=== PATIENT | male | born 1965 | race Caucasian/White ===

== ENCOUNTER 2019-01-22 15:17 | Inpatient (IN) ==
[2019-01-22 15:51] LABS: Basophils # (auto) 0.01 K/uL (0-0.2); Basophils % (auto) 0.1 %; Eosinophils # (auto) 0.09 K/uL (0-0.5); Eosinophils % (auto) 0.9 %; Hematocrit (blood only) 41.4 % (42-52); Hemoglobin 13.9 g/dL (14.0-18.0); Immature Granulocytes # (auto) 0.03 K/uL (0.00-0.02); Immature Granulocytes % (auto) 0.3 %; Lymphocytes # (auto) 0.54 K/uL (1.2-3.4); Lymphocytes % (auto) 5.7 %; Mean Corpuscular Hgb Conc 33.6 g/dL (32-36); Mean Platelet Volume 10.5 fL (7.4-10.4); Monocytes # (auto) 0.18 K/uL (0.11-0.59); Monocytes % (auto) 1.9 %; Neutrophils # (auto) 8.66 K/uL (1.4-6.5); Neutrophils % (auto) 91.1 %; Platelet Count 227 K/uL (130-400); RDW Coefficient of Variation 13.3 % (11.5-14.5); RDW Standard Deviation 42.8 fL (36.4-46.3); Red Blood Count 4.65 M/uL (4.7-6.1); White Blood Count 9.51 K/uL (4.8-10.8)
--- NOTE | 2019-01-22 15:57 | XRay Report ---
XR chest 1V portable CLINICAL HISTORY: 53 years-old Male presenting with sob. TECHNIQUE: Portable upright AP view of the chest was obtained. COMPARISON: 04/30/2018. FINDINGS: Left subclavian implanted cardiac defibrillator with lead to the right atrium, right ventricular apex , and coronary sinus. This represents a change from prior. Cardiac silhouette moderately enlarged. Pu lmonary vasculature appear normal No focal opacity. No large effusion or pneumothorax. Osseous struct ures normal. Upper abdomen normal. IMPRESSION: 1. Cardiomegaly. No other convincing evidence of acute cardiopulmonary disease. Electronically signed by: Darion Will M.D. 01/22/2019 3:55 PM
[2019-01-22 16:04] LABS: Albumin Level 3.2 gm/dl (3.4-5.0); BUN Creatinine Ratio 13.5 (10-20); Calcium 8.9 mg/dl (8.5-10.1); Creatinine Clr Calc Pharmacy 73.3 ml/min; Est GFR (African American) 54.9; Est GFR (Non-African American) 47.4; Magnesium 1.9 mg/dl (1.8-2.4); Potassium 3.5 mmol/L (3.5-5.1)
[2019-01-22 16:17] LABS: Albumin Globulin Ratio 0.9 (0.9-2); Bilirubin,Total 0.8 mg/dl (0.2-1); Globulin 3.4 gm/dl (2.5-4.0); Total Protein 6.6 gm/dl (6.4-8.2); Troponin I 0.047 ng/ml (0-0.045)
[2019-01-22] MEDS ORDERED: BUMETANIDE 1 MG TAB PO ONE (17:40)
[2019-01-22] MEDS ORDERED: POTASSIUM CHLORIDE 20 MEQ TABCR PO STA (17:40)
[2019-01-22 19:18] LABS: Appearance Urine Clear (Clear); Bilirubin Urine Negative (Negative); Blood Urine Negative (Negative); Color Urine Yellow; Glucose Urine UA Negative (Negative); Ketones Urine Negative (Negative); Leukocyte Esterase Urine Negative (Negative); Nitrite Urine Negative (Negative); Protein Urine Negative (Negative); Specific Gravity Urine 1.015 (1.000-1.030); Urobilinogen Urine Negative (Negative)
--- NOTE | 2019-01-22 20:47 | History & Physical Report ---
Date of Service January 22, 2019 Assessment & Plan (1) Heart failure: Admit to medicine on telemetry -Vital signs every 4 hours -Consult cardiology -Transthoracic echo -Repeat BNP -Strict in and out -Daily weight -Continue home medicine: Carvedilol 6.25 mg p.o. twice daily,potassium chloride 40 MEQ p.o. nightly, sotalol 120 mg p.o. twice daily. -While in the hospital patient is started on furosemide 40 mg IV daily, aspirin 81 mg p.o. daily, increased dose to achieve better urinary output if necessary. -We will met the need to 1 mg p.o. twice daily on hold while patient on furosemide. -Daily electrolytes and replenish potassium and magnesium as necessary ,keep potassium above 4 and magnesium above 2. -DVT prophylaxis: Patient is started on heparin 5000 units 8 hours -Heart healthy diet low-sodium. Free fluid restriction to 1500 daily. -Full code Present on Admission?: Yes (2) Weakness: As the above-generalized weakness appears due to acute exacerbation of CHF. Present on Admission?: Yes (3) Edema of both lower extremities: As the above. Present on Admission?: Yes (4) Elevated troponin: Troponin elevated most likely due to cardiac strain and acute kidney insufficiency. -Trend down troponins every 8 hours to be the EKGs for comparison. -Patient is chest pain-free. Present on Admission?: Yes (5) CHANDRA (acute kidney injury): Patient patient baseline creatinine is 1.3. 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 The office was not open today. Patient states that he felt weak today and that he almost passed out. He feels that he gained several pounds during the past week and that his lower extremities are edematous. Patient denies any chest pain shortness of breath abdominal pain frequency urgency hemoptysis nausea vomiting and or any other issue. Labs were reviewed shows white blood cell count of 9.51, hemoglobin of 13.9,hematocrit 41.4,platelet 227, PT 10.7, INR 1, sodium 143, potassium 3.5, chloride 104, BUN 22, creatinine 1.65, GFR 73.3, BUN/crea tinine ratio 13.5, troponin 0.0 47, BNP 3255. Chest x-rays are significant for cardiomegaly. No other convincing evidence of acute cardiopulmonary disease. Patient was admitted to medicine on telemetry for elevated BNP as acute CHF exacerbation.EKG:Atrial-sensed ventricular-paced rhythm with some [place] conduction Abnormal ECG When compared with ECG of 30-APR-2018. ER physician did call technical sales representative for the pacemaker interrogation and result is pending. Allergies Allergy/AdvReac Type Severity Reaction Status Date / Time ciprofloxacin [From Cipro] Allergy Rash Verified 01/22/19 16:19 Home Medications Home Medications Medication Instructions Recorded Confirmed Type aspirin [Aspir-81] 81 mg PO DAILY 04/30/18 01/22/19 History atorvastatin [Lipitor] 40 mg PO QPM 04/30/18 01/22/19 History bumetanide 1 mg PO BID 04/30/18 01/22/19 History colchicine 1 - 2 tabs PO DAILY PRN MDD 2 TABS 04/30/18 01/22/19 History multivitamin [Multiple Vitamins] 1 tab PO DAILY 04/30/18 01/22/19 History potassium chloride [Klor-Con M20] 40 meq PO QAM 04/30/18 01/22/19 History prednisone 10 - 40 mg PO DAILY PRN MDD 40MG 04/30/18 01/22/19 History allopurinol 100 mg PO DAILY 01/22/19 01/22/19 History ascorbic acid (vitamin C) [Vitamin 2 g PO BID 01/22/19 01/22/19 History C] carvedilol 6.25 mg PO BID PRN 01/22/19 01/22/19 History hydrocodone-acetaminophen 1 tab PO TID PRN 01/22/19 01/22/19 History magnesium L-lactate 84 mg PO QAM 01/22/19 01/22/19 History potassium chloride 20 meq PO QPM 01/22/19 01/22/19 History sotalol 120 mg PO BID 01/22/19 01/22/19 History Past Med/Surg History Medical History Family history of internal cardiac defibrillator History of diverticulitis Hx of chronic heart failure Hx of gout Family History Other No significant family history Social History Preferred Language: Citizen Of [place] marital status: Current Living Situation: Significant Other Feels Safe at Home: Yes Smoking Status: Never smoker Review of Systems Review of Systems: All systems reviewed & are unremarkable except as noted in HPI & below Physical Exam Constitutional: WD/WN, vitals as above well developed and + obese Eyes: PERRL, conjunctivae normal, anicteric sclerae ENMT: external ear and nose normal, oropharynx normal Neck: trachea midline, no thyromegaly Respiratory: normal respiratory effort, lungs clear to auscultation Cardiovascular: Rate/Rhythm: regular rate Heart Sounds: normal S1, normal S2 and + murmur Palpation: + palpable S3 Chest (Breasts): normal inspection/palpation of breasts Gastrointestinal (Abdomen): normal bowel sounds, soft, nontender, no hepatosplenomegaly Musculoskeletal: no cyanosis or clubbing, extremities motor strength 5/5 Skin: no rashes, warm and dry Neurologic: patellar DTR's 2+ bilat, sensation intact Psychiatric: A+Ox3, euthymic affect Genitourinary: no testicular masses, no penis abnormality Lymphatic: no cervical or axillary lymphadenopathy Results & Data Vital Signs (Past 12 Hours) Vital Signs Temp Pulse Pulse Resp BP BP Pulse Ox 01/22/19 20:16 75 16 137/90 95 01/22/19 18:37 88 18 144/111 H 97 01/22/19 17:33 84 18 112/81 97 01/22/19 17:30 83 16 112/81 96 01/22/19 17:20 90 24 95 01/22/19 17:10 87 22 96 01/22/19 17:00 91 H 20 94 01/22/19 16:50 89 21 95 01/22/19 16:40 90 22 95 01/22/19 16:30 87 12 148/101 H 95 01/22/19 16:20 89 16 95 01/22/19 16:11 88 12 119/100 89 L 01/22/19 16:10 89 12 95 01/22/19 16:00 93 H 17 94 01/22/19 15:50 96 H 21 95 01/22/19 15:47 92 H 20 94 01/22/19 15:41 91 H 17 116/68 95 01/22/19 15:30 92 H 21 116/68 94 01/22/19 15:20 36.6 C 100 H 16 110/77 92 Code Status & VTE Plan Code Status Full code VTE Prophylaxis Plan VTE Prophylaxis will be ordered: Yes PG Care Time/CCT Total # of Minutes Spent Total Time Spent with Patient: Total time spent is greater than 50% in coordination of care (as documented) at patient's floor/unit and/or counseling patient:
[2019-01-22] MEDS ORDERED: ACETAMINOPHEN 325 MG TAB PO PRN (22:09)
[2019-01-22] MEDS ORDERED: POTASSIUM CHLORIDE 20 MEQ TABCR PO SCH (22:09)
[2019-01-22] MEDS ORDERED: predniSONE 10 MG TABLET PO PRN (22:09)
[2019-01-22] MEDS ORDERED: ATORVASTATIN 40 MG TAB PO SCH (22:09)
[2019-01-22] MEDS ORDERED: POLYETHYLENE (MIRALAX) 17 GM PACK PO PRN (22:09)
[2019-01-22] MEDS ORDERED: ZOLPIDEM TARTRATE 5 MG TAB PO PRN (22:09)
[2019-01-22] MEDS ORDERED: SODIUM CHLORIDE 0.9% 1000ML 1,000 ML IV SCH (22:09)
--- NOTE | 2019-01-22 22:11 | Emergency Department Note ---
Entered by Pete Deleon acting as a scribe for Natalie Becerra DO History of Present Illness General Chief complaint: Hypotension Stated complaint: LOW BP, GOUT SYMPTOMS Time Seen by Provider: 01/22/19 15:24 Source: patient History of Present Illness Onset (ago): hour(s) (24) Location: chest Severity: similar to prior episodes Pain Consistency: + other (episode) Maximum Pain Intensity: 0 Quality: + other (subjective hypotension ) Associated symptoms: + diaphoresis and + other (+ear ringing; +feeling clammy; +dizziness; +tiredness; +heavy/puffy; -weight change); no shortness of breath The patient is a 53 year old male who presents to the Emergency Room with complaints of a recurrent episode of subjective hypotension over the last 24 hours. The patient reports symptoms of ears ringing, feeling clammy, diaphoresis, and dizziness which made the patient think he was having another episode of hypotension. The patient reports he first felt symptoms last night following dinner. The patient reports that after dinner, he crashed and felt very tired, similar to his previous low blood pressure symptoms. The patient states that he has not check his blood pressure, but just notes symptoms have felt like previous bouts with low blood pressure. The patient reports he was outside yesterday fishing with his kids, but he notes he was not feeling well doing so. He states that he did not exert himself fishing as much as he normally would. The patient reports feeling heavy and puffy but denies recent weight change or breathing issues. The patient denies recent medications changes or missing dosages. The patient notes history of CHF, pacer defibrillation, and gout "all over". The patient reports his last bout of CHF was about a month ago. The patient notes he has been taking prednisone daily for gout for years. The patient also reports his inspector publications is Bakari Boswell-Pee Jones. The patient states his last echo was done by Dr. Boswell in September. The patient notes he is from [place], and that him and his are visiting family in [place], [place]. Home Medications Home Medications Medication Instructions Recorded Confirmed Type aspirin [Aspir-81] 81 mg PO DAILY 04/30/18 01/22/19 History atorvastatin [Lipitor] 40 mg PO QPM 04/30/18 01/22/19 History bumetanide 1 mg PO BID 04/30/18 01/22/19 History colchicine 1 - 2 tabs PO DAILY PRN MDD 2 TABS 04/30/18 01/22/19 History multivitamin [Multiple Vitamins] 1 tab PO DAILY 04/30/18 01/22/19 History potassium chloride [Klor-Con M20] 40 meq PO QAM 04/30/18 01/22/19 History prednisone 10 - 40 mg PO DAILY PRN MDD 40MG 04/30/18 01/22/19 History allopurinol 100 mg PO DAILY 01/22/19 01/22/19 History ascorbic acid (vitamin C) [Vitamin 2 g PO BID 01/22/19 01/22/19 History C] carvedilol 6.25 mg PO BID PRN 01/22/19 01/22/19 History hydrocodone-acetaminophen 1 tab PO TID PRN 01/22/19 01/22/19 History magnesium L-lactate 84 mg PO QAM 01/22/19 01/22/19 History potassium chloride 20 meq PO QPM 01/22/19 01/22/19 History sotalol 120 mg PO BID 01/22/19 01/22/19 History Allergies Allergy/AdvReac Type Severity Reaction Status Date / Time ciprofloxacin [From Cipro] Allergy Rash Verified 01/22/19 16:19 Past Med/Surg History Medical History Family history of internal cardiac defibrillator History of diverticulitis Hx of chronic heart failure Hx of gout Family History Other No significant family history Social History Preferred Language: Ivorian marital status: Current Living Situation: Significant Other Feels Safe at Home: Yes Smoking Status: Never smoker Review of Systems See HPI for pertinent positives & negatives. and A total of 10 systems reviewed and were otherwise negative Physical Exam Vital Signs Vital Signs - 24 hr 01/22/19 15:20 01/22/19 15:30 01/22/19 15:41 Temperature 36.6 C Temperature Source Oral Sepsis Recent Fever Within 48 Hours No Sepsis Action Taken by Nursing No Action Required Pulse Rate 100 H 92 H Pulse Rate [Apical] 91 H Pulse Rate from SpO2 Sensor 92 H Pulse Rhythm Regular Pulse Strength Normal Respiratory Rate 16 21 17 Respiratory Effort / Characteristics Non-Labored Non-Labored Respiratory Depth Normal Normal Respiratory Pattern Regular Blood Pressure 110/77 116/68 Blood Pressure [Right Arm] 116/68 Blood Pressure Mean 88 84 Blood Pressure Mean [Right Arm] 84 Blood Pressure Position Sitting Blood Pressure Position [Right Arm] Sitting Pulse Oximetry 92 94 95 Oxygen Delivery Method Room Air Room Air Oxygen Flow Rate 0 01/22/19 15:47 01/22/19 15:50 01/22/19 16:00 Temperature Temperature Source Sepsis Recent Fever Within 48 Hours Sepsis Action Taken by Nursing Pulse Rate 92 H 96 H 93 H Pulse Rate [Apical] Pulse Rate from SpO2 Sensor 92 H 96 H 92 H Pulse Rhythm Pulse Strength Respiratory Rate 20 21 17 Respiratory Effort / Characteristics Respiratory Depth Respiratory Pattern Blood Pressure Blood Pressure [Right Arm] Blood Pressure Mean Blood Pressure Mean [Right Arm] Blood Pressure Position Blood Pressure Position [Right Arm] Pulse Oximetry 94 95 94 Oxygen Delivery Method Oxygen Flow Rate 01/22/19 16:10 01/22/19 16:11 01/22/19 16:20 Temperature Temperature Source Sepsis Recent Fever Within 48 Hours Sepsis Action Taken by Nursing Pulse Rate 89 88 89 Pulse Rate [Apical] Pulse Rate from SpO2 Sensor 79 89 87 Pulse Rhythm Pulse Strength Respiratory Rate 12 12 16 Respiratory Effort / Characteristics Respiratory Depth Respiratory Pattern Blood Pressure 119/100 Blood Pressure [Right Arm] Blood Pressure Mean 106 Blood Pressure Mean [Right Arm] Blood Pressure Position Blood Pressure Position [Right Arm] Pulse Oximetry 95 89 L 95 Oxygen Delivery Method Oxygen Flow Rate 01/22/19 16:30 01/22/19 16:40 01/22/19 16:50 Temperature Temperature Source Sepsis Recent Fever Within 48 Hours Sepsis Action Taken by Nursing Pulse Rate 87 90 89 Pulse Rate [Apical] Pulse Rate from SpO2 Sensor 83 90 81 Pulse Rhythm Pulse Strength Respiratory Rate 12 22 21 Respiratory Effort / Characteristics Respiratory Depth Respiratory Pattern Blood Pressure 148/101 H Blood Pressure [Right Arm] Blood Pressure Mean 116 Blood Pressure Mean [Right Arm] Blood Pressure Position Blood Pressure Position [Right Arm] Pulse Oximetry 95 95 95 Oxygen Delivery Method Oxygen Flow Rate 01/22/19 17:00 01/22/19 17:10 01/22/19 17:20 Temperature Temperature Source Sepsis Recent Fever Within 48 Hours Sepsis Action Taken by Nursing Pulse Rate 91 H 87 90 Pulse Rate [Apical] Pulse Rate from SpO2 Sensor 90 65 84 Pulse Rhythm Pulse Strength Respiratory Rate 20 22 24 Respiratory Effort / Characteristics Respiratory Depth Respiratory Pattern Blood Pressure Blood Pressure [Right Arm] Blood Pressure Mean Blood Pressure Mean [Right Arm] Blood Pressure Position Blood Pressure Position [Right Arm] Pulse Oximetry 94 96 95 Oxygen Delivery Method Oxygen Flow Rate 01/22/19 17:30 01/22/19 17:33 01/22/19 18:37 Temperature Temperature Source Sepsis Recent Fever Within 48 Hours Sepsis Action Taken by Nursing Pulse Rate 83 Pulse Rate [Apical] 84 88 Pulse Rate from SpO2 Sensor 83 Pulse Rhythm Pulse Strength Respiratory Rate 16 18 18 Respiratory Effort / Characteristics Respiratory Depth Respiratory Pattern Blood Pressure 112/81 Blood Pressure [Right Arm] 112/81 144/111 H Blood Pressure Mean 91 Blood Pressure Mean [Right Arm] 91 122 Blood Pressure Position Blood Pressure Position [Right Arm] Pulse Oximetry 96 97 97 Oxygen Delivery Method Room Air Room Air Oxygen Flow Rate 01/22/19 20:16 Temperature Temperature Source Sepsis Recent Fever Within 48 Hours Sepsis Action Taken by Nursing Pulse Rate Pulse Rate [Apical] 75 Pulse Rate from SpO2 Sensor Pulse Rhythm Pulse Strength Respiratory Rate 16 Respiratory Effort / Characteristics Non-Labored Respiratory Depth Normal Respiratory Pattern Regular Blood Pressure Blood Pressure [Right Arm] 137/90 Blood Pressure Mean Blood Pressure Mean [Right Arm] 105 Blood Pressure Position Blood Pressure Position [Right Arm] Lying Pulse Oximetry 95 Oxygen Delivery Method Room Air Oxygen Flow Rate GENERAL: Obese, alert, well appearing, well nourished, no distress, non-toxic EYE EXAM: normal conjunctiva, PERRL and EOM's grossly intact OROPHARYNX: no exudate, no erythema, lips, buccal mucosa, and tongue normal and mucous membranes are moist NECK: supple, no nuchal rigidity, no adenopathy, non-tender LUNGS: Clear to auscultation. Normal chest wall mechanics, no w/r/r HEART: no murmurs, S1 normal and S2 normal ABDOMEN: abdomen soft, non-tender, normo-active bowel sounds, no masses, no rebound or guarding. BACK: Back is symmetrical on inspection and there is no deformity, no midline tenderness, no CVA tenderness. SKIN: no rashes and no bruising UPPER EXTREMITIES: upper extremities are grossly normal. FROM, nml pulses b/l. LOWER EXTREMITIES: 1+ edema bilaterally. FROM, nml pulses b/l. NEURO EXAM: Normal sensorium, cranial nerves II-XII grossly intact, normal speech, no gross weakness of arms, no gross weakness of legs. Course 1531: Past medical records reviewed. The patient was evaluated in room A11B. A complete history and physical exam was performed. 1703: I reevaluated and updated the patient on his case. 174: I [facility] the [facility] Dr. Alvarado will further evaluate the patient. Consultations Consultation #1: I discussed the patient's [facility]. Dr. Alvarado will further evaluate the patient. Time: 17:41 Administered Medications Discontinued Medications Bumetanide (Bumex) 1 mg PO NOW ONE Stop: 01/22/19 17:41 Last Admin: 01/22/19 17:46 Dose: 1 mg Documented by: [id number] Potassium Chloride (Klor-Con M20) 40 meq PO NOW STA Stop: 01/22/19 17:41 Last Admin: 01/22/19 17:46 Dose: 40 meq Documented by: [id number] Medical Decision Making Differential Diagnosis Differential diagnosis: Etiologies such as metabolic, infection, hypo/hyperglycemia, electrolyte abnormalities, cardiac sources, intracerebral event, toxicologic, neurologic, as well as others were entertained. Medical Records Attestation: I reviewed the patient's medical records. Home Medications Current Medication List: was personally reviewed by me Laboratory Data Attestation: I reviewed the patient's lab results. Result diagrams: 01/22/19 15:38 01/22/19 15:38 Lab Results 01/22/19 01/22/19 01/22/19 Range/Units 15:38 15:38 15:38 WBC 9.51 (4.8-10.8) K/uL RBC 4.65 L (4.7-6.1) M/uL Hgb 13.9 L (14.0-18.0) g/dL Hct 41.4 L (42-52) % MCV 89.0 (80-100) fL MCH 29.9 (25-34) pg MCHC 33.6 (32-36) g/dL RDW Std Deviation 42.8 (36.4-46.3) fL RDW Coeff of Juan 13.3 (11.5-14.5) % Plt Count 227 (130-400) K/uL MPV 10.5 H (7.4-10.4) fL Immature Gran % (Auto) 0.3 % Neut % (Auto) 91.1 % Lymph % (Auto) 5.7 % Arroyo % (Auto) 1.9 % Eos % (Auto) 0.9 % Baso % (Auto) 0.1 % Immature Gran # (Auto) 0.03 H (0.00-0.02) K/uL Neut # (Auto) 8.66 H (1.4-6.5) K/uL Lymph # (Auto) 0.54 L (1.2-3.4) K/uL Arroyo # (Auto) 0.18 (0.11-0.59) K/uL Eos # (Auto) 0.09 (0-0.5) K/uL Baso # (Auto) 0.01 (0-0.2) K/uL Sodium 143 (136-145) mmol/L Potassium 3.5 (3.5-5.1) mmol/L Chloride 104 (98-107) mmol/L Carbon Dioxide 28 (21-32) mmol/L Anion Gap 11.0 (3-11) BUN 22 H (7-18) mg/dl Creatinine 1.65 H (0.6-1.4) mg/dl Est Cr Clr Drug Dosing 73.3 ml/min Est GFR ( Amer) 54.9 Est GFR (Non-Af Amer) 47.4 BUN/Creatinine Ratio 13.5 (10-20) Glucose 180 H (70-99) mg/dl Uric Acid 9.9 H (2.6-7.2) mg/dl Calcium 8.9 (8.5-10.1) mg/dl Magnesium 1.9 (1.8-2.4) mg/dl Total Bilirubin 0.8 (0.2-1) mg/dl AST 20 (15-37) U/L ALT 39 (12-78) U/L Alkaline Phosphatase 68 (45-117) U/L Troponin I 0.047 H* (0-0.045) ng/ml NT-Pro-B Natriuret Pep 3255 H (0-900) pg/ml Total Protein 6.6 (6.4-8.2) gm/dl Albumin 3.2 L (3.4-5.0) gm/dl Globulin 3.4 (2.5-4.0) gm/dl Albumin/Globulin Ratio 0.9 (0.9-2) Lipase 299 (73-393) U/L TSH 2.240 (0.300-4.500) uIu/ml Urine Color Urine Appearance (Clear) Urine pH (4.5-7.5) Ur Specific Stephan (1.000-1.030) Urine Protein (Negative) Urine Glucose (UA) (Negative) Urine Ketones (Negative) Urine Blood (Negative) Urine Nitrite (Negative) Urine Bilirubin (Negative) Urine Urobilinogen (Negative) Ur Leukocyte Esterase (Negative) 01/22/19 01/22/19 Range/Units 19:07 20:33 WBC (4.8-10.8) K/uL RBC (4.7-6.1) M/uL Hgb (14.0-18.0) g/dL Hct (42-52) % MCV (80-100) fL MCH (25-34) pg MCHC (32-36) g/dL RDW Std Deviation (36.4-46.3) fL RDW Coeff of Juan (11.5-14.5) % Plt Count (130-400) K/uL MPV (7.4-10.4) fL Immature Gran % (Auto) % Neut % (Auto) % Lymph % (Auto) % Arroyo % (Auto) % Eos % (Auto) % Baso % (Auto) % Immature Gran # (Auto) (0.00-0.02) K/uL Neut # (Auto) (1.4-6.5) K/uL Lymph # (Auto) (1.2-3.4) K/uL Arroyo # (Auto) (0.11-0.59) K/uL Eos # (Auto) (0-0.5) K/uL Baso # (Auto) (0-0.2) K/uL Sodium (136-145) mmol/L Potassium (3.5-5.1) mmol/L Chloride (98-107) mmol/L Carbon Dioxide (21-32) mmol/L Anion Gap (3-11) BUN (7-18) mg/dl Creatinine (0.6-1.4) mg/dl Est Cr Clr Drug Dosing ml/min Est GFR ( Amer) Est GFR (Non-Af Amer) BUN/Creatinine Ratio (10-20) Glucose (70-99) mg/dl Uric Acid (2.6-7.2) mg/dl Calcium (8.5-10.1) mg/dl Magnesium (1.8-2.4) mg/dl Total Bilirubin (0.2-1) mg/dl AST (15-37) U/L ALT (12-78) U/L Alkaline Phosphatase (45-117) U/L Troponin I < 0.015 (0-0.045) ng/ml NT-Pro-B Natriuret Pep (0-900) pg/ml Total Protein (6.4-8.2) gm/dl Albumin (3.4-5.0) gm/dl Globulin (2.5-4.0) gm/dl Albumin/Globulin Ratio (0.9-2) Lipase (73-393) U/L TSH (0.300-4.500) uIu/ml Urine Color Yellow Urine Appearance Clear (Clear) Urine pH 7.0 (4.5-7.5) Ur Specific Stephan 1.015 (1.000-1.030) Urine Protein Negative (Negative) Urine Glucose (UA) Negative (Negative) Urine Ketones Negative (Negative) Urine Blood Negative (Negative) Urine Nitrite Negative (Negative) Urine Bilirubin Negative (Negative) Urine Urobilinogen Negative (Negative) Ur Leukocyte Esterase Negative (Negative) Imaging Data Radiologist's Impression: Radiology results as stated below per my review and the radiologist's interpretation: XR chest 1V portable CLINICAL HISTORY: 53 years-old Male presenting with sob. TECHNIQUE: Portable upright AP view of the chest was obtained. COMPARISON: 04/30/2018. FINDINGS: Left subclavian implanted cardiac defibrillator with lead to the right atrium, right ventricular apex, and coronary sinus. This represents a change from prior. Cardiac silhouette moderately enlarged. Pulmonary vasculature appear normal No focal opacity. No large effusion or pneumothorax. Osseous structures normal. Upper abdomen normal. IMPRESSION: 1. Cardiomegaly. No other convincing evidence of acute cardiopulmonary disease. Electronically signed by: Darion Will M.D. 01/22/2019 3:55 PM ECG Data Attestation: I personally reviewed and interpreted this ECG as follows: Indication: weakness Rate (beats per minute): 94 Findings: + other (left axis prolonged intervals consistent with indwelling device ) and + paced rhythm; no acute ischemic change Blood Pressure Blood Pressure Findings: Normal blood pressure MDM Narrative Patient presenting here with complaints of [id number] symptoms along with shortness of breath. Patient with extensive cardiac history, follows with cardiology in [place]. Patient's by V pacemaker/AICD appears to be working normally. This was interrogated at bedside and results sent to [facility] although no reports at the time of this dictation had been received yet. Patient admits to increased lower extremity edema and shortness of breath, however no recent weight gain, and he has not missed any doses of his daily Bumex. Patient does have prior significant history of congestive heart failure. Patient denies any other recent medication changes or noncompliance. Patient's chest x-ray reassuring. Patient's vital signs here are reassuring. Pacemaker appears to be firing appropriately on telemetry with an occasional PVC. Discussed with patient all results and my concern given his tenuous nature. Patient with mildly increased creatinine tonight compared to his prior baseline of 1.3-1.4 per his report. Patient's uric acid elevated although he has had ongoing issues with gout. Patient not hypoxic in the emergency department, vital signs otherwise stable throughout. Case discussed with hospitalist for additional evaluation and management. Patient was given 1 additional dose of Bumex here as well as some additional oral potassium supplementation. Patient's troponin is elevated despite no acute EKG changes or chest pain. It is unclear of the significance given he could likely have a chronically elevated troponin due to his cardiomyopathy. This may also be demand ischemia from congestive heart failure. Prior troponins here were negative, although no other more recent troponin levels could be obtained from an outside facility. Patient and family aware of all results and were in agreement with plan. Impression & Plan Weakness, Dizziness, SOB (shortness of breath), Edema of both lower extremities, Elevated troponin, CHANDRA (acute kidney injury), Cardiomyopathy Discharge Plan Visit Data *Final* Discharge Date/Time: 01/22/19 21:08 Chief Complaint: Hypotension Stated Complaint: LOW BP, GOUT SYMPTOMS ED Provider: Natalie Becerra Discharge Problem: Weakness, Dizziness, SOB (shortness of breath), Edema of both lower extremities, Elevated troponin, CHANDRA (acute kidney injury), Cardiomyopathy Patient Disposition: Admitted As Inpatient Discharge Instructions Interventions: ED Discharge Assessment Last Done: 01/22/19 21:08 Discharge Problem: Cardiomyopathy Qualifiers: Cardiomyopathy type: unspecified Qualified Code(s): I42.9 - Cardiomyopathy, unspecified The scribe's documentation has been prepared under my direction and personally reviewed by me in its entirety. I confirm that the note above accurately reflects all work, treatment, procedures, and medical decision making performed by me.
[2019-01-22] MEDS: ASCORBIC ACID 500 MG TAB PO SCH (23:30)
[2019-01-22] MEDS: SOTALOL HCL 80 MG TAB PO SCH (23:32)
[2019-01-23] MEDS ORDERED: HEPARIN SOD 5,000 UNIT/0.5 ML VIAL SQ ONE
[2019-01-23] MEDS: HYDROCORTISONE SOD 100 MG in SYRINGE 0 ML IV SCH ×3 (00:02→16:40)
[2019-01-23] MEDS ORDERED: AMIODARONE IV BOLUS / DRIP IV STA (01:52)
[2019-01-23] MEDS ORDERED: AMIODARONE / D5W 150 MG/100 ML BAG IV STA (01:52)
[2019-01-23] MEDS ORDERED: AMIODARONE 150MG / 100ML D5W IV ONE (02:15)
[2019-01-23] MEDS ORDERED: AMIODARONE 360MG / 200ML D5W IV ONE (02:15)
[2019-01-23] MEDS ORDERED: AMIODARONE / D5W 360 MG/200 ML BAG IV SCH ×2 (02:15→08:15)
[2019-01-23 02:19] LABS: Eosinophils # (auto) 0.01 K/uL (0-0.5); Eosinophils % (auto) 0.1 %; Hematocrit (blood only) 39.2 % (42-52); Hemoglobin 13.2 g/dL (14.0-18.0); Immature Granulocytes # (auto) 0.02 K/uL (0.00-0.02); Immature Granulocytes % (auto) 0.2 %; Lymphocytes # (auto) 0.82 K/uL (1.2-3.4); Mean Corpuscular Volume 88.1 fL (80-100); Mean Platelet Volume 10.2 fL (7.4-10.4); Monocytes # (auto) 0.43 K/uL (0.11-0.59); Monocytes % (auto) 5.2 %; Neutrophils # (auto) 6.96 K/uL (1.4-6.5); Neutrophils % (auto) 84.5 %; Platelet Count 207 K/uL (130-400); RDW Coefficient of Variation 13.2 % (11.5-14.5); RDW Standard Deviation 42.5 fL (36.4-46.3); Red Blood Count 4.45 M/uL (4.7-6.1); White Blood Count 8.24 K/uL (4.8-10.8)
--- NOTE | 2019-01-23 02:34 | Critical Care Consultation ---
Date of Consultation January 23, 2019 Assessment & Plan (1) Admitted to intensive care unit: Reason Critically Ill: 53-year-old male with concerns for to ventricular dysrhythmia requiring need for aggressive antirheumatics and close monitoring for cardiovascular collapse and need for emergent intervention. NEURO - * [facility] ICU: NEGATIVE CARDIAC/VASCULAR - * Ventricular dysrhythmia: * Previous pacemaker/defibrillator placement secondary to cardiomyopathy and ventricular dysrhythmias. * Worsening dysrhythmia noted upstairs with symptomatic response. * Currently on amiodarone drip. * Patient fluctuates between sinus rhythm and paced rhythm. * Question sensitivity of pacemaker and if his ectopic beats lead to pacemaker override resulting in wide-complex ventricular paced rhythm. * Monitor closely for decompensation. * Consult cardiology. * Maximize electrolytes. * Monitor on telemetry. RESPIRATORY - * No history of respiratory disease. * Supplemental O2 as needed. GI/NUTRITION - * Heart healthy diet * Prophylaxis: Not necessary at this point RENAL/LYTES - * CHANDRA: * Monitor for improvement. * Tolerating p.o. - * No concerns at this time. * Strict I&Os. ENDO - * No history of diabetes or thyroid disease. * BSGs per unit protocol. ISS --> gtt per unit policy. HEME - * Stable H&H. ID - * No concerns for infectious contribution at this point. LINES/IV ACCESS - * PIVs x2 DVT PROPHYLAXIS - * Heparin * SCDs I have personally spent 35 minutes of critical care time in the direct ma nagement of this patient. This is a life/limb threatening event. This includes time spent evaluating patient, direct bedside care, chart review, placing orders, interpretation of diagnostic studies, discussion with consultants, patient, and family members, as well as other required patient management activities. This time is exclusive of all separately billable procedures, and teaching time and separate from and in addition to any other critical care service time. Thank you for allowing us to participate in the care of this patient. Please refer to my attending physician's documentation for any further recommendations. (2) Ventricular dysrhythmia: (3) Cardiomyopathy: (4) Elevated troponin: (5) CHANDRA (acute kidney injury): (6) Edema of both lower extremities: (7) Dizziness: (8) Weakness: Supervising Physician Co-Signing Physician Notes Patient seen and examined. EMR reviewed. Discussed with SINA and patient as well as bedside nurse this morning. Patient is a 53-year-old male with a history of cardiomyopathy status post pacemaker and AICD. He presented with palpitations. He was symptomatic on the floor with telemetry showing intermittent wide-complex tachycardia with concern for ventricular tachycardia. He was transferred to the ICU. He was initiated on amiodarone. He is Blayne taking sotalol and carvedilol. Cardiology consultation is pending. The patient has not had any persistent events and is currently awake alert and feels well. He is tolerating a diet. His pacemaker has yet to be interrogated. The patient does report that the symptoms coincide with having his pacemaker interrogated and the settings changed about 8 weeks ago. He is unclear what the change was. 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 Will discontinue amiodarone pending cardiology consultation and continue sotalol and carvedilol. Continue telemetry. I wonder if this may be a pacemaker mediated issue. Formal interrogation of his pacemaker is pending. He appears stable to return to the floor on telemetry. Will sign off once the patient leaves the intensive care unit. Feel free to contact us with additional critical care questions or concerns. History of Present Illness Attending Physician: Jonathan Alvarado MD History of Present Illness Patient is a 53-year-old male with a significant past medical history of ventricular dysrhythmias resulting in the need for pacemaker/defibrillator placement 6 years ago. He reports a history of cardiomyopathy as well as chronic heart failure. Patient was initially admitted to this facility with CHF exacerbation with associated dizziness and generalized weakness. He received IV Bumex in the emergency department as well as prednisone for presumed gout flare. While admitted to the medical telemetry floor, the patient was noted to have runs of wide-complex tachycardia with concern for V. tach or other pathology. Patient was symptomatic and noted to be diaphoretic as well as complained of dizziness. He reports that this felt similar to previous episodes of V. tach which did eventually resulted in necessity for pacemaker/defibrillator placement. He was evaluated by hospitalist staff and received IV magnesium as well as amiodarone bolus and drip. Upon arrival in the intensive care unit, the patient is awake, alert, and oriented. He reports feeling much better at this time. He denies any current headaches, dizziness, lightheadedness, chest pain, palpitations, pleuritic pain shortness of breath, nausea, vomiting, or abdominal pain. He reports no history of alcohol or illicit drug abuse. Allergies Allergy/AdvReac Type Severity Reaction Status Date / Time ciprofloxacin [From Cipro] Allergy Rash Verified 01/22/19 16:19 Home Medications Home Medications Medication Instructions Recorded Confirmed Type aspirin [Aspir-81] 81 mg PO DAILY 04/30/18 01/22/19 History atorvastatin [Lipitor] 40 mg PO QPM 04/30/18 01/22/19 History bumetanide 1 mg PO BID 04/30/18 01/22/19 History colchicine 1 - 2 tabs PO DAILY PRN MDD 2 TABS 04/30/18 01/22/19 History multivitamin [Multiple Vitamins] 1 tab PO DAILY 04/30/18 01/22/19 History potassium chloride [Klor-Con M20] 40 meq PO QAM 04/30/18 01/22/19 History prednisone 10 - 40 mg PO DAILY PRN MDD 40MG 04/30/18 01/22/19 History allopurinol 100 mg PO DAILY 01/22/19 01/22/19 History ascorbic acid (vitamin C) [Vitamin 2 g PO BID 01/22/19 01/22/19 History C] carvedilol 6.25 mg PO BID PRN 01/22/19 01/22/19 History hydrocodone-acetaminophen 1 tab PO TID PRN 01/22/19 01/22/19 History magnesium L-lactate 84 mg PO QAM 01/22/19 01/22/19 History potassium chloride 20 meq PO QPM 01/22/19 01/22/19 History sotalol 120 mg PO BID 01/22/19 01/22/19 History Patient History Medical History Family history of internal cardiac defibrillator History of diverticulitis Hx of chronic heart failure Hx of gout Family History Other No significant family history Social History Preferred Language: [place] Communication Ability: Effective 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 All else were negative. Physical Exam Physical Exam: VITAL SIGNS - Vital signs and nursing notes were reviewed. GENERAL - 53-year-old male appearing his stated age who is in no acute distress. Communicates well with provider and answers questions appropriately. HEAD - NC/AT. EYES - PERRL with EOMI bilaterally. Sclera anicteric. Palpebral conjunctiva pink and moist with no injection noted. EARS - No deformities of external structures noted on gross examination bilaterally. NOSE - Midline and without cyanosis. No epistaxis or purulent drainage noted. Septum midline without deviation or septal hematoma noted. MOUTH/OROPHARYNX - Without perioral cyanosis. Buccal mucosa pink and moist and without leukoplakia. Tongue midline with equal elevation of palate bilaterally. Good dentition noted. NECK - Neck with FROM. Supple to palpation. LUNGS - Chest wall symmetric without accessory muscle use, intercostals retractions, or central cyanosis. Normal vesicular breath sounds CTA B/L. No wheezes, rales, or rhonchi appreciated. CARDIAC - RRR with S1/S2. No murmur, rubs, or gallops appreciated. No reproducible tenderness to palpation appreciated over the anterior chest wall. ABDOMEN - Abdominal contour obese without pulsations or visible masses. BS normoactive all four quadrants. No tenderness, palpable masses, hepatosplenomegaly, or ascites noted. EXTREMITIES - No clubbing or peripheral cyanosis. Mild pretibial edema present. +3/5 radial and dorsalis pedis pulses palpated throughout. +5/5 strength noted in UE/LE bilaterally. NEUROLOGIC - Cranial nerves II through XII grossly intact. Sensory intact to light touch throughout. PSYCH - A&Ox3 and cooperates fully with examiner. Pt is very pleasant and interacts well with examiner. Results & Data Vital Signs (Past 12 Hours) Vital Signs Temp Pulse Pulse Resp BP BP Pulse Ox 01/23/19 01:40 111 H 20 152/91 H 93 01/22/19 22:14 36.8 C 97 H 20 137/85 97 01/22/19 22:13 36.8 C 97 H 20 137/85 97 01/22/19 21:48 36.7 C 95 H 20 138/94 94 01/22/19 21:08 90 16 123/80 96 01/22/19 20:16 75 16 137/90 95 01/22/19 18:37 88 18 144/111 H 97 01/22/19 17:33 84 18 112/81 97 01/22/19 17:30 83 16 112/81 96 01/22/19 17:20 90 24 95 01/22/19 17:10 87 22 96 01/22/19 17:00 91 H 20 94 01/22/19 16:50 89 21 95 01/22/19 16:40 90 22 95 01/22/19 16:30 87 12 148/101 H 95 01/22/19 16:20 89 16 95 01/22/19 16:11 88 12 119/100 89 L 01/22/19 16:10 89 12 95 01/22/19 16:00 93 H 17 94 01/22/19 15:50 96 H 21 95 01/22/19 15:47 92 H 20 94 01/22/19 15:41 91 H 17 116/68 95 01/22/19 15:30 92 H 21 116/68 94 01/22/19 15:20 36.6 C 100 H 16 110/77 92 PG Care Time/CCT Total # of Minutes Spent Total Time Spent with Patient: Total time spent is greater than 50% in coordination of care (as documented) at patient's floor/unit and/or counseling patient: Critical Care Time: Yes Total Critical Care Time: 35 (1) Cardiomyopathy Cardiomyopathy type: unspecified Qualified Code(s): I42.9 - Cardiomyopathy, unspecified
[2019-01-23 02:37] LABS: Alanine Aminotransferase 37 U/L (12-78); Albumin Level 3.1 gm/dl (3.4-5.0); Aspartate Aminotransferase 17 U/L (15-37); BUN Creatinine Ratio 16.9 (10-20); Blood Urea Nitrogen 24 mg/dl (7-18); Calcium 8.7 mg/dl (8.5-10.1); Carbon Dioxide 29 mmol/L (21-32); Chloride 105 mmol/L (98-107); Creatinine Clr Calc Pharmacy 84.3 ml/min; Est GFR (African American) 65.3; Est GFR (Non-African American) 56.3; Glucose 119 mg/dl (70-99); Magnesium 1.9 mg/dl (1.8-2.4); Sodium 143 mmol/L (136-145)
[2019-01-23 02:42] LABS: Albumin Globulin Ratio 0.9 (0.9-2); Alkaline Phosphatase 64 U/L (45-117); Bilirubin,Total 0.5 mg/dl (0.2-1); Globulin 3.6 gm/dl (2.5-4.0); Total Protein 6.7 gm/dl (6.4-8.2); Troponin I < 0.015 ng/ml (0-0.045)
[2019-01-23 03:06] LABS: Mean Corpuscular Hgb Conc 33.7 g/dL (32-36)
[2019-01-23] MEDS: MAGNESIUM SULFATE / D5W 1 GM/100 ML BAG IV SCH ×2 (03:14→03:55)
[2019-01-23 04:42] LABS: Hematocrit (blood only) 38.2 % (42-52); Hemoglobin 12.7 g/dL (14.0-18.0); Immature Granulocytes # (auto) 0.01 K/uL (0.00-0.02); Immature Granulocytes % (auto) 0.1 %; Lymphocytes # (auto) 0.59 K/uL (1.2-3.4); Lymphocytes % (auto) 7.9 %; Mean Corpuscular Hgb Conc 33.2 g/dL (32-36); Mean Corpuscular Volume 88.4 fL (80-100); Mean Platelet Volume 10.4 fL (7.4-10.4); Monocytes # (auto) 0.22 K/uL (0.11-0.59); Neutrophils # (auto) 6.61 K/uL (1.4-6.5); Platelet Count 203 K/uL (130-400); RDW Standard Deviation 42.1 fL (36.4-46.3); Red Blood Count 4.32 M/uL (4.7-6.1); White Blood Count 7.43 K/uL (4.8-10.8)
[2019-01-23 05:17] LABS: Magnesium 2.6 mg/dl (1.8-2.4); Phosphorus 1.7 mg/dl (2.5-4.9)
[2019-01-23] MEDS: HEPARIN SOD 5,000 UNIT/0.5 ML VIAL SQ SCH ×2 (05:28→08:11)
[2019-01-23] MEDS: ASCORBIC ACID 500 MG TAB PO SCH (08:03)
[2019-01-23] MEDS: SOTALOL HCL 80 MG TAB PO SCH (08:04)
[2019-01-23] MEDS: CARVEDILOL 6.25 MG TAB PO SCH ×2 (08:05)
[2019-01-23] MEDS ORDERED: PERFLUTREN LIPID MICROSPHERE (DEFINITY) IV ONE (08:06)
[2019-01-23] MEDS ORDERED: POTASSIUM CHLORIDE 20 MEQ TABCR PO SCH (09:00)
[2019-01-23] MEDS ORDERED: LACTATE PO SCH (09:00)
[2019-01-23] MEDS ORDERED: MULTIVITAMIN TAB PO SCH (09:00)
[2019-01-23] MEDS ORDERED: MAGNESIUM PO SCH (09:00)
[2019-01-23] MEDS ORDERED: FUROSEMIDE 40 MG in SYRINGE 0 ML IV SCH (09:00)
[2019-01-23] MEDS ORDERED: ALLOPURINOL 100 MG TAB PO SCH (09:00)
[2019-01-23] MEDS ORDERED: ASPIRIN 81 MG ECTAB PO SCH (09:00)
--- NOTE | 2019-01-23 10:48 | Family Medicine Progress Note ---
Date of Service January 23, 2019 Assessment & Plan (1) Heart failure: Pt is a 53yo M PMH cardiomyopathy, CH, gout, recent PM placement for ventricular dysrhythmia who was admitted on 01/22/19 with suspected CHF exacerbation. 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 CHF exacerbation -Monitor on telemetry with q4h vitals, strict I&Os/daily weights -Appreciate cardiology consult -Transthoracic echo revealed Severely dilated LV with EF 25-30, akinesis of inferiolateral wall, global hypokinesis -Continue home meds: Carvedilol 6.25 mg p.o. BID,potassium chloride 40 meq p.o. qHS, sotalol 120 mg p.o. twice daily -While in the hospital patient started on furosemide 40 mg IV daily, asa 81. Change dosing to achieve better urinary output prn. -Monitor and replete electrolytes, potassium above 4 and magnesium above 2. Ventricular dysrhythmia -Pt transferred out of ICU on 01/23 -Had received amio drip, now DCd -Awaiting pacemaker interrogation -Appreciate cardiology input Cardiomyopathy -Transthoracic echo revealed Severely dilated LV with EF 25-30, akinesis of inferiolateral wall, global hypokinesis -Continue home meds as well as asa, lasix initiated in hospital Elevated troponin -Troponin elevated most likely due to cardiac strain and acute kidney insufficiency. -Troponin levels have downtrended to insignificant levels x 3 CHANDRA -Patient's baseline creatinine is 1.3. Admit Cr 1.6. Downtrending, monitor. -Avoid nephrotoxic agents Gout -Pt completing steroid course. Symptoms improved. Monitor DVT prophylaxis: heparin sq 5000 tid FEN GI: Heart healthy diet low-sodium. Free fluid restriction to 1500 daily. Code: Full Dispo: med/surg. (2) Ventricular dysrhythmia: (3) Cardiomyopathy: (4) Elevated troponin: (5) CHANDRA (acute kidney injury): (6) Edema of both lower extremities: (7) Dizziness: (8) Weakness: (9) Gout: Supervising Physician Co-Signing Physician Notes ATTENDING NOTE I saw the patient with the resident physician and confirmed clay portions of history and physical exam. I agree with the impression and plan as detailed above. Upon examination this morning, the patient is resting comfortably in his ICU bed. He denies having any palpitations or related symptoms since his transfer to the ICU earlier this morning. Cardiology consultation, echocardiogram, and device interrogation are pending. He is hemodynamically stable and he can be transferred to the telemetry floor. Subjective Patient resting comfortably in bed this morning. Denies any further symptoms which he had overnight as result of ventricular dysrhythmia leading to ICU transfer. Feeling well, would like to go home ava. Review of Systems Review of Systems: All systems reviewed & are unremarkable except as noted in HPI & below Constitutional: + fatigue (poor sleep last night) and + malaise; no sweats Respiratory: no cough and no dyspnea Cardiovascular: + edema; no chest pain, no radiating jaw, neck or arm pain, no dyspnea on exertion, no lightheadedness and no syncope Gastrointestinal: no abdominal pain, no nausea and no vomiting Musculoskeletal: + joint pain (current gout flare) Integumentary: no non-healing lesions Neurologic: no gait abnormality, no unsteadiness, no generalized weakness and no lack of coordination Physical Exam Constitutional: WD/WN, vitals as above well developed and + obese Eyes: PERRL, conjunctivae normal, anicteric sclerae ENMT: external ear and nose normal, oropharynx normal Neck: trachea midline, no thyromegaly Respiratory: normal respiratory effort, lungs clear to auscultation Cardiovascular: Rate/Rhythm: regular rate Heart Sounds: normal S1, normal S2 and + murmur Extremities: + edema (trace, bilaterally to shins) Chest (Breasts): normal inspection/palpation of breasts Gastrointestinal (Abdomen): normal bowel sounds, soft, nontender, no hepatosplenomegaly Musculoskeletal: no cyanosis or clubbing, extremities motor strength 5/5 Skin: no rashes, warm and dry Neurologic: patellar DTR's 2+ bilat, sensation intact Psychiatric: A+Ox3, euthymic affect Lymphatic: no cervical or axillary lymphadenopathy Results & Data Vital Signs (Past 12 Hours) Vital Signs Temp Pulse Pulse Resp BP BP Pulse Ox 01/23/19 08:00 36.6 C 78 20 139/90 96 01/23/19 05:00 76 17 125/100 91 01/23/19 04:30 107 H 16 120/83 96 01/23/19 04:11 110 H 15 139/101 H 95 01/23/19 04:00 80 15 135/88 96 01/23/19 03:30 84 14 130/91 96 01/23/19 03:00 89 24 160/118 H 99 01/23/19 02:30 86 13 157/116 H 98 01/23/19 02:28 89 19 149/112 H 98 01/23/19 02:07 91 H 24 98 01/23/19 01:40 111 H 20 152/91 H 93 01/23/19 01:30 81 2 L 01/23/19 01:00 84 14 01/23/19 00:30 85 0 L 01/23/19 00:00 93 H 17 01/22/19 23:30 93 H 35 H 01/22/19 23:00 94 H 15 Pulse Ox 01/23/19 08:00 96 01/23/19 05:00 01/23/19 04:30 01/23/19 04:11 01/23/19 04:00 01/23/19 03:30 01/23/19 03:00 01/23/19 02:30 01/23/19 02:28 01/23/19 02:07 01/23/19 01:40 01/23/19 01:30 01/23/19 01:00 01/23/19 00:30 01/23/19 00:00 01/22/19 23:30 01/22/19 23:00 Laboratory Results 01/23/19 01/23/19 01/23/19 Range/Units 08:31 04:24 04:24 WBC 7.43 (4.8-10.8) K/uL RBC 4.32 L (4.7-6.1) M/uL Hgb 12.7 L (14.0-18.0) g/dL Hct 38.2 L (42-52) % MCV 88.4 (80-100) fL MCH 29.4 (25-34) pg MCHC 33.2 (32-36) g/dL RDW Std Deviation 42.1 (36.4-46.3) fL RDW Coeff of Juan 13.0 (11.5-14.5) % Plt Count 203 (130-400) K/uL MPV 10.4 (7.4-10.4) fL Immature Gran % (Auto) 0.1 % Neut % (Auto) 89.0 % Lymph % (Auto) 7.9 % [place] % (Auto) 3.0 % Eos % (Auto) 0.0 % Baso % (Auto) 0.0 % Immature Gran # (Auto) 0.01 (0.00-0.02) K/uL Neut # (Auto) 6.61 H (1.4-6.5) K/uL Lymph # (Auto) 0.59 L (1.2-3.4) K/uL [place] # (Auto) 0.22 (0.11-0.59) K/uL Eos # (Auto) 0.00 (0-0.5) K/uL Baso # (Auto) 0.00 (0-0.2) K/uL Sodium (136-145) mmol/L Potassium (3.5-5.1) mmol/L Chloride (98-107) mmol/L Carbon Dioxide (21-32) mmol/L Anion Gap (3-11) BUN (7-18) mg/dl Creatinine (0.6-1.4) mg/dl Est Cr Clr Drug Dosing ml/min Est GFR ( Amer) Est GFR (Non-Af Amer) BUN/Creatinine Ratio (10-20) Glucose (70-99) mg/dl Uric Acid (2.6-7.2) mg/dl Calcium (8.5-10.1) mg/dl Phosphorus 1.7 L (2.5-4.9) mg/dl Magnesium 2.6 H (1.8-2.4) mg/dl Total Bilirubin (0.2-1) mg/dl AST (15-37) U/L ALT (12-78) U/L Alkaline Phosphatase (45-117) U/L Troponin I < 0.015 (0-0.045) ng/ml NT-Pro-B Natriuret Pep (0-900) pg/ml Total Protein (6.4-8.2) gm/dl Albumin (3.4-5.0) gm/dl Globulin (2.5-4.0) gm/dl Albumin/Globulin Ratio (0.9-2) Lipase (73-393) U/L TSH (0.300-4.500) uIu/ml Urine Color Urine Appearance (Clear) Urine pH (4.5-7.5) Ur Specific [place] (1.000-1.030) Urine Protein (Negative) Urine Glucose (UA) (Negative) Urine Ketones (Negative) Urine Blood (Negative) Urine Nitrite (Negative) Urine Bilirubin (Negative) Urine Urobilinogen (Negative) Ur Leukocyte Esterase (Negative) Nasal Screen MRSA (PCR) (Negative) 01/23/19 01/23/19 01/23/19 Range/Units 02:10 02:10 02:10 WBC 8.24 (4.8-10.8) K/uL RBC 4.45 L (4.7-6.1) M/uL Hgb 13.2 L (14.0-18.0) g/dL Hct 39.2 L (42-52) % MCV 88.1 (80-100) fL MCH 29.7 (25-34) pg MCHC 33.7 (32-36) g/dL RDW Std Deviation 42.5 (36.4-46.3) fL RDW Coeff of Juan 13.2 (11.5-14.5) % Plt Count 207 (130-400) K/uL MPV 10.2 (7.4-10.4) fL Immature Gran % (Auto) 0.2 % Neut % (Auto) 84.5 % Lymph % (Auto) 10.0 % [place] % (Auto) 5.2 % Eos % (Auto) 0.1 % Baso % (Auto) 0.0 % Immature Gran # (Auto) 0.02 (0.00-0.02) K/uL Neut # (Auto) 6.96 H (1.4-6.5) K/uL Lymph # (Auto) 0.82 L (1.2-3.4) K/uL [place] # (Auto) 0.43 (0.11-0.59) K/uL Eos # (Auto) 0.01 (0-0.5) K/uL Baso # (Auto) 0.00 (0-0.2) K/uL Sodium 143 (136-145) mmol/L Potassium 4.0 (3.5-5.1) mmol/L Chloride 105 (98-107) mmol/L Carbon Dioxide 29 (21-32) mmol/L Anion Gap 9.0 (3-11) BUN 24 H (7-18) mg/dl Creatinine 1.43 H (0.6-1.4) mg/dl Est Cr Clr Drug Dosing 84.3 ml/min Est GFR ( Amer) 65.3 Est GFR (Non-Af Amer) 56.3 BUN/Creatinine Ratio 16.9 (10-20) Glucose 119 H (70-99) mg/dl Uric Acid (2.6-7.2) mg/dl Calcium 8.7 (8.5-10.1) mg/dl Phosphorus (2.5-4.9) mg/dl Magnesium 1.9 (1.8-2.4) mg/dl Total Bilirubin 0.5 (0.2-1) mg/dl AST 17 (15-37) U/L ALT 37 (12-78) U/L Alkaline Phosphatase 64 (45-117) U/L Troponin I < 0.015 (0-0.045) ng/ml NT-Pro-B Natriuret Pep (0-900) pg/ml Total Protein 6.7 (6.4-8.2) gm/dl Albumin 3.1 L (3.4-5.0) gm/dl Globulin 3.6 (2.5-4.0) gm/dl Albumin/Globulin Ratio 0.9 (0.9-2) Lipase (73-393) U/L TSH (0.300-4.500) uIu/ml Urine Color Urine Appearance (Clear) Urine pH (4.5-7.5) Ur Specific [place] (1.000-1.030) Urine Protein (Negative) Urine Glucose (UA) (Negative) Urine Ketones (Negative) Urine Blood (Negative) Urine Nitrite (Negative) Urine Bilirubin (Negative) Urine Urobilinogen (Negative) Ur Leukocyte Esterase (Negative) Nasal Screen MRSA (PCR) Positive A (Negative) 01/22/19 01/22/19 01/22/19 Range/Units 20:33 19:07 15:38 WBC (4.8-10.8) K/uL RBC (4.7-6.1) M/uL Hgb (14.0-18.0) g/dL Hct (42-52) % MCV (80-100) fL MCH (25-34) pg MCHC (32-36) g/dL RDW Std Deviation (36.4-46.3) fL RDW Coeff of Juan (11.5-14.5) % Plt Count (130-400) K/uL MPV (7.4-10.4) fL Immature Gran % (Auto) % Neut % (Auto) % Lymph % (Auto) % [place] % (Auto) % Eos % (Auto) % Baso % (Auto) % Immature Gran # (Auto) (0.00-0.02) K/uL Neut # (Auto) (1.4-6.5) K/uL Lymph # (Auto) (1.2-3.4) K/uL [place] # (Auto) (0.11-0.59) K/uL Eos # (Auto) (0-0.5) K/uL Baso # (Auto) (0-0.2) K/uL Sodium (136-145) mmol/L Potassium (3.5-5.1) mmol/L Chloride (98-107) mmol/L Carbon Dioxide (21-32) mmol/L Anion Gap (3-11) BUN (7-18) mg/dl Creatinine (0.6-1.4) mg/dl Est Cr Clr Drug Dosing ml/min Est GFR ( Amer) Est GFR (Non-Af Amer) BUN/Creatinine Ratio (10-20) Glucose (70-99) mg/dl Uric Acid 9.9 H (2.6-7.2) mg/dl Calcium (8.5-10.1) mg/dl Phosphorus (2.5-4.9) mg/dl Magnesium (1.8-2.4) mg/dl Total Bilirubin (0.2-1) mg/dl AST (15-37) U/L ALT (12-78) U/L Alkaline Phosphatase (45-117) U/L Troponin I < 0.015 (0-0.045) ng/ml NT-Pro-B Natriuret Pep (0-900) pg/ml Total Protein (6.4-8.2) gm/dl Albumin (3.4-5.0) gm/dl Globulin (2.5-4.0) gm/dl Albumin/Globulin Ratio (0.9-2) Lipase (73-393) U/L TSH (0.300-4.500) uIu/ml Urine Color Yellow Urine Appearance Clear (Clear) Urine pH 7.0 (4.5-7.5) Ur Specific [place] 1.015 (1.000-1.030) Urine Protein Negative (Negative) Urine Glucose (UA) Negative (Negative) Urine Ketones Negative (Negative) Urine Blood Negative (Negative) Urine Nitrite Negative (Negative) Urine Bilirubin Negative (Negative) Urine Urobilinogen Negative (Negative) Ur Leukocyte Esterase Negative (Negative) Nasal Screen MRSA (PCR) (Negative) 01/22/19 01/22/19 Range/Units 15:38 15:38 WBC 9.51 (4.8-10.8) K/uL RBC 4.65 L (4.7-6.1) M/uL Hgb 13.9 L (14.0-18.0) g/dL Hct 41.4 L (42-52) % MCV 89.0 (80-100) fL MCH 29.9 (25-34) pg MCHC 33.6 (32-36) g/dL RDW Std Deviation 42.8 (36.4-46.3) fL RDW Coeff of Juan 13.3 (11.5-14.5) % Plt Count 227 (130-400) K/uL MPV 10.5 H (7.4-10.4) fL Immature Gran % (Auto) 0.3 % Neut % (Auto) 91.1 % Lymph % (Auto) 5.7 % [place] % (Auto) 1.9 % Eos % (Auto) 0.9 % Baso % (Auto) 0.1 % Immature Gran # (Auto) 0.03 H (0.00-0.02) K/uL Neut # (Auto) 8.66 H (1.4-6.5) K/uL Lymph # (Auto) 0.54 L (1.2-3.4) K/uL [place] # (Auto) 0.18 (0.11-0.59) K/uL Eos # (Auto) 0.09 (0-0.5) K/uL Baso # (Auto) 0.01 (0-0.2) K/uL Sodium 143 (136-145) mmol/L Potassium 3.5 (3.5-5.1) mmol/L Chloride 104 (98-107) mmol/L Carbon Dioxide 28 (21-32) mmol/L Anion Gap 11.0 (3-11) BUN 22 H (7-18) mg/dl Creatinine 1.65 H (0.6-1.4) mg/dl Est Cr Clr Drug Dosing 73.3 ml/min Est GFR ( Amer) 54.9 Est GFR (Non-Af Amer) 47.4 BUN/Creatinine Ratio 13.5 (10-20) Glucose 180 H (70-99) mg/dl Uric Acid (2.6-7.2) mg/dl Calcium 8.9 (8.5-10.1) mg/dl Phosphorus (2.5-4.9) mg/dl Magnesium 1.9 (1.8-2.4) mg/dl Total Bilirubin 0.8 (0.2-1) mg/dl AST 20 (15-37) U/L ALT 39 (12-78) U/L Alkaline Phosphatase 68 (45-117) U/L Troponin I 0.047 H* (0-0.045) ng/ml NT-Pro-B Natriuret Pep 3255 H (0-900) pg/ml Total Protein 6.6 (6.4-8.2) gm/dl Albumin 3.2 L (3.4-5.0) gm/dl Globulin 3.4 (2.5-4.0) gm/dl Albumin/Globulin Ratio 0.9 (0.9-2) Lipase 299 (73-393) U/L TSH 2.240 (0.300-4.500) uIu/ml Urine Color Urine Appearance (Clear) Urine pH (4.5-7.5) Ur Specific [place] (1.000-1.030) Urine Protein (Negative) Urine Glucose (UA) (Negative) Urine Ketones (Negative) Urine Blood (Negative) Urine Nitrite (Negative) Urine Bilirubin (Negative) Urine Urobilinogen (Negative) Ur Leukocyte Esterase (Negative) Nasal Screen MRSA (PCR) (Negative) Medications Administered Current Inpatient Medications Acetaminophen (Tylenol) 650 mg PO Q4H PRN PRN Reason: Pain or Fever Stop: 02/21/19 22:08 Allopurinol (Zyloprim) 100 mg PO DAILY [facility] Stop: 02/22/19 08:59 Last Admin: 01/23/19 08:03 Dose: 100 mg Documented by: Ascorbic Acid (Vitamin C) 2,000 mg PO BID [facility] Stop: 02/21/19 22:08 Last Admin: 01/23/19 08:03 Dose: 2,000 mg Documented by: Aspirin (Ecotrin Ectab) 81 mg PO DAILY [facility] Stop: 02/22/19 08:59 Last Admin: 01/23/19 08:03 Dose: 81 mg Documented by: Atorvastatin Calcium (Lipitor) 40 mg PO QPM [facility] Stop: 02/21/19 22:08 Last Admin: 01/22/19 23:31 Dose: 40 mg Documented by: Carvedilol (Coreg) 6.25 mg PO BID [facility] Stop: 02/21/19 22:08 Last Admin: 01/23/19 08:05 Dose: 6.25 mg Documented by: Heparin Sodium (Porcine) (Heparin Sodium (Porcine)) 5,000 units SQ Q8 [facility] Stop: 02/22/19 05:59 Last Admin: 01/23/19 08:11 Dose: Not Given Documented by: Furosemide 40 mg/ Syringe 4 mls @ 4 mls/min IV DAILY [facility] Stop: 02/22/19 08:59 Last Admin: 01/23/19 09:55 Dose: 4 mls/min Documented by: Hydrocortisone Sodium (Succinate 100 mg/ Syringe) 2 mls @ 4 mls/min IV Q8H [facility] Stop: 02/22/19 00:00 Last Admin: 01/23/19 08:06 Dose: 4 mls/min Documented by: Multivitamins (Multivitamin Tab) 1 tab PO DAILY [facility] Stop: 02/22/19 08:59 Last Admin: 01/23/19 08:03 Dose: 1 tab Documented by: Polyethylene Glycol (Miralax Powder Packet) 17 gm PO DAILY PRN PRN Reason: Constipation Stop: 02/21/19 22:08 Potassium Chloride (Klor-Con M20) 20 meq PO QPM [facility] Stop: 02/21/19 22:08 Last Admin: 01/22/19 23:30 Dose: 20 meq Documented by: Potassium Chloride (Klor-Con M20) 40 meq PO QAM [facility] Stop: 02/22/19 08:59 Last Admin: 01/23/19 08:06 Dose: 40 meq Documented by: Sotalol HCl (Betapace) 120 mg PO BID [facility] Stop: 02/21/19 22:08 Last Admin: 01/23/19 08:04 Dose: 120 mg Documented by: Zolpidem Tartrate (Ambien) 5 mg PO HS PRN PRN Reason: Sleep Stop: 02/21/19 22:08 Resident Activity Tracking Resident Involvement: Resident Care Provided Care Provided: Adult Hospital Medicine (1) Heart failure Heart failure chronicity: acute on chronic Heart failure type: unspecified Qualified Code(s): I50.9 - Heart failure, unspecified (2) Cardiomyopathy Cardiomyopathy type: unspecified Qualified Code(s): I42.9 - Cardiomyopathy, unspecified
--- NOTE | 2019-01-23 17:59 | Cardiology Consultation ---
Date of Consultation January 23, 2019 Assessment & Plan (1) Cardiomyopathy: He is well documented cardiomyopathy that is believed to be nonischemic. The patient did undergo angiography on more than 1 occasion which did not reveal any evidence of obstructive coronary disease. He has been on an aggressive regimen for heart failure as an outpatient and his current medications include beta-blockade and a diuretic. It seems in the past he was on an aldosterone antagonist and Entresto. I think some of these medicines were discontinued due to concerns over renal function but perhaps also discontinued due to perceived hypotension. He currently appears to be well compensated. There is no objective evidence of pulmonary edema or heart failure. He made the statement that I feel as good as I have ever felt during today's interview. 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 (2) Palpitations: The patient's telemetry revealed episodes of tachycardia. Most of these episodes appear to involve tracking of a high atrial rate. There were occasional episodes of a different arrhythmia which could of been brief nons ustained ventricular tachycardia. The QRS morphology did change on occasion but I believe this was due to his intrinsic heart rate exceeding the upper tracking rate of his device as there were no pacing artifacts at certain points. Interrogation of his device revealed a relatively long episode of what appears to be in SVT. The overall QRS morphology was unchanged from sinus. There was a one-to-one relationship between the atrial and ventricular rates and the changes an atrial cycle length preceded the changes and ventricular cycle length. I do not believe he had sustained episodes of ventricular tachycardia. There were no therapies from his device. We discussed options for treatment of the symptoms. He is currently on a moderate dose of sotalol. One option would be to increase his sotalol. However, given the relatively benign nature of this atrial arrhythmia, we elected to simply adjust his beta-courtney. It seems in the past he had been on twice daily dosing of his beta-courtney. Currently he takes 6.25 milligrams of carvedilol daily. In the past there was some concern over hypotension in the evening due to additional doses of carvedilol. However, he was on a higher dose at that time. I suggested trying 6.25 milligrams of carvedilol twice daily. If this was ineffective or there was further evidence for ventricular arrhythmias then increasing his sotalol would seem appropriate. History of Present Illness Reason for Consultation: arrythmia Requesting Physician: Christiano Attending Physician: Robbie Rouse DO History of Present Illness The patient is a 53-year-old gentleman with a longstanding history of nonischemic cardiomyopathy who is currently in the area taking care of his mother subsequent to her hip surgery. Patient states that yesterday began experience symptoms of palpitations. He states that in the past he has had occasional episodes of palpitations of varying degrees. Commonly he will have a fleeting and very brief palpitation. Less commonly he will have symptoms of sustained palpitations. He has not had a episode of sustained palpitations for several months. These particular episodes are manifest primarily by sense of a rapid heartbeat. The did not appear to produce significant breathing difficulty. They are not associated with chest pain. He does have a brief sensation of presyncope and occasional dizziness. He has not suffered actual syncope. Patient was initially evaluated in our emergency room and sent to the for for observation. Over the course of the evening he was noted to have a series of a arrhythmias initially characterizes ventricular tachycardia. Based on concerns or ventricular tachycardia he was sent to the intensive care unit and started on amiodarone infusion. This was discontinued this morning. At the time my interview the patient claims to be feeling well. He states that his palpitations seem to have resolved this morning. He denies significant breathing trouble. He has not experienced recent episodes of orthopnea or paroxysmal nocturnal dyspnea. He has not noticed lower extremity edema or swelling although he does admit to some weight gain recently. He apparently is not compliant with a low-sodium diet. Allergies Allergy/AdvReac Type Severity Reaction Status Date / Time ciprofloxacin [From Cipro] Allergy Rash Verified 01/22/19 16:19 Home Medications Home Medications Medication Instructions Recorded Confirmed Type aspirin [Aspir-81] 81 mg PO DAILY 04/30/18 01/22/19 History atorvastatin [Lipitor] 40 mg PO QPM 04/30/18 01/22/19 History bumetanide 1 mg PO BID 04/30/18 01/22/19 History colchicine 1 - 2 tabs PO DAILY PRN MDD 2 TABS 04/30/18 01/22/19 History multivitamin [Multiple Vitamins] 1 tab PO DAILY 04/30/18 01/22/19 History potassium chloride [Klor-Con M20] 40 meq PO QAM 04/30/18 01/22/19 History prednisone 10 - 40 mg PO DAILY PRN MDD 40MG 04/30/18 01/22/19 History allopurinol 100 mg PO DAILY 01/22/19 01/22/19 History ascorbic acid (vitamin C) [Vitamin 2 g PO BID 01/22/19 01/22/19 History C] carvedilol 6.25 mg PO BID PRN 01/22/19 01/22/19 History hydrocodone-acetaminophen 1 tab PO TID PRN 01/22/19 01/22/19 History magnesium L-lactate 84 mg PO QAM 01/22/19 01/22/19 History potassium chloride 20 meq PO QPM 01/22/19 01/22/19 History sotalol 120 mg PO BID 01/22/19 01/22/19 History Patient History Medical History Family history of internal cardiac defibrillator History of diverticulitis Hx of chronic heart failure Hx of gout Family History Other No significant family history Social History Preferred Language: Maltese Communication Ability: Effective Power Barker Required: No Beliefs That Will Affect Care: None marital status: Current Living Situation: Spouse and Family Feels Safe at Home: Yes Smoking Status: Never smoker Second Hand Exposure: No ; Hx Alcohol Use: No Hx Substance Use: No Review of Systems Review of Systems: All systems reviewed & are unremarkable except as noted in HPI & below No recent constitutional symptoms such as fevers or chills. He does report occasional symptoms of diaphoresis associated with a sense of palpitation. Physical Exam Physical Exam: The patient is alert and oriented. Mood and affect appeared normal. He answered all questions appropriately. HEENT: Pupils are equal and reactive to light and accommodation. Extraocular movements are intact. The sclerae are anicteric. Neuro: Cranial nerves intact Neck: Patient's neck is supple. He has palpable carotid pulses bilaterally without bruits on auscultation. There is no evidence of jugular venous distention. The thyroid is not enlarged. Lungs: Clear to auscultation bilaterally. He has good air movement without use of accessory muscles. No rales wheezes or rhonchi. Cardiac: Heart demonstrates a regular rate and rhythm. Normal S1 and S2. Soft holosystolic murmur. Chest: Well-healed ICD implant in the left upper pectoral area Pulses: The patient has palpable radial pulses bilaterally that are equal in intensity Extremities: There was no evidence of hypoperfusion. There is no cyanosis or clubbing. There is no edema. Skin: I did not appreciate any rashes on examination today. Results & Data Vital Signs (Past 12 Hours) Vital Signs Temp Pulse Pulse Resp BP BP Pulse Ox 01/23/19 15:10 36.5 C 55 L 17 127/76 95 01/23/19 12:57 36.7 C 71 20 96/62 L 93 01/23/19 12:00 36.7 C 74 136/74 96 01/23/19 11:18 77 01/23/19 10:30 77 13 141/92 H 92 01/23/19 10:00 74 13 133/88 95 01/23/19 09:30 73 14 133/89 96 01/23/19 09:00 77 17 119/74 97 01/23/19 08:30 79 15 126/75 96 01/23/19 08:00 36.6 C 82 78 20 140/94 139/90 98 01/23/19 07:30 79 14 130/98 97 01/23/19 07:00 76 17 139/90 98 01/23/19 06:30 75 13 125/93 96 01/23/19 06:24 78 14 131/92 97 01/23/19 06:21 80 15 138/100 97 01/23/19 06:00 76 12 130/95 94 Pulse Ox 01/23/19 15:10 01/23/19 12:57 01/23/19 12:00 01/23/19 11:18 01/23/19 10:30 01/23/19 10:00 01/23/19 09:30 01/23/19 09:00 01/23/19 08:30 01/23/19 08:00 96 01/23/19 07:30 01/23/19 07:00 01/23/19 06:30 01/23/19 06:24 01/23/19 06:21 01/23/19 06:00 Laboratory Results Abnormal Lab Results 01/22/19 01/22/19 01/23/19 19:07 20:33 02:10 WBC 8.24 RBC 4.45 L Hgb 13.2 L Hct 39.2 L MCV 88.1 MCH 29.7 MCHC 33.7 RDW Std Deviation 42.5 RDW Coeff of Juan 13.2 Plt Count 207 MPV 10.2 Immature Gran % (Auto) 0.2 Neut % (Auto) 84.5 Lymph % (Auto) 10.0 [place] % (Auto) 5.2 Eos % (Auto) 0.1 Baso % (Auto) 0.0 Immature Gran # (Auto) 0.02 Neut # (Auto) 6.96 H Lymph # (Auto) 0.82 L [place] # (Auto) 0.43 Eos # (Auto) 0.01 Baso # (Auto) 0.00 Sodium Potassium Chloride Carbon Dioxide Anion Gap BUN Creatinine Est Cr Clr Drug Dosing Est GFR ( Amer) Est GFR (Non-Af Amer) BUN/Creatinine Ratio Glucose Calcium Phosphorus Magnesium Total Bilirubin AST ALT Alkaline Phosphatase Troponin I < 0.015 Total Protein Albumin Globulin Albumin/Globulin Ratio Urine Color Yellow Urine Appearance Clear Urine pH 7.0 Ur Specific [place] 1.015 Urine Protein Negative Urine Glucose (UA) Negative Urine Ketones Negative Urine Blood Negative Urine Nitrite Negative Urine Bilirubin Negative Urine Urobilinogen Negative Ur Leukocyte Esterase Negative Nasal Screen MRSA (PCR) 01/23/19 01/23/19 01/23/19 02:10 02:10 04:24 WBC 7.43 RBC 4.32 L Hgb 12.7 L Hct 38.2 L MCV 88.4 MCH 29.4 MCHC 33.2 RDW Std Deviation 42.1 RDW Coeff of Juan 13.0 Plt Count 203 MPV 10.4 Immature Gran % (Auto) 0.1 Neut % (Auto) 89.0 Lymph % (Auto) 7.9 [place] % (Auto) 3.0 Eos % (Auto) 0.0 Baso % (Auto) 0.0 Immature Gran # (Auto) 0.01 Neut # (Auto) 6.61 H Lymph # (Auto) 0.59 L [place] # (Auto) 0.22 Eos # (Auto) 0.00 Baso # (Auto) 0.00 Sodium 143 Potassium 4.0 Chloride 105 Carbon Dioxide 29 Anion Gap 9.0 BUN 24 H Creatinine 1.43 H Est Cr Clr Drug Dosing 84.3 Est GFR ( Amer) 65.3 Est GFR (Non-Af Amer) 56.3 BUN/Creatinine Ratio 16.9 Glucose 119 H Calcium 8.7 Phosphorus Magnesium 1.9 Total Bilirubin 0.5 AST 17 ALT 37 Alkaline Phosphatase 64 Troponin I < 0.015 Total Protein 6.7 Albumin 3.1 L Globulin 3.6 Albumin/Globulin Ratio 0.9 Urine Color Urine Appearance Urine pH Ur Specific [place] Urine Protein Urine Glucose (UA) Urine Ketones Urine Blood Urine Nitrite Urine Bilirubin Urine Urobilinogen Ur Leukocyte Esterase Nasal Screen MRSA (PCR) Positive A 01/23/19 01/23/19 04:24 08:31 WBC RBC Hgb Hct MCV MCH MCHC RDW Std Deviation RDW Coeff of Juan Plt Count MPV Immature Gran % (Auto) Neut % (Auto) Lymph % (Auto) [place] % (Auto) Eos % (Auto) Baso % (Auto) Immature Gran # (Auto) Neut # (Auto) Lymph # (Auto) [place] # (Auto) Eos # (Auto) Baso # (Auto) Sodium Potassium Chloride Carbon Dioxide Anion Gap BUN Creatinine Est Cr Clr Drug Dosing Est GFR ( Amer) Est GFR (Non-Af Amer) BUN/Creatinine Ratio Glucose Calcium Phosphorus 1.7 L Magnesium 2.6 H Total Bilirubin AST ALT Alkaline Phosphatase Troponin I < 0.015 Total Protein Albumin Globulin Albumin/Globulin Ratio Urine Color Urine Appearance Urine pH Ur Specific [place] Urine Protein Urine Glucose (UA) Urine Ketones Urine Blood Urine Nitrite Urine Bilirubin Urine Urobilinogen Ur Leukocyte Esterase Nasal Screen MRSA (PCR) Diagnostic Findings Chest x-ray that time admission diarrhea any acute cardiopulmonary findings. Biventricular ICD in place I reviewed the interrogation of his [employer] biventricular ICD ECG Additional Comments: Sinus rhythm with 100 percent sequential ventricular pacing PG Care Time/CCT Total # of Minutes Spent Total Time Spent with Patient: Total time spent is greater than 50% in coordination of care (as documented) at patient's floor/unit and/or counseling patient: (1) Cardiomyopathy Cardiomyopathy type: unspecified Qualified Code(s): I42.9 - Cardiomyopathy, unspecified
--- NOTE | 2019-01-23 18:30 | Discharge Summary ---
Date of Service January 23, 2019 Admission HPI Per Admitting Provider Patient is a 53 years old male with past medical history of cardiomyopathy due to exposure during the and patient has placed a pacemaker earlier this year. 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 Bakari Boswell. The office was not open today. Patient states that he felt weak today and that he almost passed out. He feels that he gained several pounds during the past week and that his lower extremities are edematous. Patient denies any chest pain shortness of breath abdominal pain frequency urgency hemoptysis nausea vomiting and or any other issue. Labs were reviewed shows white blood cell count of 9.51, hemoglobin of 13.9,hematocrit 41.4,platelet 227, PT 10.7, INR 1, sodium 143, potassium 3.5, chloride 104, BUN 22, creatinine 1.65, GFR 73.3, BUN/creatinine ratio 13.5, troponin 0.0 47, BNP 3255. Chest x-rays are significant for cardiomegaly. No other convincing evidence of acute cardiopulmonary disease. Patient was admitted to medicine on telemetry for elevated BNP as acute CHF exacerbation.EKG:Atrial-sensed ventricular-paced rhythm with some sleetmute conduction Abnormal ECG When compared with ECG of 30-APR-2018. ER physician did call solar sales representative and assessor for the pacemaker interrogation and result is pending. Principal Diagnosis Cardiomyopathy, supraventricular tachycardia Discharge Exam At time discharge the patient's lungs are clear. Cardiac rhythm was normal. He is ambulatory and feeling well. Discharge Data Allergies Allergy/AdvReac Type Severity Reaction Status Date / Time ciprofloxacin [From Cipro] Allergy Rash Verified 01/22/19 16:19 Consultations 01/22/19 17:45 ED Decision to Admit Stat 01/22/19 22:09 Consult Cardiology Routine 01/23/19 02:31 Consult Training And Development Officer Routine Hospital Course (1) Cardiomyopathy: He is well documented cardiomyopathy that is believed to be nonischemic. The patient did undergo angiography on more than 1 occasion which did not reveal any evidence of obstructive coronary disease. He has been on an aggressive regimen for heart failure as an outpatient and his current medications include beta-blockade and a diuretic. It seems in the past he was on an aldosterone antagonist and Entresto. I think some of these medicines were discontinued due to concerns over renal function but perhaps also discontinued due to perceived hypotension. He currently appears to be well compensated. There is no objective evidence of pulmonary edema or heart failure. He made the statement that I feel as good as I have ever felt during today's interview. I think we will continue on his current medical regimen and allow him to follow up with his primary retail analytics manager for any adjustment in his chronic heart failure regimen. (2) Palpitations: The patient's telemetry revealed episodes of tachycardia. Most of these episodes appear to involve tracking of a high atrial rate. There were occasional episodes of a different arrhythmia which could of been brief nonsustained ventricular tachycardia. The QRS morphology did change on occasion but I believe this was due to his intrinsic heart rate exceeding the upper tracking rate of his device as there were no pacing artifacts at certain points. Interrogation of his device revealed a relatively long episode of what appears to be in SVT. The overall QRS morphology was unchanged from sinus. There was a one-to-one relationship between the atrial and ventricular rates and the changes an atrial cycle length preceded the changes and ventricular cycle length. I do not believe he had sustained episodes of ventricular tachycardia. There were no therapies from his device. We discussed options for treatment of the symptoms. He is currently on a moderate dose of sotalol. One option would be to increase his sotalol. However, given the relatively benign nature of this atrial arrhythmia, we elected to simply adjust his beta-courtney. It seems in the past he had been on twice daily dosing of his beta-courtney. Currently he takes 6.25 milligrams of carvedilol daily. In the past there was some concern over hypotension in the evening due to additional doses of carvedilol. However, he was on a higher dose at that time. I suggested trying 6.25 milligrams of carvedilol twice daily. If this was ineffective or there was further evidence for ventricular arrhythmias then increasing his sotalol would seem appropriate. Total Time Total Time Spent Total Time Spent (In Minutes): 5 Discharge Plan Discharge Items Patient Disposition: Home - Self-Care Reason For Visit: GENERALIZED WEAKNESS Discharge Diagnosis: cardiomyopathy Discharge Goals: Therapeutic intervention Activity: Resume your previous activity Lifting: None Bathing: No limitations Sexual Activity: When tolerated Exercise/Sports: None Driving/Machine Use: No limitations Non-emergency contact: [facility] Call non-emergency contact if: you have any medication questions and your symptoms worsen Follow-up/Referrals: Aram Young MD [Primary Care Provider] - Diet: Heart Healthy Addtl Provider Instructions: none Prescriptions: New carvedilol 6.25 mg Tablet 6.25 mg PO BID 90 Days Qty: 180 RF: 0 Continued prednisone 10 mg Tablet 10 - 40 mg PO DAILY MDD 40MG PRN (Reason: Unknown) RF: 0 potassium chloride [Klor-Con M20] 20 mEq Tablet,Er Particles/Crystals 40 meq PO QAM RF: 0 atorvastatin [Lipitor] 40 mg Tablet 40 mg PO QPM RF: 0 colchicine 0.6 mg Tablet 1 - 2 tabs PO DAILY MDD 2 TABS PRN (Reason: FLARES) RF: 0 bumetanide 1 mg Tablet 1 mg PO BID RF: 0 aspirin [Aspir-81] 81 mg Tablet,Delayed Release (Dr/Ec) 81 mg PO DAILY RF: 0 multivitamin [Multiple Vitamins] Tablet 1 tab PO DAILY RF: 0 ascorbic acid (vitamin C) [Vitamin C] 1,000 mg Tablet 2 g PO BID RF: 0 allopurinol 100 mg Tablet 100 mg PO DAILY RF: 0 sotalol 120 mg Tablet 120 mg PO BID RF: 0 magnesium L-lactate 84 mg Tablet Extended Release 84 mg PO QAM RF: 0 hydrocodone-acetaminophen 10-300 mg Tablet 1 tab PO TID PRN (Reason: Pain) RF: 0 potassium chloride 20 mEq Tablet Extended Release 20 meq PO QPM RF: 0 Discontinued carvedilol 6.25 mg Tablet 6.25 mg PO BID PRN (Reason: ud) RF: 0 Stand-Alone Forms: [facility]charge Orders: Discharge Order (Routine); Ordered 01/23/19 Ordered By: Syed Figueroa Admission Data Admit Date/Time: 01/22/19 20:41 Attending Provider: Robbie Rouse Admit Provider: Jonathan Alvarado Primary Care Provider: Aram Young Other Providers: Jonathan Alvarado ; Syed Figueroa ; Salo Elizabeth Service: Telemetry Other Pending Studies at Discharge: No
--- NOTE | 2019-01-25 08:52 | Coding Query ---
CONGESTIVE HEART FAILURE To Promote full compliance with coding requirements relating to patient care, physician participation is requested in all cases of die barber uncertainty. Please assist us with the following questions. A diagnosis of Congestive Heart Failure is documented in the patient's medical record. To accurately code this diagnosis and to compare patient severity, we ask that you specify the type of heart failure by placing an X within the parenthesis (x). SYSTOLIC HEART FAILURE ( ) Acute ( ) Chronic ( X) Acute on Chronic ( ) Rheumatic ( ) Unknown DIASTOLIC HEART FAILURE ( ) Acute ( ) Chronic ( ) Acute on Chronic ( ) Rheumatic ( ) Unknown COMBINED SYSTOLIC AND DIASTOLIC HEART FAILURE ( ) Acute ( ) Chronic ( ) Acute on Chronic ( ) Rheumatic ( ) Unknown Was the CHF Present On Admission? Please check the appropriate box: ( ) Present on Admission ( ) Not Present On Admission ( ) Clinically undetermined Thank you for your time, LUCITA Redman, [facility]ITALJanki
== END 2019-01-23 19:40 | disposition home or self-care (01) | DRG 314 ==
LOC: 2N 15:17 → ED 15:17 → SUATTDRO 20:41 → OBSVTOIN 20:43 → 2N 21:08 → 1E 01-23 02:04 → 2S 01-23 10:18

== ENCOUNTER 2019-01-28 11:57 | Observation (INO) ==
[2019-01-28] MEDS ORDERED: ONDANSETRON INJ 2 MG/ML 2 ML VIAL IV STA (12:22)
[2019-01-28] MEDS: HYDROmorphone INJ 0.5 MG/0.5 ML SYR IV PRN ×2 (12:30→14:11)
[2019-01-28 12:38] LABS: Basophils # (auto) 0.02 K/uL (0-0.2); Basophils % (auto) 0.2 %; Eosinophils # (auto) 0.18 K/uL (0-0.5); Eosinophils % (auto) 1.4 %; Hematocrit (blood only) 40.6 % (42-52); Hemoglobin 13.5 g/dL (14.0-18.0); Immature Granulocytes # (auto) 0.08 K/uL (0.00-0.02); Immature Granulocytes % (auto) 0.6 %; Lymphocytes # (auto) 2.18 K/uL (1.2-3.4); Lymphocytes % (auto) 16.4 %; Mean Corpuscular Hgb Conc 33.3 g/dL (32-36); Mean Corpuscular Volume 89.2 fL (80-100); Mean Platelet Volume 10.2 fL (7.4-10.4); Monocytes # (auto) 0.89 K/uL (0.11-0.59); Monocytes % (auto) 6.7 %; Neutrophils # (auto) 9.98 K/uL (1.4-6.5); Neutrophils % (auto) 74.7 %; Platelet Count 222 K/uL (130-400); RDW Coefficient of Variation 13.3 % (11.5-14.5); RDW Standard Deviation 43.5 fL (36.4-46.3); Red Blood Count 4.55 M/uL (4.7-6.1); White Blood Count 13.33 K/uL (4.8-10.8)
[2019-01-28 12:47] LABS: Partial Thromboplastin Ratio 0.8; Partial Thromboplastin Time 21.2 Seconds (21.0-31.0); Prothrombin Time 10.3 Seconds (9.0-12.0)
[2019-01-28 12:55] LABS: Albumin Level 3.1 gm/dl (3.4-5.0); BUN Creatinine Ratio 20.8 (10-20); Calcium 8.4 mg/dl (8.5-10.1); Creatinine Clr Calc Pharmacy 89.9 ml/min; Est GFR (African American) 69.3; Est GFR (Non-African American) 59.8; Potassium 3.3 mmol/L (3.5-5.1)
--- NOTE | 2019-01-28 12:57 | XRay Report ---
XR chest 1V portable CLINICAL HISTORY: Substernal chest pain and shortness of breath COMPARISON STUDY: 01/22/2019 FINDINGS: The heart is enlarged. There is a left subclavian pacer/defibrillator present. There is no failure. There is no focal pulmonary consolidation. No pleural effusions are visualized.[ IMPRESSION: Cardiomegaly. No acute findings. Electronically signed by: Amadou Crowley M.D. 01/28/2019 12:55 PM
[2019-01-28 12:59] LABS: Albumin Globulin Ratio 0.9 (0.9-2); Bilirubin,Total 0.5 mg/dl (0.2-1); Globulin 3.3 gm/dl (2.5-4.0); Total Protein 6.4 gm/dl (6.4-8.2); Troponin I 0.04 ng/ml (0-0.045)
[2019-01-28] MEDS ORDERED: OPTIRAY 320 125ml IV PRN (13:39)
--- NOTE | 2019-01-28 13:51 | CT Scan Report ---
CT ANGIOGRAM OF THE CHEST CLINICAL HISTORY: Atypical chest pain and shortness of breath. Possible acute pulmonary embolism. COMPARISON STUDY: Chest x-ray dated 01/28/2019 TECHNIQUE: Following the IV administration of 118 mL of Optiray-320, CT angiogram of the thorax was p erformed from the thoracic inlet to the lung bases utilizing the pulmonary embolus protocol. Images a re reviewed in the axial, sagittal, and coronal planes. IV contrast was administered without complica tion. MIP imaging was performed. A dose lowering technique was utilized adhering to the principles o f ALARA. CT DOSE: 2808.53 mGy.cm FINDINGS: No pathologically enlarged axillary mediastinal or hilar lymph nodes were visualized. Calcified right hilar nodes are likely postinflammatory The ascending thoracic aorta measures 37 mm. There were no pulmonary artery filling defects to indicate acute pulmonary embolism. No pleural effusions are visualized. There was no evidence of focal pulmonary consolidation. There are mild dependent atelectatic changes present. The heart is enlarged. There is a left subclavian pacer/defibrillator present. There is no significan t pericardial effusion. There are coronary artery calcifications present. IMPRESSION: 1. No evidence of acute pulmonary embolism 2. No evidence of focal pulmonary consolidation Electronically signed by: Amadou Crowley M.D. 01/28/2019 1:49 PM
--- NOTE | 2019-01-28 13:57 | CT Scan Report ---
CT abd pelvis IV con only CLINICAL HISTORY: upper abd pain, bloating COMPARISON STUDY: 05/08/2011 TECHNIQUE: The patient was scanned in a dynamic helical fashion during intravenous administration of 118 cc of Optiray 320 A dose lowering technique was utilized adhering to the principles of ALARA. CT DOSE: FINDINGS: Lower chest: The heart is enlarged. There are no pleural effusions. There is no focal pulmonary conso lidation Liver: There is borderline hepatic steatosis. No focal hepatic masses are visualized. The portal vein is patent. Gallbladder: Unremarkable. Spleen: The spleen is borderline enlarged measuring 12.3 cm Pancreas: Unremarkable. Adrenal glands: Unremarkable. Kidneys: There is symmetric renal cortical enhancement. The kidneys are normal in size without hydron ephrosis. Bowel: There are no transition zones to indicate bowel obstruction. The appendix appears normal. Ther e is no acute diverticulitis. Peritoneum: There is no intraperitoneal free air or abdominal ascites. Vasculature: The abdominal aorta is normal in course and caliber. Adenopathy: None. Pelvic viscera: The bladder, and pelvic viscera are unremarkable. Skeletal structures: No destructive osseous lesions are seen. IMPRESSION: 1. No acute intra-abdominal or pelvic findings 2. No evidence of bowel obstruction. No evidence of free air 3. No evidence of acute appendicitis. No evidence of acute diverticulitis. 4. Borderline splenomegaly Electronically signed by: Amadou Crowley M.D. 01/28/2019 1:55 PM
[2019-01-28] MEDS ORDERED: ASPIRIN CHEW 324 MG PO STA (16:16)
--- NOTE | 2019-01-28 16:44 | History & Physical Report ---
Date of Service January 28, 2019 Assessment & Plan (1) Chest pain: Hx of cardiomyopathy related to exposure Hx of pacer Recent admission for what was determined to be SVT and compliant with d/c medication changes ?? GERD given location of pain and GI distention and no resolution with usual care for CP?? Trial of GI cocktail and monitor Serial trops EKG-serial Cardiology c/s pending Will not repeat ECHO CTA neg (2) Abdominal distention: CTAP neg Monitor GI cocktail trial (3) Elevated troponin: 0.04 on admission, serials pending Same level as peak last admission (4) Hypokalemia: 3.3 on admission States his baseline is 3.3 continue home meds (5) Hyperlipidemia: continue home meds (6) CHF (congestive heart failure): continue home meds States 8lb weight gain in 2 days No LE swelling or CHF on imaging Will not dose additional lasix (7) Gout: continue home meds Prednisone is PRN for gout (8) DVT prophylaxis: SCDs History of Present Illness Primary Care Provider: Aram Young MD 53 y/o M c/o chest pain. Pt was d/c'd from [facility] on 01/22 after being admitted for cardiac care. His final dx was SVT. He states that he felt great on d/c. "The best I had felt in a long time." He continued to feel quite well until yesterday late afternoon when he had sudden onset of chest pain, SOB with exertion or prolonged talking, diaphoresis. He had no appetite yesterday. His sx continued to increased overnight and into this AM, so he came to the ED. He states he could feel his heart beating sporadically. When asked to describe, he states the pain is more of an intense pressure and it is lower substernal. It gets worse if he drinks something. His abd is tight and distended, which is also new. He states he has gained 8lbs in 2 days. He has no LE swelling, which he did have on last admission. He states he feels that all of the fluid is on his chest. Pt denies fever, n/v/c/d, LE pain or swelling. Pt had slight improvement of chest pressure with dilaudid, but not with nitro. It has since returned. No hx of GERD sx. He did take all of his medications today prior to coming to the ED. He was compliant with the change in his carvedilol to BID dosing on d/c. Allergies Allergy/AdvReac Type Severity Reaction Status Date / Time ciprofloxacin [From Cipro] Allergy Rash Verified 01/28/19 12:30 Home Medications Home Medications Medication Instructions Recorded Confirmed Type aspirin [Aspir-81] 81 mg PO DAILY 04/30/18 01/28/19 History atorvastatin [Lipitor] 40 mg PO QPM 04/30/18 01/28/19 History bumetanide 1 mg PO BID 04/30/18 01/28/19 History colchicine 1 - 2 tabs PO DAILY PRN MDD 2 TABS 04/30/18 01/28/19 History multivitamin [Multiple Vitamins] 1 tab PO DAILY 04/30/18 01/28/19 History potassium chloride [Klor-Con M20] 40 meq PO QAM 04/30/18 01/28/19 History prednisone 10 - 40 mg PO DAILY PRN MDD 40MG 04/30/18 01/28/19 History allopurinol 100 mg PO DAILY 01/22/19 01/28/19 History ascorbic acid (vitamin C) [Vitamin 2 g PO BID 01/22/19 01/28/19 History C] hydrocodone-acetaminophen 1 tab PO TID PRN 01/22/19 01/28/19 History magnesium L-lactate 84 mg PO QAM 01/22/19 01/28/19 History potassium chloride 20 meq PO QPM 01/22/19 01/28/19 History sotalol 120 mg PO BID 01/22/19 01/28/19 History carvedilol 6.25 mg PO BID 90 Days #180 tab 01/23/19 01/28/19 Rx Past Med/Surg History Medical History Family history of internal cardiac defibrillator History of diverticulitis Hx of chronic heart failure Hx of gout Family History Father Myocardial infarction Other No significant family history Social History Preferred Language: Lithuanian Communication Ability: Effective Concrete Pipe Maker Required: No Beliefs That Will Affect Care: None marital status: Current Living Situation: Significant Other Feels Safe at Home: Yes Smoking Status: Never smoker Second Hand Exposure: No ; Hx Alcohol Use: No Hx Substance Use: No Review of Systems Review of Systems: Pertinent positives and negatives reviewed in HPI--all others negative Physical Exam Constitutional: WD/WN, vitals as above Eyes: normal visual arguello by confrontation and + anicteric sclerae Neck: normal visual inspection and trachea midline Respiratory: normal respiratory effort, lungs clear to auscultation Cardiovascular: Rate/Rhythm: regular rate and regular rhythm Gastrointestinal (Abdomen): Inspection/Auscultation: + abdomen distended Percussion/Palpation: + abdomen tender (epigastric); + abdomen not soft Musculoskeletal: Head/Neck/Chest: normocephalic and head atraumatic negative for edema, peripheral pulses intact Skin: no rashes, warm and dry Neurologic: awake; not confused Speech / Cognition: normal speech Psychiatric: A+Ox3, euthymic affect Results & Data Vital Signs (Past 12 Hours) Vital Signs Temp Pulse Resp BP Pulse Ox 01/28/19 14:40 79 16 91 01/28/19 14:30 78 14 129/85 92 01/28/19 14:20 78 13 92 01/28/19 14:12 77 8 L 107/80 95 01/28/19 14:10 77 16 92 01/28/19 14:00 78 17 93 01/28/19 13:59 78 8 L 132/71 94 01/28/19 13:50 81 15 01/28/19 13:48 82 15 01/28/19 13:30 80 13 96 01/28/19 13:20 80 21 96 01/28/19 13:10 81 16 96 01/28/19 13:00 82 17 97 01/28/19 12:50 83 16 96 01/28/19 12:40 85 11 L 88 L 01/28/19 12:30 88 18 91 01/28/19 12:22 88 17 118/75 95 01/28/19 12:20 94 H 29 H 01/28/19 12:19 86 20 01/28/19 12:06 95 01/28/19 12:02 36.9 C 62 22 125/78 93 Diagnostic Findings CXR: neg for acute CTA: neg for PE/PNA CTAP: neg for acute ECG Additional Comments: Reported as WNL, however I cannot find and it is not uploaded yet Code Status & VTE Plan Code Status Full code VTE Prophylaxis Plan VTE Prophylaxis will be ordered: Yes PG Care Time/CCT Total # of Minutes Spent Total Time Spent with Patient: Total time spent is greater than 50% in coordination of care (as documented) at patient's floor/unit and/or counseling patient:
[2019-01-28] MEDS ORDERED: ALUMINUM/MAGNESIUM SUSP 30 ML UDC ONE (16:57)
[2019-01-28] MEDS ORDERED: LIDOCAINE HCL VISCOUS SOLN 2% 15 ML UDC ONE (16:57)
[2019-01-28] MEDS ORDERED: COLCHICINE 0.6 MG TAB PO PRN (17:27)
[2019-01-28] MEDS ORDERED: predniSONE 10 MG TABLET PO PRN (17:27)
[2019-01-28] MEDS ORDERED: MAGNESIUM HYDROXIDE SUSP 30 ML UDC PO PRN (17:27)
[2019-01-28] MEDS ORDERED: ONDANSETRON INJ 2 MG/ML 2 ML VIAL IV PRN (17:27)
[2019-01-28] MEDS ORDERED: ACETAMINOPHEN 325 MG TAB PO PRN (17:27)
[2019-01-28] MEDS ORDERED: HYDROCODONE/ACETAMINOPHEN 10/325 TAB PO PRN (17:49)
[2019-01-28] MEDS ORDERED: ALUMINUM/MAGNESIUM SUSP 18 ML, LIDOCAINE HCL VISCOUS 2% 6 ML, BARCODE IDENTIFIER 1 EA PO ONE (18:00)
[2019-01-28] MEDS ORDERED: POTASSIUM CHLORIDE 20 MEQ TABCR PO SCH ×2 (18:00→21:00)
[2019-01-28] MEDS: BUMETANIDE 1 MG TAB PO SCH (18:21)
--- NOTE | 2019-01-28 18:29 | Emergency Department Note ---
Entered by Mague Syed acting as a scribe for ED Provider Note CHIEF COMPLAINT: Chest pain HISTORY OF PRESENT ILLNESS: The patient is a 53 year old male who presents to the Emergency Room with complaints of chest pain that started 10 hours ago. The patient states that it feels like someone is standing on his chest. The patient states that he is also short of breath, feels bloated, has a headache and feels like his neck is swelli ng. The patient states that he was not doing anything too crazy yesterday that would be a cause for this episode. The patient denies recent travel. The patient notes that he recently gained 8 pounds which he believes is due to his CHF. The patient describes the pain as non-radiating and worse when he lays down. Pt denies LOC, fevers, chills, diaphoresis, visual changes, nausea, vomiting, abdominal pain, back pain, melena, hematochezia, urinary symptoms, numbness, weakness, lymphadenopathy, rash, or other complaints. REVIEW OF SYSTEMS: See HPI for pertinent positives and negatives. A total of ten systems were reviewed and were otherwise negative. PMHx/PSHx: Palpitations, gout, cardiomyopathy, CHANDRA, heart failure. SOCIAL HISTORY: Patient lives at home. PHYSICAL EXAM: GENERAL: Awake, alert, uncomfortable-appearing, in no distress HENT: Normocephalic, atraumatic. Oropharynx unremarkable. EYES: PERRL. Normal conjunctiva. Sclera non-icteric. NECK: Inspection normal. Non-tender. Supple. No nuchal rigidity. FROM. No masses. RESPIRATORY: Clear to auscultation. No wheezes. No rales. Normal respiratory effort. CARDIAC: Normal rate. Normal rhythm. No murmurs. No rubs. Extremities warm and well perfused. Pulses equal. No JVD. GI: Epigastric pain. Soft, non-distended. No tenderness to palpation. No rebound or guarding. No masses. RECTAL: Deferred. MUSCULOSKELETAL: Atraumatic. Chest examination reveals no tenderness. The back is symmetrical on inspection without obvious abnormality. There is no CVA tenderness to palpation. No joint edema. LOWER EXTREMITIES: Calves are equal size bilaterally and non-tender. No discoloration. Trace 1+ lower extremity edema. NEURO: Normal sensorium. No sensory or motor deficits noted. SKIN: No rash or jaundice noted. EMERGENCY DEPARTMENT COURSE: 1213: Past medical records reviewed. The patient was evaluated in room A11B, and a complete history and physical examination were performed. 1315: I reevaluated the patient and he is resting comfortably. 1455: I reevaluated the patient and he is feeling better. I updated him on the test results. I discussed admission and he is agreeable. 1554: I discussed the patient's case with Dr. Grande- [facility] Hospitalist. She will evaluate the patient for further management. MEDICAL DECISION MAKING: A11B Prior records/ancillary studies reviewed. Patient was recently in the hospital for cardiomyopathy, elevated troponin, and dysrhythmia. Triage Nursing notes reviewed and agree them. Additional history obtained from the family. The patient's history was concerning for chest and abdominal pain. Differential diagnosis: Etiologies such as cardiac ischemia, aortic dissection, pulmonary embolism, pneumonia, pneumothorax, musculoskeletal, infections, pericarditis, myocarditis, esophageal rupture, gastrointestinal, as well as others were entertained. Physical examination: As above. ER treatment provided: IV Zofran IV Dilaudid On reassessment the patient felt better. Oral aspirin Diagnostic interpretation by me: The electrocardiogram was negative for ischemia change. Cardiac monitoring: The patient was placed on continuous cardiac monitoring and observed. It revealed a paced rhythm without evidence of dysrhythmia. The labs revealed a mild leukocytosis on CBC. Chemistry panel was unremarkable. Troponin was within normal limits. Imaging studies: CT scan of the chest, abdomen and pelvis was performed and did not reveal any evidence of acute pathology. No PE noted. Given the patient's cardiac risk factors and his chest discomfort I discussed further management in the hospital and patient was in agreement. Consultation: A consultation was placed with the hospitalist. The case was discussed and diagnostics were reviewed. The patient was evaluated in the ER for further treatment. IMPRESSION: Substernal chest pain PLAN: Evaluated by Hospitalist The scribe's documentation has been prepared under my direction and personally reviewed by me in its entirety. I confirm that the note above accurately reflects all work, treatment, procedures, and medical decision making performed by me. Impression & Plan Substernal chest pain Past Med/Surg History Medical History Family history of internal cardiac defibrillator History of diverticulitis Hx of chronic heart failure Hx of gout Social History Preferred Language: Malian Communication Ability: Effective Shirt Ironer Required: No Beliefs That Will Affect Care: None marital status: Current Living Situation: Spouse Feels Safe at Home: Yes Smoking Status: Never smoker Second Hand Exposure: No ; Hx Alcohol Use: Yes (ONCE A YEAR) Hx Substance Use: No Results & Data Vital Signs Vital Signs - 24 hr 01/28/19 12:02 01/28/19 12:06 01/28/19 12:19 Temperature 36.9 C Temperature Source Oral Sepsis Recent Fever Within 48 Hours No Sepsis New/Unexplained Change in Mental Status No Sepsis Action Taken by Nursing No Action Required Pulse Rate 62 86 Pulse Rate from SpO2 Sensor Respiratory Rate 22 20 Respiratory Effort / Characteristics Non-Labored Spontaneous Respiratory Depth Normal Respiratory Pattern Regular Blood Pressure 125/78 Blood Pressure Mean 93 Blood Pressure Position Sitting Pulse Oximetry 93 95 Oxygen Delivery Method Room Air Room Air 01/28/19 12:20 01/28/19 12:22 01/28/19 12:30 Temperature Temperature Source Sepsis Recent Fever Within 48 Hours Sepsis New/Unexplained Change in Mental Status Sepsis Action Taken by Nursing Pulse Rate 94 H 88 88 Pulse Rate from SpO2 Sensor 59 L 44 L Respiratory Rate 29 H 17 18 Respiratory Effort / Characteristics Respiratory Depth Respiratory Pattern Blood Pressure 118/75 Blood Pressure Mean 89 Blood Pressure Position Pulse Oximetry 95 91 Oxygen Delivery Method 01/28/19 12:40 01/28/19 12:50 01/28/19 13:00 Temperature Temperature Source Sepsis Recent Fever Within 48 Hours Sepsis New/Unexplained Change in Mental Status Sepsis Action Taken by Nursing Pulse Rate 85 83 82 Pulse Rate from SpO2 Sensor 42 L 44 L 54 L Respiratory Rate 11 L 16 17 Respiratory Effort / Characteristics Respiratory Depth Respiratory Pattern Blood Pressure Blood Pressure Mean Blood Pressure Position Pulse Oximetry 88 L 96 97 Oxygen Delivery Method 01/28/19 13:10 01/28/19 13:20 01/28/19 13:30 Temperature Temperature Source Sepsis Recent Fever Within 48 Hours Sepsis New/Unexplained Change in Mental Status Sepsis Action Taken by Nursing Pulse Rate 81 80 80 Pulse Rate from SpO2 Sensor 68 47 L 80 Respiratory Rate 16 21 13 Respiratory Effort / Characteristics Respiratory Depth Respiratory Pattern Blood Pressure Blood Pressure Mean Blood Pressure Position Pulse Oximetry 96 96 96 Oxygen Delivery Method 01/28/19 13:48 01/28/19 13:50 08/17/19 13:59 Temperature Temperature Source Sepsis Recent Fever Within 48 Hours Sepsis New/Unexplained Change in Mental Status Sepsis Action Taken by Nursing Pulse Rate 82 81 78 Pulse Rate from SpO2 Sensor 60 Respiratory Rate 15 15 8 L Respiratory Effort / Characteristics Respiratory Depth Respiratory Pattern Blood Pressure 132/71 Blood Pressure Mean 91 Blood Pressure Position Pulse Oximetry 94 Oxygen Delivery Method 01/28/19 14:00 01/28/19 14:10 01/28/19 14:12 Temperature Temperature Source Sepsis Recent Fever Within 48 Hours Sepsis New/Unexplained Change in Mental Status Sepsis Action Taken by Nursing Pulse Rate 78 77 77 Pulse Rate from SpO2 Sensor 57 L 77 74 Respiratory Rate 17 16 8 L Respiratory Effort / Characteristics Respiratory Depth Respiratory Pattern Blood Pressure 107/80 Blood Pressure Mean 89 Blood Pressure Position Pulse Oximetry 93 92 95 Oxygen Delivery Method 01/28/19 14:20 01/28/19 14:30 01/28/19 14:40 Temperature Temperature Source Sepsis Recent Fever Within 48 Hours Sepsis New/Unexplained Change in Mental Status Sepsis Action Taken by Nursing Pulse Rate 78 78 79 Pulse Rate from SpO2 Sensor 78 78 78 Respiratory Rate 13 14 16 Respiratory Effort / Characteristics Respiratory Depth Respiratory Pattern Blood Pressure 129/85 Blood Pressure Mean 99 Blood Pressure Position Pulse Oximetry 92 92 91 Oxygen Delivery Method Home Medications Current Medication List: was personally reviewed by me Laboratory Data Attestation: I reviewed the patient's lab results. Result diagrams: 01/28/19 12:19 01/28/19 12:19 Lab Results 01/28/19 01/28/19 01/28/19 Range/Units 12:19 12:19 12:19 WBC 13.33 H (4.8-10.8) K/uL RBC 4.55 L (4.7-6.1) M/uL Hgb 13.5 L (14.0-18.0) g/dL Hct 40.6 L (42-52) % MCV 89.2 (80-100) fL MCH 29.7 (25-34) pg MCHC 33.3 (32-36) g/dL RDW Std Deviation 43.5 (36.4-46.3) fL RDW Coeff of Juan 13.3 (11.5-14.5) % Plt Count 222 (130-400) K/uL MPV 10.2 (7.4-10.4) fL Immature Gran % (Auto) 0.6 % Neut % (Auto) 74.7 % Lymph % (Auto) 16.4 % [place] % (Auto) 6.7 % Eos % (Auto) 1.4 % Baso % (Auto) 0.2 % Immature Gran # (Auto) 0.08 H (0.00-0.02) K/uL Neut # (Auto) 9.98 H (1.4-6.5) K/uL Lymph # (Auto) 2.18 (1.2-3.4) K/uL [place] # (Auto) 0.89 H (0.11-0.59) K/uL Eos # (Auto) 0.18 (0-0.5) K/uL Baso # (Auto) 0.02 (0-0.2) K/uL PT 10.3 (9.0-12.0) Seconds INR 1.0 (0.9-1.1) APTT 21.2 (21.0-31.0) Seconds PTT Ratio 0.8 Sodium 142 (136-145) mmol/L Potassium 3.3 L (3.5-5.1) mmol/L Chloride 105 (98-107) mmol/L Carbon Dioxide 33 H (21-32) mmol/L Anion Gap 5.0 (3-11) BUN 28 H (7-18) mg/dl Creatinine 1.36 (0.6-1.4) mg/dl Est Cr Clr Drug Dosing 89.9 ml/min Est GFR ( Amer) 69.3 Est GFR (Non-Af Amer) 59.8 BUN/Creatinine Ratio 20.8 H (10-20) Glucose 88 (70-99) mg/dl Calcium 8.4 L (8.5-10.1) mg/dl Total Bilirubin 0.5 (0.2-1) mg/dl AST 17 (15-37) U/L ALT 31 (12-78) U/L Alkaline Phosphatase 66 (45-117) U/L Troponin I 0.040 (0-0.045) ng/ml Total Protein 6.4 (6.4-8.2) gm/dl Albumin 3.1 L (3.4-5.0) gm/dl Globulin 3.3 (2.5-4.0) gm/dl Albumin/Globulin Ratio 0.9 (0.9-2) Administered Medications Bumetanide (Bumex) 1 mg PO BID17 [facility] Stop: 02/27/19 17:59 Last Admin: 01/28/19 18:21 Dose: 1 mg Documented by: [id number] Hydromorphone HCl (Dilaudid) 0.5 mg IV Q15M PRN PRN Reason: Pain Stop: 02/11/19 12:21 Last Admin: 01/28/19 14:11 Dose: 0.5 mg Documented by: [id number] Admin: 01/28/19 12:30 Dose: 0.5 mg Documented by: [id number] Ioversol (Optiray 320 125ml) 118 ml IV ONCE PRN PRN Reason: Interaction Checking Stop: 02/01/19 13:38 Last Admin: 01/28/19 13:39 Dose: 118 ml Documented by: [id number] Potassium Chloride (Klor-Con M20) 20 meq PO DAILY@1700 [facility] Stop: 02/27/19 17:59 Last Admin: 01/28/19 18:20 Dose: 20 meq Documented by: [id number] Discontinued Medications Al Hydrox/Mg Hydrox/Simethicone (Maalox) Confirm Administered Dose 30 ml .ROUTE .STK-MED ONE Stop: 01/28/19 16:58 Last Admin: 01/28/19 16:59 Dose: 30 ml Documented by: [id number] Aspirin (Aspirin) 324 mg PO NOW STA Stop: 01/28/19 16:17 Last Admin: 01/28/19 16:21 Dose: 324 mg Documented by: [id number] Al Hydrox/Mg Hydrox/Simethicone 18 ml/ Lidocaine HCl 6 ml/ BARCODE IDENTIFIER 1 ea 0 ml PO ONE ONE Stop: 01/28/19 18:01 Last Admin: 01/28/19 18:14 Dose: Not Given Documented by: [id number] Lidocaine HCl (Viscous Lidocaine 2%) Confirm Administered Dose 15 ml .ROUTE .STK-MED ONE Stop: 01/28/19 16:58 Last Admin: 01/28/19 16:59 Dose: 15 ml Documented by: [id number] Ondansetron HCl (Zofran) 4 mg IV NOW STA Stop: 01/28/19 12:23 Last Admin: 01/28/19 12:30 Dose: 4 mg Documented by: [id number] Imaging Data Radiologist's Impression: Radiology results as stated below per my review and the radiologist's interpretation: XR chest 1V portable CLINICAL HISTORY: Substernal chest pain and shortness of breath COMPARISON STUDY: 01/22/2019 FINDINGS: The heart is enlarged. There is a left subclavian pacer/defibrillator present. There is no failure. There is no focal pulmonary consolidation. No pleural effusions are visualized.[ IMPRESSION: Cardiomegaly. No acute findings. Electronically signed by: Amadou Crowley M.D. 01/28/2019 12:[address] ANGIOGRAM OF THE CHEST CLINICAL HISTORY: Atypical chest pain and shortness of breath. Possible acute pulmonary embolism. COMPARISON STUDY: Chest x-ray dated 01/28/2019 TECHNIQUE: Following the IV administration of 118 mL of Optiray-320, CT angiogram of the thorax was performed from the thoracic inlet to the lung bases utilizing the pulmonary embolus protocol. Images are reviewed in the axial, sagittal, and coronal planes. IV contrast was administered without complication. MIP imaging was performed. A dose lowering technique was utilized adhering to the principles of ALARA. CT DOSE: 2808.53 mGy.cm FINDINGS: No pathologically enlarged axillary mediastinal or hilar lymph nodes were visualized. Calcified right hilar nodes are likely postinflammatory The ascending thoracic aorta measures 37 mm. There were no pulmonary artery filling defects to indicate acute pulmonary embolism. No pleural effusions are visualized. There was no evidence of focal pulmonary consolidation. There are mild dependent atelectatic changes present. The heart is enlarged. There is a left subclavian pacer/defibrillator present. There is no significant pericardial effusion. There are coronary artery calcifications present. IMPRESSION: 1. No evidence of acute pulmonary embolism 2. No evidence of focal pulmonary consolidation Electronically signed by: Amadou Crowley M.D. 01/28/2019 1:[address] abd pelvis IV con only CLINICAL HISTORY: upper abd pain, bloating COMPARISON STUDY: 05/08/2011 TECHNIQUE: The patient was scanned in a dynamic helical fashion during intravenous administration of 118 cc of Optiray 320 A dose lowering technique was utilized adhering to the principles of ALARA. CT DOSE: FINDINGS: Lower chest: The heart is enlarged. There are no pleural effusions. There is no focal pulmonary consolidation Liver: There is borderline hepatic steatosis. No focal hepatic masses are visualized. The portal vein is patent. Gallbladder: Unremarkable. Spleen: The spleen is borderline enlarged measuring 12.3 cm Pancreas: Unremarkable. Adrenal glands: Unremarkable. Kidneys: There is symmetric renal cortical enhancement. The kidneys are normal in size without hydronephrosis. Bowel: There are no transition zones to indicate bowel obstruction. The appendix appears normal. There is no acute diverticulitis. Peritoneum: There is no intraperitoneal free air or abdominal ascites. Vasculature: The abdominal aorta is normal in course and caliber. Adenopathy: None. Pelvic viscera: The bladder, and pelvic viscera are unremarkable. Skeletal structures: No destructive osseous lesions are seen. IMPRESSION: 1. No acute intra-abdominal or pelvic findings 2. No evidence of bowel obstruction. No evidence of free air 3. No evidence of acute appendicitis. No evidence of acute diverticulitis. 4. Borderline splenomegaly Electronically signed by: Amadou Crowley M.D. 01/28/2019 1:55 PM ECG Data Attestation: I personally reviewed and interpreted this ECG as follows: Indication: chest pain Rate (beats per minute): 89 Rhythm: other (paced rhythm with frequent PVC) Findings: no ST depression and no ST elevation Blood Pressure Blood Pressure Findings: Normal blood pressure Blood Pressure Disposition: did not require urgent referral Discharge Plan Visit Data *Final* Discharge Date/Time: 01/28/19 17:18 Chief Complaint: Chest Pain ED Provider: Richard Schultz Discharge Problem: Substernal chest pain Patient Disposition: Admitted As Inpatient Discharge Instructions Interventions: ED Discharge Assessment Last Done: 01/28/19 17:18 The scribe's documentation has been prepared under my direction and personally reviewed by me in its entirety. I confirm that the note above accurately reflects all work, treatment, procedures, and medical decision making performed by me.
[2019-01-28] MEDS: ASCORBIC ACID 500 MG TAB PO SCH (20:52)
[2019-01-28] MEDS: CARVEDILOL 6.25 MG TAB PO SCH (20:52)
[2019-01-28] MEDS: SOTALOL HCL 80 MG TAB PO SCH (20:53)
[2019-01-28] MEDS ORDERED: ATORVASTATIN 40 MG TAB PO SCH (21:00)
[2019-01-29 05:22] LABS: Basophils # (auto) 0.01 K/uL (0-0.2); Basophils % (auto) 0.1 %; Eosinophils # (auto) 0.23 K/uL (0-0.5); Hematocrit (blood only) 37.8 % (42-52); Hemoglobin 12.3 g/dL (14.0-18.0); Immature Granulocytes # (auto) 0.07 K/uL (0.00-0.02); Immature Granulocytes % (auto) 0.9 %; Lymphocytes # (auto) 1.62 K/uL (1.2-3.4); Lymphocytes % (auto) 21.2 %; Mean Corpuscular Hgb Conc 32.5 g/dL (32-36); Mean Corpuscular Volume 90.6 fL (80-100); Monocytes # (auto) 0.61 K/uL (0.11-0.59); Neutrophils # (auto) 5.11 K/uL (1.4-6.5); Neutrophils % (auto) 66.8 %; Platelet Count 192 K/uL (130-400); RDW Coefficient of Variation 13.5 % (11.5-14.5); RDW Standard Deviation 44.8 fL (36.4-46.3); Red Blood Count 4.17 M/uL (4.7-6.1); White Blood Count 7.65 K/uL (4.8-10.8)
[2019-01-29 06:01] LABS: BUN Creatinine Ratio 21.6 (10-20); Calcium 7.9 mg/dl (8.5-10.1); Creatinine Clr Calc Pharmacy 87.3 ml/min; Est GFR (African American) 66.9; Est GFR (Non-African American) 57.8; Magnesium 1.9 mg/dl (1.8-2.4); Phosphorus 4.6 mg/dl (2.5-4.9)
[2019-01-29] MEDS: CARVEDILOL 6.25 MG TAB PO SCH (07:36)
[2019-01-29] MEDS: ASCORBIC ACID 500 MG TAB PO SCH (07:37)
[2019-01-29] MEDS: SOTALOL HCL 80 MG TAB PO SCH (07:37)
[2019-01-29] MEDS: BUMETANIDE 1 MG TAB PO SCH (08:06)
[2019-01-29] MEDS ORDERED: ASPIRIN 81 MG ECTAB PO SCH (09:00)
[2019-01-29] MEDS ORDERED: LACTATE PO SCH (09:00)
[2019-01-29] MEDS ORDERED: ALLOPURINOL 100 MG TAB PO SCH (09:00)
[2019-01-29] MEDS ORDERED: MAGNESIUM PO SCH (09:00)
[2019-01-29] MEDS ORDERED: POTASSIUM CHLORIDE 20 MEQ TABCR PO SCH ×2 (09:00→17:00)
[2019-01-29] MEDS ORDERED: MULTIVITAMIN TAB PO SCH (09:00)
[2019-01-29] MEDS ORDERED: BUMETANIDE 1 MG in SYRINGE 0 ML IV ONE (11:45)
--- NOTE | 2019-01-29 13:21 | Cardiology Progress Note ---
Date of Service January 29, 2019 Assessment & Plan (1) Chest pain: The patient developed a lower substernal pressure sensation yesterday afternoon concurrent shortness of breath. His symptoms continued until early this morning he presented to the emergency room. Suspect this may be related to his acute on chronic systolic CHF (and ? Hepatic congestion). The patient had no significant coronary artery disease on his most recent cardiac catheterization, and his troponin levels were not elevated. (2) Acute on chronic systolic (congestive) heart failure: The patient admits to an 8 pound weight gain over the last 2 days. He has not taken additional diuretics as previously instructed. Suspect he does not follow a salt and fluid restricted diet. Would administer an intravenous dose of Bumex. We have had a long discussion regarding his dry weight in the use of sliding-scale diuretics should he gain 3 or more pounds. (3) Cardiomyopathy: Was previously diagnosed with a nonischemic cardiomyopathy and follows with a car hostler in the [place] area. Ejection fraction earlier this month was 25-30%. (4) SVT (supraventricular tachycardia): Noted during his most recent hospitalization. Remains on carvedilol and sotalol. (5) Biventricular automatic implantable cardioverter defibrillator in situ: His [employer] biventricular pacemaker was placed in September of this year. Subjective The patient is resting comfortably in bed without complaints of chest pain or dyspnea. His history was reviewed in detail. Has gained 8 pounds over the last 2 days. Has noticed abdominal bloating, early satiety, and lower extremity edema. Has not taken additional diuretics as he typically does. Physical Exam Physical Exam: In general this is an obese white male in no acute distress. HEENT exam is negative. Neck is supple with full carotid upstrokes. There are no carotid bruits. Jugular venous pressure is flat at 90. There is no thyromegaly. Cardiovascular exam reveals a regular rhythm with a normal S1 and S2. No S3, S4, or murmurs are noted. Lungs are clear without rales, rhonchi, or wheezes. Abdomen is soft and nontender without bruits. Extremities reveal intact radial artery and posterior tibial pulses bilaterally. There is trace pretibial edema. Results & Data Vital Signs (Past 12 Hours) Vital Signs Temp Pulse Resp BP Pulse Ox 01/29/19 11:00 36.7 C 81 16 118/76 92 01/29/19 06:56 36.4 C L 74 18 132/90 95 01/29/19 03:45 36.6 C 72 20 121/78 94 Laboratory Results CBC notes a hemoglobin of 12.3, hematocrit 37.8, white count 7.6, platelet count [id number]. Electrolytes notice sodium of 143, potassium 3.0, chloride 104, bicarb 33, BUN 30, creatinine 1.4, glucose of 95. Initial troponin was 0.04 with follow-up the 0.033 and 0.019. Diagnostic Findings EKG notes an atrial sensed and biventricular paced rhythm. Chest x-ray notes cardiomegaly and a device the left subclavicular region. No acute findings. PG Care Time/CCT Total # of Minutes Spent Total Time Spent with Patient: Total time spent is greater than 50% in coordination of care (as documented) at patient's floor/unit and/or counseling patient: (1) Cardiomyopathy Cardiomyopathy type: unspecified Qualified Code(s): I42.9 - Cardiomyopathy, unspecified
--- NOTE | 2019-01-29 13:23 | Discharge Summary ---
Date of Service January 29, 2019 Admission HPI Per Admitting Provider 53 y/o M c/o chest pain. Pt was d/c'd from [facility] on 01/22 after being admitted for cardiac care. His final dx was SVT. He states that he felt great on d/c. "The best I had felt in a long time." He continued to feel quite well until yesterday late afternoon when he had sudden onset of chest pain, SOB with exertion or prolonged talking, diaphoresis. He had no appetite yesterday. His sx continued to increased overnight and into this AM, so he came to the ED. He states he could feel his heart beating sporadically. When asked to describe, he states the pain is more of an intense pressure and it is lower substernal. It gets worse if he drinks something. His abd is tight and distended, which is also new. He states he has gained 8lbs in 2 days. He has no LE swelling, which he did have on last admission. He states he feels that all of the fluid is on his chest. Pt denies fever, n/v/c/d, LE pain or swelling. Pt had slight improvement of chest pressure with dilaudid, but not with nitro. It has since returned. No hx of GERD sx. He did take all of his medications today prior to coming to the ED. He was compliant with the change in his carvedilol to BID dosing on d/c. Principal Diagnosis chf exacerbation Discharge Exam Constitutional WD/WN, vitals as above Eyes PERRL, conjunctivae normal, anicteric sclerae Respiratory normal respiratory effort, lungs clear to auscultation Cardiovascular RRR, no murmur, no edema Gastrointestinal (Abdomen) epigastric mildly distended and tender from baseline Skin no rashes, warm and dry Psychiatric A+Ox3, euthymic affect Discharge Data Allergies Allergy/AdvReac Type Severity Reaction Status Date / Time ciprofloxacin [From Cipro] Allergy Rash Verified 01/28/19 12:30 Consultations 01/28/19 15:54 ED Decision to Admit Stat 01/28/19 17:27 Consult Cardiology Routine Ordered Studies 01/28/19 12:22 CT abd pelvis IV con only Stat 01/28/19 12:23 CT angio chest PE protocol Stat Hospital Course (1) Chest pain: 53 y/o M with h/o HF, pacemaker, and gout presented with concerns of CP, SOB, and diaphoresis along with epigastric distention and pain. He was also noted to have an 8 lb wt gain over 2 days [employer]. The following is the medical management during stay here: Chest pain/ Epigastric pain -As noted above, pt has a h/o cardiomyopathy and pacer -Pt felt better with trial of GI cocktail in ER -Recent admission with d/c 01/22 for what was determined to be SVT and instructed to increase carvedilol 6.25 to BID dosing. Pt had been compliant with d/c medication changes. ECHO on that admission showed EF of 25-30% -CT Abd/Pelv, CTA chest neg. CXR showed cardiomegaly but no other acute findings -Admit trop .04, further serial trops were unremarkable. EKG was significant for only PVC's. -Cardiology was consulted and determined that this did not require further cardiac workup and was safe for pt to be discharged home. Suspected that this may be related to pt's acute on chronic systolic CHF, as pt had no significant CAD on his most recent cardiac cath, and his troponin levels were not elevated -Pt had not taken additional diuretics as previously instructed. Instructed on sliding-scale diuretics should he gain 3 or more pounds Hyperlipidemia -continued home meds CHF -We cont home meds: Bumex 1 mg BID, Sotalol 120 BID, Carvedilol 6.25 BID - 8lb weight gain in 2 days likely was what was causing pt's symptoms -No LE swelling or CHF on imaging Gout -continue home meds At time of d/c, pt had no other acute concerns or complaints. Total Time Total Time Spent Total Time Spent (In Minutes): 35 Discharge Plan Discharge Items Patient Disposition: Home - Self-Care Reason For Visit: CHEST PAIN Discharge Diagnosis: chf exacerbation Discharge Goals: Decrease discomfort and Improve disease control Activity: Per 'Additional Instructions' section Non-emergency contact: Primary Care Provider Call non-emergency contact if: you have any medication questions and your symptoms worsen Follow-up/Referrals: Aram Young MD [Primary Care Provider] - Diet: Low Sodium (2gm) Addtl Provider Instructions: You were admitted with concerns of chest/abdominal pain, shortness of breath, and 8 lb weight gain in 2 days. This was likely from fluid accumulation around your abdomen area. Cardiology was consulted and did not see a need to do any sort of further cardiac workup. Please follow the below instructions on discharge: -Continue your medications as before. This included the same dosing for your Bumex and Carvedilol -Maintain your same low sodium diet -Please follow up with your PCP within one week of discharge -If your symptoms persist/worsen, then please come back in or see your PCP Prescriptions: Continued prednisone 10 mg Tablet 10 - 40 mg PO DAILY MDD 40MG PRN (Reason: Unknown) RF: 0 potassium chloride [Klor-Con M20] 20 mEq Tablet,Er Particles/Crystals 40 meq PO QAM RF: 0 atorvastatin [Lipitor] 40 mg Tablet 40 mg PO QPM RF: 0 colchicine 0.6 mg Tablet 1 - 2 tabs PO DAILY MDD 2 TABS PRN (Reason: FLARES) RF: 0 bumetanide 1 mg Tablet 1 mg PO BID RF: 0 aspirin [Aspir-81] 81 mg Tablet,Delayed Release (Dr/Ec) 81 mg PO DAILY RF: 0 multivitamin [Multiple Vitamins] Tablet 1 tab PO DAILY RF: 0 ascorbic acid (vitamin C) [Vitamin C] 1,000 mg Tablet 2 g PO BID RF: 0 allopurinol 100 mg Tablet 100 mg PO DAILY RF: 0 sotalol 120 mg Tablet 120 mg PO BID RF: 0 magnesium L-lactate 84 mg Tablet Extended Release 84 mg PO QAM RF: 0 hydrocodone-acetaminophen 10-300 mg Tablet 1 tab PO TID PRN (Reason: Pain) RF: 0 potassium chloride 20 mEq Tablet Extended Release 20 meq PO QPM RF: 0 carvedilol 6.25 mg Tablet 6.25 mg PO BID 90 Days Qty: 180 RF: 0 Stand-Alone Forms: Call Back Authorization, [facility]/Other Patient Handouts: Heart Failure Meds Control, Heart Failure, Heart Failure Warning Signs, Heart Failure Tracking Weight, Heart Failure Being Active, Heart Failure Coping, Heart Failure Diet Changes Discharge Orders: Discharge Order (Routine); Ordered 01/29/19 Ordered By: Roger Toledo Admission Data Admit Date/Time: 01/28/19 16:33 Attending Provider: Mulu Jefferson Admit Provider: Raeann Grande Primary Care Provider: Aram Young Other Providers: Raeann Grande ; Syed Figueroa Service: Telemetry Other Interventions: Discharge Summary Assessment (RN) Last Done: 01/29/19 14:13 DC Date/Time DO NOT enter until pt leaves facility: 01/29/19 15:32 Supervising Physician Co-Signing Physician Notes Patient seen and examined with PGY-2 Dr. Toledo. Agree with history, exam findings, assessment and plan of care as outlined. In brief, Mr. Hilton is a 53 year old male with hx significant for cardiomyopathy, SVT with pacer, and CHF admitted with chest pain found to slightly fluid overloaded, consistent with CHF exacerbation. On admission, troponin was mildly elevated, but down trended (0.04-->0.033-->0.019). No EKG changes consistent with acute ischemia. Received 1mg IV bumex x1 here. Other chronic issues were stable and home medications continued. Recommended follow up with PCP within 1 week. Resident Activity Tracking Resident Involvement: Resident Care Provided Care Provided: Adult Hospital Medicine
== END 2019-01-29 15:32 | disposition home or self-care (01) ==
LOC: 2E 11:57 → ED 11:57 → SUATTDRO 16:33 → 2E 17:18

== ENCOUNTER 2019-05-15 09:11 | Inpatient (IN) ==
[2019-05-15 09:56] LABS: Basophils # (auto) 0.02 K/uL (0-0.2); Basophils % (auto) 0.2 %; Eosinophils # (auto) 0.31 K/uL (0-0.5); Eosinophils % (auto) 3.2 %; Hematocrit (blood only) 37.1 % (42-52); Hemoglobin 11.9 g/dL (14.0-18.0); Immature Granulocytes # (auto) 0.03 K/uL (0.00-0.02); Immature Granulocytes % (auto) 0.3 %; Lymphocytes # (auto) 2.16 K/uL (1.2-3.4); Lymphocytes % (auto) 22.1 %; Mean Corpuscular Hemoglobin 28.7 pg (25-34); Mean Corpuscular Hgb Conc 32.1 g/dL (32-36); Mean Corpuscular Volume 89.6 fL (80-100); Monocytes % (auto) 6.1 %; Neutrophils # (auto) 6.67 K/uL (1.4-6.5); Neutrophils % (auto) 68.1 %; Platelet Count 237 K/uL (130-400); RDW Coefficient of Variation 14.8 % (11.5-14.5); RDW Standard Deviation 48.3 fL (36.4-46.3); Red Blood Count 4.14 M/uL (4.7-6.1); White Blood Count 9.79 K/uL (4.8-10.8)
[2019-05-15 10:09] LABS: INR 1.1 (0.9-1.1); Partial Thromboplastin Ratio 0.9; Partial Thromboplastin Time 24.5 Seconds (21.0-31.0); Prothrombin Time 10.9 Seconds (9.0-12.0)
[2019-05-15 10:13] LABS: BUN Creatinine Ratio 19.1 (10-20); Calcium 8.2 mg/dl (8.5-10.1); Creatinine Clr Calc Pharmacy 87.1 ml/min; Est GFR (African American) 69.5; Est GFR (Non-African American) 59.9; Magnesium 1.6 mg/dl (1.8-2.4); Uric Acid 11.5 mg/dl (2.6-7.2)
--- NOTE | 2019-05-15 10:16 | XRay Report ---
XR chest 1V portable HISTORY: Dyspnea COMPARISON: Chest 01/28/2019. FINDINGS: No pneumothorax. The heart remains enlarged. Perihilar interstitial and vascular thickening has progressed consistent with mild pulmonary edema. Suspect trace bilateral pleural effusions. Left -sided pacemaker/defibrillator is again noted. IMPRESSION: Cardiomegaly with mild interstitial pulmonary edema. Electronically signed by: Vamshi Garcia M.D. 05/15/2019 10:14 AM
[2019-05-15 10:18] LABS: Albumin Globulin Ratio 0.8 (0.9-2); Bilirubin,Total 0.4 mg/dl (0.2-1); Globulin 3.6 gm/dl (2.5-4.0); Phosphorus 3.2 mg/dl (2.5-4.9); Total Protein 6.6 gm/dl (6.4-8.2)
[2019-05-15] MEDS ORDERED: POTASSIUM CHLORIDE 20 MEQ TABCR PO STA (10:25)
[2019-05-15] MEDS ORDERED: MAGNESIUM OXIDE 400 MG TAB PO STA (10:26)
--- NOTE | 2019-05-15 11:17 | History & Physical Report ---
Date of Service May 15, 2019 Assessment & Plan (1) Acute on chronic systolic (congestive) heart failure: -Admit to PCU - NT- Pro BNP elevated at 2866, CXR showing increased pulmonary edema suggestive of CHF -IV Bumex 2 mg now, continue twice daily dosing. Holding p.o. Bumex -CHF clinic consult -EKG reviewed as above -Most recent echo done on 01/23/2019 showing EF of 25 to 30%, akinesis of the inferior lateral wall, global hypokinesis, mild LVH, mild to moderate MR. No need to repeat at this time -HH diet, fluid restriction of 1500ml, Pt notes he is up ~ 6-7 lbs compared to his dry weight. -Daily weights, strict I's and O's -Continue eplerenone with bumex as above -Cont asa 81 mg daily (2) SVT (supraventricular tachycardia): - Hx of such, no recent episodes, Continue digoxin 125 mcg daily, sotolol 120 mg po BID, eplerenone 25 mg QAM (3) Cardiomyopathy: -Diagnosed with nonischemic cardiomyopathy, most recent echo from above (4) Shortness of breath: - Will allow levalbuterol nebs per pt request on a prn basis as he notes this has helped with his sx in the past. - Continue diuresis (5) Hypokalemia: (6) Hypomagnesemia: - Mag 1.6 upon admisison, replaced, follow am labs (7) Biventricular automatic implantable cardioverter defibrillator in situ: - Placed at [facility] in September 2017 - EKG reviewed, concerning as says pacemaker failure on reading? Will interrogate pacemaker now. Consider formal cardiology consult. (8) Hyperlipidemia: - Cont atorvastatin 40 mg QPM (9) Gout: - Flare involving the Left foot. Started on prednisone and colchicine on 05/12/19 x 5 day course. Planned to finish the pred taper tomorrow. Colchicine prn then afterwards. - Discussed reducing antiinflammatory foods ie red meats, gluten, shellfish, pt does not drink alcohol otherwise would recommend discontinuing that, weight reduction, etc. - Treatment likely contributing to CHF and fluid retention, finishes the course tomorrow so will allow this for now. (10) DVT prophylaxis: - teds on R foot only d/t gout in the left, ambulatory CODE: FULL code Dispo: From home, likely to remain in the hospital for next 1-2 days History of Present Illness Primary Care Provider: Aram Young MD This is a 54 yo M with PMHx of chronic systolic CHF, cardiomyopathy, history of SVT, biventricular automatic implantable cardioverter defibrillator in situ, hypokalemia, hypomagnesemia, obesity with BMI of 39.2 who presents with acute onset of chest pressure and shortness of breath. He denies any specific chest pain. Patient notes that this started yesterday and has continued to worsen. He is unable to walk more than 20 feet without becoming winded. He admits to orthopnea and also has difficulty with sitting straight up. He notes that his weight is increased approximately 6 to 7 pounds and that he has previously experienced similar symptoms whenever his weight gets as high. He reports he has been doing well with restricting salt, however with the recent holiday likely was being more lenient with his diet. He does not exercise routinely. Patient was recently started on treatment for gout of the left foot on with prednisone and colchicine. His is present with him at bedside. CXR showing pulmonary edema, NT-proBNP elevated at 2866, potassium decreased at 3.0. Allergies Allergy/AdvReac Type Severity Reaction Status Date / Time ciprofloxacin [From Cipro] Allergy Rash Verified 05/15/19 11:08 Home Medications Home Medications Medication Instructions Recorded Confirmed Type aspirin [Aspir-81] 81 mg PO DAILY 04/30/18 05/15/19 History atorvastatin [Lipitor] 40 mg PO QPM 04/30/18 05/15/19 History bumetanide 1 mg PO BID 04/30/18 05/15/19 History colchicine 1 - 2 tabs PO DAILY PRN MDD 2 TABS 04/30/18 05/15/19 History multivitamin [Multiple Vitamins] 1 tab PO DAILY 04/30/18 05/15/19 History prednisone 10 - 40 mg PO DAILY PRN MDD 40MG 04/30/18 05/15/19 History ascorbic acid (vitamin C) [Vitamin 2 g PO BID 01/22/19 05/15/19 History C] hydrocodone-acetaminophen 1 tab PO TID PRN 01/22/19 05/15/19 History magnesium L-lactate 84 mg PO QAM 01/22/19 05/15/19 History potassium chloride 20 meq PO QPM 01/22/19 05/15/19 History sotalol 120 mg PO BID 01/22/19 05/15/19 History digoxin 125 mcg PO QAM 05/15/19 05/15/19 History eplerenone 25 mg PO QAM 05/15/19 05/15/19 History Past Med/Surg History Medical History CHANDRA (acute kidney injury) (Acute) Cardiomyopathy (Acute) CHF (congestive heart failure) Family history of internal cardiac defibrillator History of diverticulitis Hx of chronic heart failure Hx of gout SVT (supraventricular tachycardia) Family History Father Myocardial infarction Other No significant family history Social History Preferred Language: Armenian Communication Ability: Effective Continuity Writer Required: No Beliefs That Will Affect Care: None marital status: Current Living Situation: Spouse Other Information That Helps Us Care for You: No Feels Safe at Home: Yes Safety Concerns: Feels Safe At This Time Smoking Status: Never smoker Do You Dip or Chew Tobacco: No ; Second Hand Exposure: No ; Tobacco Cessation Education Requested by Patient: No Hx Alcohol Use: No Hx Substance Use: No Review of Systems Review of Systems: Constitutional: No fever, sweats or chills Eyes: No diplopia, no worsening or blurred vision ENT: normal hearing, no trouble swallowing Respiratory: No cough, sputum, + dyspnea at rest and on exertion, + orthopnea Cardiovascular: + Chest pressure and tightness, no chest pain, or palpitations Abdomen: No pain, nausea, vomiting, diarrhea or constipation Musculoskeletal: + Left foot gout, on treatment, otherwise no joint pain, calf pain, swelling Neurologic: No weakness, numbness/tingling, or balance problems Psychiatric: No anxiety or depression Skin: No rash or itch Physical Exam Physical Exam: General: awake, alert, no apparent distress, + obese Head: Normocephalic, atraumatic ENT: PERRL, EOMI, no pharyngeal exudate, mucous membranes moist Chest: Clear to auscultation, on room air, no adventitious breath sounds Cardiac: + Tachycardic HR = 106, no murmur, no JVD, normal peripheral pulses, good capillary refill Abdominal: NABS x 4 quadrants, soft, nondistended, nontender to palpation, no rebound, guarding or tenderness Extremities: + Left foot minimally erythematous, + slightly warm, nontender to palpation, Otherwise normal inspection, no peripheral edema or erythema, calfs nontender to palpation Psych: Normal mood and affect Neuro: AAO x 3, strength intact bilaterally and related 5/5, no motor deficits, speech is clear, no peripheral sensory deficits Skin: no rash or erythema Results & Data Vital Signs (Past 12 Hours) Vital Signs Temp Pulse Resp BP Pulse Ox 05/15/19 09:41 95 05/15/19 09:23 96 05/15/19 09:15 37.0 C 106 H 20 149/108 H 96 Diagnostic Findings XR chest 1V portable HISTORY: Dyspnea COMPARISON: Chest 01/28/2019. FINDINGS: No pneumothorax. The heart remains enlarged. Perihilar interstitial and vascular thickening has progressed consistent with mild pulmonary edema. Suspect trace bilateral pleural effusions. Left-sided pacemaker/defibrillator is again noted. IMPRESSION: Cardiomegaly with mild interstitial pulmonary edema. ECG Additional Comments: 15-MAY-2019 09:23:21 [facility]-EDSTAT ROUTINE RETRIEVAL Poor data quality, interpretation may be adversely affected Suspect unspecified pacemaker failure Atrial-sensed ventricular-paced rhythm with occasional Premature ventricular complexes Abnormal ECG When compared with ECG of 29-JAN-2019 07:03, Premature ventricular complexes are now Present Vent. rate has increased BY 27 BPM 25mm/s 10mm/mV 150Hz 9.0.9 12SL 241 THEODORE: 11 Referred by: ED Unconfirmed Vent. rate 104 BPM W[place] interval 154 ms QRS duration 130 ms QT/QTc 390/512 ms P-R-T axes 52 -60 96 Code Status & VTE Plan Code Status Full code- discussed with the pt at bedside Supervising Physician Co-Signing Physician Notes Patient seen and examined, chart reviewed, case discussed with KALEY Quezada and agree with her assessment and plan as documented above. Briefly, patient is a 54-year-old male with history of systolic CHF presenting with CHF exacerbation-shortness of breath/weight gain/orthopnea/PND. On physical exam he is afebrile, mildly tachycardic otherwise hemodynamically stable. Respiratory rate of 20 saturating 95% on room air Generalresting comfortably, mildly tachypneic but in no acute distress Skinintact, no rashes/lesions HEENTnormocephalic/atraumatic, pupils equal round reactive to light, moist mucous membranes, neck supple, no JVD Heart+ S1/S2, regular, tachycardic, no murmurs/rubs/gallops Lungsequal air entry bilaterally, no rales/rhonchi/wheezes Abdomen+ bowel sounds, soft/nontender/nondistended Extremitiestrace pitting edema Labs and images reviewed. BNP = 2866 Chest x-ray with cardiomegaly and pulmonary edema Assessment/[id number] male with history of CHF presenting with exacerbation -Aggressive diuresis with IV Bumex, strict I's/O's, daily weights, electrolyte repletion as needed -Pacer interrogation -Remainder of plan as above PG Care Time/CCT Total # of Minutes Spent Total Time Spent with Patient: Total time spent is greater than 50% in coordination of care (as documented) at patient's floor/unit and/or counseling patient: (1) Cardiomyopathy Cardiomyopathy type: unspecified Qualified Code(s): I42.9 - Cardiomyopathy, unspecified
[2019-05-15] MEDS ORDERED: predniSONE 10 MG TABLET PO SCH (11:45)
[2019-05-15] MEDS ORDERED: LEVALBUTEROL 1.25MG/0.5ML NEB NEB PRN (12:08)
[2019-05-15] MEDS ORDERED: MAGNESIUM SULFATE / D5W 1 GM/100 ML BAG IV ONE (12:11)
[2019-05-15] MEDS: BUMETANIDE 2 MG in SYRINGE 0 ML IV SCH ×2 (13:53→16:50)
[2019-05-15] MEDS ORDERED: ACETAMINOPHEN 325 MG TAB PO PRN (14:43)
[2019-05-15] MEDS ORDERED: COLCHICINE 0.6 MG TAB PO PRN (14:43)
[2019-05-15] MEDS ORDERED: ONDANSETRON INJ 2 MG/ML 2 ML VIAL IV PRN (14:43)
[2019-05-15] MEDS ORDERED: HYDROCODONE/ACETAMINOPHEN 10/325 TAB PO PRN (15:01)
[2019-05-15 15:09] LABS: Appearance Urine Clear (Clear); Bilirubin Urine Negative (Negative); Blood Urine Negative (Negative); Color Urine Yellow; Glucose Urine UA Negative (Negative); Ketones Urine Negative (Negative); Leukocyte Esterase Urine Negative (Negative); Nitrite Urine Negative (Negative); Protein Urine Negative (Negative); Specific Gravity Urine 1.013 (1.000-1.030); Urobilinogen Urine Negative (Negative); pH Urine 6.5 (4.5-7.5)
--- NOTE | 2019-05-15 15:30 | Emergency Department Note ---
Entered by Mague Cervantes acting as a scribe for Nic Zelaya MD History of Present Illness General Chief complaint: Shortness of Breath/Dyspnea Stated complaint: SOB Time Seen by Provider: 05/15/19 09:34 Source: patient History of Present Illness Onset (ago): day(s) (last night) Location: chest Severity: similar to prior episodes (CHF) Pain Consistency: + other (episode) Maximum Pain Intensity: 6 Quality: + other (shortness of breath) Relieved By: not by medication Exacerbated By: + movement (exertion) and + other (lying flat) Associated symptoms: + denies other symptoms (abdominal pain), + chest pain, + cough and + other (increased weight gain, leg swelling); no fever/chills (fever) and no nausea/vomiting The patient is a 54 year old male w/ PMHx CHF, SVT, Defibrillator, Hyperlipidemia, Cardiomyopathy, and CHANDRA who presents to the ED w/ CC of an episode of shortness of breath starting last night. The patient states that over the last few days he has had increased leg swelling and a 6 lb weight gain. He states that last night he noticed he was short of breath with lying flat and then noticed that he was short of breath with exertion. He reports that it has caused a tightness and burning sensation in his left chest. He states that all of this feels similar to when he has had CHF flares in the past. The patient complains of a cough from his congestion. He notes that he did take his medications this morning. The patient denies fever, abdominal pain, nausea, vomiting, increased fluid intake, increased salt intake, a history of blood clots, a history of atrial fibrillation, use of blood thinners, and his defibrillator shocking him. Home Medications Home Medications Medication Instructions Recorded Confirmed Type aspirin [Aspir-81] 81 mg PO DAILY 04/30/18 05/15/19 History atorvastatin [Lipitor] 40 mg PO QPM 04/30/18 05/15/19 History bumetanide 1 mg PO BID 04/30/18 05/15/19 History colchicine 1 - 2 tabs PO DAILY PRN MDD 2 TABS 04/30/18 05/15/19 History multivitamin [Multiple Vitamins] 1 tab PO DAILY 04/30/18 05/15/19 History prednisone 10 - 40 mg PO DAILY PRN MDD 40MG 04/30/18 05/15/19 History ascorbic acid (vitamin C) [Vitamin 2 g PO BID 01/22/19 05/15/19 History C] hydrocodone-acetaminophen 1 tab PO TID PRN 01/22/19 05/15/19 History magnesium L-lactate 84 mg PO QAM 01/22/19 05/15/19 History potassium chloride 20 meq PO QPM 01/22/19 05/15/19 History sotalol 120 mg PO BID 01/22/19 05/15/19 History digoxin 125 mcg PO QAM 05/15/19 05/15/19 History eplerenone 25 mg PO QAM 05/15/19 05/15/19 History Allergies Allergy/AdvReac Type Severity Reaction Status Date / Time ciprofloxacin [From Cipro] Allergy Rash Verified 05/15/19 11:08 Past Med/Surg History Medical History CHANDRA (acute kidney injury) (Acute) Cardiomyopathy (Acute) CHF (congestive heart failure) Family history of internal cardiac defibrillator History of diverticulitis Hx of chronic heart failure Hx of gout SVT (supraventricular tachycardia) Family History Father Myocardial infarction Other No significant family history Social History Preferred Language: Mohawk Communication Ability: Effective Retention Manager Required: No Beliefs That Will Affect Care: None marital status: Current Living Situation: Spouse Other Information That Helps Us Care for You: No Feels Safe at Home: Yes Safety Concerns: Feels Safe At This Time Smoking Status: Never smoker Do You Dip or Chew Tobacco: No ; Second Hand Exposure: No ; Tobacco Cessation Education Requested by Patient: No Hx Alcohol Use: No Hx Substance Use: No Review of Systems See HPI for pertinent positives & negatives. and A total of 10 systems reviewed and were otherwise negative Physical Exam Vital Signs Vital Signs - 24 hr 05/15/19 09:15 05/15/19 09:23 05/15/19 09:30 Temperature 37.0 C Temperature Source Oral Pulse Rate 106 H 105 H Pulse Rate from SpO2 Sensor Pulse Rhythm Regular Pulse Strength Normal Respiratory Rate 20 19 Respiratory Effort / Characteristics Non-Labored Spontaneous Respiratory Depth Normal Respiratory Pattern Regular Blood Pressure 149/108 H 129/94 Blood Pressure Mean 121 100 Blood Pressure Position Sitting Pulse Oximetry 96 96 Oxygen Delivery Method Room Air Room Air Sepsis Recent Fever Within 48 Hours No Sepsis New/Unexplained Change in Mental Status No Sepsis Action Taken by Nursing No Action Required 05/15/19 09:41 05/15/19 10:00 05/15/19 10:30 Temperature Temperature Source Pulse Rate 100 H 101 H Pulse Rate from SpO2 Sensor 97 H 96 H Pulse Rhythm Pulse Strength Respiratory Rate 20 14 Respiratory Effort / Characteristics Respiratory Depth Respiratory Pattern Blood Pressure 156/138 H 133/79 Blood Pressure Mean 148 84 Blood Pressure Position Pulse Oximetry 95 95 96 Oxygen Delivery Method Room Air Sepsis Recent Fever Within 48 Hours Sepsis New/Unexplained Change in Mental Status Sepsis Action Taken by Nursing 05/15/19 11:00 05/15/19 11:31 Temperature Temperature Source Pulse Rate 100 H 104 H Pulse Rate from SpO2 Sensor 74 104 H Pulse Rhythm Pulse Strength Respiratory Rate 12 19 Respiratory Effort / Characteristics Respiratory Depth Respiratory Pattern Blood Pressure 125/82 138/92 Blood Pressure Mean 87 98 Blood Pressure Position Pulse Oximetry 97 95 Oxygen Delivery Method Sepsis Recent Fever Within 48 Hours Sepsis New/Unexplained Change in Mental Status Sepsis Action Taken by Nursing GENERAL: Well nourished, non-toxic. EYE EXAM: Normal conjunctiva. PERRL, no anisocoria and EOM's grossly intact w/o pain. OROPHARYNX: Moist mucous membranes. Grossly normal dentition. NECK: Supple, no nuchal rigidity, no adenopathy, non-tender. No signs of meningismus. LUNGS: Decreased breath sounds at bilateral bases. Normal chest wall mechanics. HEART: NSR, no MRG. CHEST: Device in left chest. ABDOMEN: Abdomen soft, non-tender, normo-active bowel sounds, no masses, no rebound or guarding. BACK: No CVA TTP. SKIN: No rashes and no bruising. UPPER EXTREMITIES: Upper extremities are grossly normal. LOWER EXTREMITIES: 1+ pitting edema symmetric without erythema. No calf pain. NEURO EXAM: A&O x3, cranial nerves II-XII grossly intact, normal speech, moves all 4 extremities on command w/o issue. Course Course 0937: The patient was evaluated in room A9B. A complete history and physical exam was performed. 0939: Orders were placed and the patient was started on the registered nurse cardiac telemetry. 1044: I discussed the patient's case with Dr. House- [facility] Hospitalist. She will evaluate the patient for further management. 1048: I reevaluated the patient and updated him on his test results. I discussed the treatment plan with him. He verbally agrees and understands Administered Medications Bumetanide 2 mg/ Syringe 8 mls @ 4 mls/min IV DAILY@0900,1700 [facility] Stop: 06/14/19 12:07 Last Admin: 05/15/19 13:53 Dose: 4 mls/min Documented by: [id number] Levalbuterol HCl (Xopenex 1.25mg/0.5ml Neb) 1.25 mg NEB Q6H PRN PRN Reason: shortness of breath Stop: 06/14/19 12:07 Last Admin: 05/15/19 13:44 Dose: 1.25 mg Documented by: [id number] Discontinued Medications Magnesium Sulfate/Dextrose (Magnesium Sulfate / D5w) 1 gm in 100 mls @ 100 mls/hr IV ONE ONE Stop: 05/15/19 13:10 Last Infusion: 05/15/19 14:42 Dose: 0 mls/hr Documented by: [id number] Admin: 05/15/19 13:36 Dose: 100 mls/hr Documented by: [id number] Magnesium Oxide (Mag-Ox) 800 mg PO NOW STA Stop: 05/15/19 10:27 Last Admin: 05/15/19 12:00 Dose: 800 mg Documented by: [id number] Potassium Chloride (Klor-Con M20) 40 meq PO NOW STA Stop: 05/15/19 10:26 Last Admin: 05/15/19 12:00 Dose: 40 meq Documented by: [id number] Prednisone (Prednisone) 20 mg PO TODAY [facility] Stop: 06/14/19 11:44 Last Admin: 05/15/19 13:36 Dose: 20 mg Documented by: [id number] Medical Decision Making Differential Diagnosis Differential diagnoses includes but is not limited to pneumonia, bronchitis, COPD/Asthma exacerbation, pneumothorax, pulmonary embolism, congestive heart failure, acute coronary syndrome. Medical Records Attestation: I reviewed the patient's medical records. Home Medications Current Medication List: was personally reviewed by me Laboratory Data Attestation: I reviewed the patient's lab results. Result diagrams: 05/15/19 09:31 05/15/19 09:31 Lab Results 05/15/19 05/15/19 05/15/19 Range/Units 09:31 09:31 09:31 WBC 9.79 (4.8-10.8) K/uL RBC 4.14 L (4.7-6.1) M/uL Hgb 11.9 L (14.0-18.0) g/dL Hct 37.1 L (42-52) % MCV 89.6 (80-100) fL MCH 28.7 (25-34) pg MCHC 32.1 (32-36) g/dL RDW Std Deviation 48.3 H (36.4-46.3) fL RDW Coeff of Juan 14.8 H (11.5-14.5) % Plt Count 237 (130-400) K/uL MPV 11.0 H (7.4-10.4) fL Immature Gran % (Auto) 0.3 % Neut % (Auto) 68.1 % Lymph % (Auto) 22.1 % Stewart % (Auto) 6.1 % Eos % (Auto) 3.2 % Baso % (Auto) 0.2 % Immature Gran # (Auto) 0.03 H (0.00-0.02) K/uL Neut # (Auto) 6.67 H (1.4-6.5) K/uL Lymph # (Auto) 2.16 (1.2-3.4) K/uL Stewart # (Auto) 0.60 H (0.11-0.59) K/uL Eos # (Auto) 0.31 (0-0.5) K/uL Baso # (Auto) 0.02 (0-0.2) K/uL PT 10.9 (9.0-12.0) Seconds INR 1.1 (0.9-1.1) APTT 24.5 (21.0-31.0) Seconds PTT Ratio 0.9 Sodium 143 (136-145) mmol/L Potassium 3.0 L (3.5-5.1) mmol/L Chloride 108 H (98-107) mmol/L Carbon Dioxide 25 (21-32) mmol/L Anion Gap 9.0 (3-11) BUN 26 H (7-18) mg/dl Creatinine 1.35 (0.6-1.4) mg/dl Est Cr Clr Drug Dosing 87.1 ml/min Est GFR ( Amer) 69.5 Est GFR (Non-Af Amer) 59.9 BUN/Creatinine Ratio 19.1 (10-20) Glucose 125 H (70-99) mg/dl Uric Acid 11.5 H (2.6-7.2) mg/dl Calcium 8.2 L (8.5-10.1) mg/dl Phosphorus 3.2 (2.5-4.9) mg/dl Magnesium 1.6 L (1.8-2.4) mg/dl Total Bilirubin 0.4 (0.2-1) mg/dl AST 20 (15-37) U/L ALT 44 (12-78) U/L Alkaline Phosphatase 61 (45-117) U/L NT-Pro-B Natriuret Pep 2866 H (0-900) pg/ml Total Protein 6.6 (6.4-8.2) gm/dl Albumin 3.0 L (3.4-5.0) gm/dl Globulin 3.6 (2.5-4.0) gm/dl Albumin/Globulin Ratio 0.8 L (0.9-2) Imaging Data Radiologist's Impression: Radiology results as stated below per my review and the radiologist's interpretation: XR chest 1V portable HISTORY: Dyspnea COMPARISON: Chest 01/28/2019. FINDINGS: No pneumothorax. The heart remains enlarged. Perihilar interstitial and vascular thickening has progressed consistent with mild pulmonary edema. Suspect trace bilateral pleural effusions. Left-sided pacemaker/defibrillator is again noted. IMPRESSION: Cardiomegaly with mild interstitial pulmonary edema. Electronically signed by: Vamshi Garcia M.D. 05/15/2019 10:14 AM ECG Data Attestation: I personally reviewed and interpreted this ECG as follows: Indication: + SOB/dyspnea Rate (beats per minute): 104 Rhythm: + other (atrially sensed ventricularlly paced rhythm) ECG Intervals/blocks: + Left bundle branch block ECG ST segments: + T-wave inversions (hilateral) ECG Findings: + Other (wide QRS) Blood Pressure Blood Pressure Findings: Elevated blood pressure Blood Pressure Disposition: further management by hospitalist XIOMARA Arenas The patient is a 54 year old male w/ PMHx CHF, SVT, Defibrillator, Hyperlipidemia, Cardiomyopathy, and CHANDRA who presents to the ED w/ CC of an episode of shortness of breath starting last night. Patient was seen and evaluated the bedside. The patient does have a known history of CHF and to see [facility]. [facility] in [facility]. Patient has complained of some increasing weight gain dyspnea on exertion, PND and orthopnea. The patient states he has been compliant with his medications and states that he did not have any increase in salt and fluid over the . Patient has complained of a mild nonproductive cough. Non-smoker. Patient has no history of DVT or PE. Patient does not take blood thinners. Patient denies any fevers nausea vomiting or abdominal pain. Patient did a b lood work completed along with EKG troponin chest x-ray. The patient did state that he took his sotalol and Bumex this morning. Patient does have notable hypomagnesemia and hypokalemia. Do not want to continue to diurese which could cause further electrolyte derangement and precipitate an arrhythmia. I did order appointment for both magnesium and potassium. I did speak with the on-call hospitalist agreed to further evaluate treat the patient. I did weigh with the patient's foot and may have a very trace element of podagra but does not appear very concerning at this time. Not a septic joint. Patient does have some swelling at the ankle but without redness. Good range of motion. Patient has been on chronic steroids which may also be contributory to the patient's fluid retention. I did speak with the on- call hospitalist who agreed to further evaluate treat the patient. Patient was admitted to the medicine service. Impression & Plan CHF exacerbation, Shortness of breath, Hypokalemia, Hypomagnesemia Discharge Plan Visit Data *Final* Discharge Date/Time: 05/15/19 14:53 Chief Complaint: Shortness of Breath/Dyspnea Stated Complaint: SOB ED Provider: Nic Zelaya Discharge Problem: CHF exacerbation, Shortness of breath, Hypokalemia, Hypomagnesemia Patient Disposition: Admitted As Inpatient Discharge Instructions Interventions: ED Discharge Assessment Last Done: 05/15/19 14:53 Discharge Problem: CHF exacerbation Qualifiers: Heart failure type: unspecified Qualified Code(s): I50.9 - Heart failure, unspecified The scribe's documentation has been prepared under my direction and personally reviewed by me in its entirety. I confirm that the note above accurately reflects all work, treatment, procedures, and medical decision making performed by me.
[2019-05-15] MEDS: ASCORBIC ACID 500 MG TAB PO SCH (20:27)
[2019-05-15] MEDS: ATORVASTATIN 40 MG TAB PO SCH (20:30)
[2019-05-15] MEDS: SOTALOL HCL 80 MG TAB PO SCH (20:30)
[2019-05-15] MEDS: POTASSIUM CHLORIDE 20 MEQ TABCR PO SCH (20:30)
[2019-05-16 06:25] LABS: Hematocrit (blood only) 39.3 % (42-52); Hemoglobin 12.6 g/dL (14.0-18.0); Mean Corpuscular Hemoglobin 28.8 pg (25-34); Mean Corpuscular Hgb Conc 32.1 g/dL (32-36); Mean Corpuscular Volume 89.9 fL (80-100); Mean Platelet Volume 11.1 fL (7.4-10.4); Platelet Count 258 K/uL (130-400); RDW Coefficient of Variation 14.7 % (11.5-14.5); Red Blood Count 4.37 M/uL (4.7-6.1); White Blood Count 9.55 K/uL (4.8-10.8)
[2019-05-16 06:59] LABS: Albumin Level 3.1 gm/dl (3.4-5.0); BUN Creatinine Ratio 16.8 (10-20); Bilirubin Direct 0.2 mg/dl (0-0.2); Calcium 8.5 mg/dl (8.5-10.1); Creatinine Clr Calc Pharmacy 90.8 ml/min; Est GFR (African American) 78.5; Est GFR (Non-African American) 67.7; Potassium 3.2 mmol/L (3.5-5.1)
[2019-05-16 07:02] LABS: Bilirubin,Total 0.6 mg/dl (0.2-1)
[2019-05-16] MEDS ORDERED: POTASSIUM CHLORIDE 20 MEQ TABCR PO STA (08:04)
[2019-05-16] MEDS ORDERED: MAGNESIUM SULFATE / D5W 1 GM/100 ML BAG IV STA (08:09)
[2019-05-16] MEDS: SOTALOL HCL 80 MG TAB PO SCH ×2 (08:32→20:35)
[2019-05-16] MEDS: DIGOXIN 0.125 MG TAB PO SCH (08:33)
[2019-05-16] MEDS: ASCORBIC ACID 500 MG TAB PO SCH ×2 (08:33→20:37)
[2019-05-16] MEDS: MULTIVITAMIN TAB PO SCH (08:34)
[2019-05-16] MEDS: ASPIRIN 81 MG ECTAB PO SCH (08:34)
[2019-05-16] MEDS ORDERED: MAGNESIUM PO SCH (09:00)
[2019-05-16] MEDS ORDERED: LACTATE PO SCH (09:00)
[2019-05-16] MEDS ORDERED: predniSONE 10 MG TABLET PO SCH (09:00)
--- NOTE | 2019-05-16 10:14 | Cardiology Consultation ---
Date of Consultation May 16, 2019 Assessment & Plan (1) Acute on chronic systolic (congestive) heart failure: Suspect the patient's acute decompensation related to prednisone therapy for his acute gout. He has been compliant with a low-salt diet and follows daily weights and sliding-scale diuretics. Agree with intravenous diuresis. (2) Cardiomyopathy: The patient has a history of a dilated, nonischemic cardiomyopathy diagnosed back in 2015. He follows with a pipeline executive in [place]. Review of his medication list notes that he has not been ordered his usual carvedilol 6.25 mg b.i.d., nor his eplerenone 25 mg daily. Could consider the addition of low- dose lisinopril tomorrow morning. (3) Ventricular dysrhythmia: Stable on sotalol. (4) Biventricular automatic implantable cardioverter defibrillator in situ: The device was interrogated back in January and noted normal function. Fortunately, he is pacing over 90% of the time in the ventricles. History of Present Illness Attending Physician: Lorena Serrano MD History of Present Illness Mr. Hilton is a 54-year-old male admitted yesterday in decompensated systolic CHF. This consultation was ordered to assist in his management. Of note, I met the patient during hospitalization back in January. The patient was in his usual state of good health until last week when he developed acute gout. He was seen by his primary care physician and started on a tapering dose of prednisone. Since that time, the patient began to note progressive lower extremity and abdominal edema. He was also experiencing exertional dyspnea and increasing orthopnea. He notices weight to increase from his usual of 272 pounds when dry up to 280 pounds on the day of presentation. He attempted increasing doses of diuretics, however, this was not successful. He presented to the emergency room for further care. The patient admits to compliance with a salt and fluid restricted diet. As above, he does follow daily weights and sliding-scale diuretics. The patient was diagnosed with a dilated, nonischemic cardiomyopathy back in 2015. Cardiac catheterization failed to show significant coronary artery disease. He has been managed medically since that time. He follows with Dr. Bakari Boswell at [facility]. An echocardiogram performed during his hospitalization January noted severe left ventricular dysfunction with ejection fraction of 25-30%. There is evidence of LVH and mild to moderate mitral regurgitation. The patient has received several doses of intravenous Bumex and has had a brisk diuresis. Feels significantly better at this time, however, is still experiencing orthopnea. Past medical and surgical history 1. Dilated, nonischemic cardiomyopathy-2015 2. No significant coronary artery disease-2015 3. Chronic systolic CHF 4. LVH 5. Mild to moderate mitral regurgitation 6. Biventricular ICD-Zeus's, September 2018 7. Paroxysmal SVT 8. Hypercholesterolemia 9. Diverticulitis 10. Gout 11. 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 Had his 1st [place] at age 38. Mother at 91 from coronary disease A brother at age 61 has a dilated cardiomyopathy Review systems A 10 point review of systems was negative except for that described above. Allergies Allergy/AdvReac Type Severity Reaction Status Date / Time ciprofloxacin [From Cipro] Allergy Rash Verified 05/15/19 11:08 Home Medications Home Medications Medication Instructions Recorded Confirmed Type aspirin [Aspir-81] 81 mg PO DAILY 04/30/18 05/15/19 History atorvastatin [Lipitor] 40 mg PO QPM 04/30/18 05/15/19 History bumetanide 1 mg PO BID 04/30/18 05/15/19 History colchicine 1 - 2 tabs PO DAILY PRN MDD 2 TABS 04/30/18 05/15/19 History multivitamin [Multiple Vitamins] 1 tab PO DAILY 04/30/18 05/15/19 History prednisone 10 - 40 mg PO DAILY PRN MDD 40MG 04/30/18 05/15/19 History ascorbic acid (vitamin C) [Vitamin 2 g PO BID 01/22/19 05/15/19 History C] hydrocodone-acetaminophen 1 tab PO TID PRN 01/22/19 05/15/19 History magnesium L-lactate 84 mg PO QAM 01/22/19 05/15/19 History potassium chloride 20 meq PO QPM 01/22/19 05/15/19 History sotalol 120 mg PO BID 01/22/19 05/15/19 History digoxin 125 mcg PO QAM 05/15/19 05/15/19 History eplerenone 25 mg PO QAM 05/15/19 05/15/19 History Patient History Medical History CHANDRA (acute kidney injury) (Acute) Cardiomyopathy (Acute) CHF (congestive heart failure) Family history of internal cardiac defibrillator History of diverticulitis Hx of chronic heart failure Hx of gout SVT (supraventricular tachycardia) Family History Father Myocardial infarction Other No significant family history Social History Preferred Language: Yoruba Communication Ability: Effective Sap Abap Developer Required: No Beliefs That Will Affect Care: None marital status: Current Living Situation: Spouse Other Information That Helps Us Care for You: No Feels Safe at Home: Yes Safety Concerns: Feels Safe At This Time Smoking Status: Never smoker Do You Dip or Chew Tobacco: No ; Second Hand Exposure: No ; Tobacco Cessation Education Requested by Patient: No Hx Alcohol Use: No Hx Substance Use: No Physical Exam Physical Exam: In general this is an obese white male in no acute distress. HEENT exam is negative. Neck is supple with full carotid upstrokes. There are no carotid bruits. Jugular venous pressure is flat at 90. There is no thyromegaly. Cardiovascular exam reveals a regular rhythm with a normal S1 and S2. Heart sounds are distant. No obvious S3. Lungs are clear without rales, rhonchi, or wheezes. Abdomen is soft and nontender without bruits. Extremities reveal intact radial artery and posterior tibial pulses bilaterally. There is trace pretibial edema. Results & Data Vital Signs (Past 12 Hours) Vital Signs Temp Pulse Pulse Resp BP BP Pulse Ox 05/16/19 08:33 83 05/16/19 07:18 36.8 C 84 18 137/99 94 05/16/19 03:10 36.5 C 84 18 111/77 95 05/15/19 23:50 36.4 C L 89 17 110/77 92 Laboratory Results CBC notes a hemoglobin of 12.6, hematocrit 39.3, white count 9.55, and platelet count [id number]. Electrolytes note a sodium of 142, potassium 3.2, chloride 106, bicarb 30, BUN 21, creatinine 1.22, and a glucose of 80. BNP is elevated 2866. Diagnostic Findings EKG notes atrial sensing and biventricular pacing. A PVCs noted. Chest x-ray notes cardiomegaly and interstitial edema. quality assurance monitor body notes ventricular pacing. PG Care Time/CCT Total # of Minutes Spent Total Time Spent with Patient: Total time spent is greater than 50% in coordination of care (as documented) at patient's floor/unit and/or counseling patient: (1) Cardiomyopathy Cardiomyopathy type: unspecified Qualified Code(s): I42.9 - Cardiomyopathy, unspecified
--- NOTE | 2019-05-16 10:39 | Hospitalist Progress Note ---
Date of Service May 16, 2019 Subjective 54 y/o male presented to the ED last night with SOB and chest tightness x 1 day. Patient had a gout flare that began 1 week ago. Since then he has been on prednisone. The morning of his ED visit he forgot to take his medications. On presentation to the ED he was dyspneic at rest That was made worse by lying flat and when exerting himself. He was unable to walk more than 4 steps without being SOB. He felt congested and tightness in his chest mostly n the left side. He felt that these symptoms were very similar to other past episodes of acute HF. Today he feels better. He is not SOB at rest. He is able to take about 25 steps before feeling SOB. He still has orthopnea and endorses paroxysmal nocturnal dyspnea. He was only able to sleep a few hours last night and has been up since 0330. He does not endorse chest pain, palpitations, syncope or dizziness. Results & Data Vital Signs (Past 12 Hours) Vital Signs Temp Pulse Pulse Resp BP BP Pulse Ox 05/16/19 08:33 83 05/16/19 07:18 36.8 C 84 18 137/99 94 05/16/19 03:10 36.5 C 84 18 111/77 95 05/15/19 23:50 36.4 C L 89 17 110/77 92
[2019-05-16] MEDS: BUMETANIDE 2 MG in SYRINGE 0 ML IV SCH ×2 (10:59→17:45)
--- NOTE | 2019-05-16 11:33 | Medical Student Progress Note ---
Date of Service May 16, 2019 Assessment & Plan (1) Cardiomyopathy: Cardiomyopathy type: unspecified Qualified Code(s): I42.9 - Cardiomyopathy, unspecified (2) CHF (congestive heart failure): -Continue to monitor patient on telemetry unit for next 24 hours to ensure that patients condition is stable - Limit sodium intake to less than 2 grams a day - Limit fluid intake to 1500 ml a day. - Patient started on 6.25 mg of carvedilol -Patient should be started on QUAN, ARB or Entresto. The [place] [employer]/[place] [employer] 2013 HF guidelines recommend an QUAN inhibitor for all patients with heart failure and reduced ejection fraction, or an ARB for patients who cannot tolerate QUAN inhibitor therapy. -Continue digoxin 125 mcg PO QAM -Patient to continue to take Eplerenone -Patient to continue to take bumetanide -Encourage patient to record weight every morning and monitor for weight gain. -Patient should follow up with architectural examiner Present on Admission?: Yes (3) Hypokalemia: -Hypokalemia likely secondary to IV bumetanide -Patient has been diuresed appropriately and bumetanide dosage will be decreased. - Start potassium supplementation 20 meq PO QAM -Correct hypomagnesemia with magnesium supplementation -recheck potassium levels in 12 hours (4) Hypomagnesemia: -Start magnesium supplementation magnesium sulfate/D5W 1 gram/L -Recheck magnesium levels in 12 hrs (5) Biventricular automatic implantable cardioverter defibrillator in situ: -Continue to monitor patient on telemetry unit for next 24 hours to ensure that patients condition is stable (6) Acute on chronic systolic (congestive) heart failure: (7) Hyperlipidemia: -Continue atorvastatin 40 mg PO QPM -Encourage Patient to follow a high vegetable based diet and limit intake of f atty foods (8) Gout: - Continue to take colchicine as needed during gout flairs. -Recommend the patient be started on 100 mg allopurinol for gout prophylaxis. - In the future would recommend that patient be started on a low dose of prednisone for gout flares as the patients week long use of prednisone last week likely contributed to the exacerbation of HF. (9) SVT (supraventricular tachycardia): -Continue sotalol 120mg, digoxin 125 mcg and carvedilol 6.25 mg - Continue to monitor patient on telemetry for next 24 hrs -patient is biventricularly paced. Pacing seems to be appropriate Subjective 54 y/o male presented to the ED last night with SOB and chest tightness x 1 day. Patient had a gout flare that began 1 week ago. Since then he has been on prednisone. The morning of his ED visit he forgot to take his medications. On presentation to the ED he was dyspneic at rest.Dyspnea was made worse by lying flat and when exerting himself. He was unable to walk more than 4 steps without being SOB. He felt congested and a tightness in his chest mostly on the left side. He felt that these symptoms were very similar to other past episodes of acute HF exacerbations. Today he feels better. He is not SOB at rest. He is able to take about 25 steps before feeling SOB. He still has orthopnea and endorses paroxysmal nocturnal dyspnea. He was only able to sleep a few hours last night and has been up since 0330. He does not endorse chest pain, palpitations, syncope or dizziness. Review of Systems Constitutional: no fever, no chills, no sweats, no anorexia and no weight loss Eyes: no worsening vision Ear, Nose, Mouth, Throat: no dizziness, no sore throat and no dysphagia Respiratory: + cough, + chest congestion and + dyspnea on exertion; no hemoptysis Cardiovascular: + edema (2+ edema BL); no chest pain and no chest pain with activity Gastrointestinal: + abdominal pain; no nausea, no vomiting, no hematemesis, no pain with swallowing, no dysphagia, no change in bowel habits, no change in stools, no diarrhea/loose stools and no melena Genitourinary: no dysuria, no urinary frequency and no hematuria Neurologic: no generalized weakness, no seizure-like activity, no syncope and no confusion Physical Exam Physical Exam: PT is pleasant, well appearing WN,WD and overweight Eyes: PERRL, normal accommodation and EOM intact bilaterally Neck: trachea midline, no thyromegaly Respiratory: normal respiratory effort; no respiratory distress and no retractions Auscultation: + crackles (left lower lobe) and + wheezes (BL) Cardiovascular: RRR, no murmur, no edema Heart Sounds: normal S1 and normal S2; no gallop and no cardiac rub Vessels: dorsalis pedis pulses present and radial pulses present; no JVD and no carotid bruit Gastrointestinal (Abdomen): normal bowel sounds, soft, nontender, no hepatosplenomegaly Results & Data Vital Signs (Past 12 Hours) Vital Signs Temp Pulse Pulse Resp BP BP Pulse Ox 05/16/19 10:57 37.2 C 88 20 129/66 92 05/16/19 08:33 83 05/16/19 07:18 36.8 C 84 18 137/99 94 05/16/19 03:10 36.5 C 84 18 111/77 95 05/15/19 23:50 36.4 C L 89 17 110/77 92
--- NOTE | 2019-05-16 11:35 | Hospitalist Progress Note ---
Date of Service May 16, 2019 Assessment & Plan (1) Acute on chronic systolic (congestive) heart failure: Presented with acute worsening dyspnea, orthopnea. - NT- Pro BNP elevated at 2866, CXR showing increased pulmonary edema suggestive of CHF Likely secondary to recent prednisone course given Most recent echo done on 01/23/2019 showing EF of 25 to 30%, akinesis of the inferior lateral wall, global hypokinesis, mild LVH, mild to moderate MR. No need to repeat at this time. 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 BUN increasing on evening labs -if employment recruiter stable in AM, revert back to po Bumex dosing from previous -added home Coreg back on-was inadvertently left off home med rec -changed to low Na+ diet, continue fluid restriction of 1500mL -Daily weights, strict I's and O's -Continue eplerenone if can bring from home with bumex as above -Cont asa 81 mg daily -Appreciate Cardiology consultation -need to add on ACEi or ARB or Entresto--> records show was prescribed lisinopril 10mg daily in 02/2019--> need to find out if still taking this (2) SVT (supraventricular tachycardia): - Hx of such, Also with a h/o VT -no recent episodes, has ICD/pacer - Continue digoxin 125 mcg daily, sotolol 120 mg po BID (3) Cardiomyopathy: -Diagnosed with nonischemic cardiomyopathy, most recent echo from above (4) Hypokalemia: continues, secondary to loop diuretic -replace KCl po -follow BMP in AM (5) Hypomagnesemia: - Mag 1.6 upon admission, replaced -follow Mag level in AM (6) Biventricular automatic implantable cardioverter defibrillator in situ: - Placed in September 2017 - most recent interrogation in 01/2019 shows pacer functioning properly ECG here with atrial sensed, BiV paced rhythm (7) Hyperlipidemia: - Cont atorvastatin 40 mg QPM (8) Gout: - Flare involving the Left foot prior to admission. Started on prednisone and colchicine on 05/12/19 x 5 day course. Is now finished with the pred taper - Discussed reducing antiinflammatory foods ie red meats, gluten, shellfish, pt does not drink alcohol otherwise would recommend discontinuing that, weight reduction, etc. - Treatment likely contributing to CHF and fluid retention (9) DVT prophylaxis: - teds on R foot only d/t gout in the left, ambulatory Add Lovenox CODE: FULL code Dispo: From home, could possibly dc to home tomorrow Subjective Pt reports feeling much better today. He has been urinating quite a bit. Is less SOB. No chest tightness. Still with orthopnea. No nausea or abd pain. No lightheadedness. Tele with paced rhythm, rates in the 80s-90s I discussed his care with Cardiology Review of Systems Review of Systems: All systems reviewed & are unremarkable except as noted in HPI & below Physical Exam 2 Constitutional: WD/WN, vitals as above Eyes: + anicteric sclerae ENMT: external ear and nose normal, oropharynx normal Neck: trachea midline, no thyromegaly Respiratory: normal respiratory effort; no labored breathing Auscultation: + rales (right base); no rhonchi and no wheezes Cardiovascular: Rate/Rhythm: regular rate and regular rhythm Heart Sounds: no murmur Vessels: no JVD (at 90 degrees while sitting in chair) Extremities: + edema (trace pitting edema legs bilat) Chest (Breasts): Chest: + pacemaker Gastrointestinal (Abdomen): normal bowel sounds, soft, nontender, no hepatosplenomegaly Musculoskeletal: Extremities: extremities normal to inspection; no cyanosis and no clubbing Skin: no rashes, warm and dry Neurologic: moves all extremities and awake; no focal motor deficits Psychiatric: A+Ox3, euthymic affect Results & Data Vital Signs (Past 12 Hours) Vital Signs Temp Pulse Pulse Resp BP BP Pulse Ox 05/16/19 10:57 37.2 C 88 20 129/66 92 05/16/19 08:33 83 05/16/19 07:18 36.8 C 84 18 137/99 94 05/16/19 03:10 36.5 C 84 18 111/77 95 05/15/19 23:50 36.4 C L 89 17 110/77 92 Laboratory Results 05/16/19 05/16/19 05/16/19 Range/Units 16:45 05:50 05:50 WBC 9.55 (4.8-10.8) K/uL RBC 4.37 L (4.7-6.1) M/uL Hgb 12.6 L (14.0-18.0) g/dL Hct 39.3 L (42-52) % MCV 89.9 (80-100) fL MCH 28.8 (25-34) pg MCHC 32.1 (32-36) g/dL RDW Std Deviation 48.0 H (36.4-46.3) fL RDW Coeff of Juan 14.7 H (11.5-14.5) % Plt Count 258 (130-400) K/uL MPV 11.1 H (7.4-10.4) fL Sodium 140 142 (136-145) mmol/L Potassium 3.6 3.2 L (3.5-5.1) mmol/L Chloride 107 106 (98-107) mmol/L Carbon Dioxide 26 30 (21-32) mmol/L Anion Gap 7.0 6.0 (3-11) BUN 27 H 21 H (7-18) mg/dl Creatinine 1.43 H 1.22 (0.6-1.4) mg/dl Est Cr Clr Drug Dosing 77.5 90.8 ml/min Est GFR ( Amer) 64.8 78.5 Est GFR (Non-Af Amer) 55.9 67.7 BUN/Creatinine Ratio 18.6 16.8 (10-20) Glucose 107 H 80 (70-99) mg/dl Calcium 9.0 8.5 (8.5-10.1) mg/dl Total Bilirubin 0.6 (0.2-1) mg/dl Direct Bilirubin 0.2 (0-0.2) mg/dl AST 18 (15-37) U/L ALT 47 (12-78) U/L Alkaline Phosphatase 65 (45-117) U/L Total Protein 7.0 (6.4-8.2) gm/dl Albumin 3.1 L (3.4-5.0) gm/dl PG Care Time/CCT Total # of Minutes Spent Total Time Spent with Patient: Total time spent is greater than 50% in coordination of care (as documented) at patient's floor/unit and/or counseling patient: (1) Cardiomyopathy Cardiomyopathy type: unspecified Qualified Code(s): I42.9 - Cardiomyopathy, unspecified
[2019-05-16] MEDS: ENOXAPARIN INJ 40 MG/0.4 ML SYR SQ SCH (11:41)
[2019-05-16] MEDS: carvediloL 6.25 MG TAB PO SCH ×2 (11:41→20:38)
[2019-05-16 17:17] LABS: BUN Creatinine Ratio 18.6 (10-20); Creatinine Clr Calc Pharmacy 77.5 ml/min; Est GFR (African American) 64.8; Est GFR (Non-African American) 55.9; Potassium 3.6 mmol/L (3.5-5.1)
[2019-05-16] MEDS: ATORVASTATIN 40 MG TAB PO SCH (20:36)
[2019-05-16] MEDS: POTASSIUM CHLORIDE 20 MEQ TABCR PO SCH (20:37)
[2019-05-17 06:29] LABS: BUN Creatinine Ratio 19.1 (10-20); Calcium 8.5 mg/dl (8.5-10.1); Creatinine Clr Calc Pharmacy 93.8 ml/min; Est GFR (Non-African American) 66.4; Potassium 3.3 mmol/L (3.5-5.1)
[2019-05-17] MEDS: SOTALOL HCL 80 MG TAB PO SCH (08:07)
[2019-05-17] MEDS: DIGOXIN 0.125 MG TAB PO SCH (08:09)
[2019-05-17] MEDS: MULTIVITAMIN TAB PO SCH (08:09)
[2019-05-17] MEDS: ASPIRIN 81 MG ECTAB PO SCH (08:10)
[2019-05-17] MEDS: carvediloL 6.25 MG TAB PO SCH (08:10)
[2019-05-17] MEDS: ASCORBIC ACID 500 MG TAB PO SCH (08:11)
[2019-05-17 08:30] VITALS: BP 132/93; PULSE 91; TEMP 99; O2SAT 96
[2019-05-17] MEDS ORDERED: POTASSIUM CHLORIDE 20 MEQ TABCR PO ONE (09:30)
[2019-05-17] MEDS ORDERED: BUMETANIDE 1 MG TAB PO SCH (09:30)
--- NOTE | 2019-05-17 09:32 | Medical Student Progress Note ---
Date of Service May 17, 2019 Assessment & Plan (1) Cardiomyopathy: Cardiomyopathy type: unspecified Qualified Code(s): I42.9 - Cardiomyopathy, unspecified (2) CHF (congestive heart failure): -Continue to monitor patient on telemetry unit for next 24 hours to ensure that patients condition is stable - Limit sodium intake to less than 2 grams a day - Limit fluid intake to 1500 ml a day. -Continue to monitor ins and outs - Patient started on 6.25 mg of carvedilol -Patient should be started on QUAN, ARB or Entresto. The [place] [employer]/[place] [employer] 2013 HF guidelines recommend an QUAN inhibitor for all patients with heart failure and reduced ejection fraction, or an ARB for patients who cannot tolerate QUAN inhibitor therapy. -Continue digoxin 125 mcg PO QAM -Patient to continue to take Eplerenone -Patient to continue to take bumetanide 1mg PO BID -Patient to be discharged to home -Encourage patient to record weight every morning and monitor for weight gain. -Patient should follow up with rubber compounder formulator (3) Hypokalemia: -Hypokalemia likely secondary to IV bumetanide -Patient has been diuresed appropriately and bumetanide dosage will be decreased. - Start potassium supplementation 20 meq PO QAM -Correct hypomagnesemia with magnesium supplementation -recheck potassium levels in 12 hours (4) Biventricular automatic implantable cardioverter defibrillator in situ: -Continue to monitor patient on telemetry unit for next 24 hours to ensure that patients condition is stable (5) Hyperlipidemia: -Continue atorvastatin 40 mg PO QPM -Encourage Patient to follow a high vegetable based diet and limit intake of fatty foods (6) Gout: - Continue to take colchicine as needed during gout flairs. -Recommend the patient be started on 100 mg allopurinol for gout prophylaxis. - patient was on 5 day course of prednisone with taper - In the future would recommend that patient be started on a low dose of prednisone for gout flares as the patients week long use of prednisone last week likely contributed to the exacerbation of HF. (7) SVT (supraventricular tachycardia): -Continue sotalol 120mg, digoxin 125 mcg and carvedilol 6.25 mg - Continue to monitor patient on telemetry for next 24 hrs -patient is biventricularly paced. Pacing seems to be appropriate (8) Ventricular dysrhythmia: -Patient had 11 beats of VTach last night -Continue to monitor patient on telemetry for next 24 hrs -Continue sotalol 120mg, digoxin 125 mcg and carvedilol 6.25 mg -patient is biventricularly paced. Pacing seems to be appropriate Subjective 54 y/o male with a history of CHF, SVT, cardiomegaly and Vtacaro is on his second day of hospital admission for acute exacerbation of systolic HF. He presented to the ED with SOB and chest tightness x 1 day. Patient had a gout flare that began 1 week ago. Since then he has been on prednisone. The morning of his ED visit he forgot to take his medications. On presentation to the ED he was dyspneic at rest.Dyspnea was made worse by lying flat and when exerting himself. Today he is felling good and feels like he is continually improving. He was able to walk around the room and take about 40 steps before becoming SOB. He is able to get close to lying totally flat but is not quite able to lay completely flat without being short of breath just yet. He feels that the tightness on the left side of his chest has greatly improved. I asked him if he had ever been on an QUAN, ARB or Entresto. He says that he was on lisinopril over ten years ago. he does not remember why he stopped taking it. He was on both losartan and Entresto in the past and he does not know why he stopped taking those meds either. His is going to call his rubber compounder formulator to find out why those medications were stopped. He does not endorse any dizziness, syncope, pleuritic chest pain, PND or chest pain. Review of Systems Respiratory: + cough, + chest congestion and + dyspnea on exertion; no hemoptysis Cardiovascular: + edema (2+ edema BL); no chest pain and no chest pain with activity Gastrointestinal: + abdominal pain; no nausea, no vomiting, no hematemesis, no pain with swallowing, no dysphagia, no change in bowel habits, no change in stools, no diarrhea/loose stools and no melena Musculoskeletal: no radicular pain, no myalgia, no muscle weakness and no body aches Neurologic: + headache(s); no localized weakness, no generalized weakness, no tingling, no dizziness, no syncope, no abnormal speech and no memory loss Physical Exam Eyes: PERRL, normal accommodation and EOM intact bilaterally Neck: trachea midline, no thyromegaly Respiratory: normal respiratory effort; no respiratory distress and no retractions Auscultation: lungs clear to auscultation bilaterally; no crackles and no wheezes Cardiovascular: RRR, no murmur, no edema Rate/Rhythm: regular rhythm Heart Sounds: normal S1 and normal S2; no gallop and no cardiac rub Vessels: dorsalis pedis pulses present and radial pulses present; no JVD and no carotid bruit Extremities: + edema (BL 2+ lower extremity edema from foot to upper 1/3rd of calves) Gastrointestinal (Abdomen): normal bowel sounds, soft, nontender, no hepatosplenomegaly Results & Data Vital Signs (Past 12 Hours) Vital Signs Temp Pulse Pulse Resp BP BP Pulse Ox 05/17/19 08:10 37.2 C 91 H 18 132/93 96 05/17/19 08:09 76 05/17/19 03:10 36.9 C 76 18 128/70 95 05/16/19 23:40 37.1 C 80 18 126/88 95 05/16/19 23:20 80
--- NOTE | 2019-05-17 09:59 | Cardiology Progress Note ---
Date of Service May 17, 2019 Assessment & Plan (1) Acute on chronic systolic (congestive) heart failure: Has improved dramatically with intravenous diuresis. Suspect his decompensation was from his prednisone therapy. (2) Cardiomyopathy: The patient has a dilated, nonischemic cardiomyopathy diagnosed by his hr clerk in [place] in 2015. Could consider the addition of low-dose lisinonopril. (3) Ventricular dysrhythmia: Stable on sotalol. (4) Biventricular automatic implantable cardioverter defibrillator in situ: The device was interrogated back in January and noted normal function. Fortunately, he is pacing over 95% of the time in the ventricles. Subjective The patient is stable from a cardiovascular standpoint. His exertional dyspnea and orthopnea have improved significantly. He is anxious for hospital discharge. Physical Exam Physical Exam: In general this is an obese white male in no acute distress. HEENT exam is negative. Neck is supple with full carotid upstrokes. There are no carotid bruits. Jugular venous pressure is flat at 90. There is no thyromegaly. Cardiovascular exam reveals a regular rhythm with a normal S1 and S2. Heart sounds are distant. No obvious S3. Lungs are clear without rales, rhonchi, or wheezes. Abdomen is soft and nontender without bruits. Extremities reveal intact radial artery and posterior tibial pulses bilaterally. There is trace pretibial edema. Results & Data Vital Signs (Past 12 Hours) Vital Signs Temp Pulse Pulse Resp BP BP Pulse Ox 05/17/19 08:10 37.2 C 91 H 18 132/93 96 05/17/19 08:09 76 05/17/19 03:10 36.9 C 76 18 128/70 95 05/16/19 23:40 37.1 C 80 18 126/88 95 05/16/19 23:20 80 Diagnostic Findings child monitor notes on ventricular pacing. There was 1 brief run of ventricular tachycardia. PG Care Time/CCT Total # of Minutes Spent Total Time Spent with Patient: Total time spent is greater than 50% in coordination of care (as documented) at patient's floor/unit and/or counseling patient: (1) Cardiomyopathy Cardiomyopathy type: unspecified Qualified Code(s): I42.9 - Cardiomyopathy, unspecified
[2019-05-17] MEDS: ENOXAPARIN INJ 40 MG/0.4 ML SYR SQ SCH (11:05)
--- NOTE | 2019-05-17 11:09 | Discharge Summary ---
Date of Service May 17, 2019 Admission HPI Per Admitting Provider This is a 54 yo M with PMHx of chronic systolic CHF, cardiomyopathy, history of SVT, biventricular automatic implantable cardioverter defibrillator in situ, hypokalemia, hypomagnesemia, obesity with BMI of 39.2 who presents with acute onset of chest pressure and shortness of breath. He denies any specific chest pain. Patient notes that this started yesterday and has continued to worsen. He is unable to walk more than 20 feet without becoming winded. He admits to orthopnea and also has difficulty with sitting straight up. He notes that his weight is increased approximately 6 to 7 pounds and that he has previously experienced similar symptoms whenever his weight gets as high. He reports he has been doing well with restricting salt, however with the recent holiday likely was being more lenient with his diet. He does not exercise routinely. Patient was recently started on treatment for gout of the left foot on with prednisone and colchicine. His is present with him at bedside. CXR showing pulmonary edema, NT-proBNP elevated at 2866, potassium decreased at 3.0. Principal Diagnosis Acute on chronic systolic CHF Discharge Exam Constitutional WD/WN, vitals as above Eyes + anicteric sclerae Neck trachea midline, no thyromegaly Respiratory normal respiratory effort; no labored breathing Auscultation: + rales (right base); no rhonchi and no wheezes Cardiovascular Rate/Rhythm: regular rate and regular rhythm Heart Sounds: no murmur Vessels: no JVD (at 90 degrees while sitting in chair) Extremities: + edema (trace pitting edema legs bilat) Chest (Breasts) Chest: + pacemaker Gastrointestinal (Abdomen) normal bowel sounds, soft, nontender, no hepatosplenomegaly Musculoskeletal Extremities: extremities normal to inspection; no cyanosis and no clubbing Skin no rashes, warm and dry Neurologic moves all extremities and awake; no focal motor deficits Psychiatric A+Ox3, euthymic affect Discharge Data Allergies Allergy/AdvReac Type Severity Reaction Status Date / Time ciprofloxacin [From Cipro] Allergy Rash Verified 05/15/19 11:08 Consultations 05/15/19 10:44 ED Decision to Admit Stat 05/15/19 14:43 Consult Case Management - Discharge Planning Routine [facility] [place] Routine 05/16/19 08:01 Consult Cardiology Routine Ordered Studies CXR Hospital Course (1) Acute on chronic systolic (congestive) heart failure: Presented with acute worsening dyspnea, orthopnea. - NT- Pro BNP elevated at 2866, CXR showing increased pulmonary edema suggestive of CHF Likely secondary to recent prednisone course given Most recent echo done on 01/23/2019 showing EF of 25 to 30%, akinesis of the inferior lateral wall, global hypokinesis, mild LVH, mild to moderate MR. No need to repeat at this time. 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, he was converted back to po Bumex at home dose of 1mg po bid for discharge -continue home Coreg -continue low Na+ diet, continue fluid restriction of 1800mL on discharge -Daily weights at home -Continue eplerenone -he has been tried on Entresto and had profound hypotension, has also tried lisinopril and losartan and both were stopped for unknown reasons/side effects- continued f/u with Cardiology -Cont asa 81 mg daily -Appreciate Cardiology consultation Stable for dc to home (2) SVT (supraventricular tachycardia): - Hx of such, Also with a h/o VT and had 11 beat run here, asymptomatic - has ICD/pacer - Continue digoxin 125 mcg daily, sotolol 120 mg po BID (3) Cardiomyopathy: -Diagnosed with nonischemic cardiomyopathy, most recent echo from above (4) Hypokalemia: continues, secondary to loop diuretic -replaced KCl po and continue home dose of 20meq daily on discharge (5) Hypomagnesemia: - Mag 1.6 upon admission, replaced and normalized (6) Biventricular automatic implantable cardioverter defibrillator in situ: - Placed in September 2017 - most recent interrogation in 01/2019 shows pacer functioning properly ECG here with atrial sensed, BiV paced rhythm (7) Hyperlipidemia: - Cont atorvastatin 40 mg QPM (8) Gout: - Flare involving the Left foot prior to admission. Started on prednisone and colchicine on 05/12/19 x 5 day course. Is now finished with the pred taper - Discussed reducing antiinflammatory foods ie red meats, gluten, shellfish, pt does not drink alcohol otherwise would recommend discontinuing that, weight reduction, etc. - Treatment likely contributing to CHF and fluid retention (9) DVT prophylaxis: Lovenox provided CODE: FULL code Dispo: stable for dc to home Total Time Total Time Spent Total Time Spent (In Minutes): 35 min Total Time Includes: Examination of the Patient, Discharge Planning, Medication Reconciliation and Communication With Other Providers (Cardiology) Discharge Plan Discharge Items Patient Disposition: Home - Self-Care Reason For Visit: CHF EXACERBATION Discharge Diagnosis: Acute on chronic systolic CHF Condition on Discharge: Good Health Concerns: You have been hospitalized for an acute medical problem. During your stay at [facility], we have made an effort to correct the problem that brought you to the hospital while keeping you as comfortable as possible. Medications were used to bring your condition under control and your discharge instructions will include directions for any medications you should take after leaving the hospital. Please make sure you see your Primary Care Provider as part of your follow up plan. Activity: Resume your previous activity Bathing: No limitations Non-emergency contact: Primary Care Provider and Computer Drafter Call non-emergency contact if: you have any medication questions and your symptoms worsen Follow-up/Referrals: Aram Young MD [Primary Care Provider] - Diet: Low Sodium (2gm) Fluids: 1800ml (7 cups) Addtl Attending Provider Instructions: Congestive Heart Failure: Discharge Instructions Congestive Heart Failure essentially means your heart is able to have a "traffic jam" of fluid that backs up into your lungs. Fluid in lungs then blocks up breathing space making you feel short of breath. In the hospital, our job is to get the fluid off so that you are able to breathe better, and then get you back on track with medication and lifestyle adjustments to keep the traffic jam from happening again. Salt (Sodium) The vast majority of people admitted to the hospital with fluid back up into the lungs get there because of too much salt in their diet. The way our kidneys work: when you take a small amount of sodium, your kidneys hold onto a small amount of water. When you take a large amount of sodium, your kidneys hold onto a large amount of water. When this happens, your blood vessels get flooded, your heart gets overfilled, and the fluid backs up into your lungs. Most people know to avoid the salt shaker, but sodium is in almost anything prepackaged/prepared, as a preservative or as a flavoring agent. Most of the people we take care of who are here with congestive heart failure caused by too much sodium do not use a salt shaker at all. Get into the habit of looking at food labels, so you can see how much sodium is in the foods you eat. The most important number to look at is how much sodium is in each serving. But also notice the size of a serving. [employer] will frequently make a serving size so tiny that it does not look like there is much sodium per serving, but a normal person might eat 3 or 4 servings of the food and take in a lot more sodium than they realized. Keep a "budget" of how much sodium you take in in each day. Most people stay out of trouble and stay out of the hospital as long as they stay "under budget". The majority of congestive heart failure patients do well if they take less than 2000 mg of sodium a day. Because our kidneys retain water based on how much sodium they are seeing in any given moment, it is also important to stay at less than about 500 mg in any given meal. This is because even if you stayed at less than 2000 mg of sodium, but ate it all at once, your kidneys would retain fluid at a rate as though you are taking in much more sodium than you actually are. Occasionally your doctor may specifically recommend restricting even further (such as less than 1500mg per day) so if you have been told to be even stricter with sodium, please follow that advice. -Following How You Are Doing (Wet Versus Dry) Because managing congestive heart failure is an ongoing process, it is very important to learn how to follow your signs and symptoms and track how you are doing at home. This will allow you to catch problems before they become a big deal. In general, as your health care team, we look at managing congestive heart failure chronically as a balance of being "wet" (flooded with fluid) versus being "dry" (dehydrated from treatment). Wet - signs of fluid retention that would warrant further evaluation: Check your weight daily. If your weight goes up by more than 2 pounds in 1 day, it is almost certainly fluid related. This should warrant further thought, and/or a call to your doctor Follow your breathingmost of the time, early on when fluid backs up into your lungs, you will first start to notice shortness of breath when walking, or when lying flat. If you notice either of these, this should warrant further thought, and/or a call to your doctor If you notice both an increase in weight and worsening breathing, that definitely warrants getting seen as soon as possible "Dry"while the goal of managing the disease is to keep you from getting "wet, the medications can sometimes cause a degree of dehydration. Most people with congestive heart failure need frequent lab work (basic metabolic panel). Generally when there has been a change in diuretic dosing (a change in the water pill) or any other major changes, lab work should be followed closely and more frequently afterwards. This is because lab work will frequently show early signs of dehydration before you start to feel bad. Frequent symptoms of being dehydrated include: feeling weak and lightheaded, having lower blood pressures, making less urine than usual, or having a very dry mouth. If you notice any of these signs/symptoms, and you are not due for lab work, it would be quite reasonable to call your doctor to see if lab work or a visit could be arranged. Heart Failure Management Checklist: Limit Salt (Sodium) Intake to 2000mg (2g) per day and 500mg (0.5g) per meal Check weight daily (in same clothes, without shoes) every morning Use the provided chart to enter your weight and salt intake for the day Are you too wet? If you gained 2lb or more - make sure to take your water pill If your breathing is not good (you are more short of breath than usual) call your doctor regardless of weight change If you gained 2lb or more and you are short of breath, see your doctor or come to the emergency room Are you too dry? If you feel weak or lightheaded, have lower blood pressures, make less urine than usual, or have a very dry mouth. Call your doctor Pending Studies at Discharge: No Stand-Alone Forms: My [facility] Medications and DC Order Prescriptions: Continued digoxin 125 mcg (0.125 mg) tablet 125 mcg PO QAM RF: 0 eplerenone 25 mg tablet 25 mg PO QAM RF: 0 carvedilol 12.5 mg tablet 6.25 mg PO BID RF: 0 atorvastatin [Lipitor] 40 mg Tablet 40 mg PO QPM RF: 0 colchicine 0.6 mg Tablet 1 - 2 tabs PO DAILY MDD 2 TABS PRN (Reason: FLARES) RF: 0 bumetanide 1 mg Tablet 1 mg PO BID RF: 0 aspirin [Aspir-81] 81 mg Tablet,Delayed Release (Dr/Ec) 81 mg PO DAILY RF: 0 multivitamin [Multiple Vitamins] Tablet 1 tab PO DAILY RF: 0 ascorbic acid (vitamin C) [Vitamin C] 1,000 mg Tablet 2 g PO BID RF: 0 sotalol 120 mg Tablet 120 mg PO BID RF: 0 magnesium L-lactate 84 mg Tablet Extended Release 84 mg PO QAM RF: 0 hydrocodone-acetaminophen 10-300 mg Tablet 1 tab PO TID PRN (Reason: Pain) RF: 0 potassium chloride 20 mEq Tablet Extended Release 20 meq PO QPM RF: 0 Discontinued prednisone 10 mg Tablet 10 - 40 mg PO DAILY MDD 40MG PRN (Reason: Unknown) RF: 0 Discharge Orders: Discharge Order (Routine); Ordered 05/17/19 Ordered By: Lorena Serrano Admission Data Admit Date/Time: 05/15/19 11:48 Attending Provider: Lorena Serrano Admit Provider: Jennifer Quezada Primary Care Provider: Aram Young Other Providers: [facility] ; Syed Figueroa ; Jessica Sanchez
== END 2019-05-17 12:10 | disposition home or self-care (01) | DRG 292 ==
LOC: ED 09:11 → SUATTDRO 11:48 → 2E 11:48

== ENCOUNTER 2019-09-25 11:16 | Inpatient (IN) ==
[2019-09-25 12:03] LABS: Basophils # (auto) 0.04 K/uL (0-0.2); Basophils % (auto) 0.4 %; Eosinophils # (auto) 0.32 K/uL (0-0.5); Eosinophils % (auto) 3.5 %; Hematocrit (blood only) 42.3 % (42-52); Hemoglobin 13.3 g/dL (14.0-18.0); Immature Granulocytes # (auto) 0.03 K/uL (0.00-0.02); Immature Granulocytes % (auto) 0.3 %; Lymphocytes # (auto) 1.64 K/uL (1.2-3.4); Mean Corpuscular Hemoglobin 28.6 pg (25-34); Mean Corpuscular Hgb Conc 31.4 g/dL (32-36); Mean Platelet Volume 10.7 fL (7.4-10.4); Monocytes # (auto) 0.96 K/uL (0.11-0.59); Monocytes % (auto) 10.5 %; Neutrophils # (auto) 6.11 K/uL (1.4-6.5); Neutrophils % (auto) 67.3 %; Platelet Count 277 K/uL (130-400); RDW Coefficient of Variation 15.3 % (11.5-14.5); Red Blood Count 4.65 M/uL (4.7-6.1)
[2019-09-25 12:13] LABS: Alanine Aminotransferase 45 U/L (12-78); Albumin Level 3.4 gm/dl (3.4-5.0); Aspartate Aminotransferase 21 U/L (15-37); BUN Creatinine Ratio 17.2 (10-20); Blood Urea Nitrogen 23 mg/dl (7-18); Calcium 8.4 mg/dl (8.5-10.1); Carbon Dioxide 30 mmol/L (21-32); Chloride 106 mmol/L (98-107); Est GFR (African American) 71.4; Est GFR (Non-African American) 61.6; Glucose 114 mg/dl (70-99); INR 1.1 (0.9-1.1); Magnesium 1.7 mg/dl (1.8-2.4); Partial Thromboplastin Ratio 0.9; Partial Thromboplastin Time 25.9 Seconds (21.0-31.0); Potassium 2.9 mmol/L (3.5-5.1); Prothrombin Time 11.9 Seconds (9.0-12.0); Sodium 142 mmol/L (136-145)
[2019-09-25 12:15] LABS: D Dimer 2190 ug/L FEU (0-500)
[2019-09-25] MEDS ORDERED: POTASSIUM CHLORIDE / WTR 10 MEQ/100 ML PLCT IV ONE ×2 (12:17→14:13)
[2019-09-25 12:23] LABS: Alkaline Phosphatase 73 U/L (45-117); Bilirubin,Total 0.8 mg/dl (0.2-1); Globulin 3.3 gm/dl (2.5-4.0); NT Pro B Type Natriuretic Pept 8713 pg/ml (0-900); Total Protein 6.7 gm/dl (6.4-8.2); Troponin I 0.057 ng/ml (0-0.045)
--- NOTE | 2019-09-25 12:28 | Emergency Department Note ---
Impression & Plan Elevated troponin, SOB (shortness of breath), Palpitations, Hypokalemia, Elevated d-dimer, Heart failure ED Provider Note NAME: SOLOMON NIÑO AGE: 54 SEX: M ARRIVES VIA: Walk-In INFORMANT: [Patient] ED PROVIDER(S): Richard Schultz MD CHIEF COMPLAINT: Shortness of breath and palpitations PLAN: Disposition: Admitted Condition: [Good] MEDICAL DECISION MAKING: Patient presented to the emergency department because of palpitations shortness of breath. ECG revealed paced rhythm without acute ischemia. The patient's [employer] pacemaker was interrogated. I did discuss this with the senior outside sales representative. He noted only PVCs. No malfunction or dysrhythmia noted. The patient's chest x-ray does show some signs of CHF. His blood work revealed no leukocytosis however he did have significant hypokalemia and elevated troponin. His d-dimer was also elevated. Because of this ultrasound imaging of his leg and his chest was performed. He has a pleural effusion. Incidentally there is some nodules noted that he will have a follow-up on as an outpatient. I did discuss this with him. The patient has signs of CHF. He was given IV Bumex and Nitropaste was applied. Consultation was made with internal medicine for further treatment in the hospital. Triage Nursing notes reviewed and agree them. [Prior medical records reviewed] patient was admitted for volume overload and CHF 4 months ago. Vital Signs: reviewed and remarkable for hypertension Differential diagnosis: Reactive airway disease, pneumonia, pneumothorax, COPD, CHF, infections, cardiac ischemia, pulmonary embolism, musculoskeletal, gastrointestinal, as well as oth er pathologies. ER treatment provided: IV potassium IV Bumex Nitropaste Diagnostics interpreted by me: ECG: Rate: 85 Rhythm: Atrial sensed ventricular paced ST segements: No ST elevation or depression Other: No PVCs. No dysrhythmia. When compared to May 15, 2019 no significant change. Cardiac Monitoring: Cardiac monitoring ordered by me: The patient was placed on continuous cardiac monitoring and observed. It revealed a paced rhythm at 82 beats per minute without evidence of dysrhythmia. Occasional PVCs noted. Laboratory studies: [See below] unremarkable CBC. Chemistry panel revealed hypokalemia. The patient has elevated d-dimer and troponin. Normal creatinine. Imaging studies: Chest x-ray, CT imaging, and ultrasound imaging performed. Findings consistent with CHF. No DVT or PE noted. I refer you to the EMR for further details. Consultation(s): Dr. Abarca of internal medicine. He will admit the patient. HPI: The patient is a 54 year old male who presents to the Emergency Room with complaints of shortness of breath. This started a yesterday ago and is worsening. The patient also notes the following associated symptoms, palpitations, left leg swelling, and left chest discomfort with breathing. The patient has found no relieving factors. Current pain is rated as 4/10. Patient has a history of CHF and pacemaker. Pt denies LOC, headache, fevers, chills, d iaphoresis, visual changes, neck pain, nausea, vomiting, abdominal pain, back pain, melena, hematochezia, urinary symptoms, numbness, weakness, lymphadenopathy, rash, or other complaints. ROS: See above HPI for pertinent positives & negatives. A total of [10] systems reviewed and were otherwise negative. PAST MEDICAL HISTORY:[See Below] CHANDRA, CHF, PAST SURGICAL HISTORY:[See Below] FAMILY HISTORY:[See Below] SOCIAL HISTORY:[See Below] lives with family HOME MEDICATIONS:[See Below] reviewed in EMR. Patient is taking Bumex. ALLERGIES:[See Below] VITALS:[See Below] PHYSICAL EXAMINATION: GENERAL: Awake, alert, mildly dyspneic-appearing, in no distress HENT: Normocephalic, atraumatic. Oropharynx unremarkable. EYES: Normal conjunctiva. Sclera non-icteric. NECK: Inspection normal. Non-tender. Supple. No nuchal rigidity. FROM. No masses. RESPIRATORY: Clear to auscultation. No wheezes. No rales. Mildly increased respiratory effort. CARDIAC: Normal rate. Normal rhythm. No murmurs. No rubs. Extremities warm and well perfused. Pulses equal. No JVD. GI: Soft, non-distended. No tenderness to palpation. No rebound or guarding. No masses. RECTAL: Deferred. MUSCULOSKELETAL: Atraumatic. Chest examination reveals left rib tenderness. The back is symmetrical on inspection without obvious abnormality. There is no CVA tenderness to palpation. No joint edema. LOWER EXTREMITIES: Calves are equal size bilaterally and non-tender. Left ankle and foot is slightly more swollen than the right. 1+ edema. No discoloration. NEURO: Normal sensorium. No sensory or motor deficits noted. SKIN: No rash or jaundice noted. ED COURSE: Procedures: [none] PDMP:[reviewed and no issues] [Critical Care:] I have personally spent greater than 35 minutes of critical care time in the direct management of this patient. This includes bedside care, interpretation of diagnostic studies, and testing, discussion with consultants, patient, and other required patient management activities. This 35 minutes is in excess of all separately billable procedures. Richard Schultz MD Past Med/Surg History Social History Preferred Language: Arabic Communication Ability: Effective Blueprint Maker Required: No Beliefs That Will Affect Care: None marital status: Current Living Situation: Spouse Feels Safe at Home: Yes Smoking Status: Never smoker Second Hand Exposure: No ; Hx Alcohol Use: No Hx Substance Use: No Allergies Allergies Allergy/AdvReac Type Severity Reaction Status Date / Time ciprofloxacin [From Cipro] Allergy Rash Verified 09/25/19 11:56 Home Meds Home Medications Medication Instructions Recorded Confirmed aspirin [Aspir-81] 81 mg PO DAILY 04/30/18 09/25/19 atorvastatin [Lipitor] 40 mg PO QPM 04/30/18 09/25/19 bumetanide 1 mg PO BID 04/30/18 09/25/19 colchicine 1 - 2 tabs PO DAILY PRN MDD 2 TABS 04/30/18 09/25/19 multivitamin [Multiple Vitamins] 1 tab PO DAILY 04/30/18 09/25/19 ascorbic acid (vitamin C) [Vitamin 2 g PO BID 01/22/19 09/25/19 C] hydrocodone-acetaminophen 1 tab PO TID PRN 01/22/19 09/25/19 magnesium L-lactate 84 mg PO QAM 01/22/19 09/25/19 potassium chloride 20 meq PO QPM 01/22/19 09/25/19 sotalol 120 mg PO BID 01/22/19 09/25/19 digoxin 125 mcg PO QAM 05/15/19 09/25/19 eplerenone 25 mg PO QAM 05/15/19 09/25/19 Previous Rx's Medication Instructions Recorded carvedilol 12.5 mg tablet 6.25 mg PO BID #180 tab 05/19/19 Results & Data (ED) Vital Signs Vital Signs - 24 hr 09/25/19 11:16 09/25/19 11:20 09/25/19 11:34 Temperature 36.8 C Temperature Source Oral Pulse Rate 80 81 Pulse Rate from SpO2 Sensor 81 Respiratory Rate 20 10 L Respiratory Effort / Characteristics Non-Labored Non-Labored Respiratory Depth Normal Normal Respiratory Pattern Regular Blood Pressure 156/115 H 141/105 H Blood Pressure Mean 128 120 Pulse Oximetry 95 96 Oxygen Delivery Method Room Air Room Air Sepsis Recent Fever Within 48 Hours No Sepsis New/Unexplained Change in Mental Status No Sepsis Action Taken by Nursing No Action Required 09/25/19 11:41 09/25/19 11:45 09/25/19 11:50 Temperature Temperature Source Pulse Rate 83 79 77 Pulse Rate from SpO2 Sensor 82 81 77 Respiratory Rate 18 17 20 Respiratory Effort / Characteristics Respiratory Depth Respiratory Pattern Blood Pressure 129/91 Blood Pressure Mean 101 Pulse Oximetry 97 96 95 Oxygen Delivery Method Sepsis Recent Fever Within 48 Hours Sepsis New/Unexplained Change in Mental Status Sepsis Action Taken by Nursing 09/25/19 11:54 09/25/19 12:00 09/25/19 12:10 Temperature Temperature Source Pulse Rate 76 85 Pulse Rate from SpO2 Sensor 77 82 Respiratory Rate 15 18 Respiratory Effort / Characteristics Respiratory Depth Respiratory Pattern Blood Pressure 130/93 Blood Pressure Mean 97 Pulse Oximetry 95 95 91 Oxygen Delivery Method Room Air Sepsis Recent Fever Within 48 Hours Sepsis New/Unexplained Change in Mental Status Sepsis Action Taken by Nursing 09/25/19 12:15 09/25/19 12:20 09/25/19 13:04 Temperature Temperature Source Pulse Rate 80 82 90 Pulse Rate from SpO2 Sensor 79 79 Respiratory Rate 16 17 15 Respiratory Effort / Characteristics Respiratory Depth Respiratory Pattern Blood Pressure 130/97 Blood Pressure Mean 108 Pulse Oximetry 94 93 Oxygen Delivery Method Sepsis Recent Fever Within 48 Hours Sepsis New/Unexplained Change in Mental Status Sepsis Action Taken by Nursing 09/25/19 13:05 09/25/19 13:10 09/25/19 13:15 Temperature Temperature Source Pulse Rate 86 83 88 Pulse Rate from SpO2 Sensor 85 83 87 Respiratory Rate 12 12 20 Respiratory Effort / Characteristics Respiratory Depth Respiratory Pattern Blood Pressure 141/111 H 149/109 H Blood Pressure Mean 130 126 Pulse Oximetry 96 93 96 Oxygen Delivery Method Sepsis Recent Fever Within 48 Hours Sepsis New/Unexplained Change in Mental Status Sepsis Action Taken by Nursing 09/25/19 13:20 04/13/20 13:30 Temperature Temperature Source Pulse Rate 85 83 Pulse Rate from SpO2 Sensor 84 82 Respiratory Rate 14 15 Respiratory Effort / Characteristics Respiratory Depth Respiratory Pattern Blood Pressure Blood Pressure Mean Pulse Oximetry 92 96 Oxygen Delivery Method Sepsis Recent Fever Within 48 Hours Sepsis New/Unexplained Change in Mental Status Sepsis Action Taken by Nursing Laboratory Data Result diagrams: 09/25/19 11:34 09/25/19 11:34 Lab Results 09/25/19 09/25/19 09/25/19 Range/Units 11:34 11:34 11:34 WBC 9.10 (4.8-10.8) K/uL RBC 4.65 L (4.7-6.1) M/uL Hgb 13.3 L (14.0-18.0) g/dL Hct 42.3 (42-52) % MCV 91.0 (80-100) fL MCH 28.6 (25-34) pg MCHC 31.4 L (32-36) g/dL RDW Std Deviation 51.0 H (36.4-46.3) fL RDW Coeff of Juan 15.3 H (11.5-14.5) % Plt Count 277 (130-400) K/uL MPV 10.7 H (7.4-10.4) fL Immature Gran % (Auto) 0.3 % Neut % (Auto) 67.3 % Lymph % (Auto) 18.0 % [place] % (Auto) 10.5 % Eos % (Auto) 3.5 % Baso % (Auto) 0.4 % Immature Gran # (Auto) 0.03 H (0.00-0.02) K/uL Neut # (Auto) 6.11 (1.4-6.5) K/uL Lymph # (Auto) 1.64 (1.2-3.4) K/uL [place] # (Auto) 0.96 H (0.11-0.59) K/uL Eos # (Auto) 0.32 (0-0.5) K/uL Baso # (Auto) 0.04 (0-0.2) K/uL PT 11.9 (9.0-12.0) Seconds INR 1.1 (0.9-1.1) APTT 25.9 (21.0-31.0) Seconds PTT Ratio 0.9 D-Dimer 2190 H* (0-500) ug/L FEU Sodium 142 (136-145) mmol/L Potassium 2.9 L (3.5-5.1) mmol/L Chloride 106 (98-107) mmol/L Carbon Dioxide 30 (21-32) mmol/L Anion Gap 6.0 (3-11) BUN 23 H (7-18) mg/dl Creatinine 1.32 (0.6-1.4) mg/dl Est Cr Clr Drug Dosing Not Reportable Est GFR ( Amer) 71.4 Est GFR (Non-Af Amer) 61.6 BUN/Creatinine Ratio 17.2 (10-20) Glucose 114 H (70-99) mg/dl Calcium 8.4 L (8.5-10.1) mg/dl Magnesium 1.7 L (1.8-2.4) mg/dl Total Bilirubin 0.8 (0.2-1) mg/dl AST 21 (15-37) U/L ALT 45 (12-78) U/L Alkaline Phosphatase 73 (45-117) U/L Troponin I 0.057 H* (0-0.045) ng/ml NT-Pro-B Natriuret Pep 8713 H (0-900) pg/ml Total Protein 6.7 (6.4-8.2) gm/dl Albumin 3.4 (3.4-5.0) gm/dl Globulin 3.3 (2.5-4.0) gm/dl Albumin/Globulin Ratio 1.0 (0.9-2) Urine Color Urine Appearance (Clear) Urine pH (4.5-7.5) Ur Specific [place] (1.000-1.030) Urine Protein (Negative) Urine Glucose (UA) (Negative) Urine Ketones (Negative) Urine Blood (Negative) Urine Nitrite (Negative) Urine Bilirubin (Negative) Urine Urobilinogen (Negative) Ur Leukocyte Esterase (Negative) 09/25/19 Range/Units 12:36 WBC (4.8-10.8) K/uL RBC (4.7-6.1) M/uL Hgb (14.0-18.0) g/dL Hct (42-52) % MCV (80-100) fL MCH (25-34) pg MCHC (32-36) g/dL RDW Std Deviation (36.4-46.3) fL RDW Coeff of Juan (11.5-14.5) % Plt Count (130-400) K/uL MPV (7.4-10.4) fL Immature Gran % (Auto) % Neut % (Auto) % Lymph % (Auto) % [place] % (Auto) % Eos % (Auto) % Baso % (Auto) % Immature Gran # (Auto) (0.00-0.02) K/uL Neut # (Auto) (1.4-6.5) K/uL Lymph # (Auto) (1.2-3.4) K/uL [place] # (Auto) (0.11-0.59) K/uL Eos # (Auto) (0-0.5) K/uL Baso # (Auto) (0-0.2) K/uL PT (9.0-12.0) Seconds INR (0.9-1.1) APTT (21.0-31.0) Seconds PTT Ratio D-Dimer (0-500) ug/L FEU Sodium (136-145) mmol/L Potassium (3.5-5.1) mmol/L Chloride (98-107) mmol/L Carbon Dioxide (21-32) mmol/L Anion Gap (3-11) BUN (7-18) mg/dl Creatinine (0.6-1.4) mg/dl Est Cr Clr Drug Dosing Est GFR ( Amer) Est GFR (Non-Af Amer) BUN/Creatinine Ratio (10-20) Glucose (70-99) mg/dl Calcium (8.5-10.1) mg/dl Magnesium (1.8-2.4) mg/dl Total Bilirubin (0.2-1) mg/dl AST (15-37) U/L ALT (12-78) U/L Alkaline Phosphatase (45-117) U/L Troponin I (0-0.045) ng/ml NT-Pro-B Natriuret Pep (0-900) pg/ml Total Protein (6.4-8.2) gm/dl Albumin (3.4-5.0) gm/dl Globulin (2.5-4.0) gm/dl Albumin/Globulin Ratio (0.9-2) Urine Color Yellow Urine Appearance Clear (Clear) Urine pH 7.0 (4.5-7.5) Ur Specific [place] 1.008 (1.000-1.030) Urine Protein Negative (Negative) Urine Glucose (UA) Negative (Negative) Urine Ketones Negative (Negative) Urine Blood Negative (Negative) Urine Nitrite Negative (Negative) Urine Bilirubin Negative (Negative) Urine Urobilinogen Negative (Negative) Ur Leukocyte Esterase Negative (Negative) Administered Medications Ioversol (Optiray 320 125ml) 120 ml IV ONCE PRN PRN Reason: Interaction Checking Stop: 09/29/19 12:55 Last Admin: 09/25/19 12:57 Dose: 120 ml Documented by: [id number] Discontinued Medications Potassium Chloride (K Taj / Wtr) 10 meq in 100 mls @ 100 mls/hr IV ONE ONE Stop: 09/25/19 13:16 Last Infusion: 09/25/19 14:07 Dose: 0 mls/hr Documented by: [id number] Admin: 09/25/19 12:25 Dose: 100 mls/hr Documented by: [id number] Nitroglycerin (Nitro-Bid 2%) 0.5 inch EXT NOW STA Stop: 09/25/19 14:03 Last Admin: 09/25/19 14:11 Dose: 0.5 inch Documented by: [id number] Discharge Plan Visit Data Chief Complaint: Shortness of Breath/Dyspnea Stated Complaint: SOB,IRREGULAR HEARTBEAT ED Provider: Richard Schultz Discharge Problem: Elevated troponin, SOB (shortness of breath), Palpitations, Hypokalemia, Elevated d-dimer, Heart failure Forms Stand Alone Forms: [facility] Prescriptions Prescriptions: No Action carvedilol 12.5 mg tablet 6.25 mg PO BID Qty: 180 RF: 3 digoxin 125 mcg (0.125 mg) tablet 125 mcg PO QAM RF: 0 eplerenone 25 mg tablet 25 mg PO QAM RF: 0 atorvastatin [Lipitor] 40 mg Tablet 40 mg PO QPM RF: 0 colchicine 0.6 mg Tablet 1 - 2 tabs PO DAILY MDD 2 TABS PRN (Reason: FLARES) RF: 0 bumetanide 1 mg Tablet 1 mg PO BID RF: 0 aspirin [Aspir-81] 81 mg Tablet,Delayed Release (Dr/Ec) 81 mg PO DAILY RF: 0 multivitamin [Multiple Vitamins] Tablet 1 tab PO DAILY RF: 0 ascorbic acid (vitamin C) [Vitamin C] 1,000 mg Tablet 2 g PO BID RF: 0 sotalol 120 mg Tablet 120 mg PO BID RF: 0 magnesium L-lactate 84 mg Tablet Extended Release 84 mg PO QAM RF: 0 hydrocodone-acetaminophen 10-300 mg Tablet 1 tab PO TID PRN (Reason: Pain) RF: 0 potassium chloride 20 mEq Tablet Extended Release 20 meq PO QPM RF: 0
[2019-09-25 12:41] LABS: Appearance Urine Clear (Clear); Bilirubin Urine Negative (Negative); Blood Urine Negative (Negative); Color Urine Yellow; Glucose Urine UA Negative (Negative); Ketones Urine Negative (Negative); Leukocyte Esterase Urine Negative (Negative); Nitrite Urine Negative (Negative); Protein Urine Negative (Negative); Specific Gravity Urine 1.008 (1.000-1.030); Urobilinogen Urine Negative (Negative)
--- NOTE | 2019-09-25 12:53 | Ultrasound Report ---
ULTRASOUND LEFT LOWER EXTREMITY VENOUS CLINICAL HISTORY: Left leg pain. COMPARISON STUDY: No priors. TECHNIQUE: Real-time, grayscale, and color Doppler sonography of the deep veins of the left lower ext remity was performed from the inguinal crease to the calf. Compression and augmentation were utilized . FINDINGS: There is no sonographic evidence of deep venous thrombosis identified in the left lower ext remity. The common femoral, superficial femoral, and popliteal veins are patent and normally compress ible. The greater saphenous vein and the profunda femoris vein at the junction with the common femora l vein are clear. The visualized calf veins are patent. A mildly complex popliteal cyst measures 8.3 x 1.7 x 4.5 cm. IMPRESSION: 1. There is no sonographic evidence of deep venous thrombosis identified in the left lower extremity. 2. Waite's cyst. ACT 112: Negative or not required by law. Electronically signed by: Arben Fernandez M.D. 09/25/2019 12:51 PM
[2019-09-25] MEDS ORDERED: OPTIRAY 320 125ml IV PRN (12:56)
--- NOTE | 2019-09-25 13:14 | CT Scan Report ---
CHEST CTA for PULMONARY ARTERIES CT DOSE: 971.15 mGy.cm HISTORY: Shortness of breath. TECHNIQUE: Multiaxial CT images of the chest were performed following the intravenous administration of contrast to evaluate the pulmonary arteries. Maximal intensity projection images were also obtaine d. A dose lowering technique was utilized adhering to the principles of ALARA. COMPARISON STUDY: Chest CT 01/28/2019. FINDINGS: Normal caliber thoracic aorta. There is no contrast within the thoracic aorta to assess for a dissection due to the timing of contrast and the right heart dysfunction. No filling defects withi n the pulmonary arteries to suggest pulmonary embolus. Moderate calcified plaque within the left joe nary artery. The heart is enlarged. This has slightly increased in size. Small bilateral pleural effu sions, right greater than left have developed in the interval. No significant pericardial effusion. L eft-sided pacemaker is noted. Limited views of the upper abdomen demonstrate normal liver and spleen. Normal esophagus. A few borderline enlarged right paratracheal lymph nodes with the largest measurin g 1 cm. These have slightly increased in size. No significant hilar lymphadenopathy. There is a calci fied right hilar lymph node. No suspicious lytic or blastic osseous lesions. The central airways are patent. No pneumothorax. There is a 4 mm groundglass nodule within the left upper lobe on image 188. Mild interlobular septal thickening likely representing pulmonary edema. There is a new 8 mm nodule w ithin the right lung apex on image 262 with surrounding groundglass halo. Patchy densities within the base of the right lower lobe favor mild compressive atelectasis from the pleural effusion. Calcified granuloma within the right lower lobe is noted. IMPRESSION: 1. No evidence for pulmonary embolus. 2. Progressive cardiomegaly with interval development of small bilateral pleural effusions and interl obular septal thickening. This is consistent with mild interstitial pulmonary edema. 3. A new 8 mm nodule within the right lung apex and a new 4 mm nodule within the left upper lobe. The se could be due to mild inflammatory/infectious change. [address] follow-up recommended to ens ure resolution/stability and exclude the possibility of a neoplastic process. 4. Slight prominence of the right paratracheal lymph nodes which may be in there are to the pulmonary edema. ACT 112: Negative or not required by law. Electronically signed by: Vamshi Garcia M.D. 09/25/2019 1:13 PM
--- NOTE | 2019-09-25 13:15 | XRay Report ---
XR chest 1V portable HISTORY: Dyspnea COMPARISON: Chest 05/15/2019. FINDINGS: Left-sided pacemaker/defibrillator is again noted. The heart is moderately enlarged. Small bilateral pleural effusions and interstitial and thickening have progressed. This is consistent with mild pulmonary edema. No pneumothorax. IMPRESSION: Mild interstitial pulmonary edema and small bilateral pleural effusions which have progressed. ACT 112: Negative or not required by law. Electronically signed by: Vamshi Garcia M.D. 09/25/2019 1:13 PM
[2019-09-25] MEDS ORDERED: BUMETANIDE 1 MG in SYRINGE 0 ML IV SCH (14:00)
--- NOTE | 2019-09-25 14:00 | Electrocardiogram Report ---
Test Reason : Blood Pressure : / mmHG Vent. Rate : 085 BPM Atrial Rate : 085 BPM P-R Int : 166 ms QRS Dur : 138 ms QT Int : 468 ms P-R-T Axes : 058 -58 097 degrees QTc Int : 556 ms Poor data quality, interpretation may be adversely affected Atrial-sensed ventricular-paced rhythm Abnormal ECG When compared with ECG of 15-MAY-2019 09:23, Premature ventricular complexes are no longer Present Vent. rate has decreased BY 19 BPM Confirmed by Maxim Alcantar ([id number]) on 09/25/2019 1:59:44 PM Referred By: REFERRED SELF Confirmed By:Maxim Alcantar
[2019-09-25] MEDS ORDERED: NITROGLYCERIN 2% OINTMENT 30GM TUBE EXT STA (14:02)
--- NOTE | 2019-09-25 14:15 | History & Physical Report ---
Date of Service September 25, 2019 Assessment & Plan (1) Acute on chronic systolic heart failure: Admit to PCU/telemetry. Daily weights, I&Os. Non ischemic dilated cardiomyopathy as per prior cardiology notes. Suspect exacerbation due to poor medical compliance given lapses in medication refills although he notes he has been taking his bumex regularly. ?fluid retention on steroids but I am unclear whether he is taking this or not. Bumex (home dose 1mg BID) increase to 2mg IV BID and monitor BMP daily. Trend troponin given unclear cause of acute exacerbation. Consult cardiology (2) Cardiomyopathy: Non-ischemic dilated as per prior cardiology notes. Continue carvedilol. Unclear why he is not on ACEi, he was prescribed this back in February but not refilled after this. (3) Hypokalemia: 40 meq KCl PO now, Additional 40 meq PO tonight. Repeat BMP in AM. (4) Gout: On chronic allopurinol but he appears to have stopped/not refilled in June. Patient unclear why this was stopped. Appears to have been refilled today. Repeat uric acid level. No acute flare on admission. (5) Ventricular dysrhythmia: Continue sotalol, carvedilol and digoxin. Med rec and prior hospitalizations are concerning for medication compliance as he appears to run out. Pacemaker interrogation with VT/VF episodes 43 since Jul 07. Multiple on August 21 recorded as SVT. No sustained tachyarrhythmias in September. He also appears to be prescribed chronic steroids by his biomedical equipment tech but the patient and myself are unclear on the indication for this other than gout. I am unclear of the indication for Eliquis or whether he should still be taking this and will consult cardiology. Digoxin level now (last taken yesterday). (6) DVT prophylaxis: Will defer chemical prophylaxis until determined whether patient should be taking Eliquis. Admission and Anticipated Discharge Date Admission Date: 09/25/2019 History of Present Illness Chief Complaint: Shortness of breath Primary Care Provider: Aram Young MD Srinivasa Hilton is a 54 year old male with known chronic systolic CHF (estimated LVEF 25-30%) who presents to the ER with worsening shortness of breath and palpitations over the last few days. He denies any fever or cough. He has noticed some chest tightness on left side associated with this, worse on palpation, no worse on inspiration or breathing, severity 3/10. He has noticed both legs swollen but especially over the top of his left foot. No associated joint pains. He reports last cardiac cath was approximately 2 years ago and showed no CAD. He denies any current or past smoking history. He reports compliance with his medications and low salt diet but also is unaware of most of the medications he has listed. He does not know why or when he came off the allopurinol for gout but reports flares 2-3 times a month for which he takes colchicine. Allergies Allergy/AdvReac Type Severity Reaction Status Date / Time ciprofloxacin [From Cipro] Allergy Rash Verified 09/25/19 11:56 Home Medications Home Medications Medication Instructions Recorded Confirmed Type aspirin [Aspir-81] 81 mg PO DAILY 04/30/18 09/25/19 History atorvastatin [Lipitor] 40 mg PO QPM 04/30/18 09/25/19 History bumetanide 1 mg PO BID 04/30/18 09/25/19 History colchicine 1 - 2 tabs PO DAILY PRN MDD 2 TABS 04/30/18 09/25/19 History multivitamin [Multiple Vitamins] 1 tab PO DAILY 04/30/18 09/25/19 History ascorbic acid (vitamin C) [Vitamin 2 g PO BID 01/22/19 09/25/19 History C] hydrocodone-acetaminophen 1 tab PO TID PRN 01/22/19 09/25/19 History magnesium L-lactate 84 mg PO QAM 01/22/19 09/25/19 History potassium chloride 20 meq PO QPM 01/22/19 09/25/19 History sotalol 120 mg PO BID 01/22/19 09/25/19 History digoxin 125 mcg PO QAM 05/15/19 09/25/19 History eplerenone 25 mg PO QAM 05/15/19 09/25/19 History carvedilol 12.5 mg tablet 6.25 mg PO BID #180 tab 05/19/19 09/25/19 Rx allopurinol 100 mg PO DAILY 09/26/19 09/26/19 History Past Med/Surg History Social History Preferred Language: Bahraini Communication Ability: Effective Cycle Touring Guide Required: No Beliefs That Will Affect Care: None marital status: Current Living Situation: Spouse Other Information That Helps Us Care for You: No Feels Safe at Home: Yes Safety Concerns: Feels Safe At This Time Smoking Status: Never smoker Second Hand Exposure: No ; Hx Alcohol Use: No Hx Substance Use: No Review of Systems Review of Systems: All systems reviewed & are unremarkable except as noted in HPI & below Constitutional: + weight loss (14 lb since xmas (intentional by dieting)) Physical Exam 2 Constitutional: well developed and + obese; + not well nourished and no acute distress Eyes: + anicteric sclerae; normal pupil size ENMT: external ear and nose normal, oropharynx normal Neck: normal visual inspection and trachea midline Thyroid: no thyromegaly Respiratory: normal respiratory effort; no respiratory distress Auscultation: + diminished lung sounds (bilateral reduced, R > L); no crackles, no rales, no rhonchi and no wheezes Cardiovascular: Rate/Rhythm: regular rate and regular rhythm Heart Sounds: no murmur Extremities: normal capillary refill and + pedal edema (3+ up to knees b/l, L > R); no calf tenderness Gastrointestinal (Abdomen): normal bowel sounds, soft, nontender, no hepatosplenomegaly Musculoskeletal: no cyanosis or clubbing, extremities motor strength 5/5 Skin: no rashes, warm and dry Neurologic: moves all extremities and awake; no focal motor deficits and not confused Speech / Cognition: normal speech Psychiatric: A+Ox3, euthymic affect Results & Data Results & Data ([facility]) Vital Signs (Past 12 Hours) Vital Signs Temp Pulse Resp BP Pulse Ox 09/25/19 13:30 83 15 96 09/25/19 13:20 85 14 92 09/25/19 13:15 88 20 149/109 H 96 09/25/19 13:10 83 12 93 09/25/19 13:05 86 12 141/111 H 96 09/25/19 13:04 90 15 09/25/19 12:20 82 17 93 09/25/19 12:15 80 16 130/97 94 09/25/19 12:10 85 18 91 09/25/19 12:00 76 15 130/93 95 09/25/19 11:54 95 09/25/19 11:50 77 20 95 09/25/19 11:45 79 17 129/91 96 09/25/19 11:41 83 18 97 09/25/19 11:34 81 10 L 141/105 H 96 09/25/19 11:20 36.8 C 80 20 156/115 H 95 Code Status & VTE Plan Code Status Full VTE Prophylaxis Plan VTE Prophylaxis will be ordered: Yes PG Care Time/CCT Total # of Minutes Spent Total Time Spent with Patient: Total time spent is greater than 50% in coordination of care (as documented) at patient's floor/unit and/or counseling patient: Coding Level of Care Code 04523 Initial Inpt Care Lvl 3 Diagnoses Acute on chronic systolic heart failure I50.23 Cardiomyopathy I42.9 Cardiomyopathy type: unspecified Hypokalemia E87.6 Gout M1A.09X0 Chronicity: chronic Gout etiology: idiopathic Gout site: multiple sites Presence of tophus: without tophus Ventricular dysrhythmia I49.9 DVT prophylaxis Z29.9 (1) Gout Chronicity: chronic Gout etiology: idiopathic Gout site: multiple sites Presence of tophus: without tophus Qualified Code(s): M1A.09X0 - Idiopathic chronic gout, multiple sites, without tophus (tophi) (2) Cardiomyopathy Cardiomyopathy type: unspecified Qualified Code(s): I42.9 - Cardiomyopathy, unspecified
[2019-09-25] MEDS ORDERED: POTASSIUM CHLORIDE 20 MEQ TABCR PO STA (14:24)
[2019-09-25 15:45] LABS: Uric Acid 9.5 mg/dl (2.6-7.2)
[2019-09-25 15:46] LABS: Troponin I 0.047 ng/ml (0-0.045)
[2019-09-25] MEDS ORDERED: ONDANSETRON INJ 2 MG/ML 2 ML VIAL IV PRN (16:20)
[2019-09-25] MEDS ORDERED: ACETAMINOPHEN 325 MG TAB PO PRN (16:20)
[2019-09-25] MEDS ORDERED: HYDROCODONE/ACETAMINOPHEN 10/325 TAB PO PRN (16:27)
[2019-09-25] MEDS: EPLERENONE 25 MG SCH ×2 (17:12→23:07)
[2019-09-25] MEDS: BUMETANIDE 2 MG in SYRINGE 0 ML IV SCH (17:38)
[2019-09-25] MEDS: MAGNESIUM CHLORIDE 64MG DELAYED REL TAB PO SCH (20:18)
[2019-09-25] MEDS: SOTALOL HCL 80 MG TAB PO SCH (20:19)
[2019-09-25] MEDS: carvediloL 6.25 MG TAB PO SCH (20:20)
[2019-09-25] MEDS ORDERED: POTASSIUM CHLORIDE 20 MEQ TABCR PO ONE (21:00)
[2019-09-25] MEDS ORDERED: ATORVASTATIN 40 MG TAB PO SCH (21:00)
[2019-09-26 07:19] LABS: Basophils # (auto) 0.02 K/uL (0-0.2); Basophils % (auto) 0.2 %; Eosinophils # (auto) 0.27 K/uL (0-0.5); Eosinophils % (auto) 3.2 %; Hematocrit (blood only) 40.7 % (42-52); Hemoglobin 12.7 g/dL (14.0-18.0); Immature Granulocytes # (auto) 0.02 K/uL (0.00-0.02); Immature Granulocytes % (auto) 0.2 %; Lymphocytes # (auto) 1.63 K/uL (1.2-3.4); Lymphocytes % (auto) 19.1 %; Mean Corpuscular Hemoglobin 28.2 pg (25-34); Mean Corpuscular Hgb Conc 31.2 g/dL (32-36); Mean Corpuscular Volume 90.4 fL (80-100); Mean Platelet Volume 10.6 fL (7.4-10.4); Monocytes # (auto) 0.84 K/uL (0.11-0.59); Monocytes % (auto) 9.9 %; Neutrophils # (auto) 5.74 K/uL (1.4-6.5); Neutrophils % (auto) 67.4 %; Platelet Count 287 K/uL (130-400); RDW Coefficient of Variation 15.3 % (11.5-14.5); RDW Standard Deviation 50.7 fL (36.4-46.3); White Blood Count 8.52 K/uL (4.8-10.8)
[2019-09-26] MEDS: EPLERENONE 25 MG SCH (07:20)
[2019-09-26 07:40] LABS: BUN Creatinine Ratio 14.7 (10-20); Calcium 8.7 mg/dl (8.5-10.1); Creatinine Clr Calc Pharmacy 91.4 ml/min; Est GFR (African American) 75.5; Est GFR (Non-African American) 65.1; Magnesium 1.7 mg/dl (1.8-2.4); Potassium 3.1 mmol/L (3.5-5.1)
[2019-09-26 07:47] LABS: Troponin I 0.061 ng/ml (0-0.045)
[2019-09-26] MEDS: BUMETANIDE 2 MG in SYRINGE 0 ML IV SCH (08:24)
[2019-09-26] MEDS: carvediloL 6.25 MG TAB PO SCH (08:24)
[2019-09-26] MEDS: SOTALOL HCL 80 MG TAB PO SCH (08:25)
[2019-09-26] MEDS: MAGNESIUM CHLORIDE 64MG DELAYED REL TAB PO SCH (08:26)
[2019-09-26] MEDS ORDERED: MULTIVITAMIN TAB PO SCH (09:00)
[2019-09-26] MEDS ORDERED: ASPIRIN 81 MG ECTAB PO SCH (09:00)
[2019-09-26] MEDS ORDERED: allopurinoL 100 MG TAB PO SCH (09:00)
--- NOTE | 2019-09-26 11:03 | Discharge Summary ---
Date of Service September 26, 2019 Admission HPI Per Admitting Provider Srinivasa Hilton is a 54 year old male with known chronic systolic CHF (estimated LVEF 25-30%) who presents to the ER with worsening shortness of breath and palpitations over the last few days. He denies any fever or cough. He has noticed some chest tightness on left side associated with this, worse on palpation, no worse on inspiration or breathing, severity 3/10. He has noticed both legs swollen but especially over the top of his left foot. No associated joint pains. He reports last cardiac cath was approximately 2 years ago and showed no CAD. He denies any current or past smoking history. He reports compliance with his medications and low salt diet but also is unaware of most of the medications he has listed. He does not know why or when he came off the allopurinol for gout but reports flares 2-3 times a month for which he takes colchicine. Principal Diagnosis CHF exacerbation Discharge Exam Constitutional well developed and + obese; + not well nourished and no acute distress Eyes + anicteric sclerae; normal pupil size ENMT external ear and nose normal, oropharynx normal Neck normal visual inspection and trachea midline Thyroid: no thyromegaly Respiratory normal respiratory effort; no respiratory distress Auscultation: no crackles, no rales, no rhonchi and no wheezes Cardiovascular Rate/Rhythm: regular rate and regular rhythm Heart Sounds: no murmur Extremities: normal capillary refill; no calf tenderness Gastrointestinal (Abdomen) normal bowel sounds, soft, nontender, no hepatosplenomegaly Musculoskeletal no cyanosis or clubbing, extremities motor strength 5/5 Skin no rashes, warm and dry Neurologic moves all extremities and awake; no focal motor deficits and not confused Speech / Cognition: normal speech Psychiatric A+Ox3, euthymic affect Discharge Data Allergies Allergy/AdvReac Type Severity Reaction Status Date / Time ciprofloxacin [From Cipro] Allergy Rash Verified 09/25/19 11:56 Consultations 09/25/19 13:58 ED Decision to Admit Stat 09/26/19 00:55 Consult Cardiology Routine Ordered Studies 09/25/19 12:17 CT angio chest PE protocol Stat US venous doppler LE LT Stat Hospital Course (1) Acute on chronic systolic heart failure: Non-ischemic dilated cardiomyopathy as per prior cardiology notes. - Within 24 hours, he was euvolemic with > 5 kg weight loss. Discharge weight was 122.7 kg. He will weigh himself at home and consider this his new dry weight. Will follow up with HF PA, Jessica Sanchez while he is local. - Discharge on similar dose of Bumex. He did note eating pizza once last week, but otherwise reports consistent dietary sodium intake. Bumex may need to be adjusted by outpatient providers if he starts to retain fluid again, but this dose has reportedly worked well for him for quite some time. - Started on Entresto as outpatient as this would optimize his HR regimen. (2) Cardiomyopathy: Non-ischemic dilated as per prior cardiology notes. - Continue carvedilol. - Entresto as above (3) Hypokalemia: 40 meq KCl PO now, Additional 40 meq PO tonight. Repeat BMP in AM. - Still low on discharge, but near baseline per patient. (4) Gout: On chronic allopurinol but he appears to have stopped/not refilled in June. Patient unclear why this was stopped. Appears to have been refilled today. - Repeat uric acid level was elevated. Encouraged to continue. - No acute flare on admission. (5) Ventricular dysrhythmia: Continue sotalol, carvedilol and digoxin. - Cardiology reviewed his pacemaker summary and felt this was atrial arrhythmia. No changes to medications. - Is possibly on Eliquis as an outpatient. Asked to follow up with [facility] cardiology. (6) DVT prophylaxis: Will defer chemical prophylaxis until determined whether patient should be taking Eliquis. Total Time Total Time Spent Total Time Spent (In Minutes): 35 Discharge Plan Discharge Items Patient Disposition: Home - Self-Care Reason For Visit: SHORTNESS OF BREATH Discharge Diagnosis: CHF exacerbation Activity: Resume your previous activity Non-emergency contact: Primary Care Provider and [employer] Call non-emergency contact if: your symptoms worsen Follow-up/Referrals: Aram Young MD [Primary Care Provider] - Diet: Heart Healthy Addtl Attending Provider Instructions: You were admitted with a CHF exacerbation. We were able to get fluid off with IV Bumex. Your dry weight was 270.5 lbs this morning and likely is your new dry weight. As we discussed this morning, please go home and check your weight on your home scale. Whatever your scale says should again probably be your new dry weight. If your weight goes up by more than 3 lbs in a given day or more than 5 lbs in any period, please call your doctor. Alternatively, we will have our heart failure PA from [facility] contact you if you'd like to work with [facility] while you are in the area. We did start a medication called Entresto which can help your heart remodel and squeeze more strongly. Please call your [facility] [employer] and have a tele-health visit this week if you are able. There are a few medications that we could not determine if they were current medications or not: 1) It seems your allopurinol had run out, but it looks like it was refilled recently. Your uric acid level was high, so I would recommend continuing this. 2) Your [facility] aircraft inspection record clerk seems to have prescribed a blood thinner called Eliquis. I am unsure if this was due to concern for atrial fibrillation or something else. Please follow up with him on whether to continue this. Pending Studies at Discharge: No Stand-Alone Forms: My [employer], Smoking Cessation Medications and DC Order Prescriptions: New Entresto 24-26 mg tablet 1 tab PO BID Qty: 60 RF: 0 Continued carvedilol 12.5 mg tablet 6.25 mg PO BID Qty: 180 RF: 3 digoxin 125 mcg (0.125 mg) tablet 125 mcg PO QAM RF: 0 eplerenone 25 mg tablet 25 mg PO QAM RF: 0 allopurinol 100 mg tablet 100 mg PO DAILY RF: 0 atorvastatin [Lipitor] 40 mg Tablet 40 mg PO QPM RF: 0 colchicine 0.6 mg Tablet 1 - 2 tabs PO DAILY MDD 2 TABS PRN (Reason: FLARES) RF: 0 bumetanide 1 mg Tablet 1 mg PO BID RF: 0 aspirin [Aspir-81] 81 mg Tablet,Delayed Release (Dr/Ec) 81 mg PO DAILY RF: 0 multivitamin [Multiple Vitamins] Tablet 1 tab PO DAILY RF: 0 ascorbic acid (vitamin C) [Vitamin C] 1,000 mg Tablet 2 g PO BID RF: 0 sotalol 120 mg Tablet 120 mg PO BID RF: 0 magnesium L-lactate 84 mg Tablet Extended Release 84 mg PO QAM RF: 0 hydrocodone-acetaminophen 10-300 mg Tablet 1 tab PO TID PRN (Reason: Pain) RF: 0 potassium chloride 20 mEq Tablet Extended Release 20 meq PO QPM RF: 0 Discharge Orders: Discharge Order (Routine); Ordered 09/26/19 Ordered By: Magan Mora Admission Data Admit Date/Time: 09/25/19 14:41 Attending Provider: Magan Mora Admit Provider: Mac Abarca Primary Care Provider: Aram Young Other Providers: Maxim Alcantar ; Magan Mora Coding Level of Care Code D/C Day Management >30 mins Diagnoses Acute on chronic systolic heart failure I50.23 Cardiomyopathy I42.9 Cardiomyopathy type: unspecified Hypokalemia E87.6 Gout M1A.09X0 Gout site: multiple sites Gout etiology: idiopathic Chronicity: chronic Presence of tophus: without tophus Ventricular dysrhythmia I49.9 DVT prophylaxis Z29.9
--- NOTE | 2019-09-26 11:20 | Cardiology Consultation ---
Date of Consultation September 26, 2019 Assessment & Plan (1) Acute on chronic systolic heart failure: (2) Elevated troponin: (3) Cardiomyopathy: (4) Hypokalemia: (5) Biventricular ICD (implantable cardioverter-defibrillator) in place: (6) Paroxysmal atrial fibrillation: (7) Paroxysmal ventricular tachycardia: ASSESSMENT/PLAN: 1. Acute on chronic systolic CHF: He has reported significant improvement with diuresis following IV Bumex. He appears only slightly hypervolemic currently and is still diuresing from morning Bumex (with seen earlier today). We discussed importance of a low-sodium diet, less than 2000 mg daily. Continue daily weights. Can be discharged home on his usual dose of Bumex 1 mg twice daily and he was instructed that if he notices weight gain or worsening shortness of breath, to take an additional 1 mg of Bumex and to call for further instructions. Although he does not live in this area, he will be staying here for the short term and therefore recommended heart failure program to assist in his needs prior to moving back home, closer to his primary civil engineering design draftsperson. He was receptive and agreeable to be enrolled into the Heart failure program. Jessica Sanchez (HF program PA-C) was personally made aware of this referral. 2. Nonischemic cardiomyopathy: Etiology uncertain, may be idiopathic. He follows with cardiology in the [place] area. Unclear if he has had further secondary workup. Continue carvedilol at current dose for now. Would recommend low-dose Entresto if no contraindication. ICD for primary prevention in place. Reportedly has severely reduced LV systolic function with an EF of 25-30%. 3. Elevated troponin: He did not present with acute coronary syndrome. Troponin elevation is not diagnostic of myocardial infarction, but may be related due to his hypervolemic state. He has no significant CAD based on history of unremarkable cardiac catheterizations in the past. 4. Paroxysmal atrial fibrillation: He states that he has undergone elective cardioversion approximately 6 months ago with his primary civil engineering design draftsperson in [facility]. Currently in sinus rhythm. He states that he had been taken off of anticoagulation in the past however apparently reported that he was prescribed Eliquis to the admitting physician. Details of atrial fibrillation not well known at this time but would defer to primary civil engineering design draftsperson plan. He does have elevated chads Vasc score and therefore if does have history of atrial fibrillation, would be reasonable for him to be anticoagulated for stroke risk reduction. 5. Hypokalemia: Replete as appropriate as per primary service. He states that his level is never any better than 3 chronically. Entresto may cause increase in his potassium level. 6. Paroxysmal ventricular tachycardia: No sustained ventricular arrhythmias suggested on pacemaker interrogation as per EP review. Did have a 7 beat run here on telemetry. Continue beta-courtney. On anti rhythmic therapy as per primary civil engineering design draftsperson. 7. Biventricular ICD: Interrogation completed here. EP has reviewed and reports ectopic atrial arrhythmia but no significant ventricular arrhythmias. Follow-up with primary civil engineering design draftsperson. 8. Disposition: From a heart failure standpoint, likely ready for discharge today. Would replete potassium. Heart failure program enrollment while staying locally until he can return home to his primary civil engineering design draftsperson. Plan of care discussed with Dr. Magan Mora of the primary hospitalist service, as well as Jessica Sanchez of the Heart failure program. 45 minutes spent, with greater than 50% of that time spent counseling patient and coordinating care. Thank you for allowing me to participate in the care of your patient. Please call for any other questions or concerns. Sincerely, Alonzo Alcantar M.D. History of Present Illness Reason for Consultation: CHF Requesting Physician: Dr. Abarca Attending Physician: Magan Mora MD History of Present Illness Mr. Hilton is a very pleasant 54-year-old gentleman with a history of biventricular ICD, systolic CHF, hypertension, dyslipidemia, paroxysmal atrial fibrillation s/p cardioversion, and chronic hypokalemia. He is followed by Cardiology in the [place] area and has been seen during [address] Martínez. He states that he has had a cardiac catheterization in 2018, and 3 or 4 cardiac catheterizations prior to that. He says that he has no CAD. Cardiac catheterization was performed in [place]. He has a history of nonischemic cardiomyopathy with reported EF of 25-30%. He underwent ICD in the past for primary prevention and has not received any shock therapy. He does recall undergoing elective cardioversion in [place] for atrial fibrillation approximately 6 months ago. He states that he was on anticoagulation therapy in the past but this has since been discontinued by his primary civil engineering design draftsperson. He does not recall the reason but does note that he has not had any significant bleeding. He weighs himself on a regular basis and his weight has been stable up until 2 days ago when he gained 4 lb each day for the past 2 days. He states that he was on prednisone for a 5 day tapering course, completing it approximately 3 weeks ago for gout. He did not have any exacerbation of CHF at that time and did well for the past 3 weeks until the past 2 days. He states that he maintains a low-sodium diet. He does not recall any specific change in diet or other issue to account for his CHF exacerbation. He notes that this happens 2 or 3 times per year. Due to weight gain, and worsening shortness of breath, he called his cardiology office and was instructed to come to the emergency department. He has been short of breath, both at rest, with exertion, and also reports orthopnea. He has noted lower extremity edema. He lives in [place], but has been staying appear with his in-laws to help out during the Covid-19 pandemic. He states that he has been compliant with Bumex 1 mg twice daily, as well as epleronone. He recalls being on higher doses of carvedilol but this was reduced after initiation of sotalol for his history of atrial fibrillation. He denies chest pain, fevers, chills, abdominal pain, nausea, vomiting, syncope, palpitations, melena, hematochezia, or hematuria. After receiving intravenous Bumex, he has had significant diuresis and feels much better. He feels better than he has in a long time. He no longer has shortness of breath and his edema has significantly improved. Review of systems: As above. Review of systems otherwise negative/unremarkable. Family history: Mother with CAD. Social history: Denies tobacco or drug abuse. Rare alcohol. Lives at home in [place] with his and 2 daughters. 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 He is unaccompanied. Allergies Allergy/AdvReac Type Severity Reaction Status Date / Time ciprofloxacin [From Cipro] Allergy Rash Verified 09/25/19 11:56 Home Medications Home Medications Medication Instructions Recorded Confirmed Type aspirin [Aspir-81] 81 mg PO DAILY 04/30/18 09/25/19 History atorvastatin [Lipitor] 40 mg PO QPM 04/30/18 09/25/19 History bumetanide 1 mg PO BID 04/30/18 09/25/19 History colchicine 1 - 2 tabs PO DAILY PRN MDD 2 TABS 04/30/18 09/25/19 History multivitamin [Multiple Vitamins] 1 tab PO DAILY 04/30/18 09/25/19 History ascorbic acid (vitamin C) [Vitamin 2 g PO BID 01/22/19 09/25/19 History C] hydrocodone-acetaminophen 1 tab PO TID PRN 01/22/19 09/25/19 History magnesium L-lactate 84 mg PO QAM 01/22/19 09/25/19 History potassium chloride 20 meq PO QPM 01/22/19 09/25/19 History sotalol 120 mg PO BID 01/22/19 09/25/19 History digoxin 125 mcg PO QAM 05/15/19 09/25/19 History eplerenone 25 mg PO QAM 05/15/19 09/25/19 History carvedilol 12.5 mg tablet 6.25 mg PO BID #180 tab 05/19/19 09/25/19 Rx allopurinol 100 mg PO DAILY 09/26/19 09/26/19 History sacubitril-valsartan [Entresto] 1 tab PO BID #60 tab 09/26/19 Rx Patient History Medical History CHANDRA (acute kidney injury) (Acute) Biventricular ICD (implantable cardioverter-defibrillator) in place Cardiomyopathy (Acute) Chronic systolic CHF (congestive heart failure) History of diverticulitis Hx of gout Hyperlipidemia Hypertension Paroxysmal atrial fibrillation SVT (supraventricular tachycardia) Social History Preferred Language: Bahamian Communication Ability: Effective Infection Preventionist Required: No Beliefs That Will Affect Care: None marital status: Current Living Situation: Spouse Feels Safe at Home: Yes Smoking Status: Never smoker Second Hand Exposure: No ; Hx Alcohol Use: No Hx Substance Use: No Physical Exam Physical Exam: Gen.: No acute distress. Alert and oriented. HEENT: Anicteric sclera. Neck: No appreciable JVD. No bruits. Normal carotid upstrokes bilaterally. Cardiac: PMI was nondisplaced. No ventricular heave. Regular rate and rhythm. Normal S1-S2. No murmurs, rubs, or gallops. Pulmonary: Clear to auscultation bilaterally without wheezes, rales, or rhonchi. Abdomen: Soft, nontender, nondistended, with normoactive bowel sounds. No bruits noted. Extremities: 2+ radial pulses bilaterally. 2+ posterior tibialis pulses bilaterally. Trace bilateral lower extremity edema. No cyanosis. Psychiatric: Affect appears appropriate. Results & Data ([facility]) Vital Signs (Past 12 Hours) Vital Signs Temp Pulse Pulse Resp BP Pulse Ox 09/26/19 11:03 36.7 C 85 20 136/82 94 09/26/19 07:47 36.7 C 85 20 136/82 94 09/26/19 03:42 36.8 C 86 17 138/95 93 09/26/19 00:00 36.8 C 86 18 126/70 91 09/25/19 23:54 84 Intake & Output 09/24/19 09/25/19 09/26/19 09/27/19 06:59 06:59 06:59 06:59 Intake Total 800 / 800 Output Total 3300 / 3300 Balance -2500 / -2500 Weight 122.7 kg 122.7 kg Laboratory Results Laboratory Results - last 24 hr 09/25/19 09/25/19 09/25/19 15:12 15:12 16:25 WBC RBC Hgb Hct MCV MCH MCHC RDW Std Deviation RDW Coeff of Juan Plt Count MPV Immature Gran % (Auto) Neut % (Auto) Lymph % (Auto) [place] % (Auto) Eos % (Auto) Baso % (Auto) Immature Gran # (Auto) Neut # (Auto) Lymph # (Auto) [place] # (Auto) Eos # (Auto) Baso # (Auto) Sodium Potassium Chloride Carbon Dioxide Anion Gap BUN Creatinine Est Cr Clr Drug Dosing Est GFR ( Amer) Est GFR (Non-Af Amer) BUN/Creatinine Ratio Glucose Uric Acid 9.5 H Calcium Magnesium Troponin I 0.047 H* NT-Pro-B Natriuret Pep Nasal Screen MRSA (PCR) Positive A Digoxin 0.5 L 09/26/19 09/26/19 06:20 06:20 WBC 8.52 RBC 4.50 L Hgb 12.7 L Hct 40.7 L MCV 90.4 MCH 28.2 MCHC 31.2 L RDW Std Deviation 50.7 H RDW Coeff of Juan 15.3 H Plt Count 287 MPV 10.6 H Immature Gran % (Auto) 0.2 Neut % (Auto) 67.4 Lymph % (Auto) 19.1 [place] % (Auto) 9.9 Eos % (Auto) 3.2 Baso % (Auto) 0.2 Immature Gran # (Auto) 0.02 Neut # (Auto) 5.74 Lymph # (Auto) 1.63 [place] # (Auto) 0.84 H Eos # (Auto) 0.27 Baso # (Auto) 0.02 Sodium 140 Potassium 3.1 L Chloride 105 Carbon Dioxide 30 Anion Gap 5.0 BUN 19 H Creatinine 1.26 Est Cr Clr Drug Dosing 91.4 Est GFR ( Amer) 75.5 Est GFR (Non-Af Amer) 65.1 BUN/Creatinine Ratio 14.7 Glucose 110 H Uric Acid Calcium 8.7 Magnesium 1.7 L Troponin I 0.061 H* NT-Pro-B Natriuret Pep 9093 H Nasal Screen MRSA (PCR) Digoxin Diagnostic Findings Telemetry personally reviewed: Ventricular pacing. Seven beat run of nonsustained ventricular tachycardia. ECG personally reviewed: ECG 09/25/2019 at 11:31 a.m.: Sinus rhythm. Atrial sensed and ventricular paced 85 bpm. CTA chest 09/25/2019: No PE. Interval development of small bilateral pleural effusions and mild interstitial pulmonary edema. Medications Administered Discontinued Medications Aspirin (Ecotrin Ectab) 81 mg PO DAILY FR[facility]ICK Stop: 10/26/19 08:59 Last Admin: 09/26/19 08:24 Dose: 81 mg Documented by: [id number] Atorvastatin Calcium (Lipitor) 40 mg PO QPM [facility]ERICK Stop: 10/25/19 20:59 Last Admin: 09/25/19 20:19 Dose: 40 mg Documented by: [id number] Carvedilol (Coreg) 6.25 mg PO BID FR[facility]ERICK Stop: 10/25/19 20:59 Last Admin: 09/26/19 08:24 Dose: 6.25 mg Documented by: [id number] Admin: 09/25/19 20:20 Dose: 6.25 mg Documented by: [id number] Potassium Chloride (K Taj / Wtr) 10 meq in 100 mls @ 100 mls/hr IV ONE ONE Stop: 09/25/19 13:16 Last Infusion: 09/25/19 14:07 Dose: 0 mls/hr Documented by: [id number] Admin: 09/25/19 12:25 Dose: 100 mls/hr Documented by: [id number] Bumetanide 1 mg/ Syringe 4 mls @ 4 mls/min IV NOW [facility] Stop: 09/25/19 16:21 Last Admin: 09/25/19 15:20 Dose: 4 mls/min Documented by: [id number] Potassium Chloride (K Taj / Wtr) 10 meq in 100 mls @ 100 mls/hr IV ONE ONE Stop: 09/25/19 15:12 Last Admin: 09/25/19 14:38 Dose: Not Given Documented by: [id number] Bumetanide 2 mg/ Syringe 8 mls @ 4 mls/min IV BID@0900,1700 [facility] Stop: 10/25/19 16:59 Last Admin: 09/26/19 08:24 Dose: 4 mls/min Documented by: [id number] Admin: 09/25/19 17:38 Dose: 4 mls/min Documented by: [id number] Ioversol (Optiray 320 125ml) 120 ml IV ONCE PRN PRN Reason: Interaction Checking Stop: 09/29/19 12:55 Last Admin: 09/25/19 12:57 Dose: 120 ml Documented by: [id number] Magnesium Chloride (Slow-Mag) 256 mg PO BID [facility] Stop: 10/25/19 20:59 Last Admin: 09/26/19 08:26 Dose: 256 mg Documented by: [id number] Admin: 09/25/19 20:18 Dose: 256 mg Documented by: [id number] Miscellaneous (Order Awaiting Action) 1 ea N/A QS [facility] Stop: 10/25/19 16:59 Last Admin: 09/26/19 07:20 Dose: Not Given Documented by: [id number] Admin: 09/25/19 23:07 Dose: Not Given Documented by: [id number] Admin: 09/25/19 17:12 Dose: Not Given Documented by: [id number] Multivitamins (Multivitamin Tab) 1 tab PO DAILY [facility] Stop: 10/26/19 08:59 Last Admin: 09/26/19 08:24 Dose: 1 tab Documented by: [id number] Nitroglycerin (Nitro-Bid 2%) 0.5 inch EXT NOW STA Stop: 09/25/19 14:03 Last Admin: 09/25/19 14:11 Dose: 0.5 inch Documented by: [id number] Potassium Chloride (Klor-Con M20) 40 meq PO NOW STA Stop: 09/25/19 14:25 Last Admin: 09/25/19 14:35 Dose: 40 meq Documented by: [id number] Potassium Chloride (Klor-Con M20) 40 meq PO ONE ONE Stop: 09/25/19 21:01 Last Admin: 09/25/19 21:29 Dose: 40 meq Documented by: [id number] Sotalol HCl (Betapace) 120 mg PO BID [facility] Stop: 10/25/19 20:59 Last Admin: 09/26/19 08:25 Dose: 120 mg Documented by: [id number] Admin: 09/25/19 20:19 Dose: 120 mg Documented by: [id number] PG Care Time/CCT Total # of Minutes Spent Total Time Spent with Patient: Total time spent is greater than 50% in coordination of care (as documented) at patient's floor/unit and/or counseling patient: Coding Level of Care Code 13883 Office/Outpt Visit, Est Diagnoses Acute on chronic systolic heart failure I50.23 Elevated troponin R74.8 Cardiomyopathy I42.9 Cardiomyopathy type: unspecified Hypokalemia E87.6 Biventricular ICD (implantable cardioverter-defibrillator) in place Z95.810 Paroxysmal atrial fibrillation I48.0 Paroxysmal ventricular tachycardia I47.2 (1) Cardiomyopathy Cardiomyopathy type: unspecified Qualified Code(s): I42.9 - Cardiomyopathy, unspecified
[2019-09-26] MEDS ORDERED: DIGOXIN 0.125 MG TAB PO SCH (16:00)
== END 2019-09-26 12:24 | disposition home or self-care (01) | DRG 292 ==
LOC: ED 11:16 → 2S 14:41 → SUATTDRO 14:41 → 2S 16:05

== ENCOUNTER 2019-11-09 18:23 | Inpatient (IN) ==
[2019-11-09] MEDS ORDERED: DEXAMETHASONE **PF** INJ 10 MG/ML VIAL IV ONE (18:54)
[2019-11-09] MEDS ORDERED: ALBUTEROL HFA 8 GM INHALER INH ONE (18:54)
[2019-11-09 19:26] LABS: Basophils # (auto) 0.01 K/uL (0-0.2); Basophils % (auto) 0.1 %; Eosinophils # (auto) 0.28 K/uL (0-0.5); Eosinophils % (auto) 2.8 %; Hematocrit (blood only) 43.3 % (42-52); Hemoglobin 13.3 g/dL (14.0-18.0); Immature Granulocytes # (auto) 0.02 K/uL (0.00-0.02); Immature Granulocytes % (auto) 0.2 %; Lymphocytes # (auto) 1.21 K/uL (1.2-3.4); Lymphocytes % (auto) 12.2 %; Mean Corpuscular Hemoglobin 26.9 pg (25-34); Mean Corpuscular Hgb Conc 30.7 g/dL (32-36); Mean Corpuscular Volume 87.5 fL (80-100); Mean Platelet Volume 10.1 fL (7.4-10.4); Monocytes # (auto) 0.75 K/uL (0.11-0.59); Monocytes % (auto) 7.5 %; Neutrophils # (auto) 7.68 K/uL (1.4-6.5); Neutrophils % (auto) 77.2 %; Platelet Count 305 K/uL (130-400); RDW Coefficient of Variation 14.3 % (11.5-14.5); RDW Standard Deviation 45.4 fL (36.4-46.3); Red Blood Count 4.95 M/uL (4.7-6.1); White Blood Count 9.95 K/uL (4.8-10.8)
[2019-11-09 19:41] LABS: INR 1.2 (0.9-1.1); Partial Thromboplastin Ratio 0.9; Partial Thromboplastin Time 25.9 Seconds (21.0-31.0); Prothrombin Time 12.6 Seconds (9.0-12.0)
[2019-11-09 19:44] LABS: Albumin Level 2.6 gm/dl (3.4-5.0); BUN Creatinine Ratio 11.6 (10-20); Calcium 8.2 mg/dl (8.5-10.1); Creatinine Clr Calc Pharmacy 91.5 ml/min; Est GFR (African American) 76.2; Est GFR (Non-African American) 65.8; Magnesium 1.6 mg/dl (1.8-2.4); Potassium 3.1 mmol/L (3.5-5.1)
[2019-11-09 19:49] LABS: Albumin Globulin Ratio 0.7 (0.9-2); Globulin 3.7 gm/dl (2.5-4.0); Phosphorus 3.9 mg/dl (2.5-4.9); Total Protein 6.3 gm/dl (6.4-8.2); Troponin I 0.041 ng/ml (0-0.045)
--- NOTE | 2019-11-09 20:14 | XRay Report ---
XR chest 1V portable CLINICAL HISTORY: Atypical chest pain, shortness of breath, cough. COMPARISON STUDY: 09/25/2019 FINDINGS: The heart remains enlarged. There is a left subclavian pacer/defibrillator present. There i s mild pulmonary vascular congestion. Small pleural effusions are suspected. There is associated left basilar atelectasis/consolidation[ IMPRESSION: Cardiomegaly and radiographic evidence of mild congestive failure/fluid overload. Small b ilateral pleural effusions with associated left basilar atelectasis/consolidation ACT 112: Negative or not required by law. Electronically signed by: Amadou Crowley M.D. 11/09/2019 8:13 PM
[2019-11-09] MEDS ORDERED: BUMETANIDE 1 MG in SYRINGE 0 ML IV SCH (21:00)
[2019-11-09] MEDS: MAGNESIUM SULFATE / D5W 1 GM/100 ML BAG IV SCH ×2 (21:13→21:51)
[2019-11-09] MEDS: POTASSIUM CHLORIDE / WTR 10 MEQ/100 ML PLCT IV SCH ×2 (21:14→21:51)
[2019-11-09] MEDS ORDERED: DOXYCYCLINE HYCLATE 100 MG in DEXTROSE 5% 100 ML IV STA (21:20)
[2019-11-09] MEDS ORDERED: cefTRIAXone SODIUM 2,000 MG/70 ML BAG IV STA (21:20)
[2019-11-09 22:28] LABS: Influenza A virus by PCR Neg for Influ A (Neg); Influenza B virus by PCR Neg for Influ B (Neg)
[2019-11-09] MEDS ORDERED: NITROGLYCERIN SL 0.4 MG/TAB TAB SL PRN (23:01)
[2019-11-09] MEDS ORDERED: NSS + 20MEQ KCL 20 MEQ/1,000 ML BAG IV SCH (23:15)
[2019-11-09] MEDS ORDERED: HEPARIN SODIUM/DEXTROSE 25,000 UNITS/500 ML BAG IV SCH (23:30)
[2019-11-09] MEDS ORDERED: ATORVASTATIN 20 MG TAB PO STA (23:31)
--- NOTE | 2019-11-09 23:49 | History & Physical Report ---
Date of Service November 09, 2019 Assessment & Plan (1) Acute exacerbation of CHF (congestive heart failure): Patient is a 54 year old male with PMHx Systolic CHF, HTN, Dyslipidemia, Biventricular ICD placement, Paroxysmal Afib s/p cardioversion, and chronic hypokalemia who presents with chief complaint of continued worsening shortness of breath despite increased diuretic therapy. ED Course: Albuterol 2 puffs, Decadron 10mg IV, Bumetanide 1mg IV, K rider 20meq, Mag Sulf 2g, Rocephin 2g IV, Doxy 100mg IV Acute on Chronic CHF Exacerbation -ED course as above -Fluid overload noted on CXR -Echo 01/23/19 EF 25-30% -Given patient still clinically fluid overloaded and hypoalbuminemic, will give another 1g Bumex IV mixed with 25g Albumin -1g IV Bumex ordered for AM -Continue home Eplerenone, patients will bring in the AM -Continue Sacubitril/Valsartan BID -Holding patients PO Bumex while utilizing IV -Low Salt diet and Fluid restriction -Monitor I/O ?Pneumonia -Pt had positive MRSA swab on 09/25/19, contact precautions in place -Concern for PNA in L basilar lung -Given Rocephin and Doxy in ED -Will continue coverage with Zosyn and Vancomycin -If patients renal function worsens, will replace Vanco with Zyvox 600mg IV q 12h -Blood and sputum cultures drawn prior to abx administration, awaiting cultures. Hypokalemia and Hypomagnesemia -Mag Sulf 2g in ED -K Taj 2 meq in ED -Will give 40meq KCl PO now and at 04:00 -Continue home KCL 20 meq BID HTN -Continue Carvedilol -Continue Sotalol HLD -Continue Atorvastatin -Continue ASA 81mg Paroxysmal Afib -Continue Digoxin Gout -Continue Allopurinol Biventricular ICD in place -Currently pacing patient -No shocks have been administered per patient. Dispo: Telemetry FEN: Low salt diet, Fluid restriction 1800cc DVT: Enoxaparin 40me Q12h Code: Full (2) Pneumonia: (3) Hypokalemia: (4) Hypomagnesemia: (5) Chronic systolic CHF (congestive heart failure): (6) Hypertension: (7) Hyperlipidemia: (8) Biventricular ICD (implantable cardioverter-defibrillator) in place: (9) Paroxysmal atrial fibrillation: History of Present Illness Chief Complaint: Worsening SOB Primary Care Provider: Aram Young MD Patient is a 54 year old male with PMHx Systolic CHF, HTN, Dyslipidemia, Biventricular ICD placement, Paroxysmal Afib s/p cardioversion, and chronic hypokalemia who presents with chief complaint of continued worsening shortness of breath despite increased diuretic therapy. Patient notes that his symptoms had been progressively worsening over the past 2 weeks. He states that it started when he noticed a 4lb increase in his weight. He had called the CHF clinic at the time and was advised to increase his Bumex to 2g instead of 1g for the day. Patient states that it helped some, but that he continued to retain 1- 1.5 lbs of weight. He went 3 full days of doubling his Bumex dose before his lab work showed azotemia and he returned to his baseline 1g. He notes that since then he has continued to have worsening SOB and upon telehealth visit with Alondra Sanchez today was advised to go to the ED for evaluation. Patient notes that he has been taking his medications appropriately and that he has been minding his diet, eating less than 2g of salt daily. He states that if at his baseline he could "climb 6-7 flights of stairs" he currently could "not even make it up 1 flight." He also notes that he has been having chest pain/tightness in his mid-sternum associated with a dry cough. He notes this pain also worsens when he touches his chest or bends over (such as to tie his shoe). He has not felt a shock from his ICD. Currently he states he still feels somewhat SOB despite receiving IV Bumex 1g in the ED. He notes that he took all of his medications except for his evening medications today. Allergies Allergy/AdvReac Type Severity Reaction Status Date / Time ciprofloxacin [From Cipro] Allergy Rash Verified 11/09/19 23:37 Home Medications Home Medications Medication Instructions Recorded Confirmed Type aspirin [Aspir-81] 81 mg PO DAILY 04/30/18 11/09/19 History atorvastatin [Lipitor] 40 mg PO QPM 04/30/18 11/09/19 History colchicine 1 - 2 tabs PO DAILY PRN MDD 2 TABS 04/30/18 11/09/19 History multivitamin [Multiple Vitamins] 1 tab PO DAILY 04/30/18 11/09/19 History ascorbic acid (vitamin C) [Vitamin 2 g PO BID 01/22/19 11/09/19 History C] hydrocodone-acetaminophen 1 tab PO TID PRN 01/22/19 11/09/19 History magnesium L-lactate 84 mg PO QAM 01/22/19 11/09/19 History sotalol 120 mg PO BID 01/22/19 11/09/19 History digoxin 125 mcg PO QAM 05/15/19 11/09/19 History eplerenone 25 mg PO QAM 05/15/19 11/09/19 History allopurinol 100 mg PO DAILY 09/26/19 11/09/19 History bumetanide 1 mg tablet 1 mg PO DAILY tab 10/05/19 11/09/19 History sacubitril 24 mg-valsartan 26 mg 1 tab PO BID #60 tab 10/05/19 11/09/19 Rx tablet potassium chloride 20 mEq 20 meq PO BID tab 10/31/19 11/09/19 History tablet,extended release carvedilol 12.5 mg PO TID 11/09/19 11/09/19 History Past Med/Surg History Medical History Acute on chronic systolic heart failure CHANDRA (acute kidney injury) (Acute) Biventricular ICD (implantable cardioverter-defibrillator) in place Cardiomyopathy (Acute) Chronic systolic CHF (congestive heart failure) Elevated troponin (Inactive) History of diverticulitis Hx of gout Hyperlipidemia Hypertension Paroxysmal atrial fibrillation Family History Father Myocardial infarction Other No significant family history Social History Preferred Language: Amharic Communication Ability: Effective 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 [employer]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 Required: No Beliefs That Will Affect Care: None marital status: Current Living Situation: Spouse Other Information That Helps Us Care for You: No Feels Safe at Home: Yes Smoking Status: Never smoker Second Hand Exposure: No ; Hx Alcohol Use: No Hx Substance Use: No Review of Systems Constitutional: + weakness and + weight gain; no fever and no chills Eyes: no worsening vision Ear, Nose, Mouth, Throat: + dizziness (upon standing) Respiratory: + cough, + dyspnea, + dyspnea on exertion, + pain on inspiration and + pain with cough; no hemoptysis Cardiovascular: + chest pain, + dyspnea, + dyspnea on exertion, + orthopnea, + lightheadedness and + edema; no calf pain Gastrointestinal: + diarrhea/loose stools; no abdominal pain, no nausea, no vomiting and no constipation Genitourinary: no dysuria Physical Exam Constitutional: well developed, + morbidly obese and cooperative Eyes: PERRL, conjunctivae normal, anicteric sclerae ENMT: external ear and nose normal, oropharynx normal Neck: trachea midline, no thyromegaly Respiratory: normal respiratory effort and + cough; no respiratory distress and no stridor Auscultation: + diminished lung sounds (dimished at the bases, L moreso than R); no crackles, no rales and no wheezes Cardiovascular: Rate/Rhythm: regular rate (paced) and regular rhythm Heart Sounds: no murmur Vessels: normal peripheral pulses; no JVD and no carotid bruit Extremities: + edema (+1-2); no calf tenderness Chest (Breasts): Chest: + pacemaker (BiVentricular ICD) Gastrointestinal (Abdomen): normal bowel sounds, soft, nontender, no hep atosplenomegaly Musculoskeletal: no cyanosis or clubbing, extremities motor strength 5/5 Skin: no rashes, warm and dry Neurologic: PERRL, EOMI, accommodation nl, no face palsy, no dysarthria Psychiatric: A+Ox3, euthymic affect Results & Data Results & Data ([facility]) Vital Signs (Past 12 Hours) Vital Signs Temp Pulse Pulse Resp BP BP Pulse Ox 11/09/19 22:40 94 H 20 95 11/09/19 22:31 88 20 96 11/09/19 22:29 87 18 150/107 H 11/09/19 21:50 98 H 24 11/09/19 21:40 98 H 22 94 11/09/19 21:30 95 H 22 92 11/09/19 21:20 93 H 25 H 93 11/09/19 21:11 92 H 22 152/113 H 93 11/09/19 21:10 92 H 25 H 95 11/09/19 21:00 92 H 23 94 11/09/19 20:50 90 26 H 94 11/09/19 20:40 100 H 26 H 93 11/09/19 20:29 88 25 H 162/119 H 93 11/09/19 20:00 83 25 H 11/09/19 19:50 83 24 11/09/19 19:40 82 27 H 11/09/19 19:20 90 29 H 95 11/09/19 19:14 86 21 148/114 H 96 11/09/19 19:13 36.9 C 80 88 22 148/114 H 95 11/09/19 19:10 84 21 11/09/19 19:00 80 13 11/09/19 18:46 82 23 11/09/19 18:28 36.9 C 80 22 125/86 94 Code Status & VTE Plan VTE Prophylaxis Plan VTE Prophylaxis will be ordered: Yes Supervising Physician Co-Signing Physician Notes Attending addendum: I have physically seen this patient, have supervised the medical residents activities, and agree with the H&P unless as otherwise noted. Assessment and Plan: Acute on chronic systolic CHF/hypertension/ PAF/status post AICD- Received Bumex 1 mg IV by the ED. Give additional Bumex 1 mg IV with 25 g of albumin IV. Placed on Bumex 1 mg IV every morning. Last echo on 01/23/2019 with EF 25 to 30%, will be repeated today. Continue carvedilol, sotalol, digoxin, aspirin, eplerenone and Entresto. Optimize potassium and magnesium with IV and oral replacement, and follow serially Left lower lobe pneumonia- Placed on vancomycin IV and Zosyn IV Follow sputum culture and blood culture and sensitivity. Remainder of orders and notations as noted. PG Care Time/CCT Total # of Minutes Spent Total Time Spent with Patient: Total time spent is greater than 50% in coordination of care (as documented) at patient's floor/unit and/or counseling patient: Coding Level of Care Code 15430 Initial Inpt Care Lvl 3 Diagnoses Acute exacerbation of CHF (congestive heart failure) I50.9 Heart failure type: unspecified Pneumonia J18.9 Laterality: left Lung location: lower lobe of lung Pneumonia type: due to unspecified organism Hypokalemia E87.6 Hypomagnesemia E83.42 Chronic systolic CHF (congestive heart failure) I50.22 Hypertension I10 Hyperlipidemia E78.5 Biventricular ICD (implantable cardioverter-defibrillator) in place Z95.810 Paroxysmal atrial fibrillation I48.0 Resident Activity Tracking Resident Involvement: Resident Care Provided Care Provided: Adult Hospital Medicine (1) Acute exacerbation of CHF (congestive heart failure) Heart failure type: unspecified Qualified Code(s): I50.9 - Heart failure, unspecified (2) Pneumonia Laterality: left Lung location: lower lobe of lung Pneumonia type: due to unspecified organism Qualified Code(s): J18.9 - Pneumonia, unspecified organism
[2019-11-10] MEDS ORDERED: POTASSIUM CHLORIDE 20 MEQ TABCR PO STA (01:33)
--- NOTE | 2019-11-10 01:35 | Emergency Department Note ---
Impression & Plan Acute exacerbation of CHF (congestive heart failure), Pneumonia, Hypokalemia, Hypomagnesemia ED Provider Note NAME: SOLOMON NIÑO AGE: 54 SEX: M ARRIVES VIA: Walk-In INFORMANT: Patient, ED PROVIDER(S): Amrik Márquez MD CHIEF COMPLAINT: Shortness of breath PLAN: Disposition: Admit MEDICAL DECISION MAKING: The patient is a pleasant 54-year-old gentleman with a past medical history of CHF, s/p AICD, paroxysmal V. tach, hypertension, hyperlipidemia who presents emergency department after developing worsening shortness of breath over the past 2 weeks despite increasing his Bumex and sense that his weight is down but his lower extremity swelling is worse. He denies any fevers but does report body aches and chills. He denies nausea, vomiting, diarrhea. He reports has been staying home and denies any known contacts with individuals diagnosed with COVID-19. On arrival the patient is mildly dyspneic but no acute distress, afebrile with stable vital signs. The patient does have diminished breath sounds at the bases with scant intermittent wheeze. He has 2+ bilateral lower extremity edema. EKG demonstrates paced rhythm without overt acute ischemia. Chest x-ray does demonstrate findings consistent with congestive failure but also with bilateral pleural effusions with associated left basilar atelectasis v ersus consolidation. WBC, hematocrit, platelets within normal limits. Potassium 3.1 with repletion provided. Magnesium 1.6 with repletion provided. Electrolytes and LFTs otherwise unremarkable. Troponin 0.041, within normal limits. BNP 12K is up trending from 3K in May 2019. Patient was given dose of dexamethasone and albuterol MDI for bronchospastic component to his symptoms given expiratory wheezes. Additionally given IV Bumex for his volume overload which is likely the primary process contributing to his symptoms. The patient is agreeable for plan for admission. Case was discussed with admitting [place] resident Dr. Vu Varghese, with Dr. Emmanuel, [facility] hospitalist, who will evaluate the patient for admission. Discussion with admitting team we agreed to proceed with treatment for possible pneumonia given the patient's report of upper respiratory congestion and body aches in the setting of his chest x-ray findings. He was ordered for ceftriaxone and doxycycline for CAP coverage. While he denies any known exposures to individuals diagnosed with COVID-19 he does appear to be him at increased risk for this and so he was tested and subsequently negative. Triage Nursing notes reviewed and agree them. Prior medical records reviewed Vital Signs: reviewed and remarkable for no significant abnormalities Differential diagnosis: Reactive airway disease, pneumonia, pneumothorax, COPD, CHF, infections, cardiac ischemia, pulmonary embolism, musculoskeletal, gastrointestinal, as well as other pathologies. ER treatment provided: See below. Diagnostics interpreted by me: ECG: Atrial-sensed ventricular paced rhythm, 82 bpm, no ectopy, no overt acute ischemia. Cardiac Monitoring: An order for continuous cardiac monitoring was placed and demonstrated atrial-sensed ventricular paced rhythm, 82 bpm, no ectopy. Laboratory studies: See below Imaging studies: XR chest 1V portable CLINICAL HISTORY: Atypical chest pain, shortness of breath, cough. COMPARISON STUDY: 09/25/2019 FINDINGS: The heart remains enlarged. There is a left subclavian pacer/defibrillator present. There is mild pulmonary vascular congestion. Small pleural effusions are suspected. There is associated left basilar atelectasis/consolidation[ IMPRESSION: Cardiomegaly and radiographic evidence of mild congestive failure/fluid overload. Small bilateral pleural effusions with associated left basilar atelectasis/consolidation Consultation(s): Case was discussed with admitting [place] resident Dr. Vu Varghese, with Dr. Emmanuel, [facility] hospitalist, who will evaluate the patient for admission. HPI: The patient is a pleasant 54-year-old gentleman with a past medical history of CHF, s/p AICD, paroxysmal V. tach, hypertension, hyperlipidemia who presents emergency department after developing worsening shortness of breath over the past 2 weeks despite increasing his Bumex and sense that his weight is down but his lower extremity swelling is worse. He denies any fevers but does report body aches and chills. He denies nausea, vomiting, diarrhea. He reports has been staying home and denies any known contacts with individuals diagnosed with COVID-19. ROS: See above HPI for pertinent positives & negatives. A total of 10 systems reviewed and were otherwise negative. PAST MEDICAL HISTORY:See Below PAST SURGICAL HISTORY:See Below FAMILY HISTORY:See Below SOCIAL HISTORY:See Below HOME MEDICATIONS:See Below ALLERGIES:See Below VITALS:See Below PHYSICAL EXAMINATION: GENERAL: Awake, alert, mildly dyspneic-appearing, in no distress HENT: Normocephalic, atraumatic. Oropharynx unremarkable. EYES: Normal conjunctiva. Sclera non-icteric. NECK: Supple. No nuchal rigidity. FROM. No JVD. RESPIRATORY: Diminished breath sounds at the bases with scant intermittent expiratory wheezes. CARDIAC: Regular rate, normal rhythm. Extremities warm and well perfused. Pulses equal. ABDOMEN: Soft, non-distended. No tenderness to palpation. No rebound or guarding. No masses. RECTAL: Deferred. MUSCULOSKELETAL: Chest examination reveals no tenderness. The back is symmetrical on inspection without obvious abnormality. There is no CVA tenderness to palpation. No joint edema. LOWER EXTREMITIES: Calves are equal size bilaterally and non-tender. 2+ bilateral lower extremity edema. No discoloration. NEURO: Normal sensorium. No sensory or motor deficits noted. SKIN: No rash or jaundice noted. Amrik Márquez MD Past Med/Surg History Medical History Acute on chronic systolic heart failure CHANDRA (acute kidney injury) (Acute) Biventricular ICD (implantable cardioverter-defibrillator) in place Cardiomyopathy (Acute) Chronic systolic CHF (congestive heart failure) Elevated troponin (Inactive) History of diverticulitis Hx of gout Hyperlipidemia Hypertension Paroxysmal atrial fibrillation Family History Father Myocardial infarction Other No significant family history Social History Preferred Language: Cypriot Communication Ability: Effective Engine Installer Required: No Beliefs That Will Affect Care: None marital status: Current Living Situation: Spouse Other Information That Helps Us Care for You: No Feels Safe at Home: Yes Smoking Status: Never smoker Second Hand Exposure: No ; Hx Alcohol Use: No Hx Substance Use: No Allergies Allergies Allergy/AdvReac Type Severity Reaction Status Date / Time ciprofloxacin [From Cipro] Allergy Rash Verified 11/09/19 23:37 Home Meds Home Medications Medication Instructions Recorded Confirmed aspirin [Aspir-81] 81 mg PO DAILY 04/30/18 11/09/19 atorvastatin [Lipitor] 40 mg PO QPM 04/30/18 11/09/19 colchicine 1 - 2 tabs PO DAILY PRN MDD 2 TABS 04/30/18 11/09/19 multivitamin [Multiple Vitamins] 1 tab PO DAILY 04/30/18 11/09/19 ascorbic acid (vitamin C) [Vitamin 2 g PO BID 01/22/19 11/09/19 C] hydrocodone-acetaminophen 1 tab PO TID PRN 01/22/19 11/09/19 magnesium L-lactate 84 mg PO QAM 01/22/19 11/09/19 sotalol 120 mg PO BID 01/22/19 11/09/19 digoxin 125 mcg PO QAM 05/15/19 11/09/19 eplerenone 25 mg PO QAM 05/15/19 11/09/19 allopurinol 100 mg PO DAILY 09/26/19 11/09/19 bumetanide 1 mg tablet 1 mg PO DAILY tab 10/05/19 11/09/19 potassium chloride 20 mEq 20 meq PO BID tab 10/31/19 11/09/19 tablet,extended release carvedilol 12.5 mg PO TID 11/09/19 11/09/19 Previous Rx's Medication Instructions Recorded sacubitril 24 mg-valsartan 26 mg 1 tab PO BID #60 tab 10/05/19 tablet Results & Data (ED) Vital Signs Vital Signs - 24 hr 11/09/19 18:28 11/09/19 18:46 11/09/19 19:00 Temperature 36.9 C Temperature Source Oral Pulse Rate 80 82 80 Pulse Rate [Right Radial] Pulse Rate from SpO2 Sensor Pulse Rhythm Regular Pulse Rhythm [Right Radial] Pulse Strength Normal Respiratory Rate 22 23 13 Respiratory Effort / Characteristics Non-Labored Spontaneous Respiratory Depth Normal Respiratory Pattern Regular Blood Pressure 125/86 Blood Pressure [Right Arm] Blood Pressure Mean 99 Blood Pressure Mean [Right Arm] Blood Pressure Position Sitting Blood Pressure Position [Right Arm] Pulse Oximetry 94 Oxygen Delivery Method Room Air Sepsis Recent Fever Within 48 Hours No Sepsis New/Unexplained Change in Mental Status No Sepsis Action Taken by Nursing No Action Required 11/09/19 19:10 11/09/19 19:13 11/09/19 19:14 Temperature 36.9 C Temperature Source Oral Pulse Rate 84 80 86 Pulse Rate [Right Radial] 88 Pulse Rate from SpO2 Sensor 85 Pulse Rhythm Regular Pulse Rhythm [Right Radial] Regular Pulse Strength Respiratory Rate 21 22 21 Respiratory Effort / Characteristics Non-Labored Spontaneous Respiratory Depth Normal Respiratory Pattern Regular Blood Pressure 148/114 H Blood Pressure [Right Arm] 148/114 H Blood Pressure Mean 128 Blood Pressure Mean [Right Arm] 125 Blood Pressure Position Blood Pressure Position [Right Arm] Lying Pulse Oximetry 95 96 Oxygen Delivery Method Room Air Sepsis Recent Fever Within 48 Hours Sepsis New/Unexplained Change in Mental Status Sepsis Action Taken by Nursing 11/09/19 19:20 11/09/19 19:40 11/09/19 19:50 Temperature Temperature Source Pulse Rate 90 82 83 Pulse Rate [Right Radial] Pulse Rate from SpO2 Sensor 89 Pulse Rhythm Pulse Rhythm [Right Radial] Pulse Strength Respiratory Rate 29 H 27 H 24 Respiratory Effort / Characteristics Respiratory Depth Respiratory Pattern Blood Pressure Blood Pressure [Right Arm] Blood Pressure Mean Blood Pressure Mean [Right Arm] Blood Pressure Position Blood Pressure Position [Right Arm] Pulse Oximetry 95 Oxygen Delivery Method Sepsis Recent Fever Within 48 Hours Sepsis New/Unexplained Change in Mental Status Sepsis Action Taken by Nursing 11/09/19 20:00 11/09/19 20:29 11/09/19 20:40 Temperature Temperature Source Pulse Rate 83 88 100 H Pulse Rate [Right Radial] Pulse Rate from SpO2 Sensor 88 100 H Pulse Rhythm Pulse Rhythm [Right Radial] Pulse Strength Respiratory Rate 25 H 25 H 26 H Respiratory Effort / Characteristics Respiratory Depth Respiratory Pattern Blood Pressure 162/119 H Blood Pressure [Right Arm] Blood Pressure Mean 138 Blood Pressure Mean [Right Arm] Blood Pressure Position Blood Pressure Position [Right Arm] Pulse Oximetry 93 93 Oxygen Delivery Method Sepsis Recent Fever Within 48 Hours Sepsis New/Unexplained Change in Mental Status Sepsis Action Taken by Nursing 11/09/19 20:50 11/09/19 21:00 11/09/19 21:10 Temperature Temperature Source Pulse Rate 90 92 H 92 H Pulse Rate [Right Radial] Pulse Rate from SpO2 Sensor 90 91 H 92 H Pulse Rhythm Pulse Rhythm [Right Radial] Pulse Strength Respiratory Rate 26 H 23 25 H Respiratory Effort / Characteristics Respiratory Depth Respiratory Pattern Blood Pressure Blood Pressure [Right Arm] Blood Pressure Mean Blood Pressure Mean [Right Arm] Blood Pressure Position Blood Pressure Position [Right Arm] Pulse Oximetry 94 94 95 Oxygen Delivery Method Sepsis Recent Fever Within 48 Hours Sepsis New/Unexplained Change in Mental Status Sepsis Action Taken by Nursing 11/09/19 21:11 11/09/19 21:20 11/09/19 21:30 Temperature Temperature Source Pulse Rate 92 H 93 H 95 H Pulse Rate [Right Radial] Pulse Rate from SpO2 Sensor 91 H 93 H 95 H Pulse Rhythm Pulse Rhythm [Right Radial] Pulse Strength Respiratory Rate 22 25 H 22 Respiratory Effort / Characteristics Respiratory Depth Respiratory Pattern Blood Pressure 152/113 H Blood Pressure [Right Arm] Blood Pressure Mean 127 Blood Pressure Mean [Right Arm] Blood Pressure Position Blood Pressure Position [Right Arm] Pulse Oximetry 93 93 92 Oxygen Delivery Method Sepsis Recent Fever Within 48 Hours Sepsis New/Unexplained Change in Mental Status Sepsis Action Taken by Nursing 11/09/19 21:40 11/09/19 21:50 11/09/19 22:29 Temperature Temperature Source Pulse Rate 98 H 98 H 87 Pulse Rate [Right Radial] Pulse Rate from SpO2 Sensor 94 H Pulse Rhythm Pulse Rhythm [Right Radial] Pulse Strength Respiratory Rate 22 24 18 Respiratory Effort / Characteristics Respiratory Depth Respiratory Pattern Blood Pressure 150/107 H Blood Pressure [Right Arm] Blood Pressure Mean 123 Blood Pressure Mean [Right Arm] Blood Pressure Position Blood Pressure Position [Right Arm] Pulse Oximetry 94 Oxygen Delivery Method Sepsis Recent Fever Within 48 Hours Sepsis New/Unexplained Change in Mental Status Sepsis Action Taken by Nursing 11/09/19 22:31 11/09/19 22:40 11/09/19 22:50 Temperature Temperature Source Pulse Rate 88 94 H 93 H Pulse Rate [Right Radial] Pulse Rate from SpO2 Sensor 88 94 H 92 H Pulse Rhythm Pulse Rhythm [Right Radial] Pulse Strength Respiratory Rate 20 20 23 Respiratory Effort / Characteristics Respiratory Depth Respiratory Pattern Blood Pressure Blood Pressure [Right Arm] Blood Pressure Mean Blood Pressure Mean [Right Arm] Blood Pressure Position Blood Pressure Position [Right Arm] Pulse Oximetry 96 95 91 Oxygen Delivery Method Sepsis Recent Fever Within 48 Hours Sepsis New/Unexplained Change in Mental Status Sepsis Action Taken by Nursing 11/09/19 23:00 Temperature Temperature Source Pulse Rate 95 H Pulse Rate [Right Radial] Pulse Rate from SpO2 Sensor 95 H Pulse Rhythm Pulse Rhythm [Right Radial] Pulse Strength Respiratory Rate 27 H Respiratory Effort / Characteristics Respiratory Depth Respiratory Pattern Blood Pressure Blood Pressure [Right Arm] Blood Pressure Mean Blood Pressure Mean [Right Arm] Blood Pressure Position Blood Pressure Position [Right Arm] Pulse Oximetry 92 Oxygen Delivery Method Sepsis Recent Fever Within 48 Hours Sepsis New/Unexplained Change in Mental Status Sepsis Action Taken by Nursing Laboratory Data Attestation: I reviewed the patient's lab results. Result diagrams: 11/09/19 19:18 11/09/19 19:18 Lab Results 11/09/19 11/09/19 11/09/19 Range/Units 19:18 19:18 19:18 WBC 9.95 (4.8-10.8) K/uL RBC 4.95 (4.7-6.1) M/uL Hgb 13.3 L (14.0-18.0) g/dL Hct 43.3 (42-52) % MCV 87.5 (80-100) fL MCH 26.9 (25-34) pg MCHC 30.7 L (32-36) g/dL RDW Std Deviation 45.4 (36.4-46.3) fL RDW Coeff of Juan 14.3 (11.5-14.5) % Plt Count 305 (130-400) K/uL MPV 10.1 (7.4-10.4) fL Immature Gran % (Auto) 0.2 % Neut % (Auto) 77.2 % Lymph % (Auto) 12.2 % [place] % (Auto) 7.5 % Eos % (Auto) 2.8 % Baso % (Auto) 0.1 % Immature Gran # (Auto) 0.02 (0.00-0.02) K/uL Neut # (Auto) 7.68 H (1.4-6.5) K/uL Lymph # (Auto) 1.21 (1.2-3.4) K/uL [place] # (Auto) 0.75 H (0.11-0.59) K/uL Eos # (Auto) 0.28 (0-0.5) K/uL Baso # (Auto) 0.01 (0-0.2) K/uL PT 12.6 H (9.0-12.0) Seconds INR 1.2 H (0.9-1.1) APTT 25.9 (21.0-31.0) Seconds PTT Ratio 0.9 Sodium 142 (136-145) mmol/L Potassium 3.1 L (3.5-5.1) mmol/L Chloride 105 (98-107) mmol/L Carbon Dioxide 29 (21-32) mmol/L Anion Gap 8.0 (3-11) BUN 14 (7-18) mg/dl Creatinine 1.25 (0.6-1.4) mg/dl Est Cr Clr Drug Dosing 91.5 ml/min Est GFR ( Amer) 76.2 Est GFR (Non-Af Amer) 65.8 BUN/Creatinine Ratio 11.6 (10-20) Glucose 91 (70-99) mg/dl Calcium 8.2 L (8.5-10.1) mg/dl Phosphorus 3.9 (2.5-4.9) mg/dl Magnesium 1.6 L (1.8-2.4) mg/dl Total Bilirubin 1.0 (0.2-1) mg/dl AST 17 (15-37) U/L ALT 20 (12-78) U/L Alkaline Phosphatase 70 (45-117) U/L Troponin I 0.041 (0-0.045) ng/ml NT-Pro-B Natriuret Pep 93329 H (0-900) pg/ml Total Protein 6.3 L (6.4-8.2) gm/dl Albumin 2.6 L (3.4-5.0) gm/dl Globulin 3.7 (2.5-4.0) gm/dl Albumin/Globulin Ratio 0.7 L (0.9-2) Lipase 386 (73-393) U/L COVID-19 PCR (Negative) Influenza Type A (PCR) (Neg) Influenza Type B (PCR) (Neg) SARS-CoV-2 RNA (RT-PCR) 11/09/19 11/09/19 11/09/19 Range/Units 21:37 21:37 21:37 WBC (4.8-10.8) K/uL RBC (4.7-6.1) M/uL Hgb (14.0-18.0) g/dL Hct (42-52) % MCV (80-100) fL MCH (25-34) pg MCHC (32-36) g/dL RDW Std Deviation (36.4-46.3) fL RDW Coeff of Juan (11.5-14.5) % Plt Count (130-400) K/uL MPV (7.4-10.4) fL Immature Gran % (Auto) % Neut % (Auto) % Lymph % (Auto) % [place] % (Auto) % Eos % (Auto) % Baso % (Auto) % Immature Gran # (Auto) (0.00-0.02) K/uL Neut # (Auto) (1.4-6.5) K/uL Lymph # (Auto) (1.2-3.4) K/uL [place] # (Auto) (0.11-0.59) K/uL Eos # (Auto) (0-0.5) K/uL Baso # (Auto) (0-0.2) K/uL PT (9.0-12.0) Seconds INR (0.9-1.1) APTT (21.0-31.0) Seconds PTT Ratio Sodium (136-145) mmol/L Potassium (3.5-5.1) mmol/L Chloride (98-107) mmol/L Carbon Dioxide (21-32) mmol/L Anion Gap (3-11) BUN (7-18) mg/dl Creatinine (0.6-1.4) mg/dl Est Cr Clr Drug Dosing ml/min Est GFR ( Amer) Est GFR (Non-Af Amer) BUN/Creatinine Ratio (10-20) Glucose (70-99) mg/dl Calcium (8.5-10.1) mg/dl Phosphorus (2.5-4.9) mg/dl Magnesium (1.8-2.4) mg/dl Total Bilirubin (0.2-1) mg/dl AST (15-37) U/L ALT (12-78) U/L Alkaline Phosphatase (45-117) U/L Troponin I (0-0.045) ng/ml NT-Pro-B Natriuret Pep (0-900) pg/ml Total Protein (6.4-8.2) gm/dl Albumin (3.4-5.0) gm/dl Globulin (2.5-4.0) gm/dl Albumin/Globulin Ratio (0.9-2) Lipase (73-393) U/L COVID-19 PCR NEGATIVE (Negative) Influenza Type A (PCR) Neg for Influ A (Neg) Influenza Type B (PCR) Neg for Influ B (Neg) SARS-CoV-2 RNA (RT-PCR) Cancelled Administered Medications Carvedilol (Coreg) 12.5 mg PO TID [facility] Stop: 12/10/19 01:32 Last Admin: 11/10/19 02:11 Dose: 12.5 mg Documented by: [id number] Sacubitril/Valsartan (Entresto 24/26mg) 1 tab PO BID [facility] Stop: 12/10/19 01:32 Last Admin: 11/10/19 02:11 Dose: 1 tab Documented by: [id number] Sotalol HCl (Betapace) 120 mg PO BID [facility] Stop: 12/10/19 01:32 Last Admin: 11/10/19 02:10 Dose: 120 mg Documented by: [id number] Discontinued Medications Albuterol (Ventolin Hfa) 2 puffs INH NOW ONE Stop: 11/09/19 18:55 Last Admin: 11/09/19 19:21 Dose: 2 puffs Documented by: [id number] Atorvastatin Calcium (Lipitor) 20 mg PO NOW STA Stop: 11/09/19 23:32 Last Admin: 11/10/19 02:59 Dose: Not Given Documented by: [id number] Dexamethasone Sodium Phosphate (Decadron Pf) 10 mg IV NOW ONE Stop: 11/09/19 18:55 Last Admin: 11/09/19 19:22 Dose: 10 mg Documented by: [id number] Bumetanide 1 mg/ Syringe 4 mls @ 4 mls/min IV NOW [facility] Stop: 12/09/19 20:59 Last Admin: 11/09/19 21:51 Dose: 4 mls/min Documented by: [id number] Potassium Chloride (K Taj / Wtr) 10 meq in 100 mls @ 100 mls/hr IV Q1H [facility] Stop: 11/09/19 22:59 Last Infusion: 11/10/19 00:33 Dose: 0 mls/hr Documented by: [id number] Infusion: 11/09/19 22:32 Dose: 0 mls/hr Documented by: [id number] Admin: 11/09/19 21:51 Dose: 100 mls/hr Documented by: [id number] Infusion: 11/09/19 21:51 Dose: 100 mls/hr Documented by: [id number] Admin: 11/09/19 21:14 Dose: 100 mls/hr Documented by: [id number] Magnesium Sulfate/Dextrose (Magnesium Sulfate / D5w) 1 gm in 100 mls @ 200 mls/hr IV Q30M [facility] Stop: 11/09/19 21:51 Last Infusion: 11/09/19 22:32 Dose: 0 mls/hr Documented by: [id number] Admin: 11/09/19 21:51 Dose: 200 mls/hr Documented by: [id number] Infusion: 11/09/19 21:43 Dose: 200 mls/hr Documented by: [id number] Admin: 11/09/19 21:13 Dose: 200 mls/hr Documented by: [id number] Ceftriaxone Sodium (Rocephin) 2,000 mg in 70 mls @ 140 mls/hr IV NOW STA Stop: 11/09/19 21:49 Last Infusion: 11/09/19 23:51 Dose: 0 mls/hr Documented by: [id number] Admin: 11/09/19 21:51 Dose: 140 mls/hr Documented by: [id number] Doxycycline Hyclate 100 mg/ (Dextrose) 110 mls @ 50 mls/hr IV NOW STA Stop: 11/09/19 23:31 Last Infusion: 11/10/19 00:33 Dose: 0 mls/hr Documented by: [id number] Admin: 11/09/19 22:32 Dose: 50 mls/hr Documented by: [id number] Potassium Chloride/Sodium Chloride (Normal Saline W/20 Meq Kcl) 20 meq in 1,000 mls @ 100 mls/hr IV .Q10H [facility] Stop: 11/10/19 19:14 Last Admin: 11/10/19 02:59 Dose: Not Given Documented by: [id number] Heparin Sodium/Dextrose (Heparin Sodium/Dextrose) 25,000 units in 500 mls @ 0.02 mls/hr IV .Q24H [facility]; Protocol Stop: 12/09/19 23:29 Last Admin: 11/10/19 02:59 Dose: Not Given Documented by: [id number] Bumetanide 1 mg/ Albumin Human 54 mls @ 50 mls/hr IV ONE ONE Stop: 11/10/19 02:42 Last Infusion: 11/10/19 03:14 Dose: 0 mls/hr Documented by: [id number] Admin: 11/10/19 02:09 Dose: 50 mls/hr Documented by: [id number] Vancomycin HCl 2,750 mg/ (Sodium Chloride) 555 mls @ 200 mls/hr IV NOW ONE Stop: 11/10/19 04:24 Last Admin: 11/10/19 02:12 Dose: 200 mls/hr Documented by: [id number] Piperacillin Sod/Tazobactam Sod (Zosyn) 4.5 gm in 120 mls @ 240 mls/hr IV NOW ONE Stop: 11/10/19 02:07 Last Infusion: 11/10/19 02:42 Dose: 0 mls/hr Documented by: [id number] Admin: 11/10/19 02:12 Dose: 240 mls/hr Documented by: [id number] Potassium Chloride (Klor-Con M20) 40 meq PO NOW STA Stop: 11/10/19 01:34 Last Admin: 11/10/19 02:13 Dose: 40 meq Documented by: [id number] Potassium Chloride (Klor-Con M20) 40 meq PO TODAY@0400 [facility] Stop: 11/10/19 04:30 Last Admin: 11/10/19 03:50 Dose: 40 meq Documented by: [id number] Blood Pressure Blood Pressure Findings: Elevated blood pressure Blood Pressure Disposition: further management by hospitalist Discharge Plan Visit Data *Final* Discharge Date/Time: 11/10/19 01:10 Chief Complaint: Shortness of Breath/Dyspnea Stated Complaint: SHORT OF BREATH & CHEST PAIN FOR 2 WEEKS ED Provider: Amrik Márquez Discharge Problem: Acute exacerbation of CHF (congestive heart failure), Pneumonia, Hypokalemia, Hypomagnesemia Patient Disposition: Admitted As Inpatient Discharge Instructions Interventions: ED Discharge Assessment Last Done: 11/10/19 01:10 Discharge Problem: Acute exacerbation of CHF (congestive heart failure) Qualifiers: Heart failure type: unspecified Qualified Code(s): I50.9 - Heart failure, unspecified Pneumonia Qualifiers: Pneumonia type: due to unspecified organism Laterality: left Lung location: lower lobe of lung Qualified Code(s): J18.9 - Pneumonia, unspecified organism
[2019-11-10] MEDS ORDERED: BUMETANIDE IV ONE (01:38)
[2019-11-10] MEDS ORDERED: PIPERACILL/TAZOBAC CONSULT ACTIVE PRN (01:38)
[2019-11-10] MEDS ORDERED: VANCOMYCIN CONSULT ACTIVE PRN (01:38)
[2019-11-10] MEDS ORDERED: PIPERACILLIN/TAZOBACTAM 4.5 GM/120 ML BAG IV ONE (01:38)
[2019-11-10] MEDS ORDERED: ALBUMIN 25% IV ONE (01:38)
[2019-11-10] MEDS ORDERED: VANCOMYCIN HCL 2,750 MG in SODIUM CHLORIDE 0.9% 500 ML IV ONE (01:38)
[2019-11-10] MEDS ORDERED: BUMETANIDE 1 MG in SYRINGE 0 ML IV SCH (01:45)
[2019-11-10] MEDS: SOTALOL HCL 80 MG TAB PO SCH ×3 (02:10→20:44)
[2019-11-10] MEDS: SACUBITRIL-VALSARTAN 24-26 MG TAB PO SCH ×3 (02:11→20:46)
[2019-11-10] MEDS: carvediloL 12.5 MG TAB PO SCH ×4 (02:11→20:45)
[2019-11-10] MEDS ORDERED: POTASSIUM CHLORIDE 20 MEQ TABCR PO SCH ×2 (04:00)
[2019-11-10 05:07] LABS: Basophils # (auto) 0.01 K/uL (0-0.2); Basophils % (auto) 0.1 %; Hematocrit (blood only) 44.2 % (42-52); Hemoglobin 13.8 g/dL (14.0-18.0); Immature Granulocytes # (auto) 0.02 K/uL (0.00-0.02); Immature Granulocytes % (auto) 0.2 %; Lymphocytes # (auto) 0.59 K/uL (1.2-3.4); Lymphocytes % (auto) 5.7 %; Mean Corpuscular Hemoglobin 27.3 pg (25-34); Mean Corpuscular Hgb Conc 31.2 g/dL (32-36); Mean Corpuscular Volume 87.5 fL (80-100); Mean Platelet Volume 10.4 fL (7.4-10.4); Monocytes # (auto) 0.05 K/uL (0.11-0.59); Monocytes % (auto) 0.5 %; Neutrophils % (auto) 93.5 %; Platelet Count 318 K/uL (130-400); RDW Coefficient of Variation 14.3 % (11.5-14.5); RDW Standard Deviation 45.2 fL (36.4-46.3); Red Blood Count 5.05 M/uL (4.7-6.1); White Blood Count 10.37 K/uL (4.8-10.8)
[2019-11-10 05:39] LABS: Albumin Level 2.7 gm/dl (3.4-5.0); Calcium 8.4 mg/dl (8.5-10.1); Creatinine Clr Calc Pharmacy 81.7 ml/min; Est GFR (African American) 65.9; Est GFR (Non-African American) 56.9; Potassium 3.6 mmol/L (3.5-5.1)
[2019-11-10 05:42] LABS: Albumin Globulin Ratio 0.7 (0.9-2); Globulin 3.7 gm/dl (2.5-4.0); Total Protein 6.4 gm/dl (6.4-8.2)
[2019-11-10] MEDS ORDERED: ENOXAPARIN 100 MG/1ML SYR SQ SCH (05:45)
[2019-11-10] MEDS: ENOXAPARIN INJ 40 MG/0.4 ML SYR SQ SCH ×3 (06:47→16:14)
[2019-11-10] MEDS ORDERED: PIPERACILLIN/TAZOBACTAM 4.5 GM/120 ML BAG IV SCH (08:00)
[2019-11-10] MEDS ORDERED: ASPIRIN 81 MG ECTAB PO SCH (09:00)
[2019-11-10] MEDS ORDERED: NITROGLYCERIN 2% OINTMENT 30GM TUBE EXT SCH (09:00)
[2019-11-10] MEDS ORDERED: BUMETANIDE 1 MG in SYRINGE 0 ML IV ONE (09:00)
[2019-11-10] MEDS ORDERED: LINEZOLID 600 MG/300 ML BAG IV SCH (09:00)
[2019-11-10] MEDS ORDERED: ATORVASTATIN 20 MG TAB PO SCH (09:00)
[2019-11-10] MEDS: allopurinoL 100 MG TAB PO SCH (09:09)
[2019-11-10] MEDS: MAGNESIUM CHLORIDE 64MG DELAYED REL TAB PO SCH (09:09)
[2019-11-10] MEDS: ASPIRIN 81 MG ECTAB PO SCH (09:10)
[2019-11-10] MEDS: MULTIVITAMIN TAB PO SCH (09:11)
[2019-11-10] MEDS: EPLERENONE~ORDER AWAITING ACTION SCH ×3 (09:12→23:42)
[2019-11-10] MEDS: POTASSIUM CHLORIDE 20 MEQ TABCR PO SCH ×2 (09:22→21:15)
--- NOTE | 2019-11-10 14:10 | Hospitalist Progress Note ---
Date of Service November 10, 2019 Assessment & Plan (1) Acute exacerbation of CHF (congestive heart failure): Acute exacerbation of systolic heart failure. EF was 25-30% in 01/2019. Do not believe infection (pneumonia) is playing a role. - Continue Bumex 1 mg IV daily (can give additional dose if diuresis is inadequate) - Continue beta-courtney, sotalol, Entresto - Monitor weights and I&Os - Cardiology consult (2) Paroxysmal ventricular tachycardia: None noted on tele so far. - Continue beta-courtney and sotalol (3) Paroxysmal atrial fibrillation: Presently pacing. - Continue beta-courtney - Not on anticoagulation. CHADs-Vasc is 2. (4) Hypertension: BP presently is 140/80. - Continue meds as above - Monitor (5) Gout: No current flare. - Continue allopurinol (6) DVT prophylaxis: Lovenox 40 mg SQ daily Admission and Anticipated Discharge Date Admission Date: November 09, 2019 Subjective Doing well today. The tightness in his chest is improving, though slightly. Reports no fevers/chills, chest pain, shortness of breath, abdominal pain, nausea, or vomiting. Physical Exam Constitutional: WD/WN, vitals as above Eyes: EOM intact bilaterally; no conjunctival abnormality ENMT: external ear and nose normal, oropharynx normal Neck: trachea midline, no thyromegaly normal visual inspection Respiratory: normal respiratory effort, lungs clear to auscultation no respiratory distress Cardiovascular: Rate/Rhythm: regular rate and regular rhythm Heart Sounds: normal S1 and normal S2 Extremities: + edema (1+ bilaterally) Gastrointestinal (Abdomen): Inspection/Auscultation: abdomen normal to inspection; abdomen not distended Musculoskeletal: no cyanosis or clubbing, extremities motor strength 5/5 Skin: no rashes, warm and dry Neurologic: moves all extremities and awake Psychiatric: Orientation: alert, oriented to person and cooperative Results & Data Results & Data ([facility]) Vital Signs (Past 12 Hours) Vital Signs Temp Pulse Resp BP Pulse Ox 11/10/19 11:34 80 20 137/82 11/10/19 08:00 83 19 118/88 11/10/19 03:53 36.8 C 78 22 111/79 92 PG Care Time/CCT Total # of Minutes Spent Total Time Spent with Patient: Total time spent is greater than 50% in coordination of care (as documented) at patient's floor/unit and/or counseling patient: Coding Level of Care Code 07220 Subseq Hosp Care Lvl 3 Diagnoses Acute exacerbation of CHF (congestive heart failure) I50.9 Heart failure type: unspecified Paroxysmal ventricular tachycardia I47.2 Paroxysmal atrial fibrillation I48.0 Hypertension I10 Gout M1A.09X0 Gout site: multiple sites Gout etiology: idiopathic Chronicity: chronic Presence of tophus: without tophus DVT prophylaxis Z29.9 (1) Acute exacerbation of CHF (congestive heart failure) Heart failure type: unspecified Qualified Code(s): I50.9 - Heart failure, unspecified (2) Gout Gout site: multiple sites Gout etiology: idiopathic Chronicity: chronic Presence of tophus: without tophus Qualified Code(s): M1A.09X0 - Idiopathic chronic gout, multiple sites, without tophus (tophi)
--- NOTE | 2019-11-10 15:58 | Cardiology Consultation ---
Date of Consultation November 10, 2019 Assessment & Plan (1) Acute exacerbation of CHF (congestive heart failure): -uncertain etiology for his recent deterioration. -agree with intravenous Bumex 1 mg daily. -consider increasing Bumex to b.i.d. dosing tomorrow if necessary. -continue carvedilol. -continue Entresto. -continue eplerenone. -review echocardiogram (2) Nonischemic cardiomyopathy: -diagnosed in 2015. -cardiac catheterization at that time failed to show significant disease. -follows with Dr. Bakari Boswell at [facility] in [place]. (3) Paroxysmal ventricular tachycardia: -history of paroxysmal ventricular tachycardia -treated with sotalol by his primary secondary art teacher. -no recent recurrence. (4) Biventricular ICD (implantable cardioverter-defibrillator) in place: -[employer] device, September 2018 -managed by his primary secondary art teacher (5) Hypertension: -adequate control on current regimen. (6) Hyperlipidemia: -continue atorvastatin. History of Present Illness Attending Physician: Magan Mora MD History of Present Illness Mr. Hilton is a 54 year old male admitted yesterday for acute on chronic systolic CHF. This consultation was ordered to assist in his management. Of note, I have seen the patient while hospitalized on several occasions since January 2019. The patient was in his usual state of health until approximately 2 weeks ago. He began to note weight gain and increasing shortness of breath and orthopnea. The patient contacted Jessica Sanchez in our Heart failure Clinic and several attempts were made at adjusting diuretics. Unfortunately, increased doses of Bumex caused azotemia and he returned back to his usual dose of 1 mg daily. Yesterday, the patient can contact the Heart failure Clinic explaining that he was experiencing significant exertional dyspnea and tightness across his entire chest. He was advised to proceed to emergency room for further care. The patient does follow daily weights at home. His most recent dry weight was 268 lb. He weighed 300 lb back in January 2019. The patient is careful to follow a low-salt and fluid-restricted diet. The patient has not experienced any fever or chills. He claims he was recently tested for CO VID 19 and was negative. Currently, patient is resting comfortably at the bedside without complaints of chest pain or dyspnea. Past medical and surgical history 1. Dilated, nonischemic cardiomyopathy-2015 2. No significant coronary artery disease-2016 3. Chronic systolic CHF 4. LVH 5. Mild to moderate mitral regurgitation 6. Biventricular ICD-Ze[employer]'s, September 2018 7. Paroxysmal SVT 8. Hypercholesterolemia 9. Diverticulitis 10. Gout 11. 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 Had his 1st MT at age 38. Mother at 91 from coronary disease A brother at age 61 has a dilated cardiomyopathy Review systems A 10 point review of systems was negative except for that described above. Allergies Allergy/AdvReac Type Severity Reaction Status Date / Time ciprofloxacin [From Cipro] Allergy Rash Verified 11/09/19 23:37 Home Medications Home Medications Medication Instructions Recorded Confirmed Type aspirin [Aspir-81] 81 mg PO DAILY 04/30/18 11/09/19 History atorvastatin [Lipitor] 40 mg PO QPM 04/30/18 11/09/19 History colchicine 1 - 2 tabs PO DAILY PRN MDD 2 TABS 04/30/18 11/09/19 History multivitamin [Multiple Vitamins] 1 tab PO DAILY 04/30/18 11/09/19 History ascorbic acid (vitamin C) [Vitamin 2 g PO BID 01/22/19 11/09/19 History C] hydrocodone-acetaminophen 1 tab PO TID PRN 01/22/19 11/09/19 History magnesium L-lactate 84 mg PO QAM 01/22/19 11/09/19 History sotalol 120 mg PO BID 01/22/19 11/09/19 History digoxin 125 mcg PO QAM 05/15/19 11/09/19 History eplerenone 25 mg PO QAM 05/15/19 11/09/19 History allopurinol 100 mg PO DAILY 09/26/19 11/09/19 History bumetanide 1 mg tablet 1 mg PO DAILY tab 10/05/19 11/09/19 History sacubitril 24 mg-valsartan 26 mg 1 tab PO BID #60 tab 10/05/19 11/09/19 Rx tablet potassium chloride 20 mEq 20 meq PO BID tab 10/31/19 11/09/19 History tablet,extended release carvedilol 12.5 mg PO TID 11/09/19 11/09/19 History Patient History Medical History Acute on chronic systolic heart failure CHANDRA (acute kidney injury) (Acute) Biventricular ICD (implantable cardioverter-defibrillator) in place Cardiomyopathy (Acute) Chronic systolic CHF (congestive heart failure) Elevated troponin (Inactive) History of diverticulitis Hx of gout Hyperlipidemia Hypertension Paroxysmal atrial fibrillation Family History Father Myocardial infarction Other No significant family history Social History Preferred Language: Tamazight Communication Ability: Effective Cafeteria Aide Required: No Beliefs That Will Affect Care: None marital status: Current Living Situation: Spouse Other Information That Helps Us Care for You: No Feels Safe at Home: Yes Smoking Status: Never smoker Second Hand Exposure: No ; Hx Alcohol Use: No Hx Substance Use: No Physical Exam Physical Exam: In general this is an obese white male in no acute distress. HEENT exam is negative. Neck is supple with full carotid upstrokes. There are no carotid bruits. Jugular venous pressure is flat at 90. There is no thyromegaly. Cardiovascular exam reveals a regular rhythm with a normal S1 and S2. Heart sounds are distant. No obvious S3. Lungs are clear without rales, rhonchi, or wheezes. Abdomen is soft and nontender without bruits. Extremities reveal intact radial artery and posterior tibial pulses bilaterally. There is 1+ pretibial edema. Results & Data ([facility]) Vital Signs (Past 12 Hours) Vital Signs Temp Pulse Resp BP 11/10/19 11:34 36.6 C 80 20 137/82 11/10/19 08:00 83 19 118/88 Laboratory Results CBC notes hemoglobin of 13.8, hematocrit 44.2, white count 10.3, and a platelet count of 318. Electrolytes notice sodium of 139, potassium 3.6, chloride 103, bicarb 29, BUN 17, creatinine 1.4, glucose of 234. Troponin I level was 0.041[place] [address]. Diagnostic Findings EKG notes atrial sensing and biventricular pacing. Cyst x-ray notes cardiomegaly and evidence of congestion. An implantable device seen on the left side. PG Care Time/CCT Total # of Minutes Spent Total Time Spent with Patient: Total time spent is greater than 50% in coordination of care (as documented) at patient's floor/unit and/or counseling patient: Coding Level of Care Code 02169 Inpt Consult Level 4 Diagnoses Acute exacerbation of CHF (congestive heart failure) I50.9 Heart failure type: unspecified Nonischemic cardiomyopathy I42.8 Paroxysmal ventricular tachycardia I47.2 Biventricular ICD (implantable cardioverter-defibrillator) in place Z95.810 Hypertension I10 Hyperlipidemia E78.5 (1) Acute exacerbation of CHF (congestive heart failure) Heart failure type: unspecified Qualified Code(s): I50.9 - Heart failure, unspecified
[2019-11-10] MEDS ORDERED: DIGOXIN 0.125 MG TAB PO SCH (16:00)
[2019-11-10] MEDS: BUMETANIDE 1 MG in SYRINGE 0 ML IV SCH (16:07)
--- NOTE | 2019-11-10 16:48 | XCELERA ---
[id number] \\[id number]
--- NOTE | 2019-11-10 16:52 | Electrocardiogram Report ---
Test Reason : Blood Pressure : / mmHG Vent. Rate : 082 BPM Atrial Rate : 082 BPM P-R Int : 166 ms QRS Dur : 140 ms QT Int : 464 ms P-R-T Axes : 034 -27 097 degrees QTc Int : 542 ms Atrial-sensed ventricular-paced rhythm Biventricular pacemaker detected Abnormal ECG When compared with ECG of 25-SEP-2019 11:31, Vent. rate has decreased BY 3 BPM Confirmed by Philip Martínez ([id number]) on 11/10/2019 4:51:55 PM Referred By: REFERRED SELF Confirmed By:Philip Martínez
[2019-11-10] MEDS ORDERED: ATORVASTATIN 40 MG TAB PO SCH (21:00)
--- NOTE | 2019-11-11 05:41 | Billing Data ---
Date of Service November 11, 2019 Coding Level of Care Code 13505 Initial Inpt Care Lvl 3
[2019-11-11 05:54] LABS: Hematocrit (blood only) 41.8 % (42-52); Hemoglobin 13.4 g/dL (14.0-18.0); Mean Corpuscular Hemoglobin 27.5 pg (25-34); Mean Corpuscular Hgb Conc 32.1 g/dL (32-36); Mean Corpuscular Volume 85.8 fL (80-100); Mean Platelet Volume 10.2 fL (7.4-10.4); Platelet Count 326 K/uL (130-400); RDW Standard Deviation 44.1 fL (36.4-46.3); Red Blood Count 4.87 M/uL (4.7-6.1); White Blood Count 13.14 K/uL (4.8-10.8)
[2019-11-11 06:27] LABS: BUN Creatinine Ratio 16.9 (10-20); Calcium 7.9 mg/dl (8.5-10.1); Creatinine Clr Calc Pharmacy 109.7 ml/min; Est GFR (African American) 94.1; Est GFR (Non-African American) 81.2; Magnesium 1.6 mg/dl (1.8-2.4); Potassium 3.2 mmol/L (3.5-5.1)
[2019-11-11 06:34] LABS: Phosphorus 2.7 mg/dl (2.5-4.9)
[2019-11-11] MEDS: EPLERENONE~ORDER AWAITING ACTION SCH (08:16)
[2019-11-11] MEDS: carvediloL 12.5 MG TAB PO SCH (08:17)
[2019-11-11] MEDS: ASPIRIN 81 MG ECTAB PO SCH (08:17)
[2019-11-11] MEDS: SACUBITRIL-VALSARTAN 24-26 MG TAB PO SCH (08:17)
[2019-11-11] MEDS: MAGNESIUM CHLORIDE 64MG DELAYED REL TAB PO SCH (08:17)
[2019-11-11] MEDS: POTASSIUM CHLORIDE 20 MEQ TABCR PO SCH (08:17)
[2019-11-11] MEDS: SOTALOL HCL 80 MG TAB PO SCH (08:18)
[2019-11-11] MEDS: MULTIVITAMIN TAB PO SCH (08:18)
[2019-11-11] MEDS: allopurinoL 100 MG TAB PO SCH (08:18)
[2019-11-11] MEDS: BUMETANIDE 1 MG in SYRINGE 0 ML IV SCH (08:26)
[2019-11-11] MEDS ORDERED: POTASSIUM CHLORIDE 20 MEQ TABCR PO STA (09:12)
[2019-11-11] MEDS: MAGNESIUM SULFATE / D5W 1 GM/100 ML BAG IV SCH ×2 (09:57→11:22)
--- NOTE | 2019-11-11 11:33 | XRay Report ---
XR chest 2V PA/lateral CLINICAL HISTORY: Leukocytosis, chest tightness COMPARISON STUDY: 11/09/2019 FINDINGS: The heart remains enlarged with a globular silhouette. There is a left subclavian pacer/def ibrillator. There is improving pulmonary vascular congestion. There is equivocal slight enlargement o f bilateral pleural effusions. Left basilar opacities while nonspecific are likely atelectatic[ IMPRESSION: 1. Improving pulmonary vascular congestion 2. Persistent bilateral pleural effusions with associated left basilar atelectasis/consolidation ACT 112: Negative or not required by law. Electronically signed by: Amadou Crowley M.D. 11/11/2019 11:32 AM
--- NOTE | 2019-11-11 15:57 | Discharge Summary ---
Date of Service November 11, 2019 Admission HPI Per Admitting Provider Patient is a 54 year old male with PMHx Systolic CHF, HTN, Dyslipidemia, Biventricular ICD placement, Paroxysmal Afib s/p cardioversion, and chronic hypokalemia who presents with chief complaint of continued worsening shortness of breath despite increased diuretic therapy. Patient notes that his symptoms had been progressively worsening over the past 2 weeks. He states that it started when he noticed a 4lb increase in his weight. He had called the CHF clinic at the time and was advised to increase his Bumex to 2g instead of 1g for the day. Patient states that it helped some, but that he continued to retain 1- 1.5 lbs of weight. He went 3 full days of doubling his Bumex dose before his lab work showed azotemia and he returned to his baseline 1g. He notes that since then he has continued to have worsening SOB and upon telehealth visit with Alondra Sanchez today was advised to go to the ED for evaluation. Patient notes that he has been taking his medications appropriately and that he has been minding his diet, eating less than 2g of salt daily. He states that if at his baseline he could "climb 6-7 flights of stairs" he currently could "not even make it up 1 flight." He also notes that he has been having chest pain/tightness in his mid- sternum associated with a dry cough. He notes this pain also worsens when he touches his chest or bends over (such as to tie his shoe). He has not felt a shock from his ICD. Currently he states he still feels somewhat SOB despite receiving IV Bumex 1g in the ED. He notes that he took all of his medications except for his evening medications today. Principal Diagnosis Acute on chronic systolic CHF exacerbation Discharge Exam Constitutional WD/WN, vitals as above Eyes EOM intact bilaterally; no conjunctival abnormality ENMT external ear and nose normal, oropharynx normal Neck trachea midline, no thyromegaly normal visual inspection Respiratory normal respiratory effort, lungs clear to auscultation no respiratory distress Cardiovascular Rate/Rhythm: regular rate and regular rhythm Heart Sounds: normal S1 and normal S2 Extremities: + edema (1+ bilaterally) Gastrointestinal (Abdomen) Inspection/Auscultation: abdomen normal to inspection; abdomen not distended Musculoskeletal no cyanosis or clubbing, extremities motor strength 5/5 Skin no rashes, warm and dry Neurologic moves all extremities and awake Psychiatric Orientation: alert, oriented to person and cooperative Discharge Data Allergies Allergy/AdvReac Type Severity Reaction Status Date / Time ciprofloxacin [From Cipro] Allergy Rash Verified 11/09/19 23:37 Consultations 11/09/19 20:51 ED Decision to Admit Stat 11/10/19 14:20 Consult Cardiology Routine Hospital Course (1) Acute exacerbation of CHF (congestive heart failure): Acute exacerbation of systolic heart failure. EF was 25-30% in 01/2019. - Diuresed briskly with Bumex 1mg IV BID -> Down to 268 lbs by discharge. Still has some mild edema and BNP was still 2700. Dry weight probably near 264-265 lbs. - Needs to follow up next week in person to CHF Clinic to be sure diuresis is still going well. There was some concern for pneumonia initially, but he returned to baseline breathing by discharge. His WBC increased, but he had no fevers or other signs of infection. I did not discharge him on antibiotics. I did replete his electrol ytes before discharge. - Please get repeat CXR, BMP, Mg, and CBC in 1 week to ensure stability. (2) Paroxysmal ventricular tachycardia: None noted on tele so far. - Continue beta-courtney and sotalol (3) Paroxysmal atrial fibrillation: Presently pacing. - Continue beta-courtney - Not on anticoagulation. CHADs-Vasc is 2. (4) Hypertension: BP presently is 140/80. - Continue meds as above - Monitor (5) Gout: No current flare. - Continue allopurinol (6) DVT prophylaxis: Lovenox 40 mg SQ daily Total Time Total Time Spent Total Time Spent (In Minutes): 35 Discharge Plan Discharge Items Patient Disposition: Home - Self-Care Reason For Visit: CHEST PAIN Discharge Diagnosis: Systolic CHF exacerbation Activity: Resume your previous activity Non-emergency contact: Primary Care Provider and Administrative Supervisor Call non-emergency contact if: your symptoms worsen and your temperature is above 101 Follow-up/Referrals: Philip Martínez MD [Physician] - Jessica Sanchez PA-C [Physician Websphere Commerce Developer] - (Please see Ms. Sanchez in the clinic next week for a weight check and diuretic changes needed.) Aram Young MD [Primary Care Provider] - Diet: Heart Healthy Addtl Attending Provider Instructions: You were admitted for a CHF exacerbation. It's not clear what caused the exacerbation as it seems like you were doing well with the present Bumex dosing. We were able to get your weight down to 268 lbs on our scales. I do think you have a few more pounds before you reach your "dry weight" which is probably around 264-265 lbs. As we discussed, please go home and weigh yourself on your scale to see what your home scale shows to help guide your dosing of Bumex. If you see yourself gaining any weight, please use your Bumex 2 times per day. Call Ms. Sanchez on Wednesday to get scheduled for an appointment. Please follow up with Dr. Martínez and Jessica Sanchez in the clinic to help guide your dry weight as it changes if you continue your diet and exercise routine. Pending Studies at Discharge: No Stand-Alone Forms: My [facility] [employer], Smoking Cessation Medications and DC Order Prescriptions: Continued potassium chloride 20 mEq tablet extended release 20 meq PO BID RF: 0 bumetanide 1 mg tablet 1 mg PO DAILY RF: 0 Entresto 24-26 mg tablet 1 tab PO BID Qty: 60 RF: 0 digoxin 125 mcg (0.125 mg) tablet 125 mcg PO QAM RF: 0 eplerenone 25 mg tablet 25 mg PO QAM RF: 0 allopurinol 100 mg tablet 100 mg PO DAILY RF: 0 atorvastatin [Lipitor] 40 mg Tablet 40 mg PO QPM RF: 0 colchicine 0.6 mg Tablet 1 - 2 tabs PO DAILY MDD 2 TABS PRN (Reason: FLARES) RF: 0 aspirin [Aspir-81] 81 mg Tablet,Delayed Release (Dr/Ec) 81 mg PO DAILY RF: 0 multivitamin [Multiple Vitamins] Tablet 1 tab PO DAILY RF: 0 ascorbic acid (vitamin C) [Vitamin C] 1,000 mg Tablet 2 g PO BID RF: 0 sotalol 120 mg Tablet 120 mg PO BID RF: 0 magnesium L-lactate 84 mg Tablet Extended Release 84 mg PO QAM RF: 0 hydrocodone-acetaminophen 10-300 mg Tablet 1 tab PO TID PRN (Reason: Pain) RF: 0 carvedilol 12.5 mg tablet 12.5 mg PO TID RF: 0 Discharge Orders: Discharge Order (Routine); Ordered 11/11/19 Ordered By: Magan Mora Admission Data Admit Date/Time: 11/09/19 23:04 Attending Provider: Magan Mora Admit Provider: Christian Emmanuel Primary Care Provider: Aram Young Other Providers: aMgan Mora ; Christian Emmanuel ; Philip Martínez Other Interventions: Discharge Summary Assessment (RN) Last Done: 11/11/19 11:41 DC Date/Time DO NOT enter until pt leaves facility: 11/11/19 12:25 Coding Level of Care Code D/C Day Management >30 mins Diagnoses Acute exacerbation of CHF (congestive heart failure) I50.9 Heart failure type: unspecified Paroxysmal ventricular tachycardia I47.2 Paroxysmal atrial fibrillation I48.0 Hypertension I10 Gout M1A.09X0 Gout site: multiple sites Gout etiology: idiopathic Chronicity: chronic Presence of tophus: without tophus DVT prophylaxis Z29.9
== END 2019-11-11 12:25 | disposition home or self-care (01) | DRG 293 ==
LOC: ED 18:23 → SUATTDRO 23:04 → 1E 23:04 → 2W 11-10 17:22

== ENCOUNTER 2019-12-22 11:24 | Inpatient (IN) ==
[2019-12-22] MEDS ORDERED: SODIUM CHLORIDE 0.9% 1000ML 1,000 ML IV SCH (13:45)
--- NOTE | 2019-12-22 13:47 | ED Telehealth Note ---
Telehealth Telehealth Telehealth Options: 2-way audio and video For the duration of the visit, provider was performing the assessment from: A different facility than the patient (Patient at home) After establishing a telemedicine visit, patient was: Patient was verified with two unique identifiers Total Time Spent (minutes): 10 Impression & Plan Facial cellulitis Patient was evaluated via telehealth and appears to have worsening of the facial cellulitis. The left periorbital region is edematous, likely secondary to dependent edema however the patient also states that the left face feels a little more full and tender. He denies fevers. However given his complex medical history I do feel the patient would be best served by in person evaluation and likely admission for IV antibiotics. He will present to the emergency department for further evaluation Note/Exam/Outcome Date of Service December 22, 2019 ED Telelhealth Outcome ED Telelhealth Outcome: Referred to ED for in person visit General General: + awake, + alert and + ill appearing Eyes Additional Notes: Left periorbital swelling, primarily to the lower lid, mildly erythematous. Respiratory Respiratory: + normal respiratory effort Neuro Neuro: + normal sensorium, + oriented x 3 and + speech normal Skin Skin: + rash Additional Notes: Large amount of swelling noted to the left preauricular region with mild erythema. Past Med/Surg History Family History Father Myocardial infarction Other No significant family history Social History Preferred Language: Icelandic Communication Ability: Effective Wrecking Mechanic Required: No Beliefs That Will Affect Care: None marital status: Current Living Situation: Spouse and Family Other Information That Helps Us Care for You: No Feels Safe at Home: Yes Safety Concerns: Feels Safe At This Time Smoking Status: Never smoker Second Hand Exposure: No ; Hx Alcohol Use: Yes Alcohol type: wine Hx Substance Use: No Allergies Allergies Allergy/AdvReac Type Severity Reaction Status Date / Time ciprofloxacin [From Cipro] Allergy Rash Verified 12/21/19 10:00 potassium chloride AdvReac Intermediate Red/flused Unverified 12/21/19 10:21 Home Meds Home Medications Medication Instructions Recorded Confirmed aspirin [Aspir-81] 81 mg PO QAM 04/30/18 12/21/19 atorvastatin [Lipitor] 40 mg PO QPM 04/30/18 12/21/19 colchicine 1 - 2 tabs PO DAILY PRN MDD 2 TABS 04/30/18 12/21/19 multivitamin [Multiple Vitamins] 1 tab PO QAM 04/30/18 12/21/19 hydrocodone-acetaminophen 1 tab PO TID PRN 01/22/19 12/21/19 magnesium L-lactate 84 mg PO QAM 01/22/19 12/21/19 sotalol 120 mg PO BID 01/22/19 12/21/19 digoxin 125 mcg PO QAM 05/15/19 12/21/19 eplerenone 25 mg PO QAM 05/15/19 12/21/19 allopurinol 100 mg PO HS 09/26/19 12/21/19 carvedilol 12.5 mg PO BID 11/09/19 12/21/19 potassium chloride 20 mEq 20 meq PO BID tab 11/13/19 12/21/19 tablet,extended release bumetanide 2 mg PO QAM 12/21/19 12/21/19 Previous Rx's Medication Instructions Recorded apixaban 5 mg tablet 5 mg PO BID #60 tab 12/07/19 sacubitril 24 mg-valsartan 26 mg 1 tab PO BID #180 tab 12/18/19 tablet cephalexin [Keflex] 500 mg PO Q6H 10 Days #40 cap 12/21/19 doxycycline hyclate 100 mg PO BID 10 Days #20 cap 12/21/19 Results & Data (ED) Vital Signs Vital Signs - 24 hr 12/22/19 13:07 Temperature 37.0 C Temperature Source Oral Pulse Rate 103 H Respiratory Rate 22 Blood Pressure 121/84 Blood Pressure Mean 96 Blood Pressure Position Sitting Pulse Oximetry 95 Sepsis Recent Fever Within 48 Hours No Sepsis New/Unexplained Change in Mental Status No Sepsis Action Taken by Nursing No Action Required Home Medications Current Medication List: was personally reviewed by me Laboratory Data Result diagrams: 12/24/19 06:38 12/23/19 10:31 Discharge Plan Visit Data *Final* Discharge Date/Time: 12/22/19 19:25 Chief Complaint: Eye Pain Stated Complaint: CELLULITIS ON FACE GETTING WORSE Other Complaint: Telehealth ED Provider: Richard Schultz ED Midlevel Provider: Leander Rosales Discharge Problem: Facial cellulitis Patient Disposition: Admitted As Inpatient Discharge Instructions Interventions: ED Discharge Assessment Last Done: 12/22/19 19:25
[2019-12-22 15:18] LABS: Basophils # (auto) 0.01 K/uL (0-0.2); Basophils % (auto) 0.1 %; Eosinophils # (auto) 0.25 K/uL (0-0.5); Eosinophils % (auto) 2.8 %; Hematocrit (blood only) 44.8 % (42-52); Hemoglobin 14.7 g/dL (14.0-18.0); Immature Granulocytes # (auto) 0.04 K/uL (0.00-0.02); Immature Granulocytes % (auto) 0.4 %; Lymphocytes # (auto) 1.22 K/uL (1.2-3.4); Lymphocytes % (auto) 13.5 %; Mean Corpuscular Hemoglobin 27.8 pg (25-34); Mean Corpuscular Hgb Conc 32.8 g/dL (32-36); Mean Corpuscular Volume 84.7 fL (80-100); Mean Platelet Volume 10.2 fL (7.4-10.4); Monocytes # (auto) 0.99 K/uL (0.11-0.59); Neutrophils % (auto) 72.2 %; Platelet Count 195 K/uL (130-400); RDW Coefficient of Variation 15.1 % (11.5-14.5); RDW Standard Deviation 46.5 fL (36.4-46.3); Red Blood Count 5.29 M/uL (4.7-6.1); White Blood Count 9.01 K/uL (4.8-10.8)
[2019-12-22] MEDS ORDERED: CEFEPIME 20 ML IV ONE (15:30)
[2019-12-22] MEDS ORDERED: VANCOMYCIN HCL 2,500 MG in SODIUM CHLORIDE 0.9% 500 ML IV ONE (15:30)
[2019-12-22] MEDS ORDERED: metroNIDAZOLE 500 MG/100 ML BAG IV ONE (15:30)
[2019-12-22 15:36] LABS: BUN Creatinine Ratio 14.3 (10-20); Calcium 9.3 mg/dl (8.5-10.1); Creatinine Clr Calc Pharmacy 94.5 ml/min; Est GFR (African American) 83.5; Potassium 3.2 mmol/L (3.5-5.1)
[2019-12-22] MEDS ORDERED: POTASSIUM CHLORIDE 20 MEQ TABCR PO STA (16:26)
[2019-12-22] MEDS ORDERED: POTASSIUM CHLORIDE / WTR 10 MEQ/100 ML PLCT IV ONE (16:48)
[2019-12-22] MEDS: SACUBITRIL-VALSARTAN 24-26 MG TAB PO SCH (21:10)
[2019-12-22] MEDS: ATORVASTATIN 40 MG TAB PO SCH (21:10)
[2019-12-22] MEDS: carvediloL 12.5 MG TAB PO SCH (21:10)
[2019-12-22] MEDS: POTASSIUM CHLORIDE 20 MEQ TABCR PO SCH (21:10)
[2019-12-22] MEDS: APIXABAN 5 MG TABLET PO SCH (21:10)
[2019-12-22] MEDS: SOTALOL HCL 80 MG TAB PO SCH (21:11)
[2019-12-22] MEDS: allopurinoL 100 MG TAB PO SCH (21:11)
--- NOTE | 2019-12-22 21:56 | Emergency Department Note ---
Impression & Plan Facial cellulitis ED Provider Note NAME: SOLOMON NIÑO AGE: 54 SEX: M ARRIVES VIA: Walk-In INFORMANT: [Patient] ED PROVIDER(S): Richard Schultz MD CHIEF COMPLAINT: Facial infection PLAN: Disposition: admitted Condition: [Good] MEDICAL DECISION MAKING: Patient presented by direction of Dr. Crews after telehealth visit for ER follow-up regarding periorbital cellulitis. Unfortunately the patient was getting worse. Given her evaluation on the telehealth visit he was directed to the emergency department. On physical examination he does have significant swelling around the eye with tenderness. There is no proptosis. There is no entrapment of extraocular muscles and no diplopia. He was given IV cefepime, IV vancomycin, and IV Flagyl after consultation with the ED pharmacist. Patient was also treated with oral potassium. Consultation was made with the [facility] hospitalist service, Dr. Abarca. Patient was evaluated in the ER admitted for further treatment. Triage Nursing notes reviewed and agree them. [Additional history obtained from] Dr. Crews [Prior medical records reviewed] CT imaging done yesterday consistent with cellulitis Vital Signs: reviewed and remarkable for [no significant abnormalities] Differential diagnosis: Etiologies such as cellulitis, abscess, MRSA infection, dermatitis, drug eruption, as well as others were entertained. ER treatment provided: IV cefepime IV Flagyl IV vancomycin Oral Diagnostics interpreted by me: Laboratory studies: [See below] and improved white blood cell count on CBC. Chemistry panel revealed hypokalemia. Imaging studies: [See below] [] Consultation(s): Hospitalist HPI: The patient is a 52 year old male who presents to the Emergency Room with complaints of worsening eye infection. This started several days ago and is progressing with increased swelling and redness. Increased pain as well. Patient was seen in the ER and started on doxycycline and Keflex. He was treated with IV Rocephin as well. He had a telehealth follow-up visit today because of increased swelling. He was directed to the ER by Dr. Crews for further management. The patient has found no relieving factors. Current pain is rated as 5/10. Pt denies LOC, headache, fevers, chills, diaphoresis, visual changes, diplopia, neck pain, chest pain, breathing difficulties, nausea, vomiting, abdominal pain, back pain, numbness, weakness, lymphadenopathy, rash, or other complaints. ROS: See above HPI for pertinent positives & negatives. A total of [10] systems reviewed and were otherwise negative. PAST MEDICAL HISTORY:[See Below] hypertension, diabetes PAST SURGICAL HISTORY:[See Below] FAMILY HISTORY:[See Below] SOCIAL HISTORY:[See Below] HOME MEDICATIONS:[See Below] ALLERGIES:[See Below] VITALS:[See Below] PHYSICAL EXAMINATION: GENERAL: Awake, alert, well-appearing, in no distress HENT: Normocephalic, atraumatic. Oropharynx unremarkable. EYES: Normal conjunctiva. Sclera non-icteric. EOMI. PERRLA. There is marketed swelling of the periorbital soft tissue on the left side. No proptosis. Tenderness to palpation noted around the orbit. Warmth. Concerning for periorbital cellulitis. NECK: Inspection normal. Non-tender. Supple. No nuchal rigidity. FROM. No masses. RESPIRATORY: Clear to auscultation. No wheezes. No rales. Normal respiratory effort. CARDIAC: Normal rate. Normal rhythm. No murmurs. No rubs. Extremities warm and well perfused. Pulses equal. No JVD. GI: Soft, non-distended. No tenderness to palpation. No rebound or guarding. No masses. RECTAL: Deferred. MUSCULOSKELETAL: Atraumatic. Chest examination reveals no tenderness. The back is symmetrical on inspection without obvious abnormality. There is no CVA tenderness to palpation. No joint edema. LOWER EXTREMITIES: Calves are equal size bilaterally and non-tender. No edema. No discoloration. NEURO: Normal sensorium. No sensory or motor deficits noted. SKIN: No other rash or jaundice noted. ED COURSE: [Critical Care:] [None] Richard Schultz MD Past Med/Surg History Social History Preferred Language: Maldivian Communication Ability: Effective Stationary Equipment Mechanic Required: No Beliefs That Will Affect Care: None marital status: Current Living Situation: Spouse and Family Other Information That Helps Us Care for You: No Feels Safe at Home: Yes Safety Concerns: Feels Safe At This Time Smoking Status: Never smoker Second Hand Exposure: No ; Hx Alcohol Use: Yes Alcohol type: wine Hx Substance Use: No Allergies Allergies Allergy/AdvReac Type Severity Reaction Status Date / Time ciprofloxacin [From Cipro] Allergy Rash Verified 12/21/19 10:00 potassium chloride AdvReac Intermediate Red/flused Unverified 12/21/19 10:21 Home Meds Home Medications Medication Instructions Recorded Confirmed aspirin [Aspir-81] 81 mg PO QAM 04/30/18 12/22/19 atorvastatin [Lipitor] 40 mg PO QPM 04/30/18 12/22/19 colchicine 1 - 2 tabs PO DAILY PRN MDD 2 TABS 04/30/18 12/22/19 multivitamin [Multiple Vitamins] 1 tab PO QAM 04/30/18 12/22/19 hydrocodone-acetaminophen 1 tab PO TID PRN 01/22/19 12/22/19 magnesium L-lactate 84 mg PO QAM 01/22/19 12/22/19 sotalol 120 mg PO BID 01/22/19 12/22/19 digoxin 125 mcg PO QAM 05/15/19 12/22/19 eplerenone 25 mg PO QAM 05/15/19 12/22/19 allopurinol 100 mg PO HS 09/26/19 12/22/19 carvedilol 12.5 mg PO BID 11/09/19 12/22/19 potassium chloride 20 mEq 20 meq PO BID tab 11/13/19 12/22/19 tablet,extended release bumetanide 2 mg PO QAM 12/21/19 12/22/19 Previous Rx's Medication Instructions Recorded apixaban 5 mg tablet 5 mg PO BID #60 tab 12/07/19 sacubitril 24 mg-valsartan 26 mg 1 tab PO BID #180 tab 12/18/19 tablet cephalexin [Keflex] 500 mg PO Q6H 10 Days #40 cap 12/21/19 doxycycline hyclate 100 mg PO BID 10 Days #20 cap 12/21/19 Results & Data (ED) Vital Signs Vital Signs - 24 hr 12/22/19 13:07 12/22/19 15:11 12/22/19 16:38 Temperature 37.0 C Temperature Source Oral Pulse Rate 103 H Pulse Rate [Finger] 90 90 Pulse Rate from SpO2 Sensor Respiratory Rate 22 18 13 Blood Pressure 121/84 Blood Pressure [Left Arm] 133/84 137/90 Blood Pressure Mean 96 Blood Pressure Mean [Left Arm] 100 105 Blood Pressure Position Sitting Pulse Oximetry 95 96 98 Oxygen Delivery Method Room Air Room Air Sepsis Recent Fever Within 48 Hours No Sepsis New/Unexplained Change in Mental Status No Sepsis Action Taken by Nursing No Action Required 12/22/19 17:00 Temperature Temperature Source Pulse Rate 92 H Pulse Rate [Finger] Pulse Rate from SpO2 Sensor 91 H Respiratory Rate 14 Blood Pressure 123/96 Blood Pressure [Left Arm] Blood Pressure Mean 103 Blood Pressure Mean [Left Arm] Blood Pressure Position Pulse Oximetry 97 Oxygen Delivery Method Sepsis Recent Fever Within 48 Hours Sepsis New/Unexplained Change in Mental Status Sepsis Action Taken by Nursing Laboratory Data Result diagrams: 12/22/19 14:59 12/22/19 14:59 Lab Results 12/22/19 12/22/19 Range/Units 14:59 14:59 WBC 9.01 (4.8-10.8) K/uL RBC 5.29 (4.7-6.1) M/uL Hgb 14.7 (14.0-18.0) g/dL Hct 44.8 (42-52) % MCV 84.7 (80-100) fL MCH 27.8 (25-34) pg MCHC 32.8 (32-36) g/dL RDW Std Deviation 46.5 H (36.4-46.3) fL RDW Coeff of Juan 15.1 H (11.5-14.5) % Plt Count 195 (130-400) K/uL MPV 10.2 (7.4-10.4) fL Immature Gran % (Auto) 0.4 % Neut % (Auto) 72.2 % Lymph % (Auto) 13.5 % Sheridan % (Auto) 11.0 % Eos % (Auto) 2.8 % Baso % (Auto) 0.1 % Neut # (Auto) 6.50 (1.4-6.5) K/uL Lymph # (Auto) 1.22 (1.2-3.4) K/uL Sheridan # (Auto) 0.99 H (0.11-0.59) K/uL Eos # (Auto) 0.25 (0-0.5) K/uL Baso # (Auto) 0.01 (0-0.2) K/uL Immature Gran # (Auto) 0.04 H (0.00-0.02) K/uL Sodium 139 (136-145) mmol/L Potassium 3.2 L (3.5-5.1) mmol/L Chloride 102 (98-107) mmol/L Carbon Dioxide 30 (21-32) mmol/L Anion Gap 7.0 (3-11) BUN 17 (7-18) mg/dl Creatinine 1.16 D (0.6-1.4) mg/dl Est Cr Clr Drug Dosing 94.5 ml/min Est GFR ( Amer) 83.5 Est GFR (Non-Af Amer) 72.0 BUN/Creatinine Ratio 14.3 (10-20) Glucose 117 H (70-99) mg/dl Calcium 9.3 (8.5-10.1) mg/dl Administered Medications Allopurinol (Zyloprim) 100 mg PO HS FREDERICK Stop: 01/21/20 20:59 Last Admin: 12/22/19 21:11 Dose: 100 mg Documented by: [id number] Apixaban (Eliquis) 5 mg PO BID FREDERICK Stop: 01/21/20 20:59 Last Admin: 12/22/19 21:10 Dose: 5 mg Documented by: [id number] Atorvastatin Calcium (Lipitor) 40 mg PO QPM FREDERICK Stop: 01/21/20 20:59 Last Admin: 12/22/19 21:10 Dose: 40 mg Documented by: [id number] Carvedilol (Coreg) 12.5 mg PO BID FREDERICK Stop: 01/21/20 20:59 Last Admin: 12/22/19 21:10 Dose: 12.5 mg Documented by: [id number] Potassium Chloride (Klor-Con M20) 20 meq PO BID FREDERICK Stop: 01/21/20 20:59 Last Admin: 12/22/19 21:10 Dose: 20 meq Documented by: [id number] Sacubitril/Valsartan (Entresto 24/26mg) 1 tab PO BID FREDERICK Stop: 01/21/20 20:59 Last Admin: 12/22/19 21:10 Dose: 1 tab Documented by: [id number] Sotalol HCl (Betapace) 120 mg PO BID FREDERICK Stop: 01/21/20 20:59 Last Admin: 12/22/19 21:11 Dose: 120 mg Documented by: [id number] Discontinued Medications Sodium Chloride (Nss 1000ml) 1,000 mls @ 100 mls/hr IV .Q10H FREDERICK Stop: 12/22/19 23:44 Last Infusion: 12/22/19 18:49 Dose: 0 mls/hr Documented by: [id number] Admin: 12/22/19 15:13 Dose: 100 mls/hr Documented by: [id number] Cefepime HCl (Maxipime) 20 mls @ 5 mls/min IV NOW ONE Stop: 12/22/19 15:33 Last Admin: 12/22/19 16:27 Dose: 5 mls/min Documented by: [id number] Metronidazole (Flagyl) 500 mg in 100 mls @ 100 mls/hr IV NOW ONE Stop: 12/22/19 16:29 Last Infusion: 12/22/19 17:35 Dose: 0 mls/hr Documented by: [id number] Admin: 12/22/19 16:34 Dose: 100 mls/hr Documented by: [id number] Vancomycin HCl 2,500 mg/ (Sodium Chloride) 550 mls @ 200 mls/hr IV NOW ONE Stop: 12/22/19 18:14 Last Infusion: 12/22/19 19:16 Dose: 0 mls/hr Documented by: [id number] Admin: 12/22/19 16:31 Dose: 200 mls/hr Documented by: [id number] Potassium Chloride (K Taj / Wtr) 10 meq in 100 mls @ 100 mls/hr IV ONE ONE Stop: 12/22/19 17:47 Last Admin: 12/22/19 16:59 Dose: Not Given Documented by: [id number] Potassium Chloride (Klor-Con M20) 40 meq PO NOW STA Stop: 12/22/19 16:27 Last Admin: 12/22/19 16:37 Dose: 40 meq Documented by: [id number] Discharge Plan Visit Data *Final* Discharge Date/Time: 12/22/19 19:25 Chief Complaint: Eye Pain Stated Complaint: CELLULITIS ON FACE GETTING WORSE Other Complaint: Telehealth ED Provider: Richard Schultz ED Midlevel Provider: Leander Rosales Discharge Problem: Facial cellulitis Patient Disposition: Admitted As Inpatient Discharge Instructions Interventions: ED Discharge Assessment Last Done: 12/22/19 19:25
--- NOTE | 2019-12-23 00:46 | History & Physical Report ---
Date of Service December 22, 2019 Assessment & Plan (1) Facial cellulitis: Continue cefepime, metronidazole. Cellulitis was already substantially improved prior to vancomycin starting therefore very low likelihood of MRSA and will d/c further vancomycin Stop IV fluids due to chronic congestive heart failure, received 340ml before stopped when I admitted him. Follow up blood cultures Admit to med/tele due to history of arrhythmias although patient is currently stable from an infection/cardiac point of view (2) Nonischemic cardiomyopathy: Continue entresto and carvedilol (3) Chronic systolic CHF (congestive heart failure): Patient reportedly goes in cycles of diuresing and currently weight increasing but no current dyspnea/orthopnea Continue usual home doses of bumex 2mg PO QAM and eplerenone (switched to spironolactone due to hospital formulary) (4) Hypertension: Continue usual home medication Entresto, carvedilol, Bumex, eplerenone (switched to spironolactone as per hospital formulary), Sotalol (5) Hyperlipidemia: Continue atorvastatin 40mg PO daily (6) Paroxysmal ventricular tachycardia: Concerning history of this, monitor on med/tele Chronically low potassium and magnesium ICD in place (7) Biventricular ICD (implantable cardioverter-defibrillator) in place: (8) Paroxysmal atrial fibrillation: Anticoagulation with apixaban Currently rate controlled Continue home medication regiment with sotalol, carvedilol (9) Gout: Concerning number of flare ups he is getting / month especially being on only 100mg allopurinol. Recommend following up with his towel distributor or PCP. (10) Hypokalemia: Concerning chronic low potassium given history of arrythmias. KCl 10 meq IV and 40meq PO given in ER. Will repeat with AM labs. Aim K > 4 (11) Hypomagnesemia: Mg 1.6. Mg sulphate 1g IV. Repeat with AM labs. Again concerning for a patient with such a pertinent history of arrythmias. (12) DVT prophylaxis: Apixaban 5mg BID Admission and Anticipated Discharge Date Admission Date: December 22, 2019 History of Present Illness Chief Complaint: Facial cellulitis Primary Care Provider: Aram Young MD Srinivasa Hilton is a 54 year old male with non-ischemic cardiomyopathy and chronic systolic heart failure who presents to the ER with worsening facial cellulitis. His symptoms started on Wednesday and appeared to originate from an ingrown hair as he plucks some of the hairs around his matos. Became much more enlarged the following day so he came to the ER yesterday and received a dose of Ceftriaxone IV. On tele-visit today his facial cellulitis appeared to be worse therefore he was advised to return to the ER. He denies any fevers, chills, eye pain, diplopia. He does note having a recent course of prednisone (+colchicine) due to a gout flare, reports having these episodes twice a month. In the ER he received cefepime and metronidazole and has already seen a significant improvement. Vancomycin was just starting when patient was seen. He reports a longstanding history of non-ischemic cardiomyopathy. Goes through weekly/fortnightly cycles of diuresing. Uses extra bumex when he feels he is becoming more swollen. Allergies Allergy/AdvReac Type Severity Reaction Status Date / Time ciprofloxacin [From Cipro] Allergy Rash Verified 12/21/19 10:00 potassium chloride AdvReac Intermediate Red/flused Unverified 12/21/19 10:21 Home Medications Home Medications Medication Instructions Recorded Confirmed Type aspirin [Aspir-81] 81 mg PO QAM 04/30/18 12/22/19 History atorvastatin [Lipitor] 40 mg PO QPM 04/30/18 12/22/19 History colchicine 1 - 2 tabs PO DAILY PRN MDD 2 TABS 04/30/18 12/22/19 History multivitamin [Multiple Vitamins] 1 tab PO QAM 04/30/18 12/22/19 History hydrocodone-acetaminophen 1 tab PO TID PRN 01/22/19 12/22/19 History magnesium L-lactate 84 mg PO QAM 01/22/19 12/22/19 History sotalol 120 mg PO BID 01/22/19 12/22/19 History digoxin 125 mcg PO QAM 05/15/19 12/22/19 History eplerenone 25 mg PO QAM 05/15/19 12/22/19 History allopurinol 100 mg PO HS 09/26/19 12/22/19 History carvedilol 12.5 mg PO BID 11/09/19 12/22/19 History potassium chloride 20 mEq 20 meq PO BID tab 11/13/19 12/22/19 History tablet,extended release apixaban 5 mg tablet 5 mg PO BID #60 tab 12/07/19 12/22/19 Rx sacubitril 24 mg-valsartan 26 mg 1 tab PO BID #180 tab 12/18/19 12/22/19 Rx tablet bumetanide 2 mg PO QAM 12/21/19 12/22/19 History cephalexin [Keflex] 500 mg PO Q6H 10 Days #40 cap 12/21/19 12/22/19 Rx doxycycline hyclate 100 mg PO BID 10 Days #20 cap 12/21/19 12/22/19 Rx Past Med/Surg History Medical History Acute on chronic systolic heart failure CHANDRA (acute kidney injury) (Acute) Biventricular ICD (implantable cardioverter-defibrillator) in place Cardiomyopathy (Acute) Chronic systolic CHF (congestive heart failure) Elevated troponin (Inactive) History of diverticulitis Hx of gout Hyperlipidemia Hypertension Paroxysmal atrial fibrillation Family History Father Myocardial infarction Other No significant family history Social History Preferred Language: Slovenian Communication Ability: Effective Business Liaison Manager Required: No Beliefs That Will Affect Care: None marital status: Current Living Situation: Spouse and Family Other Information That Helps Us Care for You: No Feels Safe at Home: Yes Safety Concerns: Feels Safe At This Time Smoking Status: Never smoker Second Hand Exposure: No ; Hx Alcohol Use: Yes Alcohol type: wine Hx Substance Use: No Review of Systems Review of Systems: All systems reviewed & are unremarkable except as noted in HPI & below Physical Exam Constitutional: well developed and + obese; + not well nourished and no acute distress Eyes: PERRL, conjunctivae normal, anicteric sclerae EOM intact bilaterally (no diplopia) ENMT: external ear and nose normal, oropharynx normal Neck: + short neck and + thick neck Respiratory: normal respiratory effort, lungs clear to auscultation Cardiovascular: Rate/Rhythm: regular rate and regular rhythm Heart Sounds: normal S1 (quiet HS) and normal S2; no murmur Vessels: radial pulses present; no JVD (difficult to assess with neck size) Extremities: normal capillary refill and + pedal edema (trace b/l in ankles); no calf tenderness Gastrointestinal (Abdomen): Inspection/Auscultation: abdomen normal to inspection and normal bowel sounds; abdomen not distended Percussion/Palpation: abdomen soft; abdomen nontender, no guarding and abdomen not rigid Musculoskeletal: no cyanosis or clubbing, extremities motor strength 5/5 Skin: no rashes, warm and dry Neurologic: moves all extremities and awake; not confused Psychiatric: A+Ox3, euthymic affect Genitourinary: no CVA tenderness Results & Data Results & Data ([facility]) Vital Signs (Past 12 Hours) Vital Signs Temp Pulse Pulse Resp BP BP Pulse Ox 12/22/19 22:48 37.6 C H 110 H 20 117/70 92 12/22/19 21:28 36.9 C 100 H 18 144/94 H 98 12/22/19 19:00 90 16 139/107 H 98 12/22/19 18:30 95 H 12 143/99 H 98 12/22/19 18:00 100 H 10 L 136/85 96 12/22/19 17:30 90 13 144/78 H 94 12/22/19 17:00 92 H 14 123/96 97 12/22/19 16:38 90 13 137/90 98 12/22/19 15:11 90 18 133/84 96 12/22/19 13:07 37.0 C 103 H 22 121/[address] facial bones w con IMPRESSION: 1. Left-sided facial swelling consistent with the clinical history of a cellulitis 2. No evidence of orbital involvement 3. No evidence of abscess Code Status & VTE Plan Code Status Full as discussed with the patient VTE Prophylaxis Plan VTE Prophylaxis will be ordered: Yes PG Care Time/CCT Total # of Minutes Spent Total Time Spent with Patient: Total time spent is greater than 50% in coordination of care (as documented) at patient's floor/unit and/or counseling patient: Coding Level of Care Code 18502 Initial Inpt Care Lvl 3 Diagnoses Facial cellulitis L03.211 Nonischemic cardiomyopathy I42.8 Chronic systolic CHF (congestive heart failure) I50.22 Hypertension I10 Hyperlipidemia E78.5 Paroxysmal ventricular tachycardia I47.2 Biventricular ICD (implantable cardioverter-defibrillator) in place Z95.810 Paroxysmal atrial fibrillation I48.0 Gout M1A.09X0 Chronicity: chronic Gout etiology: idiopathic Gout site: multiple sites Presence of tophus: without tophus Hypokalemia E87.6 Hypomagnesemia E83.42 DVT prophylaxis Z29.9 (1) Gout Chronicity: chronic Gout etiology: idiopathic Gout site: multiple sites Presence of tophus: without tophus Qualified Code(s): M1A.09X0 - Idiopathic chronic gout, multiple sites, without tophus (tophi)
[2019-12-23] MEDS: CEFEPIME 2,000 MG in SYRINGE 7.5 ML IV SCH ×3 (00:49→16:00)
[2019-12-23] MEDS: metroNIDAZOLE 500 MG/100 ML BAG IV SCH ×3 (01:14→17:24)
[2019-12-23] MEDS ORDERED: MAGNESIUM SULFATE / D5W 1 GM/100 ML BAG IV ONE (01:30)
[2019-12-23] MEDS: APIXABAN 5 MG TABLET PO SCH ×2 (08:13→20:18)
[2019-12-23] MEDS: SPIRONOLACTONE 25 MG TAB PO SCH (08:13)
[2019-12-23] MEDS: POTASSIUM CHLORIDE 20 MEQ TABCR PO SCH ×2 (08:14→20:17)
[2019-12-23] MEDS: SOTALOL HCL 80 MG TAB PO SCH ×2 (08:14→20:18)
[2019-12-23] MEDS: SACUBITRIL-VALSARTAN 24-26 MG TAB PO SCH ×2 (08:14→20:18)
[2019-12-23] MEDS: MULTIVITAMIN TAB PO SCH (08:14)
[2019-12-23] MEDS: ASPIRIN 81 MG ECTAB PO SCH (08:15)
[2019-12-23] MEDS: BUMETANIDE 1 MG TAB PO SCH (08:15)
[2019-12-23] MEDS: carvediloL 12.5 MG TAB PO SCH ×2 (08:15→20:17)
[2019-12-23] MEDS: HYDROCODONE/ACETAMINOPHEN 10/325 TAB PO PRN ×2 (08:36→18:46)
[2019-12-23] MEDS ORDERED: MAGNESIUM PO SCH (09:00)
[2019-12-23] MEDS ORDERED: LACTATE PO SCH (09:00)
[2019-12-23 11:01] LABS: Basophils # (auto) 0.01 K/uL (0-0.2); Basophils % (auto) 0.1 %; Eosinophils # (auto) 0.24 K/uL (0-0.5); Eosinophils % (auto) 3.4 %; Hematocrit (blood only) 39.5 % (42-52); Hemoglobin 12.8 g/dL (14.0-18.0); Immature Granulocytes # (auto) 0.03 K/uL (0.00-0.02); Immature Granulocytes % (auto) 0.4 %; Lymphocytes # (auto) 0.84 K/uL (1.2-3.4); Lymphocytes % (auto) 11.9 %; Mean Corpuscular Hemoglobin 27.7 pg (25-34); Mean Corpuscular Hgb Conc 32.4 g/dL (32-36); Mean Corpuscular Volume 85.5 fL (80-100); Mean Platelet Volume 10.3 fL (7.4-10.4); Monocytes # (auto) 0.51 K/uL (0.11-0.59); Monocytes % (auto) 7.3 %; Neutrophils % (auto) 76.9 %; Platelet Count 152 K/uL (130-400); RDW Coefficient of Variation 15.3 % (11.5-14.5); RDW Standard Deviation 47.8 fL (36.4-46.3); Red Blood Count 4.62 M/uL (4.7-6.1); White Blood Count 7.03 K/uL (4.8-10.8)
[2019-12-23 11:31] LABS: BUN Creatinine Ratio 11.2 (10-20); Calcium 8.3 mg/dl (8.5-10.1); Creatinine Clr Calc Pharmacy 98.5 ml/min; Est GFR (African American) 82.6; Est GFR (Non-African American) 71.3; Magnesium 1.6 mg/dl (1.8-2.4); Potassium 3.3 mmol/L (3.5-5.1)
[2019-12-23] MEDS ORDERED: POTASSIUM CHLORIDE 20 MEQ TABCR PO STA (14:12)
[2019-12-23] MEDS ORDERED: BUMETANIDE 1 MG TAB PO ONE (14:15)
[2019-12-23] MEDS ORDERED: MAGNESIUM OXIDE 400 MG TAB PO ONE (14:19)
[2019-12-23] MEDS: DIGOXIN 0.125 MG TAB PO SCH (15:58)
--- NOTE | 2019-12-23 19:11 | Hospitalist Progress Note ---
Date of Service December 23, 2019 Assessment & Plan (1) Facial cellulitis: Continue cefepime, metronidazole. Despite edema around left eye suspect this was due to his sleeping position rather than spreading infection therefore will continue to hold off vancomycin. Possible edema also due to hypervolemia and will give extra Bumex today although this is less likely Unfortunately unable to take fluoroquinolones due to allergy of rash, consider ID consult if discharging as he effectively "failed" ceftriaxone (although WBC was improving) but cefepime/metronidazole working therefore would recommend pseudomonas coverage. Follow up blood cultures - negative 24 hours Continue on med/tele due to concern infection not resolving and more edema today (2) Nonischemic cardiomyopathy: Continue entresto and carvedilol (3) Chronic systolic CHF (congestive heart failure): Patient reportedly goes in cycles of diuresing and currently weight increasing but no current dyspnea/orthopnea Continue usual home doses of bumex 2mg PO QAM and eplerenone (switched to spironolactone due to hospital formulary) Additional bumex 2mg PO today given edema around eye and decreasing Cr ?becoming hypervolemic (4) Hypertension: Continue usual home medication Entresto, carvedilol, Bumex, eplerenone (switched to spironolactone as per hospital formulary), Sotalol (5) Hyperlipidemia: Continue atorvastatin 40mg PO daily (6) Paroxysmal ventricular tachycardia: Concerning history of this, monitor on med/tele Chronically low potassium and magnesium ICD in place (7) Biventricular ICD (implantable cardioverter-defibrillator) in place: (8) Paroxysmal atrial fibrillation: Anticoagulation with apixaban Currently rate controlled Continue home medication regiment with sotalol, carvedilol (9) Gout: Concerning number of flare ups he is getting / month especially being on only 100mg allopurinol. Recommend following up with his type copy examiner or PCP. (10) Hypokalemia: Concerning chronic low potassium given history of arrhythmias. No IV potassium given history of burning and patient refuses this. Med rec incorrect and he usually takes KCl 40 meq BID, will give additional dose now then BID (11) Hypomagnesemia: Mg 1.6. Add Mg oxide 400mg BID (possible reason his K remains low is not on enough Mg supplement. Avoid IV supplementation to avoid excess IV fluids. Unlikely to resolve as appears to be persistently low (12) DVT prophylaxis: Apixaban 5mg BID Admission and Anticipated Discharge Date Admission Date: December 22, 2019 Anticipated date of discharge: 12/24/19 Subjective Patient feels he has had worsening facial cellulitis overnight, more puffy around his left eye. Afebrile. No double vision, eye pain or headache. He has not noticed getting hypervolemic generally. No leg swelling, shortness of breath, chest pain. Review of Systems Review of Systems: All systems reviewed & are unremarkable except as noted in HPI & below Physical Exam Constitutional: well developed and + obese; + not well nourished and no acute distress Eyes: + anicteric sclerae and EOM intact bilaterally (no diplopia); normal pupil size No ptosis Edema present around left eye causing covering superior part of conjunctiva. Patient taking pictures daily. Neck: + short neck and + thick neck Respiratory: normal respiratory effort, lungs clear to auscultation Cardiovascular: Rate/Rhythm: regular rate and regular rhythm Heart Sounds: normal S1 (quiet HS) and normal S2; no murmur Vessels: no JVD (difficult to assess with neck size) Extremities: + pedal edema (trace b/l in ankles, similar to prior day) Skin: no rashes, warm and dry Neurologic: moves all extremities and awake; not confused Psychiatric: A+Ox3, euthymic affect Results & Data Results & Data ([facility]) Vital Signs (Past 12 Hours) Vital Signs Temp Pulse Pulse Resp BP BP Pulse Ox 12/23/19 18:29 83 12/23/19 15:58 93 H 12/23/19 15:41 36.8 C 87 18 128/81 95 12/23/19 11:28 36.9 C 72 16 109/66 95 12/23/19 07:43 37.1 C 105 H 16 158/81 H 94 12/23/19 07:38 99 H PG Care Time/CCT Total # of Minutes Spent Total Time Spent with Patient: Total time spent is greater than 50% in coordination of care (as documented) at patient's floor/unit and/or counseling patient: Coding Level of Care Code 82290 Subseq Hosp Care Lvl 2 Diagnoses Facial cellulitis L03.211 Nonischemic cardiomyopathy I42.8 Chronic systolic CHF (congestive heart failure) I50.22 Hypertension I10 Hyperlipidemia E78.5 Paroxysmal ventricular tachycardia I47.2 Biventricular ICD (implantable cardioverter-defibrillator) in place Z95.810 Paroxysmal atrial fibrillation I48.0 Gout M1A.09X0 Gout site: multiple sites Gout etiology: idiopathic Chronicity: chronic Presence of tophus: without tophus Hypokalemia E87.6 Hypomagnesemia E83.42 DVT prophylaxis Z29.9 (1) Gout Gout site: multiple sites Gout etiology: idiopathic Chronicity: chronic Presence of tophus: without tophus Qualified Code(s): M1A.09X0 - Idiopathic chronic gout, multiple sites, without tophus (tophi)
[2019-12-23] MEDS: ATORVASTATIN 40 MG TAB PO SCH (20:17)
[2019-12-23] MEDS: allopurinoL 100 MG TAB PO SCH (20:18)
[2019-12-23] MEDS: MAGNESIUM OXIDE 400 MG TAB PO SCH (20:18)
[2019-12-24] MEDS: CEFEPIME 2,000 MG in SYRINGE 7.5 ML IV SCH ×3 (01:01→16:42)
[2019-12-24] MEDS: metroNIDAZOLE 500 MG/100 ML BAG IV SCH ×3 (01:18→18:19)
[2019-12-24] MEDS: HYDROCODONE/ACETAMINOPHEN 10/325 TAB PO PRN ×2 (05:47→21:04)
[2019-12-24 07:03] LABS: Basophils # (auto) 0.02 K/uL (0-0.2); Basophils % (auto) 0.3 %; Eosinophils # (auto) 0.34 K/uL (0-0.5); Eosinophils % (auto) 4.9 %; Hematocrit (blood only) 40.7 % (42-52); Hemoglobin 12.8 g/dL (14.0-18.0); Immature Granulocytes # (auto) 0.03 K/uL (0.00-0.02); Immature Granulocytes % (auto) 0.4 %; Lymphocytes # (auto) 0.83 K/uL (1.2-3.4); Lymphocytes % (auto) 11.9 %; Mean Corpuscular Hemoglobin 27.4 pg (25-34); Mean Corpuscular Hgb Conc 31.4 g/dL (32-36); Mean Corpuscular Volume 87.2 fL (80-100); Mean Platelet Volume 10.3 fL (7.4-10.4); Monocytes # (auto) 0.77 K/uL (0.11-0.59); Neutrophils # (auto) 5.01 K/uL (1.4-6.5); Neutrophils % (auto) 71.5 %; Platelet Count 151 K/uL (130-400); RDW Coefficient of Variation 15.6 % (11.5-14.5); RDW Standard Deviation 49.9 fL (36.4-46.3); Red Blood Count 4.67 M/uL (4.7-6.1)
[2019-12-24 07:28] LABS: C Reactive Protein 3.4 mg/dl (0-0.29); Calcium 8.4 mg/dl (8.5-10.1); Creatinine Clr Calc Pharmacy 84.8 ml/min; Est GFR (African American) 69.5; Est GFR (Non-African American) 59.9; Magnesium 1.7 mg/dl (1.8-2.4); Potassium 3.2 mmol/L (3.5-5.1)
[2019-12-24] MEDS: BUMETANIDE 1 MG TAB PO SCH (08:33)
[2019-12-24] MEDS: SPIRONOLACTONE 25 MG TAB PO SCH (08:33)
[2019-12-24] MEDS: SOTALOL HCL 80 MG TAB PO SCH ×2 (08:34→21:04)
[2019-12-24] MEDS: MAGNESIUM OXIDE 400 MG TAB PO SCH ×2 (08:35→21:04)
[2019-12-24] MEDS: POTASSIUM CHLORIDE 20 MEQ TABCR PO SCH ×3 (08:35→21:06)
[2019-12-24] MEDS: APIXABAN 5 MG TABLET PO SCH (08:36)
[2019-12-24] MEDS: SACUBITRIL-VALSARTAN 24-26 MG TAB PO SCH ×2 (08:36→21:06)
[2019-12-24] MEDS: MULTIVITAMIN TAB PO SCH (08:36)
[2019-12-24] MEDS: carvediloL 12.5 MG TAB PO SCH ×2 (08:36→21:07)
[2019-12-24] MEDS: ASPIRIN 81 MG ECTAB PO SCH (08:37)
[2019-12-24] MEDS: MAGNESIUM SULFATE / D5W 1 GM/100 ML BAG IV SCH ×2 (09:53→10:53)
[2019-12-24] MEDS ORDERED: VANCOMYCIN CONSULT ACTIVE PRN (14:22)
[2019-12-24] MEDS ORDERED: VANCOMYCIN HCL 1,000 MG in SODIUM CHLORIDE 0.9% 250 ML IV SCH (14:30)
--- NOTE | 2019-12-24 15:23 | Pharmacy Report ---
Pharmacy Abx Initial Consult - Date of Service December 24, 2019 - Pharmacy Dosing Scope Date of Consult: 12/24/19 Consultation requested by: Dr. BREEN Pharmacy is consulted to initiate VANCOMYCIN IV dosing therapy, order appropriate labs and adjust drug dose/frequency. - Subjective The patient is a 54 year old M admitted on 12/22/19 17:24. - Objective Height: 5 ft 11 in Weight: 121.1 kg Vital Signs (Past 12hrs): Vital Signs Temp Pulse Pulse Resp BP BP Pulse Ox 12/24/19 15:19 80 12/24/19 15:16 36.9 C 80 18 117/78 95 12/24/19 12:00 36.9 C 73 18 132/85 97 12/24/19 07:36 37.0 C 81 20 129/76 94 12/24/19 07:25 85 Lab Results (24hrs): Laboratory Tests (24 Hours) 12/24/19 12/24/19 12/24/19 06:38 06:38 06:38 WBC 7.00 Neut # (Auto) 5.01 ESR 30 H Creatinine 1.35 Est Cr Clr Drug Dosing 84.8 C-Reactive Protein 3.40 H - Assessment & Plan Assessment 54 year old M currently receiving CEFEPIME & FLAGYL for facial cellulitis. Now adding VANCOMYCIN coverage. Plan Vancomycin IV * Estimated PK Parameters: Vd 0.7 L/kg, Rogelio 0.075 hr-1, t1/2 ~9hr * Loading dose: 2750mg (~23 mg/kg) * Maintenance dose: 1750mg IV (~14 mg/kg) every 12 hours * Goal trough level for SST : 15 to 20 mcg/mL * Trough level ordered for 12/26/19 @ 0400 Pharmacy will continue to follow and will adjust dose/frequency as necessary. Thank you.
[2019-12-24] MEDS ORDERED: VANCOMYCIN HCL 2,750 MG in SODIUM CHLORIDE 0.9% 500 ML IV ONE (16:00)
[2019-12-24] MEDS: DIGOXIN 0.125 MG TAB PO SCH (16:42)
[2019-12-24] MEDS ORDERED: TRAMADOL HCL 50 MG TABLET PO PRN (16:52)
[2019-12-24] MEDS ORDERED: ACETAMINOPHEN 500 MG TAB PO PRN (16:52)
--- NOTE | 2019-12-24 19:32 | Hospitalist Progress Note ---
Date of Service December 24, 2019 Assessment & Plan (1) Facial abscess: I believe that the patient is developing an abscess anterior to the left ear. Sounds like it began more so as an area of generalized cellulitis with some focal swelling but it is now walling off. 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 Start vanco IV. Cont cefepime. d/c flagyl. Obtain u/s of this region to see if abscess has formed (12/21/19 CT face w/o abscess). If abscess has formed then plastics or gen surg consult for I & D. (2) Hypomagnesemia: replace with IV mag; repeat level am (3) Hypokalemia: replace with higher level of K supplementation BMP in am (4) Chronic systolic CHF (congestive heart failure): compensated cont coreg, bumex, entresto, aldactone (5) Hypertension: cont all home meds (6) Biventricular ICD (implantable cardioverter-defibrillator) in place: noted h/o V-T (7) Paroxysmal atrial fibrillation: noted cont apixaban cont dig cont coreg cont sotalol (8) Gout: cont allopurinol prophy (9) DVT prophylaxis: eliquis BID Admission and Anticipated Discharge Date Admission Date: December 22, 2019 Subjective patient reports ongoing focal swelling anterior to left ear. this area is tender. however, left eye swelling much better. feeling good otherwise with good appetite. nurses report h/o +MRSA screen in 10/2019. Review of Systems Constitutional: no fever, no chills, no fatigue and no anorexia Respiratory: no cough and no dyspnea Cardiovascular: no chest pain and no orthopnea Gastrointestinal: no abdominal pain and no diarrhea/loose stools Physical Exam Constitutional: well developed, well nourished and + obese; no acute distress and no altered mental status ENMT: external ear and nose normal, oropharynx normal Respiratory: normal respiratory effort, lungs clear to auscultation Cardiovascular: Rate/Rhythm: regular rate and regular rhythm Heart Sounds: normal S1 and normal S2; no murmur Vessels: posterior tibial pulses present and dorsalis pedis pulses present; no JVD Extremities: no edema Gastrointestinal (Abdomen): normal bowel sounds, soft, nontender, no hepatosplenomegaly Skin: anterior to left ear (not the parotid gland) there is a mobile area of focal swelling, erythema, warmth and tenderness; possible mild fluctuance; diameter at least 3cm, perhaps 3.5cm. in the center of this region is a prior tiny ulceration/trauma (patient states he was cutting his matos and traumatized the skin) Lymphatic: + cervical lymphadenopathy (tender, left sided, 1.5cm) Results & Data Results & Data ([facility]) Vital Signs (Past 12 Hours) Vital Signs Temp Pulse Pulse Resp BP BP Pulse Ox 12/24/19 16:42 79 12/24/19 15:19 80 12/24/19 15:16 36.9 C 80 18 117/78 95 12/24/19 12:00 36.9 C 73 18 132/85 97 12/24/19 07:36 37.0 C 81 20 129/76 94 12/24/19 07:25 85 Laboratory Results Laboratory Results - last 24 hr 12/24/19 12/24/19 12/24/19 06:38 06:38 06:38 WBC 7.00 RBC 4.67 L Hgb 12.8 L Hct 40.7 L MCV 87.2 MCH 27.4 MCHC 31.4 L RDW Std Deviation 49.9 H RDW Coeff of Juan 15.6 H Plt Count 151 MPV 10.3 Immature Gran % (Auto) 0.4 Neut % (Auto) 71.5 Lymph % (Auto) 11.9 Lyman % (Auto) 11.0 Eos % (Auto) 4.9 Baso % (Auto) 0.3 Neut # (Auto) 5.01 Lymph # (Auto) 0.83 L Lyman # (Auto) 0.77 H Eos # (Auto) 0.34 Baso # (Auto) 0.02 Immature Gran # (Auto) 0.03 H ESR 30 H Sodium 141 Potassium 3.2 L Chloride 107 Carbon Dioxide 29 Anion Gap 5.0 BUN 15 Creatinine 1.35 Est Cr Clr Drug Dosing 84.8 Est GFR ( Amer) 69.5 Est GFR (Non-Af Amer) 59.9 BUN/Creatinine Ratio 11.0 Glucose 123 H Calcium 8.4 L Magnesium 1.7 L C-Reactive Protein 3.40 H Diagnostic Findings blood cx's 12/21 negative to date PG Care Time/CCT Total # of Minutes Spent Total Time Spent with Patient: Total time spent is greater than 50% in coordination of care (as documented) at patient's floor/unit and/or counseling patient: Coding Level of Care Code 94651 Subseq Hosp Care Lvl 3 Diagnoses Facial abscess L02.01 Hypomagnesemia E83.42 Hypokalemia E87.6 Chronic systolic CHF (congestive heart failure) I50.22 Hypertension I10 Hypertension type: essential hypertension Biventricular ICD (implantable cardioverter-defibrillator) in place Z95.810 Paroxysmal atrial fibrillation I48.0 Gout M1A.09X0 Gout site: multiple sites Gout etiology: idiopathic Chronicity: chronic Presence of tophus: without tophus DVT prophylaxis Z29.9 (1) Hypertension Hypertension type: essential hypertension Qualified Code(s): I10 - Essential (primary) hypertension (2) Gout Gout site: multiple sites Gout etiology: idiopathic Chronicity: chronic Presence of tophus: without tophus Qualified Code(s): M1A.09X0 - Idiopathic chronic gout, multiple sites, without tophus (tophi)
[2019-12-24] MEDS: allopurinoL 100 MG TAB PO SCH (21:04)
[2019-12-24] MEDS: ATORVASTATIN 40 MG TAB PO SCH (21:07)
[2019-12-25] MEDS: CEFEPIME 2,000 MG in SYRINGE 7.5 ML IV SCH ×4 (01:02→23:23)
[2019-12-25] MEDS: VANCOMYCIN HCL 1,750 MG in SODIUM CHLORIDE 0.9% 500 ML IV SCH ×2 (03:58→16:27)
[2019-12-25] MEDS: HYDROCODONE/ACETAMINOPHEN 10/325 TAB PO PRN ×2 (07:03→15:57)
--- NOTE | 2019-12-25 07:26 | Ultrasound Report ---
US soft tissue head and neck CLINICAL HISTORY: L facial abscess?. Left facial swelling. COMPARISON STUDY: Facial CT 12/21/2019. FINDINGS: There is subcutaneous edema and thickening within the left temporal region at the patient's area of interest. There is an ill-defined hypoechoic subcutaneous area measuring 1.9 x 0.5 a 1.0 cm. This is located 4 mm beneath the skin surface. This favors a phlegmon/developing abscess. IMPRESSION: There is an ill-defined hypoechoic subcutaneous area measuring 1.9 x 0.5 x 1.0 cm within the left temporal region at the patient's area of interest. This favors a phlegmon/developing absces s. ACT 112: Negative or not required by law. Electronically signed by: Vamshi Garcia M.D. 12/25/2019 7:25 AM
[2019-12-25] MEDS: BUMETANIDE 1 MG TAB PO SCH (08:13)
[2019-12-25] MEDS: SACUBITRIL-VALSARTAN 24-26 MG TAB PO SCH ×2 (08:13→20:39)
[2019-12-25] MEDS: ASPIRIN 81 MG ECTAB PO SCH (08:13)
[2019-12-25] MEDS: MULTIVITAMIN TAB PO SCH (08:13)
[2019-12-25] MEDS: MAGNESIUM OXIDE 400 MG TAB PO SCH ×2 (08:13→20:40)
[2019-12-25] MEDS: SOTALOL HCL 80 MG TAB PO SCH ×2 (08:14→20:39)
[2019-12-25] MEDS: POTASSIUM CHLORIDE 20 MEQ TABCR PO SCH ×3 (08:14→20:40)
[2019-12-25] MEDS: carvediloL 12.5 MG TAB PO SCH ×2 (08:14→20:39)
[2019-12-25] MEDS: SPIRONOLACTONE 25 MG TAB PO SCH (08:14)
[2019-12-25 10:25] LABS: BUN Creatinine Ratio 10.9 (10-20); Calcium 8.9 mg/dl (8.5-10.1); Creatinine Clr Calc Pharmacy 87.9 ml/min; Est GFR (African American) 72.7; Est GFR (Non-African American) 62.7; Magnesium 1.9 mg/dl (1.8-2.4)
--- NOTE | 2019-12-25 12:51 | Hospitalist Progress Note ---
Date of Service December 25, 2019 Assessment & Plan (1) Facial abscess: anterior to the left ear s/p I and D by plastics - appreciate their assistance culture sent wound packed will need daily packing changes cont cefepime and vanco may be able to change to po abx tomorrow (2) Hypomagnesemia: replaced resolved (3) Hypokalemia: replaced resolved (4) Chronic systolic CHF (congestive heart failure): acute/chronic give bumex 1mg IV x 1 this afternoon in addition to AM dose of oral bumex re-eval tomorrow for additional diuretic needs cont coreg, bumex, entresto, aldactone (5) Hypertension: cont all home meds (6) Biventricular ICD (implantable cardioverter-defibrillator) in place: noted h/o V-T (7) Paroxysmal atrial fibrillation: noted resume eliquis in am now that I/D are complete cont dig cont coreg cont sotalol (8) Gout: cont allopurinol prophy (9) DVT prophylaxis: eliquis BID- resume in am updated by phone today Admission and Anticipated Discharge Date Admission Date: December 22, 2019 Subjective patient had I/D by plastics today of facial abscess I saw him following such - c/o pain in the same region feels a bit wheezy today - weight is up from baseline weight had mild orthopnea last evening tele stable with pacing Review of Systems Constitutional: no fever, no chills and no anorexia Cardiovascular: no chest pain Gastrointestinal: no diarrhea/loose stools Physical Exam Constitutional: well developed, well nourished and + obese; no acute distress and no altered mental status ENMT: external ear and nose normal, oropharynx normal Respiratory: no respiratory distress Auscultation: + wheezes (End-exp) Cardiovascular: Rate/Rhythm: regular rate and regular rhythm Heart Sounds: normal S1 and normal S2; no murmur Vessels: posterior tibial pulses present and dorsalis pedis pulses present; no JVD Extremities: no edema Gastrointestinal (Abdomen): normal bowel sounds, soft, nontender, no hepatosplenomegaly Skin: left baptism region/zygoma region -- dressing in place; swelling noted Results & Data Results & Data ([facility]) Vital Signs (Past 12 Hours) Vital Signs Temp Pulse Pulse Resp BP BP Pulse Ox 07/13/20 12:01 37.0 C 82 18 135/74 94 12/25/19 07:22 37.1 C 82 18 117/75 96 12/25/19 04:00 37.0 C 79 20 123/72 97 12/25/19 02:00 74 Laboratory Results Laboratory Results - last 24 hr 12/25/19 09:17 Sodium 143 Potassium 4.0 D Chloride 109 H Carbon Dioxide 28 Anion Gap 6.0 BUN 14 Creatinine 1.30 Est Cr Clr Drug Dosing 87.9 Est GFR ( Amer) 72.7 Est GFR (Non-Af Amer) 62.7 BUN/Creatinine Ratio 10.9 Glucose 177 H Calcium 8.9 Magnesium 1.9 PG Care Time/CCT Total # of Minutes Spent Total Time Spent with Patient: Total time spent is greater than 50% in coordination of care (as documented) at patient's floor/unit and/or counseling patient: Coding Level of Care Code 05061 Subseq Hosp Care Lvl 2 Diagnoses Facial abscess L02.01 Hypomagnesemia E83.42 Hypokalemia E87.6 Chronic systolic CHF (congestive heart failure) I50.22 Hypertension I10 Hypertension type: essential hypertension Biventricular ICD (implantable cardioverter-defibrillator) in place Z95.810 Paroxysmal atrial fibrillation I48.0 Gout M1A.09X0 Chronicity: chronic Gout etiology: idiopathic Gout site: multiple sites Presence of tophus: without tophus DVT prophylaxis Z29.9 (1) Gout Chronicity: chronic Gout etiology: idiopathic Gout site: multiple sites P resence of tophus: without tophus Qualified Code(s): M1A.09X0 - Idiopathic chronic gout, multiple sites, without tophus (tophi) (2) Hypertension Hypertension type: essential hypertension Qualified Code(s): I10 - Essential (primary) hypertension
--- NOTE | 2019-12-25 13:05 | Surgery Consultation ---
Date of Consultation December 25, 2019 Assessment & Plan (1) Facial abscess: Plan for I and D at bedside today. Consent reviewed and signed by patient prior to procedure. Please see treatment record below. Culture taken. Order placed. Recommend daily packing changes. Order placed. Antibiotic management per primary team. I spoke with Dr. Garcia. He is aware that I and D was completed and culture taken today. Dr. Mcdonald to see patient tomorrow. (2) Encounter for incision and drainage procedure: Incision and Drainage Procedure performed by: Michelle Mora PA-C and Lou Bassett PA-C. Informed consent given: Yes Consent signed: Yes Location: left temporal region Anesthesia: local (1% lidocaine with epi) Incision with: #11 blade Drainage quality: purulent Probed cavity: Yes Culture taken: Yes Lesion: erythema, drainage and fluctuance Cavity management: irrigated and packing Type: 1/4 inch iodoform Dressing: other- 4x4 with paper tape. Patient tolerated procedure: well Complications: No History of Present Illness Attending Physician: Srinivasa is a 54-year-old male with history of MRSA infection, non-ischemic cardiomyopathy, CHF, hypertension, hyperlipidemia, paroxysmal ventricular tachycardia, paroxysmal atrial fibrillation, gout, hypokalemia, and hypomagnesemia, who presented to [facility] ED for evaluation of worsening left-sided facial swelling on 12/21. He was seen 1 day prior in the ED for facial cellulitis and was discharged to home with PO Doxycycline and Keflex. He had a follow-up ED Telehealth visit the next day. Srinivasa states that the left side of his face became more swollen, even causing his vision to become impacted. He was instructed to come to the ED for admission and IV antibiotics. He was admitted and started on IV cefepime and flagyl. He reports that the swelling has improved. He does still have pain at the site. He is currently on IV cefepime and IV vancomycin. Ultrasound was completed yesterday and showed that there is an ill-defined hypoechoic subcutaneous area measuring 1.9 x 0.5 x 1.0 cm within the left temporal region at the patient's area of interest. This favors a phlegmon/developing abscess. Allergies Allergy/AdvReac Type Severity Reaction Status Date / Time ciprofloxacin [From Cipro] Allergy Rash Verified 12/21/19 10:00 potassium chloride AdvReac Intermediate Red/flused Unverified 12/21/19 10:21 Home Medications Home Medications Medication Instructions Recorded Confirmed Type aspirin [Aspir-81] 81 mg PO QAM 04/30/18 12/22/19 History atorvastatin [Lipitor] 40 mg PO QPM 04/30/18 12/22/19 History colchicine 1 - 2 tabs PO DAILY PRN MDD 2 TABS 04/30/18 12/22/19 History multivitamin [Multiple Vitamins] 1 tab PO QAM 04/30/18 12/22/19 History hydrocodone-acetaminophen 1 tab PO TID PRN 01/22/19 12/22/19 History magnesium L-lactate 84 mg PO QAM 01/22/19 12/22/19 History sotalol 120 mg PO BID 01/22/19 12/22/19 History digoxin 125 mcg PO QAM 05/15/19 12/22/19 History eplerenone 25 mg PO QAM 05/15/19 12/22/19 History allopurinol 100 mg PO HS 09/26/19 12/22/19 History carvedilol 12.5 mg PO BID 11/09/19 12/22/19 History potassium chloride 20 mEq 40 meq PO BID tab 11/13/19 12/24/19 History tablet,extended release apixaban 5 mg tablet 5 mg PO BID #60 tab 12/07/19 12/22/19 Rx sacubitril 24 mg-valsartan 26 mg 1 tab PO BID #180 tab 12/18/19 12/22/19 Rx tablet bumetanide 2 mg PO QAM 12/21/19 12/22/19 History cephalexin [Keflex] 500 mg PO Q6H 10 Days #40 cap 12/21/19 12/22/19 Rx doxycycline hyclate 100 mg PO BID 10 Days #20 cap 12/21/19 12/22/19 Rx Patient History Medical History Acute on chronic systolic heart failure CHANDRA (acute kidney injury) (Acute) Biventricular ICD (implantable cardioverter-defibrillator) in place Cardiomyopathy (Acute) Chronic systolic CHF (congestive heart failure) Elevated troponin (Inactive) History of diverticulitis Hx of gout Hyperlipidemia Hypertension Paroxysmal atrial fibrillation Family History Father Myocardial infarction Other No significant family history Social History Preferred Language: Romanian Communication Ability: Effective Welt Rander Required: No Beliefs That Will Affect Care: None marital status: Current Living Situation: Spouse and Family Other Information That Helps Us Care for You: No Feels Safe at Home: Yes Safety Concerns: Feels Safe At This Time Smoking Status: Never smoker Second Hand Exposure: No ; Hx Alcohol Use: Yes Alcohol type: wine Hx Substance Use: No Physical Exam Constitutional: no acute distress Eyes: PERRL, conjunctivae normal, anicteric sclerae Neck: normal visual inspection Respiratory: no respiratory distress and no labored breathing Skin: left temporal region abscess- area of redness, swelling, tender with palpation, no evidence of drainage on physical exam, + induration. Psychiatric: A+Ox3, euthymic affect Results & Data Vital Signs (Past 12 Hours) Vital Signs Temp Pulse Pulse Resp BP BP Pulse Ox 12/25/19 12:01 37.0 C 82 18 135/74 94 12/25/19 07:22 37.1 C 82 18 117/75 96 12/25/19 04:00 37.0 C 79 20 123/72 97 12/25/19 02:00 74 PG Care Time/CCT Total # of Minutes Spent Total Time Spent with Patient: Total time spent is greater than 50% in coordination of care (as documented) at patient's floor/unit and/or counseling patient: Coding Level of Care Code 07506 Inpt Consult Level 2 Diagnoses Facial abscess L02.01 Encounter for incision and drainage procedure Z76.89
[2019-12-25] MEDS ORDERED: BUMETANIDE 1 MG in SYRINGE 0 ML IV ONE (15:30)
[2019-12-25] MEDS: DIGOXIN 0.125 MG TAB PO SCH (16:07)
[2019-12-25] MEDS: ATORVASTATIN 40 MG TAB PO SCH (20:39)
[2019-12-25] MEDS: allopurinoL 100 MG TAB PO SCH (20:40)
[2019-12-26] MEDS: HYDROCODONE/ACETAMINOPHEN 10/325 TAB PO PRN (03:26)
[2019-12-26] MEDS ORDERED: VANCOMYCIN TROUGH ONE (03:30)
[2019-12-26] MEDS: VANCOMYCIN HCL 1,750 MG in SODIUM CHLORIDE 0.9% 500 ML IV SCH (03:40)
[2019-12-26 03:56] LABS: BUN Creatinine Ratio 9.5 (10-20); Calcium 8.3 mg/dl (8.5-10.1); Creatinine Clr Calc Pharmacy 95.2 ml/min; Est GFR (African American) 80.1; Est GFR (Non-African American) 69.1; Potassium 3.8 mmol/L (3.5-5.1)
[2019-12-26] MEDS: POTASSIUM CHLORIDE 20 MEQ TABCR PO SCH ×2 (07:59→12:43)
[2019-12-26] MEDS: MULTIVITAMIN TAB PO SCH (07:59)
[2019-12-26] MEDS: CEFEPIME 2,000 MG in SYRINGE 7.5 ML IV SCH (07:59)
[2019-12-26] MEDS: MAGNESIUM OXIDE 400 MG TAB PO SCH (07:59)
[2019-12-26] MEDS: carvediloL 12.5 MG TAB PO SCH (08:00)
[2019-12-26] MEDS: SACUBITRIL-VALSARTAN 24-26 MG TAB PO SCH (08:00)
[2019-12-26] MEDS: APIXABAN 5 MG TABLET PO SCH (08:00)
[2019-12-26] MEDS: SPIRONOLACTONE 25 MG TAB PO SCH (08:00)
[2019-12-26] MEDS: BUMETANIDE 1 MG TAB PO SCH (08:00)
[2019-12-26] MEDS: ASPIRIN 81 MG ECTAB PO SCH (08:00)
[2019-12-26] MEDS: SOTALOL HCL 80 MG TAB PO SCH (08:00)
[2019-12-26] MEDS: LACTOBACILLUS ACIDOPHILUS (FLORANEX) TAB PO SCH ×2 (12:43→16:26)
[2019-12-26] MEDS ORDERED: DOXYCYCLINE HYCLATE 100 MG CAP PO STA (15:33)
[2019-12-26] MEDS: DIGOXIN 0.125 MG TAB PO SCH (16:25)
--- NOTE | 2019-12-26 18:03 | Discharge Summary ---
Date of Service date of admission - December 22, 2019 date of discharge - December 26, 2019 Admission HPI Per Admitting Provider Srinivsaa Hilton is a 54 year old male with non-ischemic cardiomyopathy and chronic systolic heart failure who presents to the ER with worsening facial cellulitis. His symptoms started on Wednesday and appeared to originate from an ingrown hair as he plucks some of the hairs around his matos. Became much more enlarged the following day so he came to the ER yesterday and received a dose of Ceftriaxone IV. On tele-visit today his facial cellulitis appeared to be worse therefore he was advised to return to the ER. He denies any fevers, chills, eye pain, diplopia. He does note having a recent course of prednisone (+colchicine) due to a gout flare, reports having these episodes twice a month. In the ER he received cefepime and metronidazole and has already seen a significant improvement. Vancomycin was just starting when patient was seen. He reports a longstanding history of non-ischemic cardiomyopathy. Goes through weekly/fortnightly cycles of diuresing. Uses extra bumex when he feels he is becoming more swollen. Principal Diagnosis staph aureus facial abscess s/p incision & drainage Discharge Exam Constitutional well developed, well nourished and + obese; no acute distress and no altered m ental status ENMT external ear and nose normal, oropharynx normal Respiratory normal respiratory effort, lungs clear to auscultation Auscultation: no crackles and no wheezes Cardiovascular Rate/Rhythm: regular rate and regular rhythm Heart Sounds: normal S1 and normal S2; no murmur Vessels: posterior tibial pulses present and dorsalis pedis pulses present; no JVD Extremities: no edema Gastrointestinal (Abdomen) normal bowel sounds, soft, nontender, no hepatosplenomegaly Skin abscess site anterior to left ear over christianity/zygoma; swelling, minimal redness, packing tape in place; mildly tender to palpation Lymphatic + cervical lymphadenopathy (left sided, 1.5cm) Discharge Data Allergies Allergy/AdvReac Type Severity Reaction Status Date / Time ciprofloxacin [From Cipro] Allergy Rash Verified 12/21/19 10:00 potassium chloride AdvReac Intermediate Red/flused Unverified 12/21/19 10:21 Consultations Consult Plastic Surgery - Karissa Mcdonald MD Procedures Performed Incision & Drainage left facial abscess - [facility] Ordered Studies 12/24/19 14:21 US soft tissue head and neck - IMPRESSION: There is an ill-defined hypoechoic subcutaneous area measuring 1.9 x 0.5 x 1.0 cm within the left temporal region at the patient's area of interest. This favors a phlegmon/developing abscess. Hospital Course (1) Facial abscess: Patient presented with left-sided facial cellulitis. As his hospitalization ensued he developed an abscess anterior to the left ear. He ultimately underwent I and D of the abscess by [facility]. Culture with staph aureus at time of discharge - sensitivities pending. Received broad-spectrum IV antibiotics during his stay including MRSA coverage with vancomycin. Wound was packed on day of discharge and he will require daily re-packing for s everal days post-discharge - this will take place at [facility] office. At discharge he was given a prescription for doxycycline 100mg BID for 10 days but this is subject to change if final culture results suggest he needs a different antibiotic. (2) Facial cellulitis: Left sided. Resolved by time of discharge. Remaining issue was that of the abscess which was incised and drained. (3) Hypomagnesemia: replaced IV/PO while hospitalized. resolved with such. in light of ongoing diuretic usage recommended mag oxide supplementation 400mg BID following discharge. (4) Hypokalemia: replaced resolved (5) Chronic systolic CHF (congestive heart failure): acute/chronic required additional diuresis while hospitalized at discharge was euvolemic cont coreg, bumex, entresto, aldactone (6) Hypertension: cont all home meds (7) Biventricular ICD (implantable cardioverter-defibrillator) in place: history of v-tach remains on sotalol had non-sustained v-tach on monitoring one time during his stay; was asymptomatic; ICD appropriately did not fire (8) Paroxysmal atrial fibrillation: cont digoxin cont coreg cont eliquis BID (9) Gout: cont allopurinol prophylaxis Total Time Total Time Spent Total Time Spent (In Minutes): 40 Total Time Includes: Examination of the Patient, Discharge Planning, Medication Reconciliation and Communication With Other Providers Discharge Plan Discharge Items Patient Disposition: Home - Self-Care Reason For Visit: FACIAL CELLULITIS Discharge Diagnosis: Facial cellulitis with abscess - culture growing staph Activity: Resume your previous activity Non-emergency contact: Primary Care Provider and Surgeon Call non-emergency contact if: you have any medication questions, your symptoms worsen, you have a fever, your wound has increased redness, your wound has increased drainage and your wound pain has increased Follow-up/Referrals: Karissa Mcdonald MD [Physician] - (Call [phone] for arrange follow up in 24-48 hours. Office address is [address] [place] [address] [address] in [facility].) Aram Young MD [Primary Care Provider] - 01/01/20 11:10 am (Please, follow up at Dr. Young's office with his associate, Barby Nazario PA-C, on WednesdayDecember 31 at 11:10 am. This appointment will be at the office located in [address] on [facility] in [place]. *If you need to change/cancel this appointment, call their office at [phone].) Diet: Heart Healthy and Low Sodium (2gm) Fluids: 1500ml (6 cups) Addtl Attending Provider Instructions: You were treated for left sided facial cellulitis with an abscess. The abscess was drained by [facility] on 12/25/19. The culture is growing staph infection. This very well could be MRSA infection. Your cellulitis & abscess improved with IV antibiotics and the drainage procedure. Recommendations - 1. take doxycycline 100mg twice daily for 10 days; first dose at bedtime tonight. * doxycycline can occasionally cause heartburn * it can also cause a rash if you go out in the sun while you are taking the antibiotic; thus, cover up and use sunscreen 2. take probiotics for 10 days to help prevent diarrhea. 3. if your diarrhea worsens or persists please collect a sample and drop it off to one of the [facility] clinics or [facility] for processing; we would be checking you for c.diff infection. 4. take a magnesium supplement twice daily every day. 5. check your weights every morning on the same scale. If your weight rises more than 2-3 pounds in 1-2 days please take an extra bumex daily until your weight is back to your "Dry weight." 6. remove the packing material and place new material in the left facial wound per instructions from Dr Mcdonald. I will call you with the final culture report. Follow-up - see separate section Return to [facility] if - * you have fever over 100.4 degrees * you have worsening redness, drainage, or swelling over the face * your diarrhea is so severe that you are weak, dizzy, or unable to eat * any other concerns Pending Studies at Discharge: Yes Studies:: wound culture; blood cultures Stand-Alone Forms: My [facility], Smoking Cessation Medications and DC Order Prescriptions: New magnesium oxide 400 mg (241.3 mg magnesium) Tablet 400 mg PO BID Qty: 60 RF: 2 Saccharomyces boulardii 250 mg capsule 250 mg PO DAILY 10 Days Qty: 10 RF: 0 Continued potassium chloride 20 mEq tablet extended release 40 meq PO BID RF: 0 Entresto 24-26 mg tablet 1 tab PO BID Qty: 180 RF: 3 Eliquis 5 mg tablet 5 mg PO BID Qty: 60 RF: 2 digoxin 125 mcg (0.125 mg) tablet 125 mcg PO QAM RF: 0 eplerenone 25 mg tablet 25 mg PO QAM RF: 0 allopurinol 100 mg tablet 100 mg PO HS RF: 0 bumetanide 1 mg tablet 2 mg PO QAM RF: 0 atorvastatin [Lipitor] 40 mg Tablet 40 mg PO QPM RF: 0 colchicine 0.6 mg Tablet 1 - 2 tabs PO DAILY MDD 2 TABS PRN (Reason: FLARES) RF: 0 aspirin [Aspir-81] 81 mg Tablet,Delayed Release (Dr/Ec) 81 mg PO QAM RF: 0 multivitamin [Multiple Vitamins] Tablet 1 tab PO QAM RF: 0 sotalol 120 mg Tablet 120 mg PO BID RF: 0 magnesium L-lactate 84 mg Tablet Extended Release 84 mg PO QAM RF: 0 hydrocodone-acetaminophen 10-300 mg Tablet 1 tab PO TID PRN (Reason: Pain) RF: 0 carvedilol 12.5 mg tablet 12.5 mg PO BID RF: 0 doxycycline hyclate 100 mg capsule 100 mg PO BID 10 Days Qty: 20 RF: 0 Discontinued cephalexin [Keflex] 500 mg capsule 500 mg PO Q6H 10 Days Qty: 40 RF: 0 Discharge Orders: Discharge Order (Routine); Ordered 12/26/19 Ordered By: Mac Carvalho Admission Data Admit Date/Time: 12/22/19 17:24 Attending Provider: Mac Carvalho Admit Provider: Mac Abarca Primary Care Provider: Aram Young Other Providers: Mac Abarca ; Karissa Mcdonald Other Interventions: Discharge Summary Assessment (RN) Last Done: 12/26/19 18:40 DC Date/Time DO NOT enter until pt leaves facility: 12/26/19 19:06 Coding Level of Care Code D/C Day Management >30 mins Diagnoses Facial abscess L02.01 Facial cellulitis L03.211 Hypomagnesemia E83.42 Hypokalemia E87.6 Chronic systolic CHF (congestive heart failure) I50.22 Hypertension I10 Hypertension type: essential hypertension Biventricular ICD (implantable cardioverter-defibrillator) in place Z95.810 Paroxysmal atrial fibrillation I48.0 Gout [id number] Chronicity: chronic Gout etiology: idiopathic Gout site: multiple sites Presence of tophus: without tophus
--- NOTE | 2019-12-26 18:13 | Surgery Progress Note ---
Date of Service December 26, 2019 Assessment & Plan (1) Facial abscess: Packing changed today. Questions answered. Patient instructed to call office for follow up in 24-48 hours. OK for discharge from my perspective. Subjective Patient seen today in bedside followup, 1 day s/p I+D. Patient reports he is feeling better, for discharge this evening. Review of Systems Integumentary: as per Subjective / HPI Physical Exam Constitutional: WD/WN, vitals as above Skin: no rashes, warm and dry + wound left cheek wound with packing, some induration, scant purulent drainage. Psychiatric: A+Ox3, euthymic affect Results & Data Vital Signs (Past 12 Hours) Vital Signs Temp Pulse Pulse Resp BP BP Pulse Ox 12/26/19 16:25 85 12/26/19 15:51 99.0 F 85 19 112/75 96 12/26/19 11:41 99.0 F 83 18 99/60 L 94 12/26/19 07:43 98.8 F 78 20 107/72 95 Laboratory Results cx shows Staph Aureus, sensitivities pending PG Care Time/CCT Total # of Minutes Spent Total Time Spent with Patient: Total time spent is greater than 50% in coordination of care (as documented) at patient's floor/unit and/or counseling patient: Coding Level of Care Code 92577 Subseq Hosp Care Lvl 1 Diagnoses Facial abscess L02.01
== END 2019-12-26 19:06 | disposition home or self-care (01) | DRG 602 ==
LOC: ED 11:24 → 2W 17:24 → SUATTDRO 17:24 → 2W 19:25

== ENCOUNTER 2021-02-06 17:14 | Observation (INO) ==
[2021-02-06 18:46] LABS: Basophils # (auto) 0.01 K/uL (0-0.2); Basophils % (auto) 0.1 %; Eosinophils # (auto) 0.25 K/uL (0-0.5); Hematocrit (blood only) 40.9 % (42-52); Hemoglobin 13.9 g/dL (14.0-18.0); Immature Granulocytes # (auto) 0.02 K/uL (0.00-0.02); Immature Granulocytes % (auto) 0.2 %; Lymphocytes # (auto) 1.34 K/uL (1.2-3.4); Lymphocytes % (auto) 16.3 %; Mean Corpuscular Hemoglobin 31.2 pg (25-34); Mean Corpuscular Volume 91.7 fL (80-100); Mean Platelet Volume 11.1 fL (7.4-10.4); Monocytes # (auto) 0.86 K/uL (0.11-0.59); Monocytes % (auto) 10.5 %; Neutrophils # (auto) 5.74 K/uL (1.4-6.5); Neutrophils % (auto) 69.9 %; Platelet Count 165 K/uL (130-400); RDW Coefficient of Variation 13.6 % (11.5-14.5); Red Blood Count 4.46 M/uL (4.7-6.1); White Blood Count 8.22 K/uL (4.8-10.8)
--- NOTE | 2021-02-06 19:01 | Emergency Department Note ---
History of Present Illness General Chief complaint: Flu Like Symptoms Stated complaint: FEVER, CHILLS, HEART RACING, Time Seen by Provider: 02/06/21 18:44 Source: patient History of Present Illness Provider complaint: Chest pain Onset (ago): hour(s) Location: chest and left Radiation: non-radiation Severity: mild Pain Consistency: + now resolved Maximum Pain Intensity: 4 Quality: + other (Tightness) Relieved By: + none Associated symptoms: + fever/chills, + nausea/vomiting and + shortness of breath; no cough This is a 55-year-old male who presents with chest discomfort starting approximately 4 PM today. The patient states that around lunchtime he started feeling unwell. He was nauseous and then his symptoms got worse around 2 PM. He started to vomit and felt really warm. He took his temperature and it was 100.2 or 100.4. He had a little bit of diarrhea earlier in the day but nothing since. He denies any abdominal pain. He started having palpitations as if his heart was racing but his AICD did not shock him. He then developed chest discomfort at approximately 4 PM with shortness of breath. He describes it as a tightness in the left upper part of his chest where his pacemaker is. It did not radiate anywhere. It did resolve on its own. He states that he has had this chest pain before when he is fluid overloaded. He has had a cardiac catheterization multiple times. He states the last one was about a year and a half ago and he was told that everything was wide open. He denies any cough or cold symptoms, abdominal pain or pain in his legs. He does take Eliquis. He has had some swelling to his legs which is chronic for him. He did not have his Covid vaccine due to having exacerbations of gout. He does state that his family around him are all vaccinated. He has not had any known exposure. He denies any loss of taste or smell. Home Medications Medication Instructions Recorded Confirmed Type atorvastatin 40 mg tablet (Lipitor) 40 mg PO QPM 04/30/18 02/06/21 History colchicine 0.6 mg tablet 1 tabs PO BID PRN MDD 2 TABS 04/30/18 02/06/21 History multivitamin (Multiple Vitamins) 1 tab PO QAM 04/30/18 02/06/21 History hydrocodone 10 mg-acetaminophen 1 tab PO TID PRN 01/22/19 02/06/21 History 300 mg tablet sotalol 120 mg tablet 120 mg PO BID 01/22/19 02/06/21 History digoxin 125 mcg (0.125 mg) tablet 125 mcg PO QAM 05/15/19 02/06/21 History eplerenone 25 mg tablet 25 mg PO QAM 05/15/19 02/06/21 History potassium chloride 20 mEq 40 meq PO BID tab 11/13/19 02/06/21 History tablet,extended release aspirin 81 mg tablet,delayed 81 mg PO DAILY 08/10/20 02/06/21 History release (Aspirin Low Dose) carvedilol 6.25 mg tablet 6.25 mg PO BID 30 Days #60 tab 08/12/20 02/06/21 Rx Wheelchair (Manual) 1 ea .ROUTE .COMPLEX #1 ea 08/23/20 02/06/21 Rx bumetanide 1 mg tablet 2 mg PO DAILY #240 tab 10/21/20 02/06/21 Rx metformin 500 mg tablet 500 mg PO DAILY #30 tab 11/29/20 02/06/21 Rx sacubitril 24 mg-valsartan 26 mg 1 tab PO BID #180 tab 12/03/20 02/06/21 Rx tablet (Entresto) allopurinol 300 mg tablet 300 mg PO DAILY 01/21/21 02/06/21 History apixaban 5 mg tablet (Eliquis) 5 mg PO Q12 01/21/21 02/06/21 History magnesium oxide 400 mg (241.3 mg 400 mg PO DAILY 01/21/21 02/06/21 History magnesium) tablet prednisone 10 mg tablet 40 mg PO DAILY 01/21/21 02/06/21 History mupirocin 2 % topical ointment 1 applic TOPICAL TID #22 g 01/22/21 02/06/21 Rx Allergies Allergy/AdvReac Type Severity Reaction Status Date / Time ciprofloxacin [From Cipro] Allergy Rash Verified 02/06/21 18:39 potassium chloride AdvReac Intermediate Red/flused Unverified 02/06/21 18:39 Past Med/Surg History Medical History Acute exacerbation of CHF (congestive heart failure) Acute on chronic systolic heart failure CHANDRA (acute kidney injury) Biventricular ICD (implantable cardioverter-defibrillator) in place Cardiomyopathy Chronic systolic CHF (congestive heart failure) Elevated lactic acid level Elevated troponin Facial abscess Facial cellulitis History of diverticulitis Hx of gout Hyperlipidemia Hypertension Hypokalemia Hypomagnesemia Orthostatic hypotension Paroxysmal atrial fibrillation Presence of combination internal cardiac defibrillator (ICD) and pacemaker Surgical History H/O rhinoplasty H/O right heart catheterization History of ankle surgery Family History Father Myocardial infarction Mother Myocardial infarction Ovarian cancer CHF (congestive heart failure) Other No significant family history Denies family history of Prostate cancer Breast cancer Colorectal cancer Social History Smoking Status: Never smoker Second Hand Exposure: No; Hx Alcohol Use: Yes Alcohol type: wine Hx Substance Use: No Preferred Language: Macedonian Communication Ability: Effective Client Support Professional Required: No Beliefs That Will Affect Care: Yarsani marital status: Current Living Situation: Parent and Family current occupational status: disabled Feels Safe at Home: Yes Childhood Exposure to Second-Hand Smoke: No Physical Activity Frequency: Does not Exercise Seatbelt Use: always Sunscreen Use: Yes Assistive Devices: None Review of Systems See HPI for pertinent positives & negatives. and A total of 10 systems reviewed and were otherwise negative Physical Exam Vital Signs Vital Signs - 24 hr 02/06/21 18:01 02/06/21 18:33 02/06/21 18:48 Temperature 37.3 C Temperature Source Oral Pulse Rate 104 H 97 H 101 H Pulse Rate [Apical] 97 H Pulse Rate from SpO2 Sensor 102 H Pulse Rhythm Irregular Respiratory Rate 14 20 21 Blood Pressure 140/86 Blood Pressure Mean 104 Pulse Oximetry 95 95 97 Oxygen Delivery Method Room Air Room Air Sepsis Recent Fever Within 48 Hours Yes Sepsis New/Unexplained Change in Mental Status No Sepsis Action Taken by Nursing No Action Required 02/06/21 18:50 02/06/21 19:00 02/06/21 19:10 Temperature Temperature Source Pulse Rate 102 H 95 H 97 H Pulse Rate [Apical] Pulse Rate from SpO2 Sensor 101 H 94 H 96 H Pulse Rhythm Respiratory Rate 28 H 15 19 Blood Pressure Blood Pressure Mean Pulse Oximetry 94 95 94 Oxygen Delivery Method Sepsis Recent Fever Within 48 Hours Sepsis New/Unexplained Change in Mental Status Sepsis Action Taken by Nursing 02/06/21 19:30 02/06/21 19:45 02/06/21 20:00 Temperature Temperature Source Pulse Rate 97 H Pulse Rate [Apical] Pulse Rate from SpO2 Sensor 98 H 88 87 Pulse Rhythm Respiratory Rate 12 Blood Pressure 127/81 120/71 138/88 Blood Pressure Mean 96 87 104 Pulse Oximetry 93 95 96 Oxygen Delivery Method Sepsis Recent Fever Within 48 Hours Sepsis New/Unexplained Change in Mental Status Sepsis Action Taken by Nursing 02/06/21 20:17 02/06/21 20:20 Temperature Temperature Source Pulse Rate Pulse Rate [Apical] Pulse Rate from SpO2 Sensor 90 89 Pulse Rhythm Respiratory Rate Blood Pressure Blood Pressure Mean Pulse Oximetry 96 95 Oxygen Delivery Method Sepsis Recent Fever Within 48 Hours Sepsis New/Unexplained Change in Mental Status Sepsis Action Taken by Nursing Constitutional: Vital signs reviewed. Eyes: Pupils are equal round reactive to light. Conjunctiva are noninjected. ENT: Pharynx is clear without erythema or exudate. Mucous membranes are moist. Neck supple without meningeal signs. Respiratory: Clear to auscultation bilaterally. Breath sounds are equal bilaterally. Cardiovascular: Regular rate and rhythm. No rubs or gallops. GI: Soft, nondistended and nontender. Bowel sounds are present. Musculoskeletal: Mild lower extremity edema. No lower extremity tenderness. Integumentary: No cyanosis. or jaundice. Neurological: The patient is awake and alert. No focal deficits. Psychiatric: Normal affect. Medical Decision Making Differential Diagnosis Dysrhythmia, electrolyte abnormality, DE, pleurisy, pneumonia, COVID-19 Medical Records Attestation: I reviewed the patient's medical records. I did perform a limited focused review of portions of the patient's old chart on the electronic medical record. The patient is followed by the heart failure clinic and was last seen in December. Home Medications Current Medication List: was personally reviewed by me Laboratory Data Attestation: I reviewed the patient's lab results. Result diagrams: 02/06/21 18:37 02/06/21 18:37 Lab Results 02/06/21 02/06/21 02/06/21 Range/Units 18:37 18:37 18:37 WBC 8.22 (4.8-10.8) K/uL RBC 4.46 L (4.7-6.1) M/uL Hgb 13.9 L (14.0-18.0) g/dL Hct 40.9 L (42-52) % MCV 91.7 (80-100) fL MCH 31.2 (25-34) pg MCHC 34.0 (32-36) g/dL RDW Std Deviation 45.0 (36.4-46.3) fL RDW Coeff of Juan 13.6 (11.5-14.5) % Plt Count 165 (130-400) K/uL MPV 11.1 H (7.4-10.4) fL Immature Gran % (Auto) 0.2 % Neut % (Auto) 69.9 % Lymph % (Auto) 16.3 % Dubois % (Auto) 10.5 % Eos % (Auto) 3.0 % Baso % (Auto) 0.1 % Neut # (Auto) 5.74 (1.4-6.5) K/uL Lymph # (Auto) 1.34 (1.2-3.4) K/uL Dubois # (Auto) 0.86 H (0.11-0.59) K/uL Eos # (Auto) 0.25 (0-0.5) K/uL Baso # (Auto) 0.01 (0-0.2) K/uL Immature Gran # (Auto) 0.02 (0.00-0.02) K/uL PT 10.8 (9.0-12.0) Seconds INR 1.1 (0.9-1.1) APTT 25.4 (21.0-31.0) Seconds PTT Ratio 1.0 Sodium 142 (136-145) mmol/L Potassium 3.4 L (3.5-5.1) mmol/L Chloride 108 H (98-107) mmol/L Carbon Dioxide 25 (21-32) mmol/L Anion Gap 9.0 (3-11) BUN 13 (7-18) mg/dl Creatinine 1.31 (0.6-1.4) mg/dl Est Cr Clr Drug Dosing 92.5 ml/min Est GFR ( Amer) 71.5 ml/min Est GFR (Non-Af Amer) 61.7 ml/min BUN/Creatinine Ratio 9.8 L (10-20) Glucose 141 H (70-99) mg/dl Calcium 8.8 (8.5-10.1) mg/dl Magnesium 1.9 (1.8-2.4) mg/dl Total Bilirubin 1.3 H (0.2-1) mg/dl AST 40 H (15-37) U/L ALT 70 (12-78) U/L Alkaline Phosphatase 70 (45-117) U/L Troponin I 0.036 (0-0.045) ng/ml Total Protein 6.6 (6.4-8.2) gm/dl Albumin 3.3 L (3.4-5.0) gm/dl Globulin 3.3 (2.5-4.0) gm/dl Albumin/Globulin Ratio 1.0 (0.9-2) Lipase 241 (73-393) U/L Urine Color Urine Appearance (Clear) Urine pH (4.5-7.5) Ur Specific Boyle (1.000-1.030) Urine Protein (Negative) Urine Glucose (UA) (Negative) Urine Ketones (Negative) Urine Blood (Negative) Urine Nitrite (Negative) Urine Bilirubin (Negative) Urine Urobilinogen (Negative) Ur Leukocyte Esterase (Negative) Urine RBC (0-4) /hpf Urine WBC (0-5) /hpf Ur Epithelial Cells (0-5) /lpf Urine Bacteria (Negative) Urine Mucus (None Prsent) COVID-19 Eval Order SARS-CoV-2 (PCR) (Negative) 02/06/21 02/06/21 02/06/21 Range/Units 19:19 19:19 20:50 WBC (4.8-10.8) K/uL RBC (4.7-6.1) M/uL Hgb (14.0-18.0) g/dL Hct (42-52) % MCV (80-100) fL MCH (25-34) pg MCHC (32-36) g/dL RDW Std Deviation (36.4-46.3) fL RDW Coeff of Juan (11.5-14.5) % Plt Count (130-400) K/uL MPV (7.4-10.4) fL Immature Gran % (Auto) % Neut % (Auto) % Lymph % (Auto) % Dubois % (Auto) % Eos % (Auto) % Baso % (Auto) % Neut # (Auto) (1.4-6.5) K/uL Lymph # (Auto) (1.2-3.4) K/uL Dubois # (Auto) (0.11-0.59) K/uL Eos # (Auto) (0-0.5) K/uL Baso # (Auto) (0-0.2) K/uL Immature Gran # (Auto) (0.00-0.02) K/uL PT (9.0-12.0) Seconds INR (0.9-1.1) APTT (21.0-31.0) Seconds PTT Ratio Sodium (136-145) mmol/L Potassium (3.5-5.1) mmol/L Chloride (98-107) mmol/L Carbon Dioxide (21-32) mmol/L Anion Gap (3-11) BUN (7-18) mg/dl Creatinine (0.6-1.4) mg/dl Est Cr Clr Drug Dosing ml/min Est GFR ( Amer) ml/min Est GFR (Non-Af Amer) ml/min BUN/Creatinine Ratio (10-20) Glucose (70-99) mg/dl Calcium (8.5-10.1) mg/dl Magnesium (1.8-2.4) mg/dl Total Bilirubin (0.2-1) mg/dl AST (15-37) U/L ALT (12-78) U/L Alkaline Phosphatase (45-117) U/L Troponin I (0-0.045) ng/ml Total Protein (6.4-8.2) gm/dl Albumin (3.4-5.0) gm/dl Globulin (2.5-4.0) gm/dl Albumin/Globulin Ratio (0.9-2) Lipase (73-393) U/L Urine Color Dark Yellow Urine Appearance Clear (Clear) Urine pH (4.5-7.5) Ur Specific Boyle > 1.030 H (1.000-1.030) Urine Protein (Negative) Urine Glucose (UA) (Negative) Urine Ketones (Negative) Urine Blood (Negative) Urine Nitrite (Negative) Urine Bilirubin (Negative) Urine Urobilinogen (Negative) Ur Leukocyte Esterase (Negative) Urine RBC 0-4 (0-4) /hpf Urine WBC 0-5 (0-5) /hpf Ur Epithelial Cells >30 H (0-5) /lpf Urine Bacteria Negative (Negative) Urine Mucus Present A (None Prsent) COVID-19 Eval Order Covid19 at [facility] SARS-CoV-2 (PCR) NEGATIVE (Negative) Imaging Data Radiologist's Impression: Chest X-Ray 02/06/21 18:08 SINGLE VIEW CHEST CLINICAL HISTORY: Atypical chest pain. FINDINGS: An AP, portable, upright chest radiograph is compared to study dated 08/20/2020 and correlated with chest CT dated 09/25/2019. A 3-lead cardiac AICD is unchanged in position and partially obscures the left mid chest. The heart is enlarged. The pulmonary vasculature is noncongested. Atelectasis is noted at the lung bases. The lungs and pleural spaces are otherwise clear. No pneumothorax is seen. The skeletal structures are osteopenic. The bony thorax is grossly intact. IMPRESSION: 1. Cardiomegaly and AICD with no radiographic evidence of congestive failure. 2. No airspace consolidation or large pleural effusion is identified. ACT 112: Negative or not required by law. Electronically signed by: Arben Fernandez M.D. 02/06/2021 7:00 PM ECG Data Attestation: I personally reviewed and interpreted this ECG as follows: Indication: + chest pain Rate (beats per minute): 95 Rhythm: + other (Atrial sensed ventricular paced rhythm) ECG Findings: + PVCs Comparison ECG Date: from (August 10, 2020) Change: no significant change MDM Narrative I did evaluate the patient as noted above. He is presenting with low-grade fever, chest pain and shortness of breath. He also had significant pal pitations. IV access was established. I did place an order for continuous cardiac monitoring. The monitor showed a paced rhythm at a heart rate of 95 bpm. I did order and personally review the patient's 12-lead EKG as described above. He demonstrates a paced rhythm with a PVC. I did order and personally reviewed the images of the patient's chest x-ray as described above. He has no evidence of pneumonia or pulmonary edema. I did order and review the patient's blood work as noted in the electronic medical record. His white blood cell count is not elevated. He is slightly anemic with a hemoglobin of 13.9. Electrolytes demonstrate a potassium of 3.4 and chloride of 108 but otherwise a re unremarkable. Troponin is 0.036. COVID-19 testing was negative. He was taken out of respiratory isolation. I did interrogate his pacemaker. He had atrial fibrillation in January but no dysrhythmia today according to the sales representative printing. Urinalysis does not show signs of infection. I did discuss the test results with the patient. I did recommend hospitalization for further care and evaluation. He was agreeable to this. I did discuss case with the bilingual case manager and the hospitalist was informed. Impression & Plan Acute chest pain, Fever Discharge Plan Visit Data Chief Complaint: Flu Like Symptoms Stated Complaint: FEVER, CHILLS, HEART RACING, ED Provider: Vu Hammonds Discharge Problem: Acute chest pain, Fever Patient Disposition: Being Evaluated by Hospitalist Discharge Instructions Interventions: ED Discharge Assessment Last Done: 02/07/21 00:05
[2021-02-06 19:02] LABS: INR 1.1 (0.9-1.1); Partial Thromboplastin Time 25.4 Seconds (21.0-31.0); Prothrombin Time 10.8 Seconds (9.0-12.0)
--- NOTE | 2021-02-06 19:02 | XRay Report ---
SINGLE VIEW CHEST CLINICAL HISTORY: Atypical chest pain. FINDINGS: An AP, portable, upright chest radiograph is compared to study dated 08/20/2020 and correlate d with chest CT dated 09/25/2019. A 3-lead cardiac AICD is unchanged in position and partially obscure s the left mid chest. The heart is enlarged. The pulmonary vasculature is noncongested. Atelectasis i s noted at the lung bases. The lungs and pleural spaces are otherwise clear. No pneumothorax is seen. The skeletal structures are osteopenic. The bony thorax is grossly intact. IMPRESSION: 1. Cardiomegaly and AICD with no radiographic evidence of congestive failure. 2. No airspace consolidation or large pleural effusion is identified. ACT 112: Negative or not required by law. Electronically signed by: Arben Fernandez M.D. 02/06/2021 7:00 PM
[2021-02-06 19:03] LABS: Albumin Level 3.3 gm/dl (3.4-5.0); BUN Creatinine Ratio 9.8 (10-20); Calcium 8.8 mg/dl (8.5-10.1); Creatinine Clr Calc Pharmacy 92.5 ml/min; Est GFR (African American) 71.5 ml/min; Est GFR (Non-African American) 61.7 ml/min; Potassium 3.4 mmol/L (3.5-5.1)
[2021-02-06 19:10] LABS: Bilirubin,Total 1.3 mg/dl (0.2-1); Globulin 3.3 gm/dl (2.5-4.0); Total Protein 6.6 gm/dl (6.4-8.2); Troponin I 0.036 ng/ml (0-0.045)
[2021-02-06 19:20] LABS: Magnesium 1.9 mg/dl (1.8-2.4)
[2021-02-06 21:31] LABS: Appearance Urine Clear (Clear); Color Urine Dark Yellow
[2021-02-06 21:32] LABS: Specific Gravity Urine > 1.030 (1.000-1.030)
[2021-02-06 21:49] LABS: Bacteria Urine Negative (Negative); Epithelial Cell Urine >30 /lpf (0-5); Mucus Urine Present (None Prsent); RBC Urine 0-4 /hpf (0-4); WBC Urine 0-5 /hpf (0-5)
--- NOTE | 2021-02-06 21:49 | History & Physical Report ---
Date of Service February 06, 2021 Assessment & Plan (1) Chest pain: Plan: Chest pain/nonischemic cardiomyopathy/hypertension/paroxysmal V. tach/biventricular ICD- The patient will be admitted to telemetry for serial cardiac enzymes, serial EKG's, cardiac rhythm monitoring. Likely secondary to gastroenteritis and hypokalemia. Continue all usual medications: Aspirin, bumetanide, carvedilol, digoxin, Eliquis, eplerenone, potassium chloride, sotalol and Entresto Potassium 3.4 upon admission. Give Klor-Con 40 mEq p.o. now and recheck in a.m. (2) Gastroenteritis: Plan: Symptoms occurred after eating a club sandwich. Likely toxin associated food poisoning Symptoms are improved at this point (3) Chronic gout: Plan: Continue prednisone and allopurinol (4) Nonischemic cardiomyopathy: Plan: See above (5) Chronic systolic CHF (congestive heart failure): Plan: See above (6) Hypertension: Plan: See above (7) Hyperlipidemia: Plan: Continue atorvastatin (8) Paroxysmal ventricular tachycardia: Plan: See above (9) Biventricular ICD (implantable cardioverter-defibrillator) in place: Plan: See above History of Present Illness Chief Complaint: The patient presents to the emergency department for assessment of chest pain that began about 4 PM this afternoon Primary Care Provider: Natalie Chen MD The patient is a 55-year-old male with a past medical history including chronic gout, nonischemic cardiomyopathy, atrial flutter with RVR, paroxysmal ventricular tachycardia, chronic systolic CHF, biventricular ICD, palpitations, obesity, prediabetes and lower extremity edema. Patient reports that he had a club sandwich around noon today, and then about 1 1/2 hours later developed symptoms of nausea, vomiting and diarrhea. He then developed pain over his left-sided ICD site around 4 PM, which is usually associated in the past with fluid overload. He presents to the ED for assessment. Allergies Allergy/AdvReac Type Severity Reaction Status Date / Time ciprofloxacin [From Cipro] Allergy Rash Verified 02/06/21 18:39 potassium chloride AdvReac Intermediate Red/flused Unverified 02/06/21 18:39 Home Medications Medication Instructions Recorded Confirmed Type atorvastatin 40 mg tablet (Lipitor) 40 mg PO QPM 04/30/18 02/06/21 History colchicine 0.6 mg tablet 1 tabs PO BID PRN MDD 2 TABS 04/30/18 02/06/21 History multivitamin (Multiple Vitamins) 1 tab PO QAM 04/30/18 02/06/21 History hydrocodone 10 mg-acetaminophen 1 tab PO TID PRN 01/22/19 02/06/21 History 300 mg tablet sotalol 120 mg tablet 120 mg PO BID 01/22/19 02/06/21 History digoxin 125 mcg (0.125 mg) tablet 125 mcg PO QAM 05/15/19 02/06/21 History eplerenone 25 mg tablet 25 mg PO QAM 05/15/19 02/06/21 History potassium chloride 20 mEq 40 meq PO BID tab 11/13/19 02/06/21 History tablet,extended release aspirin 81 mg tablet,delayed 81 mg PO DAILY 08/10/20 02/06/21 History release (Aspirin Low Dose) carvedilol 6.25 mg tablet 6.25 mg PO BID 30 Days #60 tab 08/12/20 02/06/21 Rx Wheelchair (Manual) 1 ea .ROUTE .COMPLEX #1 ea 08/23/20 02/06/21 Rx bumetanide 1 mg tablet 2 mg PO DAILY #240 tab 10/21/20 02/06/21 Rx metformin 500 mg tablet 500 mg PO DAILY #30 tab 11/29/20 02/06/21 Rx sacubitril 24 mg-valsartan 26 mg 1 tab PO BID #180 tab 12/03/20 02/06/21 Rx tablet (Entresto) allopurinol 300 mg tablet 300 mg PO DAILY 01/21/21 02/06/21 History apixaban 5 mg tablet (Eliquis) 5 mg PO Q12 01/21/21 02/06/21 History magnesium oxide 400 mg (241.3 mg 400 mg PO DAILY 01/21/21 02/06/21 History magnesium) tablet prednisone 10 mg tablet 40 mg PO DAILY 01/21/21 02/06/21 History mupirocin 2 % topical ointment 1 applic TOPICAL TID #22 g 01/22/21 02/06/21 Rx Past Med/Surg History Medical History Acute exacerbation of CHF (congestive heart failure) Acute on chronic systolic heart failure CHANDRA (acute kidney injury) Biventricular ICD (implantable cardioverter-defibrillator) in place Cardiomyopathy Chronic systolic CHF (congestive heart failure) Elevated lactic acid level Elevated troponin Facial abscess Facial cellulitis History of diverticulitis Hx of gout Hyperlipidemia Hypertension Hypokalemia Hypomagnesemia Orthostatic hypotension Paroxysmal atrial fibrillation Presence of combination internal cardiac defibrillator (ICD) and pacemaker Surgical History H/O rhinoplasty H/O right heart catheterization History of ankle surgery Family History Father Myocardial infarction Mother Myocardial infarction Ovarian cancer CHF (congestive heart failure) Other No significant family history Denies family history of Prostate cancer Breast cancer Colorectal cancer Social History Smoking Status: Never smoker Second Hand Exposure: No; Hx Alcohol Use: Yes Alcohol type: wine Hx Substance Use: No Preferred Language: Armenian Communication Ability: Effective Production Specialist Required: No Beliefs That Will Affect Care: Latter-Day marital status: Current Living Situation: Parent and Family current occupational status: disabled Feels Safe at Home: Yes Childhood Exposure to Second-Hand Smoke: No Physical Activity Frequency: Does not Exercise Seatbelt Use: always Sunscreen Use: Yes Assistive Devices: None Review of Systems Review of Systems: The patient denies shortness of breath, dyspnea on exertion, cough, sore throat, fevers, chills, sweats, blood in urine or stool, dysuria, urinary frequency or urgency, lightheadedness, dizziness, memory loss, loss of consciousness, rash, abnormal bruising or bleeding, imbalance, focal or generalized weakness, numbness or tingling in arms or legs, generalized arthralgias or myalgias, back or neck pain, or night sweats. The review of systems is otherwise negative other than for that already noted above, and at least 10 systems have been reviewed. Physical Exam Physical Exam: The patient is awake, alert and oriented 3, well developed and well nourished, normocephalic and atraumatic, lying in bed and in no acute distress. HEENT--PERRL, EOMI, mucous membranes and oropharynx normal. Neck--supple. No JVD. No bruits. Thyroid normal, trachea midline, no adenopathy. Heart--normal S1 and S2. No murmurs, rubs or gallops. Lungs--clear bilaterally, no respiratory distress, no accessory muscle use. Abdomen--normal bowel sounds and soft. Nontender. Nondistended. Morbid obesity Extremities--no cyanosis or clubbing. No edema. Dermatologic--normal skin turgor, normal color, no abnormal lymph nodes, no rash. Neurologic--cranial nerves II through XII grossly intact. Rheumatologic--normal range of motion. Psychiatric--normal affect. Results & Data Results & Data ([facility]) Vital Signs (Past 12 Hours) Vital Signs Temp Pulse Pulse Resp BP Pulse Ox 02/06/21 20:20 95 02/06/21 20:17 96 02/06/21 20:00 138/88 96 02/06/21 19:45 120/71 95 02/06/21 19:30 97 H 12 127/81 93 02/06/21 19:10 97 H 19 94 02/06/21 19:00 95 H 15 95 02/06/21 18:50 102 H 28 H 94 02/06/21 18:48 101 H 21 97 02/06/21 18:33 97 H 97 H 20 95 02/06/21 18:01 99.1 F 104 H 14 140/86 95 Laboratory Results Laboratory Results WBC 8.22 K/uL (4.8-10.8) 02/06/21 18:37 RBC 4.46 M/uL (4.7-6.1) L 02/06/21 18:37 Hgb 13.9 g/dL (14.0-18.0) L 02/06/21 18:37 Hct 40.9 % (42-52) L 02/06/21 18:37 MCV 91.7 fL (80-100) 02/06/21 18:37 MCH 31.2 pg (25-34) 02/06/21 18:37 MCHC 34.0 g/dL (32-36) 02/06/21 18:37 RDW Std Deviation 45.0 fL (36.4-46.3) 02/06/21 18:37 RDW Coeff of Juan 13.6 % (11.5-14.5) 02/06/21 18:37 Plt Count 165 K/uL (130-400) 02/06/21 18:37 MPV 11.1 fL (7.4-10.4) H 02/06/21 18:37 Immature Gran % (Auto) 0.2 % 02/06/21 18:37 Neut % (Auto) 69.9 % 02/06/21 18:37 Lymph % (Auto) 16.3 % 02/06/21 18:37 [place] % (Auto) 10.5 % 02/06/21 18:37 Eos % (Auto) 3.0 % 02/06/21 18:37 Baso % (Auto) 0.1 % 02/06/21 18:37 Neut # (Auto) 5.74 K/uL (1.4-6.5) 02/06/21 18:37 Lymph # (Auto) 1.34 K/uL (1.2-3.4) 02/06/21 18:37 [place] # (Auto) 0.86 K/uL (0.11-0.59) H 02/06/21 18:37 Eos # (Auto) 0.25 K/uL (0-0.5) 02/06/21 18:37 Baso # (Auto) 0.01 K/uL (0-0.2) 02/06/21 18:37 Immature Gran # (Auto) 0.02 K/uL (0.00-0.02) 02/06/21 18:37 PT 10.8 Seconds (9.0-12.0) 02/06/21 18:37 INR 1.1 (0.9-1.1) 02/06/21 18:37 APTT 25.4 Seconds (21.0-31.0) 02/06/21 18:37 PTT Ratio 1.0 02/06/21 18:37 Sodium 142 mmol/L (136-145) 02/06/21 18:37 Potassium 3.4 mmol/L (3.5-5.1) L 02/06/21 18:37 Chloride 108 mmol/L (98-107) H 02/06/21 18:37 Carbon Dioxide 25 mmol/L (21-32) 02/06/21 18:37 Anion Gap 9.0 (3-11) 02/06/21 18:37 BUN 13 mg/dl (7-18) 02/06/21 18:37 Creatinine 1.31 mg/dl (0.6-1.4) 02/06/21 18:37 Est Cr Clr Drug Dosing 92.5 ml/min 02/06/21 18:37 Est GFR ( Amer) 71.5 ml/min 02/06/21 18:37 Est GFR (Non-Af Amer) 61.7 ml/min 02/06/21 18:37 BUN/Creatinine Ratio 9.8 (10-20) L 02/06/21 18:37 Glucose 141 mg/dl (70-99) H 02/06/21 18:37 Calcium 8.8 mg/dl (8.5-10.1) 02/06/21 18:37 Magnesium 1.9 mg/dl (1.8-2.4) 02/06/21 18:37 Total Bilirubin 1.3 mg/dl (0.2-1) H 02/06/21 18:37 AST 40 U/L (15-37) H 02/06/21 18:37 ALT 70 U/L (12-78) 02/06/21 18:37 Alkaline Phosphatase 70 U/L (45-117) 02/06/21 18:37 Troponin I 0.036 ng/ml (0-0.045) 02/06/21 18:37 Total Protein 6.6 gm/dl (6.4-8.2) 02/06/21 18:37 Albumin 3.3 gm/dl (3.4-5.0) L 02/06/21 18:37 Globulin 3.3 gm/dl (2.5-4.0) 02/06/21 18:37 Albumin/Globulin Ratio 1.0 (0.9-2) 02/06/21 18:37 Lipase 241 U/L (73-393) 02/06/21 18:37 Urine Color Dark Yellow 02/06/21 20:50 Urine Appearance Clear (Clear) 02/06/21 20:50 Urine pH (4.5-7.5) 02/06/21 20:50 Ur Specific [place] > 1.030 (1.000-1.030) H 02/06/21 20:50 Urine Protein (Negative) 02/06/21 20:50 Urine Glucose (UA) (Negative) 02/06/21 20:50 Urine Ketones (Negative) 02/06/21 20:50 Urine Blood (Negative) 02/06/21 20:50 Urine Nitrite (Negative) 02/06/21 20:50 Urine Bilirubin (Negative) 02/06/21 20:50 Urine Urobilinogen (Negative) 02/06/21 20:50 Ur Leukocyte Esterase (Negative) 02/06/21 20:50 Urine RBC 0-4 /hpf (0-4) 02/06/21 20:50 Urine WBC 0-5 /hpf (0-5) 02/06/21 20:50 Ur Epithelial Cells >30 /lpf (0-5) H 02/06/21 20:50 Urine Bacteria Negative (Negative) 02/06/21 20:50 Urine Mucus Present (None Prsent) A 02/06/21 20:50 COVID-19 Eval Order Covid19 at [facility] 02/06/21 19:19 SARS-CoV-2 (PCR) NEGATIVE (Negative) 02/06/21 19:19 Impressions Chest X-Ray 02/06/21 18:08 SINGLE VIEW CHEST CLINICAL HISTORY: Atypical chest pain. FINDINGS: An AP, portable, upright chest radiograph is compared to study dated 08/20/2020 and correlated with chest CT dated 09/25/2019. A 3-lead cardiac AICD is unchanged in position and partially obscures the left mid chest. The heart is enlarged. The pulmonary vasculature is noncongested. Atelectasis is noted at the lung bases. The lungs and pleural spaces are otherwise clear. No pneumothorax is seen. The skeletal structures are osteopenic. The bony thorax is grossly intact. IMPRESSION: 1. Cardiomegaly and AICD with no radiographic evidence of congestive failure. 2. No airspace consolidation or large pleural effusion is identified. ACT 112: Negative or not required by law. Electronically signed by: Arben Fernandez M.D. 02/06/2021 7:00 PM ECG Additional Comments: SOLOMON NIÑO ID:[id number] 06-FEB-2021 18:23:15 [facility]- EDSTAT ROUTINE RETRIEVAL Suspect unspecified pacemaker failure Atrial-sensed ventricular-paced rhythm with occasional Premature ventricular complexes Abnormal ECG When compared with ECG of 10-AUG-2020 17:35, Premature ventricular complexes are now Present Vent. rate has increased BY 22 BPM 25mm/s 10mm/mV 150Hz 9.0.9 12SL 241 THEODORE: 3 Unconfirmed Vent. rate 95 BPM AR interval 160 ms QRS duration 138 ms QT/QTc 420/527 ms P-R-T axes 41 -69 89 1965 (55 yr) Male 1in 0lb Room: Loc:15 Copyman:Marcelino Baum Code Status & VTE Plan Code Status Full code PG Care Time/CCT Total # of Minutes Spent Total Time Spent with Patient: Total time spent is greater than 50% in coordination of care (as documented) at patient's floor/unit and/or counseling patient: Coding Level of Care Code INT OBSERVATION CARE 70M LVL 3 Diagnoses Chest pain R07.9 Gastroenteritis K52.9 Chronic gout [id number] Nonischemic cardiomyopathy I42.8 Chronic systolic CHF (congestive heart failure) I50.22 Hypertension I10 Hypertension type: essential hypertension Hyperlipidemia E78.5 Paroxysmal ventricular tachycardia I47.2 Biventricular ICD (implantable cardioverter-defibrillator) in place Z95.810 (1) Hypertension Hypertension type: essential hypertension Qualified Code(s): I10 - Essential (primary) hypertension
[2021-02-07] MEDS ORDERED: DEXTROSE 50% 50 ML SYRINGE IV PRN (01:09)
[2021-02-07] MEDS ORDERED: ONDANSETRON INJ 2 MG/ML 2 ML VIAL IV PRN (01:09)
[2021-02-07] MEDS ORDERED: GLUCAGON FOR INJ 1 MG VIAL SQ PRN (01:09)
[2021-02-07] MEDS ORDERED: GLUCOSE 10 TABS/TUBE PO PRN (01:09)
[2021-02-07] MEDS ORDERED: ACETAMINOPHEN 325 MG TAB PO PRN (01:09)
[2021-02-07] MEDS ORDERED: CARBOHYDRATES FOR HYPOGLYCEMIA PO PRN (01:09)
[2021-02-07] MEDS ORDERED: GLUCOSE 40% GEL 15 GM TUBE PO PRN (01:09)
[2021-02-07] MEDS ORDERED: HYDROcodone/ACETAMINOPHEN 10/325 TAB PO PRN (01:15)
[2021-02-07] MEDS: carvediloL 6.25 MG TAB PO SCH ×2 (01:38→08:01)
[2021-02-07] MEDS: SACUBITRIL-VALSARTAN 24-26 MG TAB PO SCH ×2 (01:39→08:01)
[2021-02-07] MEDS: POTASSIUM CHLORIDE CRTAB 20 MEQ TABCR PO SCH ×2 (01:39→08:01)
[2021-02-07] MEDS: SOTALOL HCL 80 MG TAB PO SCH ×2 (01:39→08:01)
[2021-02-07] MEDS: EPLERENONE~ORDER AWAITING ACTION SCH ×2 (02:00→07:57)
[2021-02-07 07:51] LABS: Basophils # (auto) 0.01 K/uL (0-0.2); Basophils % (auto) 0.1 %; Eosinophils # (auto) 0.21 K/uL (0-0.5); Hematocrit (blood only) 38.7 % (42-52); Immature Granulocytes # (auto) 0.02 K/uL (0.00-0.02); Immature Granulocytes % (auto) 0.3 %; Lymphocytes # (auto) 1.25 K/uL (1.2-3.4); Lymphocytes % (auto) 17.6 %; Mean Corpuscular Hgb Conc 33.6 g/dL (32-36); Mean Corpuscular Volume 92.1 fL (80-100); Mean Platelet Volume 11.3 fL (7.4-10.4); Monocytes # (auto) 0.74 K/uL (0.11-0.59); Monocytes % (auto) 10.4 %; Neutrophils # (auto) 4.86 K/uL (1.4-6.5); Neutrophils % (auto) 68.6 %; Platelet Count 145 K/uL (130-400); RDW Coefficient of Variation 13.8 % (11.5-14.5); RDW Standard Deviation 46.2 fL (36.4-46.3); White Blood Count 7.09 K/uL (4.8-10.8)
[2021-02-07] MEDS: INSULIN ASPART 100 UNITS/ML 3 ML PEN SC SCH ×2 (08:07→12:26)
[2021-02-07 08:25] LABS: BUN Creatinine Ratio 12.6 (10-20); Calcium 8.4 mg/dl (8.5-10.1); Creatinine Clr Calc Pharmacy 101.2 ml/min; Est GFR (African American) 80.3 ml/min; Est GFR (Non-African American) 69.3 ml/min; Magnesium 1.7 mg/dl (1.8-2.4); Potassium 3.4 mmol/L (3.5-5.1)
[2021-02-07 08:30] LABS: Albumin Globulin Ratio 0.9 (0.9-2); Bilirubin,Total 1.2 mg/dl (0.2-1); Globulin 3.3 gm/dl (2.5-4.0); Total Protein 6.3 gm/dl (6.4-8.2); Troponin I 0.033 ng/ml (0-0.045)
[2021-02-07] MEDS ORDERED: allopurinoL 300 MG TAB PO SCH (09:00)
[2021-02-07] MEDS ORDERED: APIXABAN 5 MG TABLET PO SCH (09:00)
[2021-02-07] MEDS ORDERED: BUMETANIDE 1 MG TAB PO SCH (09:00)
[2021-02-07] MEDS ORDERED: predniSONE 20 MG TAB PO SCH (09:00)
[2021-02-07] MEDS ORDERED: MAGNESIUM OXIDE 400 MG TAB PO SCH (09:00)
[2021-02-07] MEDS ORDERED: MULTIVITAMIN TAB PO SCH (09:00)
[2021-02-07] MEDS ORDERED: ASPIRIN 81 MG ECTAB PO SCH (09:00)
[2021-02-07] MEDS ORDERED: POTASSIUM CHLORIDE CRTAB 20 MEQ TABCR PO STA (13:09)
--- NOTE | 2021-02-07 13:11 | Discharge Summary ---
Date of Service February 07, 2021 Admission HPI Per Admitting Provider The patient is a 55-year-old male with a past medical history including chronic gout, nonischemic cardiomyopathy, atrial flutter with RVR, paroxysmal ventricular tachycardia, chronic systolic CHF, biventricular ICD, palpitations, obesity, prediabetes and lower extremity edema. Patient reports that he had a club sandwich around noon today, and then about 1 1/2 hours later developed symptoms of nausea, vomiting and diarrhea. He then developed pain over his left-sided ICD site around 4 PM, which is usually associated in the past with fluid overload. He presents to the ED for assessment. Principal Diagnosis Chest pain - non-cardiac Discharge Exam Constitutional WD/WN, vitals as above Respiratory normal respiratory effort, lungs clear to auscultation Cardiovascular RRR, no murmur, no edema Psychiatric A+Ox3, euthymic affect Discharge Data Allergies Allergy/AdvReac Type Severity Reaction Status Date / Time ciprofloxacin [From Cipro] Allergy Rash Verified 02/06/21 18:39 potassium chloride AdvReac Intermediate Red/flused Unverified 02/06/21 18:39 Consultations 02/06/21 21:18 ED Decision to Admit Stat Hospital Course (1) Acute chest pain: 55 y/o M with h/o non-ischemic cardiomyopathy/HTN/Paroxysmal V tac h/biventricular ICD here with Chest pain after vomiting from eating outside food: Chest pain Admitted to telemetry for serial cardiac enzymes, serial EKG's, cardiac rhythm monitoring. No arrhythmias noted Troponin negative Pain non-cardiac. Hypokalemia Likely from vomiting. Replaced on admission. Replace before discharge. Continued home medication (2) Gastroenteritis: (3) Nonischemic cardiomyopathy: (4) Anticoagulant long-term use: (5) Hypertension: (6) Hyperlipidemia: Total Time Total Time Spent Total Time Spent (In Minutes): 30min Discharge Plan Discharge Items Patient Disposition: Home - Self-Care Reason For Visit: CHEST PAIN Discharge Diagnosis: Chest pain likely secondary to esophageal spasm Activity: Resume your previous activity Non-emergency contact: Primary Care Provider Call non-emergency contact if: your symptoms worsen Follow-up/Referrals: Natalie Chen MD [Primary Care Provider] - Diet: Carb Count or DM1, Heart Healthy and Low Sodium (2gm) Addtl Attending Provider Instructions: Please follow up with your family physician in one to two weeks. Pending Studies at Discharge: No Stand-Alone Forms: My [facility], Smoking Cessation Medications and DC Order Prescriptions: Continued potassium chloride 20 mEq tablet extended release 40 meq PO BID RF: 0 bumetanide 1 mg tablet 2 mg PO DAILY Qty: 240 RF: 3 metformin 500 mg tablet 500 mg PO DAILY Qty: 30 RF: 2 Entresto 24-26 mg tablet 1 tab PO BID Qty: 180 RF: 3 Wheelchair (Manual) Device 1 ea .ROUTE .COMPLEX Qty: 1 RF: 0 digoxin 125 mcg (0.125 mg) tablet 125 mcg PO QAM RF: 0 eplerenone 25 mg tablet 25 mg PO QAM RF: 0 atorvastatin [Lipitor] 40 mg Tablet 40 mg PO QPM RF: 0 colchicine 0.6 mg Tablet 1 tabs PO BID MDD 2 TABS PRN (Reason: GOUT FLARES) RF: 0 multivitamin [Multiple Vitamins] Tablet 1 tab PO QAM RF: 0 sotalol 120 mg Tablet 120 mg PO BID RF: 0 hydrocodone-acetaminophen 10-300 mg Tablet 1 tab PO TID PRN (Reason: Pain) RF: 0 aspirin [Aspirin Low Dose] 81 mg Tablet,Delayed Release (Dr/Ec) 81 mg PO DAILY RF: 0 carvedilol 6.25 mg Tablet 6.25 mg PO BID 30 Days Qty: 60 RF: 2 magnesium oxide 400 mg (241.3 mg magnesium) tablet 400 mg PO DAILY RF: 0 Eliquis 5 mg tablet 5 mg PO Q12 RF: 0 prednisone 10 mg tablet 40 mg PO DAILY RF: 0 allopurinol 300 mg tablet 300 mg PO DAILY RF: 0 mupirocin 2 % ointment 1 applic topical TID Qty: 22 RF: 0 Discharge Orders: Discharge Order (Routine); Ordered 02/07/21 Ordered By: Shakila Salas Admission Data Admit Date/Time: 02/06/21 22:04 Attending Provider: Shakila Salas Admit Provider: Christian Emmanuel Primary Care Provider: Natalie Chen Other Providers: Christian Emmanuel Other Interventions: Discharge Summary Assessment (RN) Last Done: 02/07/21 10:02
[2021-02-07] MEDS ORDERED: DIGOXIN 0.125 MG TAB PO SCH (16:00)
[2021-02-07] MEDS ORDERED: ATORVASTATIN 40 MG TAB PO SCH (21:00)
--- NOTE | 2021-02-08 07:07 | Electrocardiogram Report ---
Test Reason : Blood Pressure : / mmHG Vent. Rate : 095 BPM Atrial Rate : 095 BPM P-R Int : 160 ms QRS Dur : 138 ms QT Int : 420 ms P-R-T Axes : 041 -69 089 degrees QTc Int : 527 ms Atrial-sensed ventricular-paced rhythm with occasional Premature ventricular complexes Abnormal ECG When compared with ECG of 10-AUG-2020 17:35, Premature ventricular complexes are now Present Vent. rate has increased BY 22 BPM Confirmed by Johnathan Ledesma ([id number]) on 02/08/2021 7:06:47 AM Referred By: REFERRED SELF Confirmed By:Johnathan Ledesma
--- NOTE | 2021-02-08 07:20 | Electrocardiogram Report ---
Test Reason : Blood Pressure : / mmHG Vent. Rate : 089 BPM Atrial Rate : 089 BPM P-R Int : 164 ms QRS Dur : 146 ms QT Int : 438 ms P-R-T Axes : 047 -72 089 degrees QTc Int : 532 ms Atrial-sensed ventricular-paced rhythm Abnormal ECG When compared with ECG of 06-FEB-2021 18:23, (unconfirmed) Premature ventricular complexes are no longer Present Vent. rate has decreased BY 6 BPM Confirmed by Johnathan Ledesma ([id number]) on 02/08/2021 7:20:14 AM Referred By: REFERRED SELF Confirmed By:Johnathan Ledesma
== END 2021-02-07 13:31 | disposition home or self-care (01) ==
LOC: ED 17:14 → 2N 17:14 → SUATTDRO 22:04 → 2N 02-07 00:05
DX: I50.33 Acute on chronic diastolic (congestive) heart failure; I42.9 Cardiomyopathy, unspecified; M1A.9XX0 Chronic gout, unspecified, without tophus (tophi); R07.89 Other chest pain; Z82.49 Family history of ischemic heart disease and other diseases of the circulatory system; I48.0 Paroxysmal atrial fibrillation; Z79.01 Long term (current) use of anticoagulants; Z88.1 Allergy status to other antibiotic agents; I11.9 Hypertensive heart disease without heart failure; E78.5 Hyperlipidemia, unspecified; Z79.899 Other long term (current) drug therapy; K52.9 Noninfective gastroenteritis and colitis, unspecified; Z79.82 Long term (current) use of aspirin; Z95.0 Presence of cardiac pacemaker

== ENCOUNTER 2022-11-05 16:35 | Observation (INO) ==
[2022-11-05] MEDS ORDERED: SODIUM CHLORIDE 0.9% 1000ML 500 ML IV ONE (16:53)
--- NOTE | 2022-11-05 16:57 | Emergency Department Note ---
Impression & Plan Ventricular fibrillation, Defibrillator discharge, GUERRERO (dyspnea on exertion), Weakness, Hypomagnesemia, Hypokalemia ED Provider Note NAME: SOLOMON NIÑO AGE: 57 SEX: M : 1965 ARRIVES VIA: Walk-In INFORMANT: [Patient] ED PROVIDER(S): [Arben Camarena MD] CHIEF COMPLAINT: Dr. Referred HISTORY OF PRESENT ILLNESS: The patient is a 57-year-old male with history of V. tach, A-fib and ischemic cardiomyopathy who states that about 2 hours ago, he received 2 firings from his internal defibrillator. The patient was called by the defibrillator company [employer], he was called by his artists' model. He was told to report to the ED. He was told that he had been in V. tach. The patient states that he was lying down on the couch and felt like he might faint. That is when he was shocked. The patient states that for the last week, he has felt fatigued and has had some nausea with some diarrhea. He feels thirsty. He has been much more short of breath with exertion. No chest pain or abdominal pain. No fever. No real cough. The patient went to see his artists' model recently, 10/21. During the cardiology visit, he has Bumex increased and his sotalol increased. He states he had an echo just 3 days ago but is unsure of the results. I received a phone call from the device pharmaceutical service representative. Patient had received 2 appropriate defibrillations for ventricular fibrillation. 1 at 1523 and 1 at 1532. PMHx/PSHx: See Below SOCIAL HISTORY: See Below. PHYSICAL EXAM: GENERAL: Patient is in no acute distress. HEENT: No acute trauma, normocephalic atraumatic, mucous membranes dry, no nasal congestion. NECK: No stridor, no adenopathy, no meningismus, trachea is midline. LUNGS: Clear to auscultation bilaterally when listening anterior, no wheeze, no rhonchi, breath sounds equal. HEART: Without murmurs gallops or rubs, regular rate and rhythm. ABDOMEN: Soft, nontender, bowel sounds positive, no peritonitis. EXTREMITIES: No cyanosis, trace bilateral pedal edema, full range of motion of all the joints without pain or difficulty, no signs for acute trauma. NEUROLOGIC: Oriented x 3, no acute motor or sensory deficits, no focal weakness. SKIN: No rash, no jaundice, no diaphoresis. DIFFERENTIAL DIAGNOSIS: V-fib, V. tach, dysrhythmia, dehydration, electrolyte imbalance, [place], CHF, among others. EMERGENCY DEPARTMENT COURSE/PROCEDURES: Prior/Outside records reviewed: Recent cardiology note. ECG per my interpretation: Indication was defibrillation. The ECG showed a ventricular pacemaker with a rate of 74. A PVC was seen. There was no concerning ST elevation. QTc was 559. Continuous Cardiac Monitoring per my interpretation: An order was placed for continuous cardiac monitoring. The monitor shows a rate of 64 with ventricular pacing. MEDICAL DECISION MAKING: There is no leukocytosis or concerning anemia. There is a normal platelet count. No coagulopathy. Potassium and magnesium were both low. No renal failure. No concerning liver enzyme elevation. TSH was slightly elevated. ECG showed a ventricular pacemaker, no dysrhythmia. Cardiac enzyme testing x1 was slightly elevated, this elevation certainly would be consistent with his defibrillator firing. Digoxin level was below the therapeutic window. COVID test returned negative. Chest film per my review shows cardiomegaly, there was no CHF or pneumothorax. The patient's pacemaker maker/defibrillator interrogation showed 2 defibrillations by about 9 minutes. The defibrillations were appropriate and both for ventricular fibrillation. I did speak with Dr. Martínez of cardiology. Hospitalization was recommended. The patient's magnesium and potassium were replaced. He was given IV magnesium and oral potassium. He was given a 500 cc saline bolus. The patient is aware of his findings, he is currently resting comfortably. He seems to be doing well. I did speak with case management team, the on-call hospitalist was consulted. Certainly, the electrolyte imbalances could have led to his ventricular fibrillation. The increased diuretic use could have led to the electrolyte imbalances. DISPOSITION: Patient's presentation and findings warrant a hospital stay. Past Med/Surg History Medical History Biventricular ICD (implantable cardioverter-defibrillator) in place 2009, first placed-only a defibrillator placed 2018, [facility] in [place], ICD/Pacemaker-[employer] device; f/u komal smith Cardiomyopathy hx; f/u komal gamboa Chronic systolic CHF (congestive heart failure) f/u komal gamboa History of COVID-19 09/2020, test at [facility], not hosp; fatigue>resolved. 01/2022, home test, not hosp; no symptoms>resolved. History of diverticulitis Hx of gout Hx of joint problems sore joints daily Hypertension Hypotension Lipoma of back Lipoma of skin and subcutaneous tissue of neck Morbid obesity Paroxysmal atrial fibrillation f/u komal gamboa Presence of combination internal cardiac defibrillator (ICD) and pacemaker 2018, [employer], placed at [facility] defibrillator "went off, got zapped" 02/2022 when pt fully conscious, taken to [place] following event; f/u komal gamboa Sleep apnea no device-"can't use it" Slow to wake up after anesthesia Ventricular tachycardia f/u komal gamboa Surgical History H/O rhinoplasty History of ankle surgery infection in ankle-had debridement History of cardiac cath 2009, [facility], no stents; 2011, [facility], no stents; 2013, [facility], no stents 2017, [facility], no stents; f/u komal gamboa Hx of colonoscopy Family History Father Myocardial infarction Mother Myocardial infarction Ovarian cancer CHF (congestive heart failure) Other No significant family history Denies family history of Prostate cancer Breast cancer Colorectal cancer Social History Smoking Status: Never smoker Second Hand Exposure: No; Do You Dip or Chew Tobacco: No; Hx Alcohol Use: Yes Alcohol type: beer Hx Substance Use: No Preferred Language: Thai Communication Ability: Effective Visual Impairment: No Limitations Shipping Technician Required: No Beliefs That Will Affect Care: None marital status: Current Living Situation: Spouse and Family current occupational status: disabled Feels Safe at Home: Yes Childhood Exposure to Second-Hand Smoke: No Physical Activity Frequency: Does not Exercise Seatbelt Use: always Sunscreen Use: Yes Assistive Devices: Glasses Allergies Allergies Allergy/AdvReac Type Severity Reaction Status Date / Time ciprofloxacin [From Cipro] Allergy Rash-"only Verified 09/29/22 15:07 when given IV" potassium chloride AdvReac Intermediate Red/flused Verified 09/29/22 15:07 Home Meds Home Medications Medication Instructions Recorded Confirmed multivitamin (Multiple Vitamins 1 tab PO QAM 04/30/18 10/21/22 tablet) digoxin 125 mcg (0.125 mg) tablet 125 mcg PO QAM 05/15/19 10/21/22 eplerenone 25 mg tablet 25 mg PO QAM 05/15/19 10/21/22 potassium chloride 20 mEq 40 meq PO BID 11/13/19 10/21/22 tablet,extended release aspirin 81 mg tablet,delayed 81 mg PO QAM 08/10/20 10/21/22 release (Zuleyka Low Dose Aspirin) magnesium oxide 400 mg (241.3 mg 200 mg PO BID 01/21/21 10/21/22 magnesium) tablet prednisone 10 mg tablet 40 mg PO DAILY PRN only with gout 05/19/21 10/21/22 flares dcycnlbnza-useyksckhdlkd-sitxezdq 2 cap PO Q8H PRN headaches 01/05/22 10/21/22 50 mg-325 mg-40 mg capsule apixaban 5 mg tablet (Eliquis) 5 mg PO BID 06/03/22 10/21/22 colchicine 0.6 mg tablet 0.6 mg PO BID PRN GOUT FLARES 06/03/22 10/21/22 levothyroxine 50 mcg tablet 50 mcg PO QAM 07/03/22 10/21/22 Previous Rx's Medication Instructions Recorded carvedilol 6.25 mg tablet 6.25 mg PO BID 30 days #60 tabs 08/12/20 sacubitril 24 mg-valsartan 26 mg 1 tab PO BID #180 tabs 12/22/21 tablet (Entresto) metformin 500 mg tablet 500 mg PO BID #180 tabs 01/20/22 bumetanide 1 mg tablet 2 mg PO BID #360 tabs 07/14/22 sotalol 160 mg tablet 160 mg PO BID #60 tabs 10/21/22 Results & Data (ED) Vital Signs Vital Signs - 24 hr 11/05/22 16:38 11/05/22 16:48 11/05/22 17:06 Temperature 36.8 C Temperature Source Temporal Artery Scan Pulse Rate 75 75 64 Pulse Rhythm Regular Respiratory Rate 18 18 Blood Pressure 121/86 Blood Pressure Mean 97 Pulse Oximetry 96 96 Oxygen Delivery Method Room Air Room Air Sepsis Recent Fever Within 48 Hours No Sepsis New/Unexplained Change in Mental Status No Sepsis Action Taken by Nursing No Action Required Home Medications Current Medication List: was personally reviewed by me Laboratory Data Attestation: I reviewed the patient's lab results. 11/05/22 16:49 11/05/22 16:49 Lab Results 11/05/22 11/05/22 11/05/22 Range/Units 16:49 16:49 16:49 WBC 7.86 (4.8-10.8) K/ul RBC 5.09 (4.70-6.10) M/uL Hgb 14.3 (14.0-18.0) g/dl Hct 44.2 (42.0-52.0) % MCV 86.8 (80.0-100.0) fL MCH 28.1 (25.0-34.0) pg MCHC 32.4 (32.0-36.0) g/dL RDW Std Deviation 41.8 (36.4-46.3) fL RDW Coeff of Juan 13.2 (11.5-14.5) % Plt Count 270 (130-400) K/uL MPV 11.0 (9.4-12.4) fL Immature Gran % (Auto) 0.3 % Neut % (Auto) 69.8 % Lymph % (Auto) 17.9 % Metcalfe % (Auto) 7.6 % Eos % (Auto) 3.9 % Baso % (Auto) 0.5 % Neut # (Auto) 5.48 (1.40-6.50) K/uL Lymph # (Auto) 1.41 (1.2-3.4) K/uL Metcalfe # (Auto) 0.60 H (0.11-0.59) K/uL Eos # (Auto) 0.31 (0-0.50) K/uL Baso # (Auto) 0.04 (0-0.2) K/uL Immature Gran # (Auto) 0.02 (0.01-0.20) K/uL PT 12.0 (9.0-12.0) Seconds INR 1.1 (0.9-1.1) APTT 28.8 (21.0-31.0) Seconds PTT Ratio 1.0 Sodium 140 (136-145) mmol/L Potassium 3.3 L (3.5-5.1) mmol/L Chloride 104 (98-107) mmol/L Carbon Dioxide 26 (21-32) mmol/L Anion Gap 10 (3-11) BUN 14 (6-23) mg/dl Creatinine 1.23 (0.6-1.4) mg/dl Est Cr Clr Drug Dosing 90.2 ml/min Est GFR ( Amer) 76.1 ml/min Est GFR (Non-Af Amer) 65.7 ml/min BUN/Creatinine Ratio 11.4 (10-20) Glucose 124 H (70-99(Fasting)) mg/dl Calcium 8.4 L (8.6-10.3) mg/dl Magnesium 1.1 L (1.7-2.4) mg/dl Total Bilirubin 1.0 (0.2-1.0) mg/dl AST 16 (13-39) U/L ALT 11 (7-52) U/L Alkaline Phosphatase 92 (34-104) U/L Troponin I High Sens 61.4 H* (0-20) pg/ml Total Protein 6.8 (6.0-8.3) gm/dl Albumin 4.0 (3.4-5.0) gm/dl Globulin 2.8 (2.5-4.0) gm/dl Albumin/Globulin Ratio 1.4 (0.9-2) TSH (0.300-4.500) uIu/ml Digoxin (0.8-2.0) ng/ml SARS-CoV-2, RNA, NAAT (NEGATIVE) 11/05/22 11/05/22 11/05/22 Range/Units 16:49 16:49 16:49 WBC (4.8-10.8) K/ul RBC (4.70-6.10) M/uL Hgb (14.0-18.0) g/dl Hct (42.0-52.0) % MCV (80.0-100.0) fL MCH (25.0-34.0) pg MCHC (32.0-36.0) g/dL RDW Std Deviation (36.4-46.3) fL RDW Coeff of Juan (11.5-14.5) % Plt Count (130-400) K/uL MPV (9.4-12.4) fL Immature Gran % (Auto) % Neut % (Auto) % Lymph % (Auto) % Metcalfe % (Auto) % Eos % (Auto) % Baso % (Auto) % Neut # (Auto) (1.40-6.50) K/uL Lymph # (Auto) (1.2-3.4) K/uL Metcalfe # (Auto) (0.11-0.59) K/uL Eos # (Auto) (0-0.50) K/uL Baso # (Auto) (0-0.2) K/uL Immature Gran # (Auto) (0.01-0.20) K/uL PT (9.0-12.0) Seconds INR (0.9-1.1) APTT (21.0-31.0) Seconds PTT Ratio Sodium (136-145) mmol/L Potassium (3.5-5.1) mmol/L Chloride (98-107) mmol/L Carbon Dioxide (21-32) mmol/L Anion Gap (3-11) BUN (6-23) mg/dl Creatinine (0.6-1.4) mg/dl Est Cr Clr Drug Dosing ml/min Est GFR ( Amer) ml/min Est GFR (Non-Af Amer) ml/min BUN/Creatinine Ratio (10-20) Glucose (70-99(Fasting)) mg/dl Calcium (8.6-10.3) mg/dl Magnesium (1.7-2.4) mg/dl Total Bilirubin (0.2-1.0) mg/dl AST (13-39) U/L ALT (7-52) U/L Alkaline Phosphatase (34-104) U/L Troponin I High Sens (0-20) pg/ml Total Protein (6.0-8.3) gm/dl Albumin (3.4-5.0) gm/dl Globulin (2.5-4.0) gm/dl Albumin/Globulin Ratio (0.9-2) TSH 6.464 H (0.300-4.500) uIu/ml Digoxin 0.7 L (0.8-2.0) ng/ml SARS-CoV-2, RNA, NAAT NEGATIVE (NEGATIVE) Administered Medications Magnesium Sulfate/Dextrose (Magnesium Sulfate / D5w) 1 gm in 100 mls @ 100 mls/hr IV Q1H FREDERICK Stop: 11/05/22 19:24 Last Admin: 11/05/22 17:36 Dose: 100 mls/hr Documented By: LETICIA Discontinued Medications Sodium Chloride (Nss 1000ml) 500 mls @ 999 mls/hr IV .Q31M ONE Stop: 11/05/22 17:23 Last Infusion: 11/05/22 17:36 Dose: 0 mls/hr Documented By: Admin: 11/05/22 16:59 Dose: 999 mls/hr Documented By: LETICIA Potassium Chloride (Potassium Chloride Crtab 20 Meq Tabcr) 40 meq PO NOW STA Stop: 11/05/22 17:26 Last Admin: 11/05/22 17:36 Dose: 40 meq Documented By: LETICIA Imaging Data Radiologist's Impression: Chest X-Ray 11/05/22 16:41 XR chest 1V portable CLINICAL HISTORY: weakness COMPARISON STUDY: Chest radiograph June 22, 2022. FINDINGS: Left subclavian biventricular pacer/AICD is in place. Cardiomegaly is unchanged. There is no evidence for pulmonary edema. There is no consolidation. No pneumothorax or pleural effusion is present. IMPRESSION: No acute cardiopulmonary findings. No change in appearance of the chest. ACT 112: Negative or not required by law. Electronically signed by: Spencer Pan M.D. 11/05/2022 5:13 PM Discharge Plan Visit Data Chief Complaint: Referred by Doctor Stated Complaint: REF BY DOC,SHOCKED 2X BY PACEMAKER ED Provider: Arben Camarena Discharge Problem: Ventricular fibrillation, Defibrillator discharge, GUERRERO (dyspnea on exertion), Weakness, Hypomagnesemia, Hypokalemia Patient Disposition: Admitted As Inpatient Condition: Fair Forms Stand Alone Forms: [facility] Prescriptions Prescriptions: No Action potassium chloride 20 mEq tablet extended release 40 meq PO BID Rx Instructions: may take an additional 1-2 if taking diuretics Entresto 24-26 mg tablet 1 tab PO BID Qty: 180 3RF metformin 500 mg tablet 500 mg PO BID Qty: 180 2RF bumetanide 1 mg tablet 2 mg PO BID Qty: 360 3RF Rx Instructions: May take an additional 2 mg PRN for weight gain swelling, edema. sotalol 160 mg tablet 160 mg PO BID Qty: 60 5RF safvkbmavz-lidnekiqezdka-rdho 50-325-40 mg capsule 2 cap PO Q8H PRN (Reason: headaches) digoxin 125 mcg (0.125 mg) tablet 125 mcg PO QAM eplerenone 25 mg tablet 25 mg PO QAM multivitamin [Multiple Vitamins] Tablet 1 tab PO QAM colchicine 0.6 mg tablet 0.6 mg PO BID MDD 2 TABS PRN (Reason: GOUT FLARES) aspirin [Zuleyka Low Dose Aspirin] 81 mg Tablet,Delayed Release (Dr/Ec) 81 mg PO QAM carvedilol 6.25 mg Tablet 6.25 mg PO BID 30 Days Qty: 60 2RF levothyroxine 50 mcg tablet 50 mcg PO QAM Rx Instructions: 1 tablet on an empty stomach, 1 hour before breakfast. magnesium oxide 400 mg (241.3 mg magnesium) tablet 200 mg PO BID prednisone 10 mg tablet 40 mg PO DAILY PRN (Reason: only with gout flares) Eliquis 5 mg tablet 5 mg PO BID Referrals Referrals: PCP,NO [Physician] -
[2022-11-05 17:08] LABS: Basophils # (auto) 0.04 K/uL (0-0.2); Basophils % (auto) 0.5 %; Eosinophils # (auto) 0.31 K/uL (0-0.50); Eosinophils % (auto) 3.9 %; Hematocrit (blood only) 44.2 % (42.0-52.0); Hemoglobin 14.3 g/dl (14.0-18.0); Immature Granulocytes # (auto) 0.02 K/uL (0.01-0.20); Immature Granulocytes % (auto) 0.3 %; Lymphocytes # (auto) 1.41 K/uL (1.2-3.4); Lymphocytes % (auto) 17.9 %; Mean Corpuscular Hemoglobin 28.1 pg (25.0-34.0); Mean Corpuscular Hgb Conc 32.4 g/dL (32.0-36.0); Mean Corpuscular Volume 86.8 fL (80.0-100.0); Monocytes % (auto) 7.6 %; Neutrophils # (auto) 5.48 K/uL (1.40-6.50); Neutrophils % (auto) 69.8 %; Platelet Count 270 K/uL (130-400); RDW Coefficient of Variation 13.2 % (11.5-14.5); RDW Standard Deviation 41.8 fL (36.4-46.3); Red Blood Count 5.09 M/uL (4.70-6.10); White Blood Count 7.86 K/ul (4.8-10.8)
--- NOTE | 2022-11-05 17:15 | XRay Report ---
XR chest 1V portable CLINICAL HISTORY: weakness COMPARISON STUDY: Chest radiograph June 22, 2022. FINDINGS: Left subclavian biventricular pacer/AICD is in place. Cardiomegaly is unchanged. There is n o evidence for pulmonary edema. There is no consolidation. No pneumothorax or pleural effusion is pre sent. IMPRESSION: No acute cardiopulmonary findings. No change in appearance of the chest. ACT 112: Negative or not required by law. Electronically signed by: Spencer Pan M.D. 11/05/2022 5:13 PM
[2022-11-05 17:22] LABS: Albumin Globulin Ratio 1.4 (0.9-2); BUN Creatinine Ratio 11.4 (10-20); Calcium 8.4 mg/dl (8.6-10.3); Creatinine Clr Calc Pharmacy 90.2 ml/min; Est GFR (African American) 76.1 ml/min; Est GFR (Non-African American) 65.7 ml/min; Globulin 2.8 gm/dl (2.5-4.0); Magnesium 1.1 mg/dl (1.7-2.4); Potassium 3.3 mmol/L (3.5-5.1); Total Protein 6.8 gm/dl (6.0-8.3)
[2022-11-05] MEDS ORDERED: POTASSIUM CHLORIDE CRTAB 20 MEQ TABCR PO STA (17:25)
[2022-11-05 17:34] LABS: Troponin I High Sensitivity 61.4 pg/ml (0-20)
[2022-11-05 17:36] LABS: INR 1.1 (0.9-1.1); Partial Thromboplastin Time 28.8 Seconds (21.0-31.0)
[2022-11-05] MEDS: MAGNESIUM SULFATE / D5W 1 GM/100 ML BAG IV SCH ×4 (17:36→23:17)
[2022-11-05 17:37] LABS: Thyroid Stimulating Hormone 6.464 uIu/ml (0.300-4.500)
[2022-11-05 18:12] LABS: T4 Free Thyroxine 0.84 ng/dl (0.61-1.60)
--- NOTE | 2022-11-05 19:25 | History & Physical Report ---
Date of Service November 05, 2022 Assessment & Plan (1) Ventricular fibrillation: Plan: Presented with 2 episodes of VF with appropriate ICD shocks, preceded only by presyncope/lightheadedness Trop mildly elevated at 61 but likely from shock itself-will trend just had outpt ECHO 2 days ago in office-await results Perhaps electrolyte abnormalities contributed ECG here with paced rhythm, no STEMI or any ischemic changes noted -admit to PCU -consult Cardiology -continue Coreg, sotalol at home doses -monitor on tele -replace Mag and K+ -trend trop to r/o ACS as cause (2) Hypomagnesemia: Plan: severely low, not taking magnesium supplement at home as he thinks he was supposed to had diarrhea this week-perhaps contributed Mag 1.1 on admission -give 4 grams total IV mag -follow Mag level in AM -continue eplerenone -Hypokalemia replace K+ with 40 meq po x 1 in addition to his usual KCl 20 meq po bid follow BMP (3) Nonischemic cardiomyopathy: Plan: EF 25-30% continue COreg, Entresto Bumex had ECHO 2 days ago in office-not in chart yet consult Cardiology low sodium diet, daily weights, strict I/Os, fluid restrict to 1500mL (4) Hypothyroidism: Plan: TSH mildly elevated, normal FT4 has not been on levothyroxine in 6 months or more follow as outpt may need to restart treatment given heart failure (5) Hypokalemia: Plan: as above, replace (6) Ventricular tachycardia: Plan: h/o paroxysmal VT continue sotalol, COreg monitor on tele (7) Paroxysmal atrial fibrillation: Plan: having runs of this on last pacer interrogation as per Cardio notes-for almost 2 weeks continuously -continue Coreg, sotalol, digoxin (dig level here acceptable) -he is supposedly on Eliquis but he does not quite recognize the name of this drug when I say it and his external med rec shows no refill has been picked up in many months -restart Eliquis 5mg po bid for Afib and confirm with if he has actually been taking it (8) Chronic systolic CHF (congestive heart failure): Plan: as above (9) Hypertension: Plan: BPs controlled continue meds as above (10) Diabetes mellitus type II, controlled: Plan: hold home metformin check A1C in AM give novolog SSI accuchecks, ADA diet (11) Sleep apnea: Plan: has the dx but does not use a deveice (12) Gout: Plan: was recently taken off allopurinol after enrolling in a 6 month study for some sort of long acting infusion of an anti gout drug that lowered his uric acid levels takes colchcine and prednisone prn but none lately needed since enrolling in that study last year Plan DVT proph-Eliquis Dispo-admit to PCU FULL CODE History of Present Illness Chief Complaint: Lightheadedness, shocked by ICD Primary Care Provider: Philip Martínez MD This patient is a 57-year-old male with history of Nonischemic cardiomyopathy with ICD, paroxysmal atrial fibrillation and flutter on Eliquis,Paroxysmal VT,Mitral regurgitation, hyperlipidemia, obesity,HTN, gout, sleep apnea,Who presents to the ER after being shocked by his ICD x2, 9 minutes apart. Before the first shock, he felt very lightheaded like he was going to pass out and then felt the shock. He denies any chest pain but was feeling SOB. He was contacted by his cardiology office and was told to come to the hospital. He was recently seen by cardiology just a couple of weeks ago and had his sotalol and Bumex doses increased. He was feeling more poorly after doing so and therefore reduced his bumex dose back to 1mg po daily. He reports just not feeling well at all for about the last month with increased fatigue, GUERRERO. Was found to have runs of Afib on his ICD interrogation. He has had 5-6 episodes of loose stools each day for the last week, no abd pains, no fevers, no other GI illness in the household, no changes in meds/supplements.No blood in stool. In the ER, he was found to have severely low magnesium and mildly low potassium. Interrogation of his ICD was performed which did show he had two separate incidents of V-fib with 2 shocks fired. He will be admitted for further workup for VF and will consult Cardiology, replace lytes. Allergies Allergy/AdvReac Type Severity Reaction Status Date / Time ciprofloxacin [From Cipro] Allergy Rash-"only Verified 11/05/22 19:10 when given IV" potassium chloride AdvReac Intermediate Red/flused Verified 11/05/22 19:10 Home Medications Medication Instructions Recorded Confirmed Type multivitamin (Multiple Vitamins 1 tab PO QAM 04/30/18 11/05/22 History tablet) digoxin 125 mcg (0.125 mg) tablet 125 mcg PO QAM 05/15/19 11/05/22 History eplerenone 25 mg tablet 25 mg PO QAM 05/15/19 11/05/22 History potassium chloride 20 mEq 20 meq PO BID 11/13/19 11/05/22 History tablet,extended release aspirin 81 mg tablet,delayed 81 mg PO QAM 08/10/20 11/05/22 History release (Zuleyka Low Dose Aspirin) carvedilol 6.25 mg tablet 6.25 mg PO BID 30 days #60 tabs 08/12/20 11/05/22 Rx prednisone 10 mg tablet 40 mg PO DAILY PRN only with gout 05/19/21 11/05/22 History flares sacubitril 24 mg-valsartan 26 mg 1 tab PO BID #180 tabs 12/22/21 11/05/22 Rx tablet (Entresto) dcsjkjztka-djpheemxbrsod-dfnmkivz 2 cap PO Q8H PRN headaches 01/05/22 11/05/22 History 50 mg-325 mg-40 mg capsule metformin 500 mg tablet 500 mg PO BID #180 tabs 01/20/22 11/05/22 Rx colchicine 0.6 mg tablet 0.6 mg PO BID PRN GOUT FLARES 06/03/22 11/05/22 History sotalol 160 mg tablet 160 mg PO BID #60 tabs 10/21/22 11/05/22 Rx bumetanide 1 mg tablet 1 mg PO QAM 11/05/22 11/05/22 History Past Med/Surg History Medical History Biventricular ICD (implantable cardioverter-defibrillator) in place 2009, first placed-only a defibrillator placed 2018, [facility] in [place], ICD/Pacemaker-[employer] device; f/u komal smith Cardiomyopathy hx; f/u komal gamboa Chronic systolic CHF (congestive heart failure) f/u komal gamboa Diabetes mellitus type II, controlled History of COVID-19 09/2020, test at [facility], not hosp; fatigue>resolved. 01/2022, home test, not hosp; no symptoms>resolved. History of diverticulitis Hx of gout Hx of joint problems sore joints daily Hypertension Hypotension Hypothyroidism Lipoma of back Lipoma of skin and subcutaneous tissue of neck Morbid obesity Paroxysmal atrial fibrillation f/u komal gamboa Presence of combination internal cardiac defibrillator (ICD) and pacemaker 2019, [employer], placed at [facility] defibrillator "went off, got zapped" 02/2022 when pt fully conscious, taken to [place] following event; f/u komal gamboa Sleep apnea no device-"can't use it" Slow to wake up after anesthesia Ventricular tachycardia f/u komal gamboa Surgical History H/O rhinoplasty History of ankle surgery infection in ankle-had debridement History of cardiac cath 2009, [facility], no stents; 2011, [facility], no stents; 2013, [facility], no stents 2017, [facility], no stents; f/u komal gamboa Hx of colonoscopy Family History Father Myocardial infarction Mother Myocardial infarction Ovarian cancer CHF (congestive heart failure) Other No significant family history Denies family history of Prostate cancer Breast cancer Colorectal cancer Social History Smoking Status: Never smoker Second Hand Exposure: No; Do You Dip or Chew Tobacco: No; Tobacco Cessation Education Requested by Patient: No Hx Alcohol Use: Yes Alcohol type: hard liquor Hx Substance Use: No Preferred Language: Kazakh Communication Ability: Effective Visual Impairment: No Limitations Optician Apprentice Required: No Beliefs That Will Affect Care: None marital status: Current Living Situation: Spouse current occupational status: disabled Other Information That Helps Us Care for You: No Feels Safe at Home: Yes Safety Concerns: Feels Safe At This Time Childhood Exposure to Second-Hand Smoke: No Physical Activity Frequency: Does not Exercise Seatbelt Use: always Sunscreen Use: Yes Assistive Devices: Glasses Review of Systems Review of Systems: All systems reviewed & are unremarkable except as noted in HPI & below Physical Exam Constitutional: WD/WN, vitals as above Eyes: PERRL, conjunctivae normal, anicteric sclerae ENMT: external ear and nose normal, oropharynx normal Neck: trachea midline, no thyromegaly Respiratory: normal respiratory effort, lungs clear to auscultation Cardiovascular: RRR, no murmur, no edema Chest (Breasts): Chest: normal inspection of chest Gastrointestinal (Abdomen): normal bowel sounds, soft, nontender, no hepatosplenomegaly Musculoskeletal: Extremities: extremities normal to inspection; no cyanosis and no clubbing Skin: no rashes, warm and dry Neurologic: moves all extremities and awake; no focal motor deficits Psychiatric: A+Ox3, euthymic affect Lymphatic: no lymphedema Results & Data Results & Data Vital Signs (Past 12 Hours) Vital Signs Temp Pulse Resp BP Pulse Ox O2 Del Method 11/05/22 18:30 67 20 124/79 95 11/05/22 18:00 64 14 111/84 11/05/22 17:03 70 21 114/71 95 11/05/22 17:06 64 11/05/22 16:48 75 18 96 Room Air 11/05/22 16:38 36.8 C 75 18 121/86 96 Room Air Laboratory Results CBC, CMP, TSH, coags, magnesium, troponin level reviewed Diagnostic Findings Chest x-ray reviewed ECG Additional Comments: ECG with paced rhythm Code Status & VTE Plan Code Status FULL CODE VTE Prophylaxis Plan VTE Prophylaxis will be ordered: Yes PG Care Time/CCT Total # of Minutes Spent Total Time Spent with Patient: Total time spent is greater than 50% in coordination of care (as documented) at patient's floor/unit and/or counseling patient: Coding Level of Care Code 57112 INT INP/OBS CARE 3/75MIN Diagnoses Ventricular fibrillation I49.01 Hypomagnesemia E83.42 Nonischemic cardiomyopathy I42.8 Hypothyroidism E03.9 Hypokalemia E87.6 Ventricular tachycardia I47.20 Paroxysmal atrial fibrillation I48.0 Chronic systolic CHF (congestive heart failure) I50.22 Hypertension I10 Hypertension type: essential hypertension Diabetes mellitus type II, controlled E11.9 Sleep apnea G47.30 Gout M1A.09X0 Chronicity: chronic Gout etiology: idiopathic Gout site: multiple sites Presence of tophus: without tophus (9) Hypertension Hypertension type: essential hypertension Qualified Code(s): I10 - Essential (primary) hypertension (12) Gout Chronicity: chronic Gout etiology: idiopathic Gout site: multiple sites Presence of tophus: without tophus Qualified Code(s): M1A.09X0 - Idiopathic chronic gout, multiple sites, without tophus (tophi)
[2022-11-05] MEDS ORDERED: GLUCAGON FOR INJ 1 MG VIAL SQ PRN (21:14)
[2022-11-05] MEDS ORDERED: CARBOHYDRATES FOR HYPOGLYCEMIA PO PRN (21:14)
[2022-11-05] MEDS ORDERED: GLUCOSE 40% GEL 15 GM TUBE PO PRN (21:14)
[2022-11-05] MEDS ORDERED: DEXTROSE 50% 50 ML SYRINGE IV PRN (21:14)
[2022-11-05] MEDS ORDERED: ACETAMINOPHEN 325 MG TAB PO PRN (21:14)
[2022-11-05] MEDS ORDERED: MAGNESIUM HYDROXIDE SUSP 30 ML UDC PO PRN (21:14)
[2022-11-05] MEDS ORDERED: GLUCOSE 10 TAB/TUBE PO PRN (21:14)
[2022-11-05] MEDS ORDERED: BUTALBITAL/ACETAMIN/CAFFEINE TAB PO PRN (21:33)
[2022-11-05] MEDS: POTASSIUM CHLORIDE CRTAB 20 MEQ TABCR PO SCH (21:44)
[2022-11-05] MEDS: INSULIN ASPART PER UNIT CHARGE SC SCH (21:47)
[2022-11-05] MEDS: SOTALOL HCL 80 MG TAB PO SCH (21:52)
[2022-11-05] MEDS: carvediloL 6.25 MG TAB PO SCH (21:52)
[2022-11-05] MEDS: VALSARTAN/SACUBITRIL 26/24MG TAB PO SCH (21:53)
[2022-11-06 02:12] LABS: Appearance Urine Clear (Clear); Bacteria Urine Automated Negative (Negative); Bilirubin Urine Negative (Negative); Blood Urine Negative (Negative); Color Urine Dark Yellow; Glucose Urine UA Negative (Negative); Ketones Urine Trace (Negative); Leukocyte Esterase Urine Negative (Negative); Nitrite Urine Negative (Negative); Protein Urine 1+ (Negative); RBC Urine Automated 0-4 /hpf (0-4); Urobilinogen Urine Negative (Negative)
[2022-11-06 06:07] LABS: Basophils # (auto) 0.04 K/uL (0-0.2); Basophils % (auto) 0.6 %; Eosinophils # (auto) 0.31 K/uL (0-0.50); Eosinophils % (auto) 4.3 %; Hematocrit (blood only) 40.3 % (42.0-52.0); Hemoglobin 13.2 g/dl (14.0-18.0); Immature Granulocytes # (auto) 0.01 K/uL (0.01-0.20); Immature Granulocytes % (auto) 0.1 %; Lymphocytes # (auto) 1.49 K/uL (1.2-3.4); Lymphocytes % (auto) 20.6 %; Mean Corpuscular Hemoglobin 28.3 pg (25.0-34.0); Mean Corpuscular Hgb Conc 32.8 g/dL (32.0-36.0); Mean Corpuscular Volume 86.5 fL (80.0-100.0); Mean Platelet Volume 10.9 fL (9.4-12.4); Monocytes # (auto) 0.53 K/uL (0.11-0.59); Monocytes % (auto) 7.3 %; Neutrophils # (auto) 4.86 K/uL (1.40-6.50); Neutrophils % (auto) 67.1 %; Platelet Count 243 K/uL (130-400); RDW Coefficient of Variation 13.2 % (11.5-14.5); RDW Standard Deviation 41.4 fL (36.4-46.3); Red Blood Count 4.66 M/uL (4.70-6.10); White Blood Count 7.24 K/ul (4.8-10.8)
[2022-11-06 06:25] LABS: BUN Creatinine Ratio 12.6 (10-20); Calcium 8.1 mg/dl (8.6-10.3); Creatinine Clr Calc Pharmacy 98.3 ml/min; Est GFR (African American) 86.2 ml/min; Est GFR (Non-African American) 74.4 ml/min; Magnesium 1.8 mg/dl (1.7-2.4); Potassium 3.5 mmol/L (3.5-5.1)
[2022-11-06 06:34] LABS: Troponin I High Sensitivity 51.3 pg/ml (0-20)
[2022-11-06 07:02] LABS: Estimated Average Glucose 120 mg/dl; Hemoglobin A1C 5.8 % (4.5-5.6)
[2022-11-06] MEDS: EPLERENONE 25 MG SCH ×3 (07:08→17:04)
--- NOTE | 2022-11-06 08:20 | Hospitalist Progress Note ---
Date of Service November 06, 2022 Assessment & Plan (1) Ventricular fibrillation: Plan: Presented with 2 episodes of VF with appropriate ICD shocks, preceded only by presyncope/lightheadedness Also history of paroxysmal ventricular tachycardia Trop mildly elevated 61 54-51 patient with a known non ischemic cardiomyopathy EF 25 to 30% on last check typically taking Coreg Entresto and Bumex For chronic systolic heart failure the patient continues on sodium restricted d iet and fluid restriction 1500 mL ECG here with paced rhythm, no STEMI or any ischemic changes noted -consult Cardiology Dr. Washington -continue Coreg, sotalol at home doses -monitor on tele -replace Mag and K+ -trend trop to r/o ACS as cause (2) Hypomagnesemia: Plan: severely low, not taking magnesium supplement at home had diarrhea this week-perhaps contributed patient states had diarrhea for some time now we will check stool PCR and C. difficile Mag 1.1 on admission-given 4 grams total IV mag -continue eplerenone -Hypokalemia replace K+ with 40 meq po x 1 in addition to his usual KCl 20 meq po bid (3) Hypothyroidism: Plan: TSH mildly elevated, normal FT4 has not been on levothyroxine in 6 months or more follow as outpt may need to restart treatment given heart failure (4) Paroxysmal atrial fibrillation: Plan: having runs of this on last pacer interrogation as per Cardio notes-for almost 2 weeks continuously continue Coreg, sotalol, digoxin (dig level here acceptable) -he is supposedly on Eliquis but he does not quite recognize the name of this drug, external med rec shows no refill has been picked up in many months -restart Eliquis 5mg po bid for Afib (5) Diabetes mellitus type II, controlled: Plan: hold home metformin A1c is 5.8 give novolog SSI accuchecks, ADA diet (6) Sleep apnea: Plan: has the dx but does not use a deveice (7) Gout: Plan: was recently taken off allopurinol after enrolling in a 6 month study for some sort of long acting infusion of an anti gout drug that lowered his uric acid levels takes colchcine and prednisone prn but none lately needed since enrolling in that study last year Plan DVT proph-Eliquis FULL CODE Admission and Anticipated Discharge Date Admission Date: November 05, 2022 Subjective pt does recall his defibrillation, but now is back to his baseline, does endorse frequent bowel movements that may have lead to his electrolyte changes Physical Exam Physical Exam: Patient awake and alert he has no further chest pain Card exam is regular without murmurs Lungs are clear no wheezes or crackles Extremities are with trace edema however Results & Data Results & Data Vital Signs (Past 12 Hours) Vital Signs Temp Pulse Resp BP Pulse Ox O2 Del Method 11/06/22 07:44 98.6 F 71 17 116/85 94 Room Air 11/06/22 03:00 99.0 F 69 18 107/75 95 Room Air 11/05/22 23:00 99.3 F 75 20 122/81 96 Room Air 11/05/22 21:00 Room Air 11/05/22 21:15 98.1 F 77 20 129/87 95 Room Air 11/05/22 20:47 Room Air Laboratory Results Reviewed CBC Reviewed PRP PG Care Time/CCT Total # of Minutes Spent Total Time Spent with Patient: Total time spent is greater than 50% in coordination of care (as documented) at patient's floor/unit and/or counseling patient: Coding Level of Care Code 34778 SUB INP/OBS CARE 3/50MIN Diagnoses Ventricular fibrillation I49.01 Hypomagnesemia E83.42 Hypothyroidism E03.9 Paroxysmal atrial fibrillation I48.0 Diabetes mellitus type II, controlled E11.9 Sleep apnea G47.30 Gout M1A.09X0 Chronicity: chronic Gout etiology: idiopathic Gout site: multiple sites Presence of tophus: without tophus (7) Gout Chronicity: chronic Gout etiology: idiopathic Gout site: multiple sites Presence of tophus: without tophus Qualified Code(s): M1A.09X0 - Idiopathic chronic gout, multiple sites, without tophus (tophi)
[2022-11-06] MEDS ORDERED: MAGNESIUM OXIDE 400 MG TAB PO SCH (09:00)
[2022-11-06] MEDS ORDERED: ASPIRIN 81 MG ECTAB PO SCH (09:00)
[2022-11-06] MEDS ORDERED: DIGOXIN 0.125 MG TAB PO SCH (09:00)
[2022-11-06] MEDS ORDERED: BUMETANIDE 1 MG TAB PO SCH (09:00)
[2022-11-06] MEDS ORDERED: MULTIVITAMIN TAB PO SCH (09:00)
[2022-11-06] MEDS ORDERED: APIXABAN 5 MG TABLET PO SCH (09:00)
[2022-11-06] MEDS: INSULIN ASPART PER UNIT CHARGE SC SCH ×3 (09:12→17:05)
[2022-11-06] MEDS: SOTALOL HCL 80 MG TAB PO SCH (09:16)
[2022-11-06] MEDS: carvediloL 6.25 MG TAB PO SCH (09:16)
[2022-11-06] MEDS: VALSARTAN/SACUBITRIL 26/24MG TAB PO SCH (09:17)
[2022-11-06] MEDS: POTASSIUM CHLORIDE CRTAB 20 MEQ TABCR PO SCH (09:22)
--- NOTE | 2022-11-06 13:54 | Cardiology Consultation ---
Date of Consultation November 06, 2022 Assessment & Plan (1) Ventricular fibrillation: -fortunately, both episodes were successfully cardioverted. -Dr. Figueroa suggests we continue sotalol at this time. Could consider change to amiodarone if recurrent events. -he suggest we increase carvedilol to 12.5 mg b.i.d. -stable for hospital discharge. (2) Paroxysmal atrial fibrillation: -currently in normal sinus rhythm. -sotalol was increased on October [address] Ledesma because of a prolonged episode of atrial fibrillation. -continue Eliquis. (3) Nonischemic cardiomyopathy: -cardiac catheterization in 2015 noted normal coronary arteries. -ejection fraction currently 20-25%. -continue Coreg, Entresto, Bumex, and eplerenone. (4) Chronic systolic CHF (congestive heart failure): -seems compensated at this time. -follows daily weights and sliding-scale diuretics as an outpatient. -follows a salt restricted diet. -continue medical management. (5) Biventricular ICD (implantable cardioverter-defibrillator) in place: -normal function at time of interrogation, October 21, 2022. -yesterday's interrogation unavailable. History of Present Illness Attending Physician: Vu Stacy MD History of Present Illness History of Present Illness Mr. Hilton is a 57 year old male admitted yesterday after 2 ICD defibrillations. This consultation was ordered to assist in his cardiac management. Of note, patient is well known to me in the outpatient setting. He also follows with Dr. Ledesma. The patient has been in his usual state of health until approximately 1 month a go. He began to note exertional dyspnea and fatigue. He was seen in the device clinic by Dr. Ledesma on October 21 and was found to have been atrial fibrillation for approximately 2 weeks. His OptiVol function was also abnormal. The patient's sotalol was doubled and an echocardiogram was ordered. The patient had an echocardiogram performed on November 03 which noted severe left ventricular dysfunction with severe global hypokinesis. This was unchanged from study performed in October 2019. On the day of presentation, the patient received 2 defibrillations within 10 minutes. The home monitor suggested that both of these episodes occurred because ventricular fibrillation. With that information, patient was sent directly to the emergency. Apparently, his device was interrogated in the emergency room, however, results are not available for our review. Currently, patient is resting comfortably in bed without complaints. Past medical and surgical history 1. Dilated, nonischemic cardiomyopathy-2016 2. No significant coronary artery disease-2015 3. Chronic systolic CHF 4. LVH 5. Mild to moderate mitral regurgitation 6. Biventricular ICD-[employer], September 2018 7. Paroxysmal SVT 8. Hypercholesterolemia 9. Diverticulitis 10. Gout 11. 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 Had his 1st SC at age 38. Mother at 91 from coronary disease A brother at age 61 has a dilated cardiomyopathy Review systems A 10 point review of systems was negative except for that described above. Allergies Allergy/AdvReac Type Severity Reaction Status Date / Time ciprofloxacin [From Cipro] Allergy Rash-"only Verified 11/05/22 19:10 when given IV" potassium chloride AdvReac Intermediate Red/flused Verified 11/05/22 19:10 Home Medications Medication Instructions Recorded Confirmed Type multivitamin (Multiple Vitamins 1 tab PO QAM 04/30/18 11/05/22 History tablet) digoxin 125 mcg (0.125 mg) tablet 125 mcg PO QAM 05/15/19 11/05/22 History eplerenone 25 mg tablet 25 mg PO QAM 05/15/19 11/05/22 History potassium chloride 20 mEq 20 meq PO BID 11/13/19 11/05/22 History tablet,extended release aspirin 81 mg tablet,delayed 81 mg PO QAM 08/10/20 11/05/22 History release (Zuleyka Low Dose Aspirin) prednisone 10 mg tablet 40 mg PO DAILY PRN only with gout 05/19/21 11/05/22 History flares sacubitril 24 mg-valsartan 26 mg 1 tab PO BID #180 tabs 12/22/21 11/05/22 Rx tablet (Entresto) evtzhlaske-xgbaowxuncvof-bmpdqmof 2 cap PO Q8H PRN headaches 01/05/22 11/05/22 History 50 mg-325 mg-40 mg capsule metformin 500 mg tablet 500 mg PO BID #180 tabs 01/20/22 11/05/22 Rx colchicine 0.6 mg tablet 0.6 mg PO BID PRN GOUT FLARES 06/03/22 11/05/22 History sotalol 160 mg tablet 160 mg PO BID #60 tabs 10/21/22 11/05/22 Rx bumetanide 1 mg tablet 1 mg PO QAM 11/05/22 11/05/22 History carvedilol 12.5 mg tablet 12.5 mg PO BID #60 tabs 11/06/22 Rx Patient History Medical History Biventricular ICD (implantable cardioverter-defibrillator) in place 2009, first placed-only a defibrillator placed 2018, [facility] in [place], ICD/Pacemaker-[employer] device; f/u komal smith Cardiomyopathy hx; f/u komal gamboa Chronic systolic CHF (congestive heart failure) f/u komal gamboa Diabetes mellitus type II, controlled History of COVID-19 09/2020, test at [facility], not hosp; fatigue>resolved. 01/2022, home test, not hosp; no symptoms>resolved. History of diverticulitis Hx of gout Hx of joint problems sore joints daily Hypertension Hypotension Hypothyroidism Lipoma of back Lipoma of skin and subcutaneous tissue of neck Morbid obesity Paroxysmal atrial fibrillation f/u komal gamboa Presence of combination internal cardiac defibrillator (ICD) and pacemaker 2018, [employer], placed at [facility] defibrillator "went off, got zapped" 02/2022 when pt fully conscious, taken to [place] following event; f/u komal gamboa Sleep apnea no device-"can't use it" Slow to wake up after anesthesia Ventricular tachycardia f/u komal gamboa Surgical History H/O rhinoplasty History of ankle surgery infection in ankle-had debridement History of cardiac cath 2009, [facility], no stents; 2011, s, no stents; 2013, s, no stents 2017, [facility], no stents; f/u komal gamboa Hx of colonoscopy Family History Father Myocardial infarction Mother Myocardial infarction Ovarian cancer CHF (congestive heart failure) Other No significant family history Denies family history of Prostate cancer Breast cancer Colorectal cancer Social History Smoking Status: Never smoker Second Hand Exposure: No; Do You Dip or Chew Tobacco: No; Tobacco Cessation Education Requested by Patient: No Hx Alcohol Use: Yes Alcohol type: hard liquor Hx Substance Use: No Preferred Language: Tunisian Communication Ability: Effective Visual Impairment: No Limitations Physician Compensation Analyst Required: No Beliefs That Will Affect Care: None marital status: Current Living Situation: Spouse current occupational status: disabled Other Information That Helps Us Care for You: No Feels Safe at Home: Yes Safety Concerns: Feels Safe At This Time Childhood Exposure to Second-Hand Smoke: No Physical Activity Frequency: Does not Exercise Seatbelt Use: always Sunscreen Use: Yes Assistive Devices: None Physical Exam Physical Exam: In general this is an obese white ma le in no acute dis tress. HEENT exam is negative. Nec k is supple with f ull carotid upstro kes. There are no carotid bruits. Jugular venous pre ssure is flat at 9 0. There is no t hyromegaly. Cardi ovascular exam rev eals a regular rhy thm with a normal S1 and S2. Heart s ounds are distant. No obvious S3. Chest reveals a pa lpable device in t he left subclavicu lar region. Lungs are clear without rales, rhonchi, o r wheezes. Abdome n is soft and nont aurelio without brui ts. Extremities r eveal intact radia l artery and poste rior tibial pulses bilaterally. The re is 1+ pretibial edema. Results & Data Vital Signs (Past 12 Hours) Vital Signs Temp Pulse Pulse Resp BP Pulse Ox O2 Del Method 11/06/22 11:42 37.0 C 71 18 111/78 95 Room Air 11/06/22 08:00 72 11/06/22 09:16 76 11/06/22 07:44 37.0 C 71 17 116/85 94 Room Air 11/06/22 03:00 37.2 C 69 18 107/75 95 Room Air Laboratory Results CBC notes hemoglobin 13.2, hematocrit 40.3, white count 7.2, and platelet count of [id number]. Electrolytes note a sodium of 140, potassium 3.5, chloride 104, bicarb 26, BUN 14, creatinine 1.1, and glucose of 101. Magnesium level is 1.8. TSH is mildly elevated 6.46 with a normal T4 0.84. Initial high sensitivity troponin was 61.4 with follow-up values of 54.2 and 51.3. Diagnostic Findings Echocardiogram done earlier this week noted severely reduced systolic function ejection fraction of 20-25%. There was severe global hypokinesis along with mild mitral regurgitation. Compared with study performed in October 2019, no significant change. Chest x-ray notes cardiomegaly and an ICD on the left side. PG Care Time/CCT Total # of Minutes Spent Total Time Spent with Patient: Total time spent is greater than 50% in coordination of care (as documented) at patient's floor/unit and/or counseling patient: Coding Level of Care Code 93978 IN/OBS CONSULT LVL 5,80M Diagnoses Ventricular fibrillation I49.01 Paroxysmal atrial fibrillation I48.0 Nonischemic cardiomyopathy I42.8 Chronic systolic CHF (congestive heart failure) I50.22 Biventricular ICD (implantable cardioverter-defibrillator) in place Z95.810
--- NOTE | 2022-11-06 14:41 | Electrocardiogram Report ---
Test Reason : Blood Pressure : / mmHG Vent. Rate : 074 BPM Atrial Rate : 074 BPM P-R Int : 192 ms QRS Dur : 130 ms QT Int : 504 ms P-R-T Axes : 079 -74 089 degrees QTc Int : 559 ms Atrial-sensed ventricular-paced rhythm with occasional Premature ventricular complexes Biventricular pacemaker detected Abnormal ECG When compared with ECG of 07-FEB-2021 06:04, Premature ventricular complexes are now Present Vent. rate has decreased BY 15 BPM Confirmed by Philip Martínez ([id number]) on 11/06/2022 2:41:36 PM Referred By: Philip Martínez Confirmed By:Philip Martínez
--- NOTE | 2022-11-06 16:21 | Communication Note ---
Date of Service: November 06, 2022 By CMS guidelines, a determination that the admission or continued stay is not medically necessary has been made by a member of the UR committee and a physici an for this hospital stay, therefore a Code 44 will be completed and the Inpatient admission will be changed to outpatient.
--- NOTE | 2022-11-06 16:22 | Communication Note ---
Date of Service: November 06, 2022 By CMS guidelines, a determination that the admission or continued stay is not medically necessary has been made by a member of the UR committee and a physi viral for this hospital stay, therefore a Code 44 will be completed and the Inpatient admission will be changed to outpatient.
--- NOTE | 2022-11-06 16:26 | Discharge Summary ---
Date of Service November 06, 2022 Admission HPI Per Admitting Provider This patient is a 57-year-old male with history of Nonischemic cardiomyopathy with ICD, paroxysmal atrial fibrillation and flutter on Eliquis,Paroxysmal VT,Mitral regurgitation, hyperlipidemia, obesity,HTN, gout, sleep apnea,Who presents to the ER after being shocked by his ICD x2, 9 minutes apart. Before the first shock, he felt very lightheaded like he was going to pass out and then felt the shock. He denies any chest pain but was feeling SOB. He was contacted by his cardiology office and was told to come to the hospital. He was recently seen by cardiology just a couple of weeks ago and had his sotalol and Bumex doses increased. He was feeling more poorly after doing so and therefore reduced his bumex dose back to 1mg po daily. He reports just not feeling well at all for about the last month with increased fatigue, GUERRERO. Was found to have runs of Afib on his ICD interrogation. He has had 5-6 episodes of loose stools each day for the last week, no abd pains, no fevers, no other GI illness in the household, no changes in meds/supplements.No blood in stool. In the ER, he was found to have severely low magnesium and mildly low potassium. Interrogation of his ICD was performed which did show he had two separate incidents of V-fib with 2 shocks fired. He will be admitted for further workup for VF and will consult Cardiology, replace mckay. Principal Diagnosis Ventricular fibrillation with 2 ICD discharges with return to sinus normal rhythm of atrial sensed ventricularly paced rhythm underlying history of A-fib Discharge Exam Patient awake and oriented does recall discomfort of discharge but has no current symptoms Card exam is regular lungs are clear Discharge Data Allergies Allergy/AdvReac Type Severity Reaction Status Date / Time ciprofloxacin [From Cipro] Allergy Rash-"only Verified 11/05/22 19:10 when given IV" potassium chloride AdvReac Intermediate Red/flused Verified 11/05/22 19:10 Consultations 11/05/22 17:34 ED Decision to Admit Stat 11/05/22 21:14 Consult Cardiology Routine Hospital Course (1) Ventricular fibrillation: Presented with 2 episodes of VF with appropriate ICD shocks, preceded only by presyncope/lightheadedness Also history of paroxysmal ventricular tachycardia Trop mildly elevated 61 54-51 patient with a known non ischemic cardiomyopathy EF 25 to 30% on last check typically taking Coreg Entresto and Bumex For chronic systolic heart failure the patient continues on sodium restricted diet and fluid restriction 1500 mL ECG here with paced rhythm, no STEMI or any ischemic changes noted -consult Cardiology Dr. Mratínez typically takes care of this patients after review of his ICD strips and discharges recommends increasing carvedilol to 12.5 twice daily for continuing sotalol at home doses -c actually start replete prior to discharge (2) Hypomagnesemia: severely low, not taking magnesium supplement at home had diarrhea this week-perhaps contributed patient states had diarrhea for some time patient did not have bowel movement to check stool PCR and C. difficile in the hospital this persist would recommend he do this as an outpatient Mag 1.1 on admission-given 4 grams total IV mag -continue eplerenone -Hypokalemia replace K+ with 40 meq po x 1 in addition to his usual KCl 20 meq po bid (3) Hypothyroidism: TSH mildly elevated, normal FT4 Recommend medication compliance this patient (4) Paroxysmal atrial fibrillation: having runs of this on last pacer interrogation as per Cardio notes-for almost 2 weeks continuously continue Coreg, sotalol, digoxin (dig level here acceptable) -he is supposedly on Eliquis but he does not quite recognize the name of this drug, external med rec shows no refill has been picked up in many months -restart Eliquis 5mg po bid for Afib (5) Diabetes mellitus type II, controlled: Resume home metformin (6) Sleep apnea: has the dx but does not use a deveice (7) Gout: was recently taken off allopurinol after enrolling in a 6 month study for some sort of long acting infusion of an anti gout drug that lowered his uric acid levels takes colchcine and prednisone prn but none lately needed since enrolling in that study last year Plan FULL CODE Total Time Total Time Spent Total Time Spent (In Minutes): It required greater than 30 minutes to prepare this patient for discharge Discharge Plan Discharge Items Patient Disposition: Home - Self-Care Reason For Visit: VIFB, ICD SHOCK Discharge Diagnosis: Ventricular fibrillation status post internal cardiac defibrillator discharge x2 Condition on Discharge: Fair Activity: Resume your previous activity Non-emergency contact: Ad Copy Writer Call non-emergency contact if: your symptoms worsen Follow-up/Referrals: Philip Martínez MD [Primary Care Provider] - Diet: Low Sodium (2gm) Addtl Attending Provider Instructions: Recommendations from cardiology were to be to increase her carvedilol to 12.5 twice a day. Please continue to take all your other cardiac medications including your blood thinner for your irregular heartbeat. Please have a follow-up with Dr. Martínez's office Unfortunately we are not able to complete your work-up for your frequent bowel movements prior to your discharge if this continues to be an issue please follow-up with your family doctor to discuss testing for your diarrhea. In the meantime be sure to keep hydrated especially with fluids containing electrolytes and magnesium Pending Studies at Discharge: No Stand-Alone Forms: My [facility] [employer], Smoking Cessation Medications and DC Order Prescriptions: Continued potassium chloride 20 mEq tablet extended release 20 meq PO BID Rx Instructions: may take an additional 1-2 if taking diuretics Entresto 24-26 mg tablet 1 tab PO BID Qty: 180 3RF metformin 500 mg tablet 500 mg PO BID Qty: 180 2RF sotalol 160 mg tablet 160 mg PO BID Qty: 60 5RF nzsxzuqcpz-ddxvofqqlspxm-jjgl 50-325-40 mg capsule 2 cap PO Q8H PRN (Reason: headaches) digoxin 125 mcg (0.125 mg) tablet 125 mcg PO QAM eplerenone 25 mg tablet 25 mg PO QAM multivitamin [Multiple Vitamins] Tablet 1 tab PO QAM colchicine 0.6 mg tablet 0.6 mg PO BID MDD 2 TABS PRN (Reason: GOUT FLARES) aspirin [Zuleyka Low Dose Aspirin] 81 mg Tablet,Delayed Release (Dr/Ec) 81 mg PO QAM bumetanide 1 mg tablet 1 mg PO QAM prednisone 10 mg tablet 40 mg PO DAILY PRN (Reason: only with gout flares) Changed carvedilol 12.5 mg tablet 12.5 mg PO BID Qty: 60 4RF Rx Instructions: must administer with a meal/food Discharge Orders: Discharge Order (Routine); Ordered 11/06/22 Ordered By: Vu Stacy Admission Data Admit Date/Time: 11/05/22 20:11 Attending Provider: Vu Stacy Admit Provider: Lorena Serrano Primary Care Provider: Philip Martínez Other Providers: Lorena Serrano ; Johnathan Ledesma Coding Level of Care Code 31812 INP/OBS DISCH >30 MIN Diagnoses Ventricular fibrillation I49.01 Hypomagnesemia E83.42 Hypothyroidism E03.9 Paroxysmal atrial fibrillation I48.0 Diabetes mellitus type II, controlled E11.9 Sleep apnea G47.30 Gout [id number] Gout site: multiple sites Gout etiology: idiopathic Chronicity: chronic Presence of tophus: without tophus
[2022-11-06] MEDS ORDERED: carvediloL 12.5 MG TAB PO SCH (21:00)
[2022-11-06] MEDS ORDERED: CHOLESTYRAMINE LIGHT 4 GM PKT PO SCH (22:00)
== END 2022-11-06 18:37 | disposition home or self-care (01) ==
LOC: ED 16:35 → SUATTDRO 20:11 → 2E 20:11 → INTOOBSV 20:11 → 2E 20:47